=== PATIENT | female | born 1945 | race Caucasian/White ===

== ENCOUNTER → 2016-07-08 | Outpatient (CLI) | payer BC, OTHER ==
[~2016-07-08] MED LIST: AMX250 PO; BUPR-79 PO; DILT240C74 PO; GLIM4TAB2 PO; LEVO75TA5 PO; SEVE800T7 PO; SIMV20TA5 PO; VTMD PO
[2016-07-08 13:41] LABS: THYROID STIMULATING HORMONE 4.94 uIu/ml (0.300-4.500)
== END | disposition home or self-care (01) ==
LOC: C.LABMFLN 07:56
PROVIDERS: ATTEND Internal Medicine Pulmonary Disease
DX: E03.9 Hypothyroidism, unspecified (principal)

== ENCOUNTER → 2016-08-07 | Outpatient (CLI) | payer OTHER, BC | END | disposition home or self-care (01) | LOC: C.LABMFLN 13:21 | PROVIDERS: ATTEND Internal Medicine | DX: E03.9 Hypothyroidism, unspecified (principal) ==

== ENCOUNTER → 2016-11-13 | Outpatient (CLI) | payer OTHER, BC ==
--- NOTE | 2016-11-13 11:14 | DIAGNOSTIC IMAGING REPORT ---
LEFT THIGH ULTRASONOGRAPHY CLINICAL HISTORY: [id number] Blunt trauma of left thigh left thigh pain COMPARISON STUDY: No previous studies for comparison. FINDINGS: There is increase echogenicity within the subcutaneous fat of the left lateral thigh the level of bruising. This is likely posttraumatic. No well-defined hematoma is visualized. IMPRESSION: 1. No evidence of a well-defined hematoma 2. Increased echogenicity within the subcutaneous fat of the left lateral thigh, likely secondary to "bruising". Electronically signed by: Deshaun Singh M.D. 11/13/2016 11:13 AM Dictated Date/Time: 11/13/2016 11:12 AM
[2016-11-13 12:17] LABS: HEMATOCRIT 32.2 % (37-47); MEAN CELL VOLUME 94.7 fL (80-100); MEAN CORPUSCULAR HEMOGLOBIN 31.5 pg (25-34); MEAN CORPUSCULAR HGB CONC 33.2 g/dl (32-36); MEAN PLATELET VOLUME 9.5 fL (7.4-10.4); PLATELET COUNT 256 K/uL (130-400); WHITE BLOOD COUNT 8.74 K/uL (4.8-10.8)
[2016-11-13 12:42] LABS: ESTIMATED AVERAGE GLUCOSE 140 mg/dl; HA1C FLAG Normal (Normal)
[2016-11-13 12:59] LABS: ALB/GLOB RATIO 0.9 (0.9-2); ALKALINE PHOSPHATASE 66 U/L (45-117); ALT/SGPT 22 U/L (12-78); AST/SGOT 13 U/L (15-37); BLOOD UREA NITROGEN 59 mg/dl (7-18); BUN/CREATININE RATIO 6.6 (10-20); CALCIUM 8.8 mg/dl (8.5-10.1); CARBON DIOXIDE 23 mmol/L (21-32); CHLORIDE 102 mmol/L (98-107); CHOLESTEROL 175 mg/dl (0-200); CHOLESTEROL/HDL RATIO 5.3; GLUCOSE 119 mg/dl (70-99); HDL CHOLESTEROL 33 mg/dl; LDL CHOLESTEROL CALCULATED 96 mg/dl; POTASSIUM 3.6 mmol/L (3.5-5.1); SODIUM 140 mmol/L (136-145); TRIGLYCERIDES 230 mg/dl (0-150); VERY LOW DENSITY LIPOPROT CALC 46 mg/dl
== END | disposition home or self-care (01) ==
LOC: C.ULTR 09:37
PROVIDERS: ATTEND Internal Medicine
DX: S79.822A Other specified injuries of left thigh, initial encounter (principal); X58.XXXA Exposure to other specified factors, initial encounter; E78.5 Hyperlipidemia, unspecified; E03.9 Hypothyroidism, unspecified; N18.4 Chronic kidney disease, stage 4 (severe); E11.22 Type 2 diabetes mellitus with diabetic chronic kidney disease

== ENCOUNTER → 2017-02-03 | Outpatient (CLI) | payer OTHER, BC ==
--- NOTE | 2017-02-03 18:31 | DIAGNOSTIC IMAGING REPORT ---
CHEST 2 VIEWS ROUTINE CLINICAL HISTORY: ABNORMAL MAMMOGRAPHY, ACUTE CYSTITIS, ACUTE RENAL FAILURE cough. Dyspnea. COMPARISON STUDY: 10/13/2015 FINDINGS: The bones soft tissues and hemidiaphragms are normal. The cardiomediastinal silhouette is normal. The lungs are clear. The pulmonary vasculature is normal. IMPRESSION: Negative chest. The above report was generated using voice recognition software. It may contain grammatical, syntax or spelling errors. Electronically signed by: River Mcpherson M.D. 02/03/2017 6:30 PM Dictated Date/Time: 02/03/2017 6:29 PM
== END | disposition home or self-care (01) ==
LOC: C.RAD 17:38
PROVIDERS: ATTEND Physician Assistant
DX: N17.9 Acute kidney failure, unspecified (principal); N30.00 Acute cystitis without hematuria; R05 Cough; R92.8 Other abnormal and inconclusive findings on diagnostic imaging of breast

== ENCOUNTER → 2017-07-13 | Outpatient (CLI) | payer OTHER, BC ==
--- NOTE | 2017-07-13 16:01 | DIAGNOSTIC IMAGING REPORT ---
SINUSES MIN 3 VIEWS ROUTINE CLINICAL HISTORY: COUGH dyspnea COMPARISON STUDY: None FINDINGS: Normal evaluation of the sinuses. No significant mucosal thickening. No air-fluid levels. No bony destructive process. IMPRESSION: Normal study The above report was generated using voice recognition software. It may contain grammatical, syntax or spelling errors. Electronically signed by: River Mcpherson M.D. 07/13/2017 4:00 PM Dictated Date/Time: 07/13/2017 3:59 PM
--- NOTE | 2017-07-13 16:01 | DIAGNOSTIC IMAGING REPORT ---
CHEST 2 VIEWS ROUTINE CLINICAL HISTORY: COUGH dyspnea COMPARISON STUDY: 02/03/2017 FINDINGS: The bones soft tissues and hemidiaphragms are normal. The cardiomediastinal silhouette is normal. The lungs are clear. The pulmonary vasculature is normal. IMPRESSION: Negative chest. The above report was generated using voice recognition software. It may contain grammatical, syntax or spelling errors. Electronically signed by: River Mcpherson M.D. 07/13/2017 3:59 PM Dictated Date/Time: 07/13/2017 3:59 PM
== END | disposition home or self-care (01) ==
LOC: C.RAD1850 15:41
PROVIDERS: ATTEND Physician Assistant
DX: R05 Cough (principal)

== ENCOUNTER → 2017-07-21 | Outpatient (CLI) | payer BC, OTHER ==
--- NOTE | 2017-07-21 09:23 | DIAGNOSTIC IMAGING REPORT ---
GI SERIES W/AIR ROUTINE CLINICAL HISTORY: 72 years-old Female with R05 [id number]. Chronic cough with vomiting TECHNIQUE: A standard air contrast upper GI series was performed following administration of barium and effervescent crystals. Multiple spot fluoroscopic images were obtained and provided for review. COMPARISON STUDY: CT abdomen and pelvis 03/12/2014 FLUOROSCOPY TIME: 2.7 minutes. FINDINGS: The patient swallowed barium without difficulty. No aspiration was definitively visualized. The esophagus distended normally with barium and effervescent crystals. No strictures, mucosal ulcerations, or intraluminal mass lesions were identified involving the esophagus. There was no significant gastroesophageal reflux. Barium was seen to flow freely through the gastroesophageal junction. No active reflux was demonstrated with Valsalva maneuver. Evaluation of the stomach demonstrates no gastric mucosal irregularity or filling defect. The duodenal bulb and sweep appear unremarkable. IMPRESSION: Unremarkable upper GI series without significant gastroesophageal reflux identified. The above report was generated using voice recognition software. It may contain grammatical, syntax or spelling errors. Electronically signed by: Lanre Rice M.D. 07/21/2017 9:21 AM Dictated Date/Time: 07/21/2017 9:19 AM
== END | disposition home or self-care (01) ==
LOC: C.RAD 08:20
PROVIDERS: ATTEND Physician Assistant
DX: R05 Cough (principal)

== ENCOUNTER → 2017-07-27 | Outpatient (CLI) | payer OTHER ==
--- NOTE | 2017-07-27 15:53 | DIAGNOSTIC IMAGING REPORT ---
NUCLEAR PULMONARY VENTILATION/PERFUSION SCAN CLINICAL HISTORY: Atypical chest pain. Cough. COMPARISON STUDY: Chest x-ray dated 07/13/2017. TECHNIQUE: Initially, ventilation images of both lungs are obtained following the inhalation of 33 mCi of aerosolized technetium 99m DTPA. Subsequently, perfusion images of both lungs were obtained following the IV administration of 5.44 mCi of technetium 99m MAA. Ventilation and perfusion images were acquired in the anterior, posterior, and oblique projections. FINDINGS: A chest x-ray performed 07/13/2017 shows cardiomegaly. The lungs are clear. The ventilation of both lungs is heterogeneous with clumping of tracer within the central airways. This suggests obstructive physiology. Inhaled tracer is seen in the stomach. No perfusion defects are identified on the perfusion imaging. IMPRESSION: Findings are considered low probability for pulmonary embolus. Electronically signed by: Romel Regan M.D. 07/27/2017 3:52 PM Dictated Date/Time: 07/27/2017 3:50 PM
--- NOTE | 2017-07-27 16:04 | DIAGNOSTIC IMAGING REPORT ---
CHEST 2 VIEWS ROUTINE CLINICAL HISTORY: R41.89 Cognitive impairment, NUCL MED FIRST COMPARISON STUDY: 07/13/2017 FINDINGS: The bones soft tissues and hemidiaphragms are normal. The cardiomediastinal silhouette is normal. The lungs are clear. The pulmonary vasculature is normal. IMPRESSION: Negative chest. The above report was generated using voice recognition software. It may contain grammatical, syntax or spelling errors. Electronically signed by: River Mcpherson M.D. 07/27/2017 4:03 PM Dictated Date/Time: 07/27/2017 4:02 PM
== END | disposition home or self-care (01) ==
LOC: C.NUCL 14:40
PROVIDERS: ATTEND Physician Assistant
DX: R05 Cough (principal); R07.9 Chest pain, unspecified; R41.89 Other symptoms and signs involving cognitive functions and awareness

== ENCOUNTER → 2017-07-28 | Outpatient (CLI) | payer OTHER ==
[2017-07-28 16:46] LABS: BASO % 0.6 %; BASO ABS # 0.04 K/uL (0-0.2); EOS ABS # 0.22 K/uL (0-0.5); HEMATOCRIT 33.2 % (37-47); IG# 0.02 K/uL (0.00-0.02); LYMPH % 25.8 %; LYMPH ABS # 1.87 K/uL (1.2-3.4); MEAN CELL VOLUME 97.1 fL (80-100); MEAN CORPUSCULAR HEMOGLOBIN 32.2 pg (25-34); MEAN CORPUSCULAR HGB CONC 33.1 g/dl (32-36); MEAN PLATELET VOLUME 9.3 fL (7.4-10.4); MONO % 5.1 %; MONO ABS # 0.37 K/uL (0.11-0.59); NEUT % 65.2 %; NEUT ABS # 4.72 K/uL (1.4-6.5); PLATELET COUNT 245 K/uL (130-400); RED CELL DISTRIBUTION WIDTH CV 15.7 % (11.5-14.5); RED CELL DISTRIBUTION WIDTH SD 55.4 fL (36.4-46.3); WHITE BLOOD COUNT 7.24 K/uL (4.8-10.8)
[2017-07-28 16:56] LABS: INR 0.9 (0.9-1.1); PTT PATIENT 24.3 SECONDS (21.0-31.0)
[2017-07-28 17:49] LABS: ALBUMIN 3.4 gm/dl (3.4-5.0); ALKALINE PHOSPHATASE 77 U/L (45-117); ALT/SGPT 24 U/L (12-78); AST/SGOT 16 U/L (15-37); BLOOD UREA NITROGEN 62 mg/dl (7-18); CALCIUM 9.5 mg/dl (8.5-10.1); CARBON DIOXIDE 25 mmol/L (21-32); GLUCOSE 85 mg/dl (70-99); POTASSIUM 3.7 mmol/L (3.5-5.1); SODIUM 138 mmol/L (136-145); TOTAL PROTEIN 7.5 gm/dl (6.4-8.2)
== END | disposition home or self-care (01) ==
LOC: C.LAB1850 15:29
PROVIDERS: ATTEND Physician Assistant
DX: R06.2 Wheezing (principal)

== ENCOUNTER → 2017-09-21 | Outpatient (CLI) | payer OTHER, BC ==
--- NOTE | 2017-09-21 14:38 | DIAGNOSTIC IMAGING REPORT ---
VIDEO SWALLOW STUDY CLINICAL HISTORY: Dysphagia. COMPARISON STUDY: No priors. Fluoroscopy time: 2.4 minutes. FINDINGS: Fluoroscopic guidance was provided to the Department of speech pathology in performing a video swallow study. The patient consumed barium-impregnated cracker with paste, pudding, nectar thick liquid, and thin barium while the swallowing mechanism was observed in real-time. No penetration or aspiration was seen with any of the sampled textures. Esophageal dysmotility was noted and reflux was observed. IMPRESSION: 1. No penetration or aspiration was seen with any of the sampled textures. 2. Esophageal dysmotility and gastroesophageal reflux. 3. See dedicated speech pathology report for detailed findings and recommendations. Dictated: 09/21/2017 1:11 PM Transcribed: 09/21/2017 2:37 PM [facility] Electronically signed by: Romel Regan M.D. 09/21/2017 2:45 PM Dictated Date/Time: 09/21/2017 1:11 PM
--- NOTE | 2017-09-21 15:13 | SWALLOWING EVALUATION ---
HISTORY: This 72 year old woman was referred for a video swallow study at [facility] in order to rule out aspiration and identify the safest consistencies for optimal oral intake. Patient is c/o a persistent ongoing cough and throat clear that occurs both during the day, but can worsen at night. She feels as though at time she will cough on her own saliva. She has participated in many CXR's, most recent being on 07/27/17, which was clear. The patient also participated in an upper GI on 07/21/17 that was unremarkable. PMH is significant for hyperkalemia, ESRD, and diabetes. Current diet is regular. PROCEDURE: The patient was seen in the Radiology Department of [facility] for the VFSS. Cursory examination of the oral cavity revealed the patient to have natural upper and lower dentition in fair condition with scattered missing. Movement of the articulators was wnl. The patient was seated upright on a stool and was viewed in both the Anterior-Posterior (A-P) and Lateral planes. Volitional phonation exercises completed in the A-P plane revealed bilateral vocal fold movement. Vocal intensity was wnl. The patient was noted to have ongoing dry cough and throat clearing prior to and throughout the assessment. Vocal quality was normal. In the lateral plane, the patient was given the following boluses: 1 tsp. thin liquid barium x 2, single swallow thin liquid barium self-presented from a cup, sequential swallows of thin liquid barium self-presented from a cup and straw, 1 tsp. nectar-thick liquid barium, single swallow nectar-thick liquid barium self-presented from a cup, 1 tsp. barium pudding, and 1 club cracker coated in barium pudding. The patient was then repositioned into the A-P plane and given the following boluses: 1 tsp. nectar thick barium and 1 tsp. barium pudding. RESULTS: Oral Stage: Lip closure was adequate. The patient was able to maintain a cohesive liquid bolus in the oral cavity during the liquid bolus hold task. Mastication was mildly slow. Lingual motion for bolus transport was also noted to be mildly slow. There was retention lining the tongue and palate after the initial swallow. The initiation of the pharyngeal swallow was delayed occurred when the bolus head reached the valleculae. Pharyngeal Stage: Soft palate elevation was complete. Laryngeal elevation revealed partial superior movement of the thyroid cartilage and partial approximation of the arytenoids to the epiglottic base. Anterior hyoid excursion was complete. Epiglottic deflection was complete. Laryngeal vestibular closure was complete. The pharyngeal stripping wave was present and complete. Pharyngeal contraction was complete. There was complete distention and duration of the opening to the pharyngoesophageal segment (PES). Tongue base retraction was partially reduced with a narrow column of contrast located between the tongue base and pharyngeal wall during the swallow. There was retention located in the valleculae after the swallow. There was no evidence of aspiration for this study. Mild vallecular retention cleared with a second swallow. Coughing and throat clearing noted during the study was not related to aspiration. Esophageal stage: There was evidence of mid to distal esophageal retention with retrograde flow below the PES. A liquid wash assisted to clear some of the retention but not fully. This is suggestive of esophageal dysmotility and reflux. SUMMARY/RECOMMENDATIONS: This patient presents with mild wai-pharyngeal dysphagia. She also has evidence of esophageal dysfunction. The following is recommended: 1. Regular diet, thin liquids. 2. Aspiration and GERD precautions. Straws OK. Fully upright for meals and for 30 minutes after meals. Do not lay flat, elevate head of the bed to at least 30 degrees at all time, to include while sleeping. 3. Safe swallow strategies: Alternate solids and liquids. 4. Consider follow up with an ENT due to persistent cough and throat clearing. A summary of the results and recommendations was discussed with the patient with verbal understanding. Thank you for referral of this patient. Please contact me at if any additional information is needed.
== END | disposition home or self-care (01) ==
LOC: C.RAD 11:03
PROVIDERS: ATTEND Physician Assistant
DX: R13.10 Dysphagia, unspecified (principal); K21.9 Gastro-esophageal reflux disease without esophagitis; K22.4 Dyskinesia of esophagus

== ENCOUNTER → 2017-10-08 | Outpatient (CLI) | payer OTHER, BC | END | disposition home or self-care (01) | LOC: C.LABSPEC 09:22 | PROVIDERS: ATTEND Physician Assistant | DX: R05 Cough (principal) ==

== ENCOUNTER 2018-01-02 09:56 | Emergency (ER) | payer OTHER, BC ==
[~2018-01-02] VITALS: Ht 157.5 cm; Wt 87.0 kg
[~2018-01-02 09:56] MED LIST changes: +ISR/30 PO; +MULT-650 PO; -VTMD PO; +lasix PO
[2018-01-02 10:01] VITALS: TEMP 36.6; Ht 157.5 cm; Wt 87.0 kg
[2018-01-02] MEDS ORDERED: IBUPROFEN 600 MG TAB PO STA (10:17)
[2018-01-02] MEDS ORDERED: HYDROCODONE/ACETAMIN 5/325MG TAB PO STA (10:17)
--- NOTE | 2018-01-02 10:21 | EMERGENCY ROOM VISIT NOTE ---
History Report prepared by Prieto: Eliane Thornton Under the Supervision of: Dr. Galina Batres M.D. First contact with patient: 10:08 Chief Complaint: KNEEPAIN Stated Complaint: PAIN IN RT KNEE History of Present Illness The patient is a 72 year old female who presents to the Emergency Room with complaints of right knee pain beginning 2 nights ago. She states that the pain is behind her right knee and that it woke her up from sleep 2 nights ago. The patient states that her pain does not radiate down her leg. She reports that her knee basically hurts all the time but states that walking exacerbates her pain. She states that last night she was able to sleep as she placed ice packs on her knee but states that it is still painful. The patient states that her family wanted to take her to the hospital yesterday but that she did not want to go as she thought that it would go away. She denies any injury to the area and states that she was not doing anything unusual the day before her pain started. She states that she has had back surgery before but reports that she has not seen an orthopedic doctor recently. She does report having lower back pain with movement. She denies having trouble with her bowels or bladder. The patient also reports a history of gout, kidney failure, and asthma. She states that she has peritoneal dialysis and states that she makes some urine. Source of History: patient Onset: 2 nights ago Position: knee (left) Quality: other (pain) Timing: constant Modifying Factors (Worsening): movement (walking) Modifying Factors (Relieving): ice Associated Symptoms: + back pain, No urinary symptoms Review of Systems See HPI for pertinent positives & negatives. A total of 10 systems reviewed and were otherwise negative. Past Medical & Surgical Medical Problems: (1) Asthma (2) Diabetes (3) Dialysis patient (4) ESRD on peritoneal dialysis (5) Gout (6) Kidney failure Family History Cancer Diabetes mellitus Heart disease Hypertension Social History Smoking Status: Never Smoker Marital Status: Occupation Status: employed Current/Historical Medications Scheduled Budesonide/Formoterol Fumarate (Symbicort 160/4.5 Inhaler ), 2 PUFFS INH BID Bupropion (Wellbutrin Sr), 150 MG PO QAM Diltiazem Hcl Extended Release (Diltiazem Hcl Er), 240 MG PO QAM Furosemide (Lasix), 40 MG PO DAILY Glimepiride (Glimepiride), 4 MG PO QAM Isosorbide Dinitrate (Isordil), 30 MG PO DAILY Isosorbide Mononitrate Ext Rel (Imdur Ext Rel), 60 MG PO QAM Levothyroxine Sodium (Levothyroxine Sodium), 150 MCG PO QAM Lorazepam (Ativan), 0.5 MG PO QID Montelukast Sodium (Singulair), 10 MG PO DAILY Multiple Vitamins W/ Minerals (Prorenal Qd), 1 CAP PO DAILY Ropinirole (Requip), 0.25 MG PO HS Sevelamer Carbonate (Renvela), 1,600 MG PO TIDM Sevelamer Carbonate (Renvela), 800 MG PO WITH SNACKS Simvastatin (Zocor), 20 MG PO QPM Scheduled PRN Hydrocodone/Acetaminophen 5MG/325MG ([place] 5MG/325MG), 1 TABLET PO Q6 PRN for Pain Allergies Coded Allergies: Nickel (Verified Allergy, Unknown, RASH, 12/06/17) Nitrofurantoin (Verified Allergy, Unknown, REDNESS AND BURNING OF HANDS, ) Physical Exam Vital Signs Date Time Temp Pulse Resp B/P (MAP) Pulse Ox O2 Delivery O2 Flow Rate FiO2 01/02/18 11:59 58 155/63 97 01/02/18 11:46 58 155/63 97 Room Air 01/02/18 10:01 36.6 78 20 /183 99 Room Air Physical Exam Vital signs reviewed. General: Well-appearing female, in no significant distress. HEENT: No scleral icterus, PERRLA, neck supple. Atraumatic. Cardiovascular: Regular rate and rhythm, no extra sounds. Pulmonary: Clear to auscultation bilaterally, normal work of breathing. Abdomen: Soft, nontender, nondistended, positive bowel sounds. Musculoskeletal: Atraumatic. Tenderness to the medial joint line to the right knee. No appreciable joint effusion. Minimal peripheral edema to the right leg. Pain with valgus stress. Neurologic: Patient awake alert and oriented x 3 Skin: Warm, dry, no rash Medical Decision & Procedures ER Provider Diagnostic Interpretation: Radiology results as stated below per my review and radiologist interpretation: R KNEE 1 OR 2 VIEWS ROUTINE CLINICAL HISTORY: Medial right knee pain. No injury. COMPARISON: None FINDINGS: Alignment of the right knee is anatomic. There is no fracture. Equivocal joint effusion is noted. This may be artifactual. Joint spaces are preserved. There is minimal osteophytosis within the medial and patellofemoral compartments. Extensive vascular calcification is noted. IMPRESSION: 1. No acute fracture. 2. Minimal osteoarthritis of the right knee. 3. Possible right knee joint effusion, likely artifactual. Electronically signed by: Kevin Thompson M.D. 01/02/2018 10:38 AM Dictated Date/Time: 01/02/2018 10:36 AM Medications Administered Medications (Trade) Dose Ordered Sig/Stuart Route Start Time Stop Time Status Last Admin Dose Admin Acetaminophen/ Hydrocodone Bitart ([place] 5/325 Tab) 1 tab NOW STAT PO 01/02/18 10:17 01/02/18 10:20 DC 01/02/18 10:28 1 TAB ED Course 1013: Past medical records reviewed. The patient was evaluated in room B4B. A complete history and physical examination was performed. 1120: I reevaluated the patient. 1146: I discussed findings with her. She verbalized agreement of the treatment plan. She was discharged home. Medical Decision Differential diagnosis: Etiologies such as fracture, dislocation, neurovascular compromise, compartment syndrome, soft tissue injury, as well as others were entertained. This patient was evaluated and appeared to be in no significant distress. Physical examination is consistent with a right medial knee pain. X-rays were repeated and revealed no significant acute abnormality. Patient was placed in a knee immobilizer and given a walker to reduce the weightbearing activity. Patient was given a [place] tablet in the emergency department. She was given a prescription for several pills. Patient will follow-up with orthopedic surgery. She has been referred to [place] [facility] for her back but " just did not make the appointment." She was encouraged to call our office this week to establish care. She may require further imaging. She was discharged to the care of her son and will return to the ED for worsening of symptoms or any medical concerns. Medication Reconcilliation Current Medication List: was personally reviewed by me Blood Pressure Screening Patient's blood pressure: Normal blood pressure Impression Primary Impression: Right medial knee pain Scribe Attestation The scribe's documentation has been prepared under my direction and personally reviewed by me in its entirety. I confirm that the note above accurately reflects all work, treatment, procedures, and medical decision making performed by me. Departure Information Dispostion Home / Self-Care Prescriptions Hydrocodone/Acetaminophen 5MG/325MG ([place] 5MG/325MG) Tab 1 TABLET PO Q6 Y for Pain, #14 TAB PRN PAIN Prov: Galina Batres M.D. 01/02/18 Referrals Carolina Vega M.D. (PCP) Spencer Funez M.D. Forms HOME CARE DOCUMENTATION FORM, IMPORTANT VISIT INFORMATION Patient Instructions My [facility] Additional Instructions Diagnosis: Right medial knee pain Please avoid ibuprofen due to your kidney disease. [place] 1 tablet every 6 hours as needed for severe pain. This does contain 325 mg of acetaminophen, please use caution when taking additional Tylenol. No more than 3000 mg in 1 day. Ice and elevate the knee. Wear the knee immobilizer when on your feet. Use the walker for assistance with ambulation. Follow-up with [facility] this week for reevaluation. Return to the ED for worsening of symptoms or any medical concerns.
--- NOTE | 2018-01-02 10:39 | DIAGNOSTIC IMAGING REPORT ---
R KNEE 1 OR 2 VIEWS ROUTINE CLINICAL HISTORY: Medial right knee pain. No injury. COMPARISON: None FINDINGS: Alignment of the right knee is anatomic. There is no fracture. Equivocal joint effusion is noted. This may be artifactual. Joint spaces are preserved. There is minimal osteophytosis within the medial and patellofemoral compartments. Extensive vascular calcification is noted. IMPRESSION: 1. No acute fracture. 2. Minimal osteoarthritis of the right knee. 3. Possible right knee joint effusion, likely artifactual. Electronically signed by: Kevin Thompson M.D. 01/02/2018 10:38 AM Dictated Date/Time: 01/02/2018 10:36 AM
[2018-01-02] MEDS ORDERED: ISOS60TA25 PO (11:08)
[2018-01-02] MEDS ORDERED: FRS/40 PO (11:08)
[2018-01-02] MEDS ORDERED: ROPI0.25 PO (11:08)
[2018-01-02] MEDS ORDERED: LORA-741 PO (11:08)
[2018-01-02] MEDS ORDERED: SYMIN160 INH (11:08)
[2018-01-02] MEDS ORDERED: MONT1TAB3 PO (11:08)
[2018-01-02] MEDS ORDERED: HYDR-5688 PO (11:47)
[2018-01-02 11:59] VITALS: BP 155/63; PULSE 58; O2SAT 97
== END 2018-01-02 12:01 | disposition home or self-care (01) ==
LOC: C.EDB 09:57
DX: M25.561 Pain in right knee (principal); J45.909 Unspecified asthma, uncomplicated; E11.9 Type 2 diabetes mellitus without complications; N18.6 End stage renal disease; Z99.2 Dependence on renal dialysis; N17.9 Acute kidney failure, unspecified; Z88.8 Allergy status to other drugs, medicaments and biological substances

== ENCOUNTER 2018-06-22 09:31 | Inpatient (IN) ==
[2018-06-22] MEDS ORDERED: ONDANSETRON INJ 2 MG/ML 2 ML VIAL IV STA ×2 (09:46→09:58)
[2018-06-22] MEDS ORDERED: SODIUM CHLORIDE 0.9% 1000ML 1,000 ML IV SCH (10:00)
[2018-06-22 10:38] LABS: Basophils # (auto) 0.01 K/uL (0-0.2); Basophils % (auto) 0.3 %; Hematocrit (blood only) 29.5 % (37-47); Hemoglobin 9.5 g/dL (12.0-16.0); Immature Granulocytes # (auto) 0.01 K/uL (0.00-0.02); Immature Granulocytes % (auto) 0.3 %; Lymphocytes # (auto) 0.66 K/uL (1.2-3.4); Lymphocytes % (auto) 17.8 %; Mean Corpuscular Hgb Conc 32.2 g/dL (32-36); Mean Corpuscular Volume 98.3 fL (80-100); Mean Platelet Volume 9.7 fL (7.4-10.4); Monocytes # (auto) 0.63 K/uL (0.11-0.59); Neutrophils # (auto) 2.39 K/uL (1.4-6.5); Neutrophils % (auto) 64.6 %; Platelet Count 207 K/uL (130-400); RDW Coefficient of Variation 15.7 % (11.5-14.5); RDW Standard Deviation 56.2 fL (36.4-46.3)
[2018-06-22 10:42] LABS: iSTAT Hemoglobin 9.2 g/dl (12.0-16.0); iSTAT Ionized Calcium 1.1 mmol/l (1.12-1.32)
[2018-06-22 11:05] LABS: Albumin Globulin Ratio 0.9 (0.9-2); Albumin Level 3.3 gm/dl (3.4-5.0); BUN Creatinine Ratio 5.6 (10-20); Bilirubin,Total 0.5 mg/dl (0.2-1); Calcium 8.9 mg/dl (8.5-10.1); Creatinine Clr Calc Pharmacy 5.4 ml/min; Est GFR (African American) 4.4; Est GFR (Non-African American) 3.8; Globulin 3.8 gm/dl (2.5-4.0); Potassium 4.3 mmol/L (3.5-5.1); Total Protein 7.1 gm/dl (6.4-8.2)
[2018-06-22] MEDS ORDERED: IOVERSOL 100ml IV PRN (11:09)
--- NOTE | 2018-06-22 11:40 | CT Scan Report ---
CT abd pelvis IV con only CLINICAL HISTORY: 73 years-old Female presenting with abd pain w/ vomiting and ams . TECHNIQUE: Multidetector CT of the abdomen and pelvis was performed after the administration of intra venous contrast. IV contrast: 94 mL of Optiray 320. One or more dose lowering techniques were used co nsistent with the principles of ALARA (as low as reasonably achievable), including automatic exposure control, mA or kV adjustment to individual patient size, and/or use of iterative reconstruction. COMPARISON: 01/25/2018. CT DOSE (mGy.cm): The estimated cumulative dose is 897.87 mGycm. FINDINGS: Project Associate topogram: Partially visualized dialysis catheter terminating in the superior cavoatrial junctio n. Lung bases: Minimal dependent changes likely atelectasis. Mild mosaic attenuation. Smooth interlobula r septal thickening most pronounced at the right lung base. Pulmonary arteries are mildly enlarged re lative to adjacent bronchi. Multichamber enlargement of the heart. Coronary artery and mitral annular calcification. Small right pleural effusion. No pericardial effusion. Liver: Normal morphology. No liver lesion. Patent hepatic vasculature. Periportal edema suggested. Biliary: No intrahepatic or extrahepatic biliary ductal dilatation. Normal gallbladder. Pancreas: Mild parenchymal atrophy. Spleen: Normal. Adrenal glands: Bilateral thickening of the adrenal glands, nonspecific and unchanged from prior. Kidneys and ureters: Numerous cysts noted throughout both kidneys. Interval development of mild bilat eral perinephric fat stranding, which is new from prior. There is also trace fluid at the inferior po le of the right kidney allowing for motion artifact. No hyperdense lesion is evident. Some of the cys ts demonstrate thin mural calcification in the left kidney (Bosniak 2). No convincing evidence of a s olid renal lesion. No nephrolithiasis or hydronephrosis. Ureters nondistended. Bladder: The configuration of the bladder suggests pelvic ligamentous laxity. Bladder otherwise ayleen l. Pelvic organs: Uterus surgically absent. Bowel: Pancolonic diverticulosis. Mild to moderate colonic wall thickening extending from the rectum proximally involving the sigmoid, transverse, and ascending colon. The descending colon is relatively spared. There is mild pericolonic infiltration along the proximal transverse colon. No bowel obstruc tion. The appendix is normal. Trace hiatal hernia. Peritoneal cavity: Small volume free fluid in the pelvis, which is simple appearing. No free intraper itoneal gas. The peritoneal dialysis catheter has been removed. Lymph nodes: Prominent lymph node in the portacaval region is nonspecific. No pathologically enlarged lymph nodes by CT size criteria. Vasculature: Atherosclerosis of the normal caliber abdominal aorta. IVC patent. Abdominal wall: Fat and fluid containing hernia in the ventral abdomen associated with a surgical inc ision site area and the peritoneal dialysis catheter is no longer in place. Musculoskeletal: Degenerative changes of the spine. IMPRESSION: 1. Interval development of perinephric fluid and inflammatory change. This may suggest superimposed pyelonephritis or be due to a manifestation of volume overload. Correlate with urinalysis. 2. Significant colonic wall thickening involving the rectum though largely sparing the cecum and asc ending colon. This is most consistent with an infectious proctocolitis. 3. Pancolonic diverticulosis. Focal pericolonic inflammatory change in the proximal transverse colon . It is difficult to exclude an acute uncomplicated diverticulitis in the region. 4. Interval removal of the peritoneal dialysis catheter. 5. Small volume free fluid in the pelvis nonspecific and may relate to volume overload. 6. Small right pleural effusion and evidence of volume overload/congestive change at the lung bases. No charleen pulmonary edema. 7. Polycystic kidneys. No solid renal mass. Electronically signed by: Armando Lorenzo M.D. 06/22/2018 11:39 AM
[2018-06-22] MEDS ORDERED: metroNIDAZOLE 500 MG/100 ML BAG IV STA (11:42)
[2018-06-22] MEDS ORDERED: PIPERACILL/TAZOBAC CONSULT ACTIVE PRN (11:42)
[2018-06-22] MEDS ORDERED: PIPERACILLIN/TAZOBACTAM 4.5 GM/120 ML BAG IV ONE (11:42)
[2018-06-22] MEDS ORDERED: LORazepam 1 MG/2 ML VIAL IV STA (12:10)
--- NOTE | 2018-06-22 12:27 | Emergency Department Note ---
Entered by Will Frost acting as a scribe for History of Present Illness General Chief complaint: Diarrhea Time Seen by Provider: 06/22/18 09:37 Source: patient Limitations: altered mental status History of Present Illness Provider complaint: Vomiting/Diarrhea Onset (ago): month(s) 1 Location: abdomen Pain Consistency: + other (persistent) Quality: + other (Vomiting, diarrhea ) Treatments prior to arrival: other (Antibiotics for C. Diff) This history is limited secondary to confusion in the patient. The patient is a 73 year old female who presents to the Emergency Room with complaints of persistent vomiting and diarrhea. It is difficult to obtain a sufficient timeline from the patient. Her son arrived at bedside who states that the patient's vomiting and diarrhea both began around [place] time, 1 month ago. He notes that the nausea and vomiting went on for about 9 days before she first came to the emergency department at the beginning of this month. She was treated with a bag of fluids and discharged home. The vomiting and diarrhea persisted and she checked back into the department a few days later. On this visit the patient was diagnosed with C. diff and started on Antibiotics. The son estimates that she finished the antibiotics about 1 week ago, and the symptoms returned shortly thereafter. He also adds that upon EMS arrival the patient's blood sugar was 27. The patient is a dialysis patient on the Wednesday, Wednesday, Wednesday schedule. She last received treatment yesterday. The patient does still produce her own urine, and denies any burning/other urinary symptoms. She has developed a new cough over the past couple of days. Home Medications Home Medications Medication Instructions Recorded Confirmed Type glimepiride 4 mg PO QAM #0 12/09/12 06/22/18 History simvastatin 20 mg PO HS #0 tab 10/13/15 06/22/18 History diltiazem HCl 240 mg PO QAM 04/26/18 06/22/18 History ferric citrate [Auryxia] 210 mg PO TID 04/26/18 06/22/18 History furosemide 80 mg PO BID 04/26/18 06/22/18 History isosorbide mononitrate 120 mg PO QAM 04/26/18 06/22/18 History lorazepam 0.25 - 0.5 mg PO BID PRN 04/26/18 06/22/18 History meloxicam 15 mg PO QAM 04/26/18 06/22/18 History montelukast 10 mg PO QAM 04/26/18 06/22/18 History mv,Pv-GO-[id number]-mlh-epa-fish 1 cap PO QAM 04/26/18 06/22/18 History [ProRenal QD] tiotropium bromide [Spiriva 2 puff INHALATION QAM 04/26/18 06/22/18 History Respimat] ondansetron HCl [Zofran] 4 mg PO DAILY #6 tab 05/31/18 06/22/18 Rx bupropion HCl 150 mg PO QAM 06/03/18 06/22/18 History levothyroxine [Synthroid] 175 mcg PO QAM #30 tab 06/03/18 06/22/18 Rx vancomycin 125 mg PO Q6H #40 cap 06/03/18 06/22/18 Rx Allergies Allergy/AdvReac Type Severity Reaction Status Date / Time nickel Allergy Unknown RASH Verified 06/22/18 11:23 nitrofurantoin Allergy Unknown REDNESS Verified 06/22/18 11:23 AND BURNING OF HANDS Past Med/Surg History Medical History Diabetes NIDDM Dialysis patient (Chronic) Kidney failure (Chronic) Gout Asthma AV fistula LUE; "MALFUNCTIONING"= REASON FOR PROCEDURE Anemia CHRONIC; BASELINE HGB 9'S PER CHART REVIEW Anxiety Degenerative disc disease ESRD on hemodialysis MWF Hearing deficit Hyperkalemia Hyperlipidemia Hypertension Hypothyroidism Kidney stones Obesity Osteoarthritis Polycystic kidney disease Restless leg syndrome Surgical History History of arteriovenous graft LUE AVF History of bronchoscopy History of colonoscopy History of hammer toe correction History of hysterectomy History of lumbar surgery History of surgery PERITONEAL DIALYSIS CATHETER PLACEMENT PERITONEAL DIALYSIS CATHETER REMOVAL/PERMACATH INSERTION= 01/27/18= MAC SEDATION AT [facility] History of total abdominal hysterectomy and bilateral salpingo-oophorectomy Family History Other No significant family history Social History Current Living Situation: Family Current Living Situation Comment: lives with sister Other Information That Helps Us Care for You: No Feels Safe at Home: Yes Safety Concerns: Feels Safe At This Time Smoking Status: Never smoker Second Hand Exposure: No Hx Alcohol Use: No Hx Substance Use: No Beliefs That Will Affect Care: None Preferred Language: Nepali Communication Ability: Effective Review of Systems See HPI for pertinent positives & negatives. and A total of 10 systems reviewed and were otherwise negative Physical Exam Vital Signs Vital Signs - 24 hr 06/22/18 09:36 06/22/18 09:41 06/22/18 09:46 Temperature 37.3 C Temperature Source Oral Sepsis Recent Fever Within 48 Hours No Sepsis Action Taken by Nursing No Action Required Pulse Rate 82 81 85 Pulse Rhythm [Right Finger] Regular Pulse Strength [Right Finger] Normal Respiratory Rate 24 17 22 Respiratory Effort / Characteristics Non-Labored Respiratory Depth Normal Respiratory Pattern Regular Blood Pressure 189/92 H 189/92 H Blood Pressure Mean 124 124 Blood Pressure Position Lying Blood Pressure Position [Right Arm] Sitting Pulse Oximetry 97 97 96 Oxygen Delivery Method Room Air 06/22/18 09:47 06/22/18 09:50 06/22/18 10:00 Temperature Temperature Source Sepsis Recent Fever Within 48 Hours Sepsis Action Taken by Nursing Pulse Rate 82 92 H Pulse Rhythm [Right Finger] Pulse Strength [Right Finger] Respiratory Rate 19 22 Respiratory Effort / Characteristics Respiratory Depth Respiratory Pattern Blood Pressure Blood Pressure Mean Blood Pressure Position Blood Pressure Position [Right Arm] Pulse Oximetry 97 98 96 Oxygen Delivery Method Room Air 06/22/18 10:10 06/22/18 10:20 06/22/18 10:30 Temperature Temperature Source Sepsis Recent Fever Within 48 Hours Sepsis Action Taken by Nursing Pulse Rate 84 78 80 Pulse Rhythm [Right Finger] Pulse Strength [Right Finger] Respiratory Rate 23 24 16 Respiratory Effort / Characteristics Respiratory Depth Respiratory Pattern Blood Pressure Blood Pressure Mean Blood Pressure Position Blood Pressure Position [Right Arm] Pulse Oximetry Oxygen Delivery Method 06/22/18 10:40 06/22/18 10:50 06/22/18 11:00 Temperature Temperature Source Sepsis Recent Fever Within 48 Hours Sepsis Action Taken by Nursing Pulse Rate 79 81 80 Pulse Rhythm [Right Finger] Pulse Strength [Right Finger] Respiratory Rate 22 19 18 Respiratory Effort / Characteristics Respiratory Depth Respiratory Pattern Blood Pressure Blood Pressure Mean Blood Pressure Position Blood Pressure Position [Right Arm] Pulse Oximetry Oxygen Delivery Method 06/22/18 11:39 06/22/18 11:40 06/22/18 11:48 Temperature Temperature Source Sepsis Recent Fever Within 48 Hours Sepsis Action Taken by Nursing Pulse Rate 88 86 Pulse Rhythm [Right Finger] Pulse Strength [Right Finger] Respiratory Rate 21 23 Respiratory Effort / Characteristics Respiratory Depth Respiratory Pattern Blood Pressure 194/83 H Blood Pressure Mean 120 Blood Pressure Position Blood Pressure Position [Right Arm] Pulse Oximetry 94 Oxygen Delivery Method Room Air 06/22/18 11:50 06/22/18 12:00 06/22/18 12:01 Temperature Temperature Source Sepsis Recent Fever Within 48 Hours Sepsis Action Taken by Nursing Pulse Rate 87 92 H 91 H Pulse Rhythm [Right Finger] Pulse Strength [Right Finger] Respiratory Rate 19 16 12 Respiratory Effort / Characteristics Respiratory Depth Respiratory Pattern Blood Pressure 192/89 H Blood Pressure Mean 123 Blood Pressure Position Blood Pressure Position [Right Arm] Pulse Oximetry Oxygen Delivery Method 06/22/18 12:10 06/22/18 12:20 06/22/18 12:30 Temperature Temperature Source Sepsis Recent Fever Within 48 Hours Sepsis Action Taken by Nursing Pulse Rate 90 83 81 Pulse Rhythm [Right Finger] Pulse Strength [Right Finger] Respiratory Rate 13 29 H 25 H Respiratory Effort / Characteristics Respiratory Depth Respiratory Pattern Blood Pressure Blood Pressure Mean Blood Pressure Position Blood Pressure Position [Right Arm] Pulse Oximetry Oxygen Delivery Method 06/22/18 12:31 06/22/18 12:40 06/22/18 12:50 Temperature Temperature Source Sepsis Recent Fever Within 48 Hours Sepsis Action Taken by Nursing Pulse Rate 82 80 80 Pulse Rhythm [Right Finger] Pulse Strength [Right Finger] Respiratory Rate 30 H 33 H 26 H Respiratory Effort / Characteristics Respiratory Depth Respiratory Pattern Blood Pressure 179/87 H Blood Pressure Mean 117 Blood Pressure Position Blood Pressure Position [Right Arm] Pulse Oximetry Oxygen Delivery Method 06/22/18 13:00 06/22/18 13:01 06/22/18 13:10 Temperature Temperature Source Sepsis Recent Fever Within 48 Hours Sepsis Action Taken by Nursing Pulse Rate 78 78 82 Pulse Rhythm [Right Finger] Pulse Strength [Right Finger] Respiratory Rate 25 H 28 H 23 Respiratory Effort / Characteristics Respiratory Depth Respiratory Pattern Blood Pressure 172/82 H Blood Pressure Mean 112 Blood Pressure Position Blood Pressure Position [Right Arm] Pulse Oximetry Oxygen Delivery Method 06/22/18 13:20 06/22/18 13:30 06/22/18 13:31 Temperature Temperature Source Sepsis Recent Fever Within 48 Hours Sepsis Action Taken by Nursing Pulse Rate 77 81 80 Pulse Rhythm [Right Finger] Pulse Strength [Right Finger] Respiratory Rate 30 H 20 25 H Respiratory Effort / Characteristics Respiratory Depth Respiratory Pattern Blood Pressure 175/69 H Blood Pressure Mean 104 Blood Pressure Position Blood Pressure Position [Right Arm] Pulse Oximetry Oxygen Delivery Method 06/22/18 13:40 06/22/18 13:50 06/22/18 14:00 Temperature Temperature Source Sepsis Recent Fever Within 48 Hours Sepsis Action Taken by Nursing Pulse Rate 81 86 82 Pulse Rhythm [Right Finger] Pulse Strength [Right Finger] Respiratory Rate 22 17 30 H Respiratory Effort / Characteristics Respiratory Depth Respiratory Pattern Blood Pressure Blood Pressure Mean Blood Pressure Position Blood Pressure Position [Right Arm] Pulse Oximetry Oxygen Delivery Method 06/22/18 14:01 06/22/18 14:10 06/22/18 14:20 Temperature Temperature Source Sepsis Recent Fever Within 48 Hours Sepsis Action Taken by Nursing Pulse Rate 82 82 87 Pulse Rhythm [Right Finger] Pulse Strength [Right Finger] Respiratory Rate 22 30 H 24 Respiratory Effort / Characteristics Respiratory Depth Respiratory Pattern Blood Pressure 191/84 H Blood Pressure Mean 119 Blood Pressure Position Blood Pressure Position [Right Arm] Pulse Oximetry Oxygen Delivery Method 06/22/18 14:32 Temperature Temperature Source Sepsis Recent Fever Within 48 Hours Sepsis Action Taken by Nursing Pulse Rate Pulse Rhythm [Right Finger] Pulse Strength [Right Finger] Respiratory Rate Respiratory Effort / Characteristics Respiratory Depth Respiratory Pattern Blood Pressure Blood Pressure Mean Blood Pressure Position Blood Pressure Position [Right Arm] Pulse Oximetry Oxygen Delivery Method Room Air GENERAL: Sitting up in bed, alert, Chronically ill appearing, disheveled, non- toxic EYE EXAM: normal conjunctiva. PERRL and EOM's intact. OROPHARYNX: no exudate, no erythema, lips, buccal mucosa, and tongue normal and mucous membranes are moist NECK: supple, no nuchal rigidity, no adenopathy, non-tender LUNGS: Diminished at bilateral bases. Normal chest wall mechanics HEART: no murmurs, S1 normal and S2 normal ABDOMEN: abdomen soft, diffusely tender, normo-active bowel, sounds, no masses, no rebound or guarding. BACK: Back is symmetrical on inspection and there is no deformity, no midline tenderness, no CVA tenderness. SKIN: no rashes and no bruising UPPER EXTREMITIES: upper extremities are grossly normal. There is a fistula in place in the left upper extremity, positive thrill. LOWER EXTREMITIES: No pitting edema. NEURO EXAM: Awake, alert, confused to events in history. Cranial nerves II-XII intact. No weakness of upper or lower extremities. No drift. Course ED COURSE: Vital signs were reviewed and showed hypertension The patients medical record was reviewed The above diagnostic studies were performed and reviewed. ED treatments and interventions as stated above. 0939: The patient was evaluated in room B8. A complete history and physical examination was performed. 1144: Upon reevaluation, the patient is resting in bed. I discussed my findings with the patient and she understands and agrees with the treatment plan. Based on the patients age, coexisting illnesses, exam and lab findings the decision to treat as an inpatient was made. The patient remained stable while under my care. The patient will be evaluated for further management. 1151: I reviewed the patient's case with Dr. Thad HERNANDEZ Hospitalist. He will evaluate the patient for further management. Consultations Consultation #1: 1151: I reviewed the patient's case with Dr. Thad HERNANDEZ Hospitalist. He will evaluate the patient for further management. Administered Medications Discontinued Medications Dextrose (Dextrose 50%) Confirm Administered Dose 50 ml IV .STK-MED ONE Stop: 06/22/18 15:07 Last Admin: 06/22/18 15:15 Dose: 50 ml Sodium Chloride (Nss 1000ml) 1,000 mls @ 999 mls/hr IV .Q1H1M VESTA Stop: 06/22/18 11:00 Last Infusion: 06/22/18 12:44 Dose: 0 mls/hr Admin: 06/22/18 10:04 Dose: 999 mls/hr Piperacillin Sod/Tazobactam Sod (Zosyn) 4.5 gm in 120 mls @ 240 mls/hr IV NOW ONE Stop: 06/22/18 12:11 Last Infusion: 06/22/18 12:44 Dose: 0 mls/hr Admin: 06/22/18 12:00 Dose: 240 mls/hr Metronidazole (Flagyl) 500 mg in 100 mls @ 100 mls/hr IV NOW STA Stop: 06/22/18 12:41 Last Infusion: 06/22/18 13:48 Dose: Admin: 06/22/18 13:25 Dose: 100 mls/hr Lorazepam (Ativan) 1 mg in 2 mls @ 2 mls/min IV NOW STA Stop: 06/22/18 12:11 Last Admin: 06/22/18 12:15 Dose: 2 mls/min Ioversol (Optiray 320 100ml) 94 ml IV ONCE PRN PRN Reason: Interaction Checking Stop: 06/26/18 11:08 Last Admin: 06/22/18 11:10 Dose: 94 ml Ondansetron HCl (Zofran) 4 mg IV NOW STA Stop: 06/22/18 09:47 Last Admin: 06/22/18 10:04 Dose: 4 mg Ondansetron HCl (Zofran) 4 mg IV NOW STA Stop: 06/22/18 09:59 Last Admin: 06/22/18 10:27 Dose: 4 mg Medical Decision Making Differential Diagnosis Differential diagnosis: Etiologies such as gastroenteritis, food borne illness, infections, appendicitis , diverticulitis, inflammatory bowel disease, obstruction, GI bleed, biliary pathology, cardiac process, intracranial process, as well as others were entertained. Medical Records Attestation: I reviewed the patient's medical records. Home Medications Current Medication List: was personally reviewed by me Laboratory Data Attestation: I reviewed the patient's lab results. Result diagrams: 06/22/18 10:17 06/22/18 10:17 Lab Results 06/22/18 06/22/18 06/22/18 Range/Units 09:41 10:17 10:17 WBC 3.70 L (4.8-10.8) K/uL RBC 3.00 L (4.2-5.4) M/uL Hgb 9.5 L (12.0-16.0) g/dL POC Hgb (12.0-16.0) g/dl Hct 29.5 L (37-47) % POC Hct (37-47) % MCV 98.3 (80-100) fL MCH 31.7 (25-34) pg MCHC 32.2 (32-36) g/dL RDW Std Deviation 56.2 H (36.4-46.3) fL RDW Coeff of Martin 15.7 H (11.5-14.5) % Plt Count 207 (130-400) K/uL MPV 9.7 (7.4-10.4) fL Immature Gran % (Auto) 0.3 % Neut % (Auto) 64.6 % Lymph % (Auto) 17.8 % [place] % (Auto) 17.0 % Eos % (Auto) 0.0 % Baso % (Auto) 0.3 % Immature Gran # (Auto) 0.01 (0.00-0.02) K/uL Neut # (Auto) 2.39 (1.4-6.5) K/uL Lymph # (Auto) 0.66 L (1.2-3.4) K/uL [place] # (Auto) 0.63 H (0.11-0.59) K/uL Eos # (Auto) 0.00 (0-0.5) K/uL Baso # (Auto) 0.01 (0-0.2) K/uL POC Sodium (135-144) mEq/L Sodium 137 (136-145) mmol/L POC Potassium (3.3-5.0) mEq/L Potassium 4.3 (3.5-5.1) mmol/L POC Chloride (101-112) mEq/L Chloride 103 (98-107) mmol/L Carbon Dioxide 25 (21-32) mmol/L POC Total CO2 (24-31) mEq/l Anion Gap 9.0 (3-11) POC Anion Gap (16-25) mmol/L POC BUN (7-18) mg/dl BUN 53 H (7-18) mg/dl Creatinine 9.32 H* (0.6-1.2) mg/dl POC Creatinine (0.6-1.3) mg/dl Est Cr Clr Drug Dosing 5.4 ml/min Est GFR ( Amer) 4.4 Est GFR (Non-Af Amer) 3.8 BUN/Creatinine Ratio 5.6 L (10-20) Glucose 78 (70-99) mg/dl POC Glucose 112 H (70-99) POC Glucose (other) (70-99) mg/dl Calcium 8.9 (8.5-10.1) mg/dl POC Ioniz Calcium Rasheed (1.12-1.32) mmol/l Total Bilirubin 0.5 (0.2-1) mg/dl AST 18 (15-37) U/L ALT 25 (12-78) U/L Alkaline Phosphatase 65 (45-117) U/L Troponin I (0-0.045) ng/ml Total Protein 7.1 (6.4-8.2) gm/dl Albumin 3.3 L (3.4-5.0) gm/dl Globulin 3.8 (2.5-4.0) gm/dl Albumin/Globulin Ratio 0.9 (0.9-2) Lipase 47 L (73-393) U/L 06/22/18 06/22/18 Range/Units 10:17 10:26 WBC (4.8-10.8) K/uL RBC (4.2-5.4) M/uL Hgb (12.0-16.0) g/dL POC Hgb 9.2 L (12.0-16.0) g/dl Hct (37-47) % POC Hct 27 L (37-47) % MCV (80-100) fL MCH (25-34) pg MCHC (32-36) g/dL RDW Std Deviation (36.4-46.3) fL RDW Coeff of Martin (11.5-14.5) % Plt Count (130-400) K/uL MPV (7.4-10.4) fL Immature Gran % (Auto) % Neut % (Auto) % Lymph % (Auto) % [place] % (Auto) % Eos % (Auto) % Baso % (Auto) % Immature Gran # (Auto) (0.00-0.02) K/uL Neut # (Auto) (1.4-6.5) K/uL Lymph # (Auto) (1.2-3.4) K/uL [place] # (Auto) (0.11-0.59) K/uL Eos # (Auto) (0-0.5) K/uL Baso # (Auto) (0-0.2) K/uL POC Sodium 139 (135-144) mEq/L Sodium (136-145) mmol/L POC Potassium 4.3 (3.3-5.0) mEq/L Potassium (3.5-5.1) mmol/L POC Chloride 101 (101-112) mEq/L Chloride (98-107) mmol/L Carbon Dioxide (21-32) mmol/L POC Total CO2 24 (24-31) mEq/l Anion Gap (3-11) POC Anion Gap 19.0 (16-25) mmol/L POC BUN 45 H (7-18) mg/dl BUN (7-18) mg/dl Creatinine (0.6-1.2) mg/dl POC Creatinine 9.7 H* (0.6-1.3) mg/dl Est Cr Clr Drug Dosing ml/min Est GFR ( Amer) Est GFR (Non-Af Amer) BUN/Creatinine Ratio (10-20) Glucose (70-99) mg/dl POC Glucose (70-99) POC Glucose (other) 77 (70-99) mg/dl Calcium (8.5-10.1) mg/dl POC Ioniz Calcium Rasheed 1.10 L (1.12-1.32) mmol/l Total Bilirubin (0.2-1) mg/dl AST (15-37) U/L ALT (12-78) U/L Alkaline Phosphatase (45-117) U/L Troponin I 0.212 H* (0-0.045) ng/ml Total Protein (6.4-8.2) gm/dl Albumin (3.4-5.0) gm/dl Globulin (2.5-4.0) gm/dl Albumin/Globulin Ratio (0.9-2) Lipase (73-393) U/L Imaging Data Attestation: I personally reviewed and interpreted this imaging study as follows : Radiologist's Impression: CT abd pelvis IV con only CLINICAL HISTORY: 73 years-old Female presenting with abd pain w/ vomiting and ams . TECHNIQUE: Multidetector CT of the abdomen and pelvis was performed after the administration of intravenous contrast. IV contrast: 94 mL of Optiray 320. One or more dose lowering techniques were used consistent with the principles of ALARA (as low as reasonably achievable), including automatic exposure control, mA or kV adjustment to individual patient size, and/or use of iterative reconstruction. COMPARISON: 01/25/2018. CT DOSE (mGy.cm): The estimated cumulative dose is 897.87 mGycm. FINDINGS: Structural Rigger topogram: Partially visualized dialysis catheter terminating in the superior cavoatrial junction. Lung bases: Minimal dependent changes likely atelectasis. Mild mosaic attenuation. Smooth interlobular septal thickening most pronounced at the right lung base. Pulmonary arteries are mildly enlarged relative to adjacent bronchi. Multichamber enlargement of the heart. Coronary artery and mitral annular calcification. Small right pleural effusion. No pericardial effusion. Liver: Normal morphology. No liver lesion. Patent hepatic vasculature. Periportal edema suggested. Biliary: No intrahepatic or extrahepatic biliary ductal dilatation. Normal gallbladder. Pancreas: Mild parenchymal atrophy. Spleen: Normal. Adrenal glands: Bilateral thickening of the adrenal glands, nonspecific and unchanged from prior. Kidneys and ureters: Numerous cysts noted throughout both kidneys. Interval development of mild bilateral perinephric fat stranding, which is new from prior. There is also trace fluid at the inferior pole of the right kidney allowing for motion artifact. No hyperdense lesion is evident. Some of the cysts demonstrate thin mural calcification in the left kidney (Bosniak 2). No convincing evidence of a solid renal lesion. No nephrolithiasis or hydronephrosis. Ureters nondistended. Bladder: The configuration of the bladder suggests pelvic ligamentous laxity. Bladder otherwise normal. Pelvic organs: Uterus surgically absent. Bowel: Pancolonic diverticulosis. Mild to moderate colonic wall thickening extending from the rectum proximally involving the sigmoid, transverse, and ascending colon. The descending colon is relatively spared. There is mild pericolonic infiltration along the proximal transverse colon. No bowel obstruction. The appendix is normal. Trace hiatal hernia. Peritoneal cavity: Small volume free fluid in the pelvis, which is simple appearing. No free intraperitoneal gas. The peritoneal dialysis catheter has been removed. Lymph nodes: Prominent lymph node in the portacaval region is nonspecific. No pathologically enlarged lymph nodes by CT size criteria. Vasculature: Atherosclerosis of the normal caliber abdominal aorta. IVC patent. Abdominal wall: Fat and fluid containing hernia in the ventral abdomen associated with a surgical incision site area and the peritoneal dialysis catheter is no longer in place. Musculoskeletal: Degenerative changes of the spine. IMPRESSION: 1. Interval development of perinephric fluid and inflammatory change. This may suggest superimposed pyelonephritis or be due to a manifestation of volume overload. Correlate with urinalysis. 2. Significant colonic wall thickening involving the rectum though largely sparing the cecum and ascending colon. This is most consistent with an infectious proctocolitis. 3. Pancolonic diverticulosis. Focal pericolonic inflammatory change in the proximal transverse colon. It is difficult to exclude an acute uncomplicated diverticulitis in the region. 4. Interval removal of the peritoneal dialysis catheter. 5. Small volume free fluid in the pelvis nonspecific and may relate to volume overload. 6. Small right pleural effusion and evidence of volume overload/congestive change at the lung bases. No charleen pulmonary edema. 7. Polycystic kidneys. No solid renal mass. Electronically signed by: Armando Lorenzo M.D. 06/22/2018 11:39 AM ECG Data Attestation: I personally reviewed and interpreted this ECG as follows: Indication: vomiting Rate (beats per minute): 80 Rhythm: sinus rhythm Findings: + other (normal axis, poor baseline in the anterior) and + prolonged QT Blood Pressure Blood Pressure Findings: Elevated blood pressure Blood Pressure Disposition: Referred to patients primary care provider JOVANY Rocha Patient is a 73-year-old female who presents the ER for confusion associated with hypoglycemia abdominal pain and recent C. difficile. She has been having vomiting and diarrhea for the past 3-4 days. She recently stopped her oral vancomycin. On exam she is extremely confused and unable to give a course of events. Labs were obtained and showed a mild leukopenia at 3.7. Hemoglobin was at 9.5. BMP shows a creatinine of 9.3. LFTs are unremarkable. Troponin was detectable at 0.2. She denies any chest pain. Creatinine was 9 I do favor that is the cause. Lipase was unremarkable. CT abdomen pelvis shows possible diverticulitis and questionable perinephric stranding with fluid for possible infection. Awaiting UA. Patient was covered with IV Zosyn, Flagyl and oral vancomycin. Patient and son were updated at bedside. Patient was discussed with the hospitalist will be admitted for further workup. EKG was unremarkable as well. Impression & Plan Altered mental status, Diverticulitis, C. difficile colitis Discharge Plan Visit Data Chief Complaint: Diarrhea ED Provider: Aman Vergara Discharge Problem: Altered mental status, Diverticulitis, C. difficile colitis Patient Disposition: Being Evaluated by Hospitalist Discharge Instructions Interventions: ED Discharge Assessment Last Done: 06/22/18 14:32 The scribe's documentation has been prepared under my direction and personally reviewed by me in its entirety. I confirm that the note above accurately reflects all work, treatment, procedures, and medical decision making performed by me.
--- NOTE | 2018-06-22 12:54 | History & Physical Report ---
Date of Service June 22, 2018 Assessment & Plan (1) Altered mental status: metabolic encephalopathy due to ESRD, dehydration, low glucose and ongoing C diff colitis continue to treat multiple underlying issues (2) C. difficile colitis: recurrent, never really recovered from the first bout per son, took 10 days of Vancomycin (prescribed on 06/04) finished Vancomycin about a week ago, felt better for a few days but now diarrhea back will treat with Dificid since this is recurrence however, will check stool for C diff toxin consult gastroenterology, Dr. Kennedy check CBC and BMP in the AM (3) Diverticulitis: possible mild, uncomplicated acute diverticulitis in transverse colon cover with Cipro and Flagyl for time being will ask opinion from Gastroenterology (4) Dehydration: patient has had diarrhea and vomiting clinically dry still makes some urine but recently less will give D5W 1/2nss at 80cc/hr for one bag nephrology consulted today is HD day but doubt she would need volume taken off based on exam (5) HTN (hypertension), benign: did not take medications this AM will order Diltiazem to be given now hold Imdur for now, don't want to push pressure too low if HD is planned and she is dry (6) Anemia in CKD (chronic kidney disease): Hb stable at 9.5 (7) ESRD on hemodialysis: consult [facility] nephrology will call them and discuss since today is a typical day for HD for her electrolytes stable, appears dry on exam has tunneled right HD catheter, skin appears normal left AV fistula, malfunctioning for some time (8) Elevated troponin: no chest pain, no significant changes on EKG likely elevated due to HTN and Cr of 9.3 (9) Hypoglycemia: not eating well for two days, vomited this morning hypoglycemic protocol in place D5W running over night required two 1/2 amps as well as some orange juice will give an additional 1/2 amp of D50 History of Present Illness Chief Complaint: I feel terrible Primary Care Provider: Cruz Ramos MD 73 yo female with history of polycystic kidney disease leading to ESRD, previously on peritoneal dialysis then transitioned to hemodialysis, presents to the ED today due to feeling ill with abdominal pain, diarrhea, vomiting. Recently the patient was diagnosed with C diff colitis, visit to the ED on . She was discharged on Vancomycin QID x 10 days, instructed to follow up with PCP. She initially responded well and felt better for a few days. However , over the past several days she has been having more diarrhea. She does not really complain of abdominal pain, certainly nothing severe. She says she will have some cramping pain when moving her bowels. She did not eat yesterday and then today when she tried to eat some breakfast she vomited, vomited her medications as well. No fever or chills. She has malaise and fatigue. She was acting really agitated and confused on initial presentation, trying to climb out of her bed, got Ativan IV and calmed down but she was confused. She also had a reported glucose in the 20's and required dextrose. Her sons are at the bedside and they help a lot with the history. The patient denies shirley chest pain or pressure, no dyspnea. She reports that today is a normal HD day for her but she was too ill to go to HD. She follows with Dr. Clemons. Labs showed a normal WBC, Hb stable at 9.5. Cr markedly elevated at 9.3 but electrolytes stable. Reviewed CT abdomen/pelvis which showed a colitis consistent with C diff infection. Also showed diverticular disease with possible acute diverticulitis in transverse colon. There was also some fluid and perinephric stranding around kidney but UA did not show signs of infection. Allergies Allergy/AdvReac Type Severity Reaction Status Date / Time nickel Allergy Unknown RASH Verified 06/22/18 11:23 nitrofurantoin Allergy Unknown REDNESS Verified 06/22/18 11:23 AND BURNING OF HANDS Home Medications Home Medications Medication Instructions Recorded Confirmed Type glimepiride 4 mg PO QAM #0 12/09/12 06/22/18 History simvastatin 20 mg PO HS #0 tab 10/13/15 06/22/18 History diltiazem HCl 240 mg PO QAM 04/26/18 06/22/18 History ferric citrate [Auryxia] 210 mg PO TID 04/26/18 06/22/18 History furosemide 80 mg PO BID 04/26/18 06/22/18 History isosorbide mononitrate 120 mg PO QAM 04/26/18 06/22/18 History lorazepam 0.25 - 0.5 mg PO BID PRN 04/26/18 06/22/18 History meloxicam 15 mg PO QAM 04/26/18 06/22/18 History montelukast 10 mg PO QAM 04/26/18 06/22/18 History mv,[id number]-epa-fish 1 cap PO QAM 04/26/18 06/22/18 History [ProRenal QD] tiotropium bromide [Spiriva 2 puff INHALATION QAM 04/26/18 06/22/18 History Respimat] ondansetron HCl [Zofran] 4 mg PO DAILY #6 tab 05/31/18 06/22/18 Rx bupropion HCl 150 mg PO QAM 06/03/18 06/22/18 History levothyroxine [Synthroid] 175 mcg PO QAM #30 tab 06/03/18 06/22/18 Rx vancomycin 125 mg PO Q6H #40 cap 06/03/18 06/22/18 Rx Past Med/Surg History Medical History Diabetes NIDDM Dialysis patient (Chronic) Kidney failure (Chronic) Gout Asthma AV fistula LUE; "MALFUNCTIONING"= REASON FOR PROCEDURE Anemia CHRONIC; BASELINE HGB 9'S PER CHART REVIEW Anxiety Degenerative disc disease ESRD on hemodialysis MWF Hearing deficit Hyperkalemia Hyperlipidemia Hypertension Hypothyroidism Kidney stones Obesity Osteoarthritis Polycystic kidney disease Restless leg syndrome Surgical History History of arteriovenous graft LUE AVF History of bronchoscopy History of colonoscopy History of hammer toe correction History of hysterectomy History of lumbar surgery History of surgery PERITONEAL DIALYSIS CATHETER PLACEMENT PERITONEAL DIALYSIS CATHETER REMOVAL/PERMACATH INSERTION= 01/27/18= MAC SEDATION AT [facility] History of total abdominal hysterectomy and bilateral salpingo-oophorectomy Family History Other DM (diabetes mellitus) No significant family history Social History Current Living Situation: Family Current Living Situation Comment: lives with sister Other Information That Helps Us Care for You: No Feels Safe at Home: Yes Safety Concerns: Feels Safe At This Time Smoking Status: Never smoker Second Hand Exposure: No Hx Alcohol Use: No Hx Substance Use: No Beliefs That Will Affect Care: None Preferred Language: Occitan Communication Ability: Effective Review of Systems All systems reviewed & are unremarkable except as noted in HPI & below Constitutional: + fatigue, + malaise and + weakness; no fever, no chills, no sweats and no body aches Gastrointestinal: + abdominal pain, + nausea, + vomiting and + diarrhea/loose stools; no blood in stools and no melena Physical Exam 2 Vital Signs (Past 24 Hours): Last Vital Signs Temp 37.3 C 06/22/18 09:46 Pulse 91 H 06/22/18 12:01 Resp 12 06/22/18 12:01 BP 192/89 H 06/22/18 12:01 Pulse Ox 94 06/22/18 11:40 Constitutional: WD/WN, vitals as above + ill appearing; no acute distress Eyes: PERRL, conjunctivae normal, anicteric sclerae ENMT: external ear and nose normal, oropharynx normal Neck: trachea midline, no thyromegaly Respiratory: normal respiratory effort, lungs clear to auscultation Cardiovascular: RRR, no murmur, no edema left UE fistula with thrill and bruit Gastrointestinal (Abdomen): Inspection/Auscultation: + abdomen distended and normal bowel sounds Percussion/Palpation: + abdomen tender (mild, diffuse) and abdomen soft; no guarding, abdomen not rigid and no hernia Musculoskeletal: no cyanosis or clubbing, extremities motor strength 5/5 Skin: no rashes, warm and dry Neurologic: patellar DTR's 2+ bilat, sensation intact and PERRL, EOMI, accommodation nl, no face palsy, no dysarthria Psychiatric: Orientation: oriented x 3; + not alert (sedated after Ativan) Lymphatic: no cervical or axillary lymphadenopathy Results & Data Laboratory Results Laboratory Results - last 24 hr 06/22/18 06/22/18 06/22/18 09:41 10:17 10:17 WBC 3.70 L RBC 3.00 L Hgb 9.5 L POC Hgb Hct 29.5 L POC Hct MCV 98.3 MCH 31.7 MCHC 32.2 RDW Std Deviation 56.2 H RDW Coeff of Martin 15.7 H Plt Count 207 MPV 9.7 Immature Gran % (Auto) 0.3 Neut % (Auto) 64.6 Lymph % (Auto) 17.8 [place] % (Auto) 17.0 Eos % (Auto) 0.0 Baso % (Auto) 0.3 Immature Gran # (Auto) 0.01 Neut # (Auto) 2.39 Lymph # (Auto) 0.66 L [place] # (Auto) 0.63 H Eos # (Auto) 0.00 Baso # (Auto) 0.01 POC Sodium Sodium 137 POC Potassium Potassium 4.3 POC Chloride Chloride 103 Carbon Dioxide 25 POC Total CO2 Anion Gap 9.0 POC Anion Gap POC BUN BUN 53 H Creatinine 9.32 H* POC Creatinine Est Cr Clr Drug Dosing 5.4 Est GFR ( Amer) 4.4 Est GFR (Non-Af Amer) 3.8 BUN/Creatinine Ratio 5.6 L Glucose 78 POC Glucose 112 H POC Glucose (other) Calcium 8.9 POC Ioniz Calcium Rasheed Total Bilirubin 0.5 AST 18 ALT 25 Alkaline Phosphatase 65 Troponin I Total Protein 7.1 Albumin 3.3 L Globulin 3.8 Albumin/Globulin Ratio 0.9 Lipase 47 L 06/22/18 06/22/18 06/22/18 10:17 10:26 15:05 WBC RBC Hgb POC Hgb 9.2 L Hct POC Hct 27 L MCV MCH MCHC RDW Std Deviation RDW Coeff of Martin Plt Count MPV Immature Gran % (Auto) Neut % (Auto) Lymph % (Auto) [place] % (Auto) Eos % (Auto) Baso % (Auto) Immature Gran # (Auto) Neut # (Auto) Lymph # (Auto) [place] # (Auto) Eos # (Auto) Baso # (Auto) POC Sodium 139 Sodium POC Potassium 4.3 Potassium POC Chloride 101 Chloride Carbon Dioxide POC Total CO2 24 Anion Gap POC Anion Gap 19.0 POC BUN 45 H BUN Creatinine POC Creatinine 9.7 H* Est Cr Clr Drug Dosing Est GFR ( Amer) Est GFR (Non-Af Amer) BUN/Creatinine Ratio Glucose POC Glucose 27 L* POC Glucose (other) 77 Calcium POC Ioniz Calcium Rasheed 1.10 L Total Bilirubin AST ALT Alkaline Phosphatase Troponin I 0.212 H* Total Protein Albumin Globulin Albumin/Globulin Ratio Lipase 06/22/18 06/22/18 06/22/18 15:08 15:28 16:35 WBC RBC Hgb POC Hgb Hct POC Hct MCV MCH MCHC RDW Std Deviation RDW Coeff of Martin Plt Count MPV Immature Gran % (Auto) Neut % (Auto) Lymph % (Auto) [place] % (Auto) Eos % (Auto) Baso % (Auto) Immature Gran # (Auto) Neut # (Auto) Lymph # (Auto) [place] # (Auto) Eos # (Auto) Baso # (Auto) POC Sodium Sodium POC Potassium Potassium POC Chloride Chloride Carbon Dioxide POC Total CO2 Anion Gap POC Anion Gap POC BUN BUN Creatinine POC Creatinine Est Cr Clr Drug Dosing Est GFR ( Amer) Est GFR (Non-Af Amer) BUN/Creatinine Ratio Glucose POC Glucose 27 L* 96 83 POC Glucose (other) Calcium POC Ioniz Calcium Rasheed Total Bilirubin AST ALT Alkaline Phosphatase Troponin I Total Protein Albumin Globulin Albumin/Globulin Ratio Lipase 06/22/18 06/22/18 06/22/18 17:31 17:32 17:50 WBC RBC Hgb POC Hgb Hct POC Hct MCV MCH MCHC RDW Std Deviation RDW Coeff of Martin Plt Count MPV Immature Gran % (Auto) Neut % (Auto) Lymph % (Auto) [place] % (Auto) Eos % (Auto) Baso % (Auto) Immature Gran # (Auto) Neut # (Auto) Lymph # (Auto) [place] # (Auto) Eos # (Auto) Baso # (Auto) POC Sodium Sodium POC Potassium Potassium POC Chloride Chloride Carbon Dioxide POC Total CO2 Anion Gap POC Anion Gap POC BUN BUN Creatinine POC Creatinine Est Cr Clr Drug Dosing Est GFR ( Amer) Est GFR (Non-Af Amer) BUN/Creatinine Ratio Glucose POC Glucose 68 L* 69 L* 58 L* POC Glucose (other) Calcium POC Ioniz Calcium Rasheed Total Bilirubin AST ALT Alkaline Phosphatase Troponin I Total Protein Albumin Globulin Albumin/Globulin Ratio Lipase 06/22/18 06/22/18 06/22/18 17:51 18:09 18:34 WBC RBC Hgb POC Hgb Hct POC Hct MCV MCH MCHC RDW Std Deviation RDW Coeff of Martin Plt Count MPV Immature Gran % (Auto) Neut % (Auto) Lymph % (Auto) [place] % (Auto) Eos % (Auto) Baso % (Auto) Immature Gran # (Auto) Neut # (Auto) Lymph # (Auto) [place] # (Auto) Eos # (Auto) Baso # (Auto) POC Sodium Sodium POC Potassium Potassium POC Chloride Chloride Carbon Dioxide POC Total CO2 Anion Gap POC Anion Gap POC BUN BUN Creatinine POC Creatinine Est Cr Clr Drug Dosing Est GFR ( Amer) Est GFR (Non-Af Amer) BUN/Creatinine Ratio Glucose POC Glucose 62 L* 103 H 126 H POC Glucose (other) Calcium POC Ioniz Calcium Rasheed Total Bilirubin AST ALT Alkaline Phosphatase Troponin I Total Protein Albumin Globulin Albumin/Globulin Ratio Lipase 06/22/18 06/22/18 06/22/18 20:59 21:03 21:26 WBC RBC Hgb POC Hgb Hct POC Hct MCV MCH MCHC RDW Std Deviation RDW Coeff of Martin Plt Count MPV Immature Gran % (Auto) Neut % (Auto) Lymph % (Auto) [place] % (Auto) Eos % (Auto) Baso % (Auto) Immature Gran # (Auto) Neut # (Auto) Lymph # (Auto) [place] # (Auto) Eos # (Auto) Baso # (Auto) POC Sodium Sodium POC Potassium Potassium POC Chloride Chloride Carbon Dioxide POC Total CO2 Anion Gap POC Anion Gap POC BUN BUN Creatinine POC Creatinine Est Cr Clr Drug Dosing Est GFR ( Amer) Est GFR (Non-Af Amer) BUN/Creatinine Ratio Glucose POC Glucose 69 L* 67 L* 115 H POC Glucose (other) Calcium POC Ioniz Calcium Rasheed Total Bilirubin AST ALT Alkaline Phosphatase Troponin I Total Protein Albumin Globulin Albumin/Globulin Ratio Lipase Diagnostic Findings CT abdomen/pelvis IMPRESSION: 1. Interval development of perinephric fluid and inflammatory change. This may suggest superimposed pyelonephritis or be due to a manifestation of volume overload. Correlate with urinalysis. 2. Significant colonic wall thickening involving the rectum though largely sparing the cecum and ascending colon. This is most consistent with an infectious proctocolitis. 3. Pancolonic diverticulosis. Focal pericolonic inflammatory change in the proximal transverse colon. It is difficult to exclude an acute uncomplicated diverticulitis in the region. 4. Interval removal of the peritoneal dialysis catheter. 5. Small volume free fluid in the pelvis nonspecific and may relate to volume overload. 6. Small right pleural effusion and evidence of volume overload/congestive change at the lung bases. No charleen pulmonary edema. 7. Polycystic kidneys. No solid renal mass. Medications Administered Current Inpatient Medications Acetaminophen (Tylenol) 650 mg PO Q4H PRN PRN Reason: pain/fever Stop: 07/22/18 15:15 Last Admin: 06/22/18 19:43 Dose: 650 mg Bupropion HCl (Wellbutrin-Sr) 150 mg PO QAM VESTA Stop: 07/23/18 08:59 Dextrose (Dextrose 50%) 25 - 50 ml IV UD PRN; Protocol PRN Reason: Hypoglycemia Protocol Stop: 07/22/18 17:36 Last Admin: 06/22/18 21:09 Dose: 25 ml Diltiazem HCl (Tiazac) 240 mg PO DAILY VESTA Stop: 07/23/18 08:59 Last Admin: 06/22/18 16:38 Dose: 240 mg Fidaxomicin (Dificid) 200 mg PO BID VESTA Stop: 07/02/18 15:59 Last Admin: 06/22/18 20:45 Dose: 200 mg Glucagon (Glucagen) 1 mg IM UD PRN; Protocol PRN Reason: Hypoglycemia Protocol Stop: 07/22/18 17:36 Glucose (Glucose 40%) 15 - 30 gm PO UD PRN; Protocol PRN Reason: Hypoglycemia Protocol Stop: 07/22/18 17:36 Glucose (Dex4 Glucose) 4 - 8 tabs PO UD PRN; Protocol PRN Reason: Hypoglycemia Protocol Stop: 07/22/18 17:36 Heparin Sodium (Porcine) (Heparin Sodium (Porcine)) 5,000 units SQ Q12 VESTA Stop: 07/22/18 20:59 Last Admin: 06/22/18 20:46 Dose: 5,000 units Dextrose/Sodium Chloride (D5w And 1/2nss) 1,000 mls @ 80 mls/hr IV .[id number] [facility] Stop: 06/23/18 03:45 Last Admin: 06/22/18 15:55 Dose: 80 mls/hr Ciprofloxacin Lactate (Cipro / D5w) 200 mg in 100 mls @ 100 mls/hr IV Q12 VESTA Stop: 07/03/18 08:59 Metronidazole (Flagyl) 500 mg in 100 mls @ 100 mls/hr IV Q8H [facility] Stop: 07/02/18 22:59 Lorazepam (Ativan) 0.25 mg PO BID PRN PRN Reason: Anxiety Stop: 07/22/18 15:15 Miscellaneous (Carbohydrates For Hypoglycemia) 15 - 30 gm PO UD PRN PRN Reason: Hypoglycemia Treatment Stop: 07/22/18 17:36 Last Admin: 06/22/18 17:35 Dose: 15 gm Ondansetron HCl (Zofran) 4 mg IV Q6H PRN PRN Reason: Nausea Stop: 07/22/18 15:15 Tiotropium [place] (Spiriva) 1 puffs INH DAILY VESTA Stop: 07/23/18 08:59 Code Status & VTE Plan Code Status full code VTE Prophylaxis Plan VTE Prophylaxis will be ordered: Yes _ (1) Altered mental status Altered mental status type: unspecified Coma depth: Coma timing: Qualified Code(s): R41.82 - Altered mental status, unspecified
[2018-06-22] MEDS ORDERED: DEXTROSE 50% 50 ML SYRINGE IV ONE ×2 (15:06→19:04)
[2018-06-22] MEDS ORDERED: D5W AND 1/2NSS 1,000 ML IV SCH (15:16)
--- NOTE | 2018-06-22 15:41 | Nephrology Consultation ---
Date of Consultation June 22, 2018 Assessment & Plan (1) ESRD on hemodialysis: -- Patient currently appears to be volume contracted. Electrolyte balance is acceptable. No acute indication for HD today. Will reassess in am. (2) C. difficile colitis: -- Agree w/ starting Dificid therapy. No dose adjustment needed in the setting of ESRD (3) Dehydration: -- Patient is clinically volume contrated. Agree w/ gentle hydration using dextrose solution (4) Diabetes: -- MS changes due to hypoglycemia -- Recommend stopping Glypizide and managing DM w/ insulin History of Present Illness Reason for Consultation: ESRD on HD Attending Physician: Cesar Oneil, DO History of Present Illness Mrs. Caicedo is a 73 year old white female who is seen at the request of Dr. Oneil to provide dialysis throughout hospitalization and assist w/ medical management. Medical records in the hospital EMR were reviewed and are summarized as follows: Mrs. Caicedo has ESRD due to diabetic nephropathy and microvascular disease. She had been on NCCPD therapy since 2013. Her course on dialysis has been complex. Her first dialysis catheter was inadvertantly cut while sewing. Her second catheter functioned poorly. CT peritoneogram revealed a subcutaneous leak from her catheter that tracked from the tunnel along her right flank. She had a new catheter inserted but has had difficulty with recurrent hyperkalemia. In 02/08 Mrs. Caicedo developed progressive azotemia and recurrent nausea & emesis requiring transition to IHD. Patient has been dialyzing via a R IJ HD catheter. She receives dialysis qMWF at [facility]. Mrs. Caicedo reports that she developed Clostridium Difficile colitis earlier this month. She completed a 10 day course of oral Vancomycin but has again developed recurrent diarrhea. She was brought to the ED this morning w/ hypoglycemia, dehydration and mental status changes. PMH: ESRD, AODM, HTN, Obesity, Hypercholesterolemia, Anemia, Hypothyroidism, Recurrent E. Coli UTI, H/o struvite kidney stones Allergies Allergy/AdvReac Type Severity Reaction Status Date / Time nickel Allergy Unknown RASH Verified 06/22/18 11:23 nitrofurantoin Allergy Unknown REDNESS Verified 06/22/18 11:23 AND BURNING OF HANDS Home Medications Home Medications Medication Instructions Recorded Confirmed Type glimepiride 4 mg PO QAM #0 12/09/12 06/22/18 History simvastatin 20 mg PO HS #0 tab 10/13/15 06/22/18 History diltiazem HCl 240 mg PO QAM 04/26/18 06/22/18 History ferric citrate [Auryxia] 210 mg PO TID 04/26/18 06/22/18 History furosemide 80 mg PO BID 04/26/18 06/22/18 History isosorbide mononitrate 120 mg PO QAM 04/26/18 06/22/18 History lorazepam 0.25 - 0.5 mg PO BID PRN 04/26/18 06/22/18 History meloxicam 15 mg PO QAM 04/26/18 06/22/18 History montelukast 10 mg PO QAM 04/26/18 06/22/18 History mv,[id number]-epa-fish 1 cap PO QAM 04/26/18 06/22/18 History [ProRenal QD] tiotropium bromide [Spiriva 2 puff INHALATION QAM 04/26/18 06/22/18 History Respimat] ondansetron HCl [Zofran] 4 mg PO DAILY #6 tab 05/31/18 06/22/18 Rx bupropion HCl 150 mg PO QAM 06/03/18 06/22/18 History levothyroxine [Synthroid] 175 mcg PO QAM #30 tab 06/03/18 06/22/18 Rx vancomycin 125 mg PO Q6H #40 cap 06/03/18 06/22/18 Rx Patient History Medical History Diabetes NIDDM Dialysis patient (Chronic) Kidney failure (Chronic) Gout Asthma AV fistula LUE; "MALFUNCTIONING"= REASON FOR PROCEDURE Anemia CHRONIC; BASELINE HGB 9'S PER CHART REVIEW Anxiety Degenerative disc disease ESRD on hemodialysis MWF Hearing deficit Hyperkalemia Hyperlipidemia Hypertension Hypothyroidism Kidney stones Obesity Osteoarthritis Polycystic kidney disease Restless leg syndrome Surgical History History of arteriovenous graft LUE AVF History of bronchoscopy History of colonoscopy History of hammer toe correction History of hysterectomy History of lumbar surgery History of surgery PERITONEAL DIALYSIS CATHETER PLACEMENT PERITONEAL DIALYSIS CATHETER REMOVAL/PERMACATH INSERTION= 01/27/18= MAC SEDATION AT [facility] History of total abdominal hysterectomy and bilateral salpingo-oophorectomy Family History Other No significant family history Social History Current Living Situation: Family Current Living Situation Comment: lives with sister Other Information That Helps Us Care for You: No Feels Safe at Home: Yes Safety Concerns: Feels Safe At This Time Smoking Status: Never smoker Second Hand Exposure: No Hx Alcohol Use: No Hx Substance Use: No Beliefs That Will Affect Care: None Preferred Language: Polish Communication Ability: Effective Review of Systems Constitutional: no fever Respiratory: no dyspnea Cardiovascular: no chest pain Gastrointestinal: + diarrhea/loose stools; no abdominal pain Physical Exam 2 Vital Signs (Past 24 Hours): Last Vital Signs Temp 37.3 C 06/22/18 09:46 Pulse 87 06/22/18 14:20 Resp 24 06/22/18 14:20 BP 191/84 H 06/22/18 14:01 Pulse Ox 94 06/22/18 11:40 Eyes: PERRL, conjunctivae normal, anicteric sclerae Neck: trachea midline, no thyromegaly R IJ THC w/ clean, dry dressing in place Respiratory: normal respiratory effort, lungs clear to auscultation Cardiovascular: RRR, no murmur, no edema Gastrointestinal (Abdomen): Inspection/Auscultation: + hyperactive bowel sounds Percussion/Palpation: abdomen soft; abdomen nontender Skin: + turgor decreased Results & Data Laboratory Results Laboratory Tests 06/03/18 06/22/18 06/22/18 11:15 10:17 10:26 WBC 3.70 L Hgb 9.5 L Plt Count 207 POC Sodium 139 POC Potassium 4.3 POC Chloride 101 POC Total CO2 24 POC BUN 45 H POC Creatinine 9.7 H* Stl C. diff Tox B Gene Pos C.diff Toxin B A* _ (1) Diabetes Diabetes mellitus type: type 2 Diabetes mellitus penitentiary insulin use: without dedicated intermodal truck driver use Diabetes mellitus complication status: with hypoglycemia Diabetes mellitus complication detail: without coma Diabetic retinopathy severity: Proliferative retinopathy type: Diabetes mellitus macular edema: Laterality: Chronic kidney disease stage: Qualified Code(s): E11.649 - Type 2 diabetes mellitus with hypoglycemia without coma
[2018-06-22] MEDS: FIDAXOMICIN 200 MG TAB PO SCH ×2 (16:37→20:45)
[2018-06-22] MEDS: dilTIAZem ER 120 MG CAPCR PO SCH (16:38)
[2018-06-22] MEDS ORDERED: CARBOHYDRATES FOR HYPOGLYCEMIA PO PRN (17:37)
[2018-06-22] MEDS ORDERED: GLUCOSE 40% GEL 15 GM TUBE PO PRN (17:37)
[2018-06-22] MEDS ORDERED: GLUCOSE 10 TABS/TUBE PO PRN (17:37)
[2018-06-22] MEDS ORDERED: GLUCAGON FOR INJ 1 MG VIAL IM PRN (17:37)
[2018-06-22] MEDS: DEXTROSE 50% 50 ML SYRINGE IV PRN ×3 (17:55→21:09)
[2018-06-22] MEDS ORDERED: Nursing to Pharmacy Communication ONE (18:36)
[2018-06-22] MEDS: ACETAMINOPHEN 325 MG TAB PO PRN (19:43)
[2018-06-22] MEDS: HEPARIN SOD 5,000 UNIT/0.5 ML VIAL SQ SCH (20:46)
[2018-06-22] MEDS: metroNIDAZOLE 500 MG/100 ML BAG IV SCH (23:31)
[2018-06-22] MEDS: CIPROFLOXACIN / D5W 200 MG/100 ML BAG IV SCH (23:34)
[2018-06-22] MEDS: ONDANSETRON INJ 2 MG/ML 2 ML VIAL IV PRN (23:47)
[2018-06-23] MEDS ORDERED: COUGH DROP (SUGAR FREE) LOZ 24 LOZ/1 BOX BUCCAL PRN (01:17)
[2018-06-23] MEDS ORDERED: COUGH DROP (SUGAR FREE) LOZ 24 LOZ/1 BOX BUCCAL ONE (01:21)
[2018-06-23 04:12] LABS: Cdiff Antigen Positive
[2018-06-23 04:13] LABS: Cdiff Toxin A+B Positive (Negative)
[2018-06-23] MEDS: metroNIDAZOLE 500 MG/100 ML BAG IV SCH ×2 (06:35→14:16)
[2018-06-23 07:59] LABS: Hemoglobin 8.4 g/dL (12.0-16.0); Mean Corpuscular Hgb Conc 32.3 g/dL (32-36); Mean Corpuscular Volume 98.5 fL (80-100); Mean Platelet Volume 9.9 fL (7.4-10.4); Platelet Count 195 K/uL (130-400); RDW Coefficient of Variation 15.9 % (11.5-14.5); RDW Standard Deviation 56.8 fL (36.4-46.3); Red Blood Count 2.64 M/uL (4.2-5.4); White Blood Count 4.16 K/uL (4.8-10.8)
[2018-06-23 08:28] LABS: Basophils # (auto) 0.01 K/uL (0-0.2); Basophils % (auto) 0.2 %; Eosinophils # (auto) 0.02 K/uL (0-0.5); Eosinophils % (auto) 0.5 %; Immature Granulocytes # (auto) 0.02 K/uL (0.00-0.02); Immature Granulocytes % (auto) 0.5 %; Lymphocytes # (auto) 0.87 K/uL (1.2-3.4); Lymphocytes % (auto) 20.9 %; Monocytes # (auto) 0.59 K/uL (0.11-0.59); Monocytes % (auto) 14.2 %; Neutrophils # (auto) 2.65 K/uL (1.4-6.5); Neutrophils % (auto) 63.7 %; Toxic Vacuolation 1+
[2018-06-23] MEDS: ONDANSETRON INJ 2 MG/ML 2 ML VIAL IV PRN (08:31)
[2018-06-23] MEDS: BuPROPion SR 150 MG TABCR PO SCH (08:33)
[2018-06-23] MEDS: HEPARIN SOD 5,000 UNIT/0.5 ML VIAL SQ SCH ×3 (08:33→20:25)
[2018-06-23] MEDS: ACETAMINOPHEN 325 MG TAB PO PRN (08:33)
[2018-06-23] MEDS: FIDAXOMICIN 200 MG TAB PO SCH ×2 (08:34→20:25)
[2018-06-23] MEDS: TIOTROPIUM BROMIDE 5 PUFF/90 MCG INH INH SCH (08:34)
[2018-06-23 08:43] LABS: BUN Creatinine Ratio 5.8 (10-20); Bilirubin Direct 0.1 mg/dl (0-0.2); Bilirubin,Total 0.4 mg/dl (0.2-1); Calcium 8.6 mg/dl (8.5-10.1); Creatinine Clr Calc Pharmacy 4.8 ml/min; Est GFR (African American) 3.8; Est GFR (Non-African American) 3.3; Magnesium 2.7 mg/dl (1.8-2.4); Potassium 4.3 mmol/L (3.5-5.1); Total Protein 6.5 gm/dl (6.4-8.2)
--- NOTE | 2018-06-23 09:42 | Nephrology Progress Note ---
Date of Service June 23, 2018 Assessment & Plan (1) ESRD on hemodialysis: -- Patient remains clinically volume contracted. Electrolyte balance is acceptable. No acute indication for HD today. Will reassess in am. (2) C. difficile colitis: -- Continue Dificid therapy. No dose adjustment needed in the setting of ESRD (3) Dehydration: -- Patient is clinically volume contrated. Agree w/ genle hydration IV (4) Diabetes: -- MS changes due to hypoglycemia have resolved -- Recommend stopping Glipizide and managing DM w/ insulin Subjective Mrs. Caicedo was seen & examined in her hospital room this morning. She c/o severe watery diarrhea and abdominal discomfort. She denies fever or dyspnea. Constitutional: no fever Respiratory: no dyspnea Cardiovascular: no chest pain Gastrointestinal: + abdominal pain and + diarrhea/loose stools Physical Exam 2 Vital Signs (Past 24 Hours): Last Vital Signs Temp 36.9 C 06/23/18 09:30 Pulse 75 06/23/18 07:00 Resp 20 06/23/18 07:00 BP 150/72 H 06/23/18 07:00 Pulse Ox 95 06/23/18 07:00 Eyes: PERRL, conjunctivae normal, anicteric sclerae Neck: trachea midline, no thyromegaly Respiratory: normal respiratory effort, lungs clear to auscultation Cardiovascular: RRR, no murmur, no edema Gastrointestinal (Abdomen): Inspection/Auscultation: + hyperactive bowel sounds Percussion/Palpation: abdomen nontender, no guarding and abdomen not rigid Skin: + turgor decreased Results & Data Laboratory Results Laboratory Tests 06/23/18 06/23/18 07:38 07:38 WBC 4.16 L Hgb 8.4 L Hct 26.0 L Plt Count 195 Sodium 134 L Potassium 4.3 Chloride 100 Carbon Dioxide 20 L BUN 60 H Creatinine 10.40 H* D Glucose 75 _ (1) Diabetes Diabetes mellitus type: type 2 Diabetes mellitus [facility] insulin use: without perfumer use Diabetes mellitus complication status: with hypoglycemia Diabetes mellitus complication detail: without coma Diabetic retinopathy severity: Proliferative retinopathy type: Diabetes mellitus macular edema: Laterality: Chronic kidney disease stage: Qualified Code(s): E11.649 - Type 2 diabetes mellitus with hypoglycemia without coma
[2018-06-23 09:52] LABS: Hepatitis B Surface Antibody Immune
[2018-06-23] MEDS: METOPROLOL TARTRATE 25 MG TAB PO SCH ×2 (09:53→20:25)
[2018-06-23] MEDS: dilTIAZem ER 120 MG CAPCR PO SCH (09:53)
[2018-06-23 10:03] LABS: Hepatitis B Surface Antigen Neg (Neg)
[2018-06-23] MEDS: SODIUM CHLORIDE 0.9% 1000ML 1,000 ML IV SCH ×2 (10:49→23:18)
[2018-06-23] MEDS ORDERED: Nursing to Pharmacy Communication ONE (10:56)
[2018-06-23] MEDS ORDERED: MoRPHine SULFATE 4 MG/ML 1 ML CARP\\VIAL IV PRN (10:57)
[2018-06-23] MEDS: CIPROFLOXACIN / D5W 200 MG/100 ML BAG IV SCH (12:45)
[2018-06-23] MEDS: LORazepam 0.5 MG TAB PO PRN (14:23)
--- NOTE | 2018-06-23 16:14 | Consultation Report ---
DATE OF CONSULTATION: 06/23/2018 GI CONSULT NOTE REASON FOR EVALUATION: Recurrent C. diff colitis. HISTORY OF PRESENT ILLNESS: The patient is a 73-year-old with end-stage renal disease on hemodialysis who was scheduled for evaluation for renal transplant at [facility] in 2 weeks. She was discovered to have a C. diff colitis on June 04 and received a 10-day course of vancomycin 4 times a day. During that time, her symptoms improved, but shortly after stopping the medication, she had recurrent diarrhea, abdominal pain, and altered mental status, requiring hospitalization. She is currently on IV fluid replacement. CT scan was performed which showed thickening of the colon and diverticulosis. She was started on IV Cipro and Flagyl for possible diverticulitis and started on p.o. Dificid 200 mg twice a day for 10 days. PAST MEDICAL HISTORY: Remarkable for end-stage renal disease, diabetes. She has an AV fistula for hemodialysis. She has hypothyroidism. She has had kidney stones. She has polycystic kidney disease, restless leg syndrome. She has had a hysterectomy, lumbar surgery. She had peritoneal dialysis catheters placed and then subsequently removed. MEDICATIONS: Per list. ALLERGIES: NICKEL AND NITROFURANTOIN. FAMILY HISTORY: Positive for diabetes. SOCIAL HISTORY: The patient lives with her sister. She does not use alcohol and does not smoke cigarettes. REVIEW OF SYSTEMS: Positive for fatigue, abdominal pain, diarrhea, nausea, weakness. Remainder is negative. PHYSICAL EXAMINATION: GENERAL: The patient is overweight, in no acute distress. VITAL SIGNS: Blood pressure is 192/89, pulse 91, temperature is 37.3, respirations 12. ABDOMEN: Shows a midline scar, right-sided abdominal scars from peritoneal dialysis catheters. There is generalized tenderness to light palpation throughout the abdomen. Bowel sounds are hypoactive at this time. IMPRESSION AND PLAN: The patient has recurrent C. diff colitis. She relapsed after a single course of vancomycin. I do not believe that she has acute diverticulitis and I think we can stop her Cipro and Flagyl, which I have done. I think this may actually prolong her course. I think Dificid is a good choice at this point, I would continue for 10-day course. If she does not improve or relapses again, then she will need to have a fecal transplant. Sites to do this in the region are [facility] and [facility] in [place]. We will follow the patient during her stay.
--- NOTE | 2018-06-23 17:26 | Hospitalist Progress Note ---
Date of Service June 23, 2018 Assessment & Plan (1) Altered mental status: (2) C. difficile colitis: (3) Diverticulitis: (4) Dehydration: (5) HTN (hypertension), benign: (6) Anemia in CKD (chronic kidney disease): (7) ESRD on hemodialysis: (8) Elevated troponin: (9) Hypoglycemia: 73 yo female with history of polycystic kidney disease leading to ESRD, previously on peritoneal dialysis then transitioned to hemodialysis, beaded on June 22, 2018 with C. difficile diarrhea, associated with feeling ill with abdominal pain, diarrhea, vomiting. Altered mental status upon admission, likely metabolic encephalopathy ,secondary to multiple factors such as: ESRD, dehydration, hypoglycemia and ongoing C diff colitis, resolved, C. difficile colitis: GI input appreciated, recurrent after 10 days of Vancomycin (prescribed on 06/04) treatment as outpatient finished Vancomycin about a week ago, felt better for a few days but now diarrhea back Continue Dificid since this is recurrence, GI input appreciated, fecal transplantation if needed Diverticulitis: Possible no diverticulitis per GI, has discontinued Cipro and Flagyl Hypoglycemic episodes and dehydration: Continue gentle IV fluid,, half NS as if needed End-stage renal disease on dialysis, nephrology input appreciated HTN, Anemia in CKD, continue current care Minimal elevated troponin which likely from troponin leakage, patient has no chest pain GI DVT prophylaxis is covered, Subjective Mild fever, still having diffuse diarrhea, patient is generalized weak, uncomfortable, mild abdominal pain, has several nauseated and vomiting, required Zofran Review of Systems Constitutional: Positive weakness, or fatigue Respiratory: Occasional cough, no sputum, wheezing, or dyspnea on exertion Cardiac: No chest pain, No orthopnea, No PND, No claudication, No palpitations , Abdomen: See HPI, also report dark black stool however stool Hemoccult negative Musculoskeletal: No joint pain, No muscle pain, No swelling, No calf pain, No problem reported : No dysuria, No urinary frequency, No incontinence, No hematuria Neurologic: No paralysis, No weakness, No numbness/tingling, No vertigo, No balance problems Psychiatric: No depression symptoms, No anhedonism, No anxiety, No insomnia, No substance abuse Heme: No abnormal bleeding/bruising, No clotting problems, No swollen lymph nodes, No night sweats Skin: No rash, No itch, No new/changing skin lesions, No color change, No bleeding Physical Exam 2 Vital Signs (Past 24 Hours): Last Vital Signs Temp 36.7 C 06/23/18 14:55 Pulse 57 L 06/23/18 14:55 Resp 20 06/23/18 14:55 BP 149/67 H 06/23/18 14:55 Pulse Ox 96 06/23/18 14:55 Physical Exam: General Appearance: Looks tired, fatigued, WD/WN, no apparent distress, Eyes: normal inspection, PERRL, EOMI, sclerae normal ENT: normal ENT inspection, hearing grossly normal, pharynx normal Neck: supple, no adenopathy, thyroid normal, no JVD, no carotid bruits, trachea midline Respiratory/Chest: chest non-tender, normal breath sounds, no respiratory distress, no accessory muscle use, breath sounds, rales, wheezing Cardiovascular: regular rate, rhythm, no JVD, no murmur Abdomen: Mild diffuse abdominal pain, active bowel sounds, , soft, no organomegaly, Extremities: normal range of motion, non-tender, normal inspection, no pedal edema, no calf tenderness, normal capillary refill , pelvis stable, joint has no limited range of motion, capillary refill is normal, no cyanosis clubbing Neurologic/Psychiatric: manager gyn II-XII nml as tested, no motor/sensory deficits, alert, normal mood/affect, oriented x 3 Skin: normal color, warm/dry, no rash Lymphatic: no adenopathy Results & Data Laboratory Results Laboratory Results - last 24 hr 06/22/18 06/22/18 06/22/18 17:31 17:32 17:50 WBC RBC Hgb Hct MCV MCH MCHC RDW Std Deviation RDW Coeff of Martin Plt Count MPV Immature Gran % (Auto) Neut % (Auto) Lymph % (Auto) Pine % (Auto) Eos % (Auto) Baso % (Auto) Immature Gran # (Auto) Neut # (Auto) Lymph # (Auto) Pine # (Auto) Eos # (Auto) Baso # (Auto) Toxic Vacuolation Sodium Potassium Chloride Carbon Dioxide Anion Gap BUN Creatinine Est Cr Clr Drug Dosing Est GFR ( Amer) Est GFR (Non-Af Amer) BUN/Creatinine Ratio Glucose POC Glucose 68 L* 69 L* 58 L* Calcium Magnesium Total Bilirubin Direct Bilirubin AST ALT Alkaline Phosphatase Total Protein Albumin Stool Occult Bld Scrn Stl C. diff Tox B Gene Stl C.difficile Tox A&B Hep Bs Antigen Hep Bs Antibody Hep Bs Antibody, Quant 06/22/18 06/22/18 06/22/18 17:51 18:09 18:34 WBC RBC Hgb Hct MCV MCH MCHC RDW Std Deviation RDW Coeff of Martin Plt Count MPV Immature Gran % (Auto) Neut % (Auto) Lymph % (Auto) Pine % (Auto) Eos % (Auto) Baso % (Auto) Immature Gran # (Auto) Neut # (Auto) Lymph # (Auto) Pine # (Auto) Eos # (Auto) Baso # (Auto) Toxic Vacuolation Sodium Potassium Chloride Carbon Dioxide Anion Gap BUN Creatinine Est Cr Clr Drug Dosing Est GFR ( Amer) Est GFR (Non-Af Amer) BUN/Creatinine Ratio Glucose POC Glucose 62 L* 103 H 126 H Calcium Magnesium Total Bilirubin Direct Bilirubin AST ALT Alkaline Phosphatase Total Protein Albumin Stool Occult Bld Scrn Stl C. diff Tox B Gene Stl C.difficile Tox A&B Hep Bs Antigen Hep Bs Antibody Hep Bs Antibody, Quant 06/22/18 06/22/18 06/22/18 20:59 21:03 21:26 WBC RBC Hgb Hct MCV MCH MCHC RDW Std Deviation RDW Coeff of Martin Plt Count MPV Immature Gran % (Auto) Neut % (Auto) Lymph % (Auto) Pine % (Auto) Eos % (Auto) Baso % (Auto) Immature Gran # (Auto) Neut # (Auto) Lymph # (Auto) Pine # (Auto) Eos # (Auto) Baso # (Auto) Toxic Vacuolation Sodium Potassium Chloride Carbon Dioxide Anion Gap BUN Creatinine Est Cr Clr Drug Dosing Est GFR ( Amer) Est GFR (Non-Af Amer) BUN/Creatinine Ratio Glucose POC Glucose 69 L* 67 L* 115 H Calcium Magnesium Total Bilirubin Direct Bilirubin AST ALT Alkaline Phosphatase Total Protein Albumin Stool Occult Bld Scrn Stl C. diff Tox B Gene Stl C.difficile Tox A&B Hep Bs Antigen Hep Bs Antibody Hep Bs Antibody, Quant 06/23/18 06/23/18 06/23/18 01:06 01:35 04:52 WBC RBC Hgb Hct MCV MCH MCHC RDW Std Deviation RDW Coeff of Martin Plt Count MPV Immature Gran % (Auto) Neut % (Auto) Lymph % (Auto) Pine % (Auto) Eos % (Auto) Baso % (Auto) Immature Gran # (Auto) Neut # (Auto) Lymph # (Auto) Pine # (Auto) Eos # (Auto) Baso # (Auto) Toxic Vacuolation Sodium Potassium Chloride Carbon Dioxide Anion Gap BUN Creatinine Est Cr Clr Drug Dosing Est GFR ( Amer) Est GFR (Non-Af Amer) BUN/Creatinine Ratio Glucose POC Glucose 87 78 Calcium Magnesium Total Bilirubin Direct Bilirubin AST ALT Alkaline Phosphatase Total Protein Albumin Stool Occult Bld Scrn Stl C. diff Tox B Gene Pos C.diff Toxin B A* Stl C.difficile Tox A&B Positive A* Hep Bs Antigen Hep Bs Antibody Hep Bs Antibody, Quant 06/23/18 06/23/18 06/23/18 06:37 07:38 07:38 WBC 4.16 L RBC 2.64 L Hgb 8.4 L Hct 26.0 L MCV 98.5 MCH 31.8 MCHC 32.3 RDW Std Deviation 56.8 H RDW Coeff of Martin 15.9 H Plt Count 195 MPV 9.9 Immature Gran % (Auto) 0.5 Neut % (Auto) 63.7 Lymph % (Auto) 20.9 Pine % (Auto) 14.2 Eos % (Auto) 0.5 Baso % (Auto) 0.2 Immature Gran # (Auto) 0.02 Neut # (Auto) 2.65 Lymph # (Auto) 0.87 L Pine # (Auto) 0.59 Eos # (Auto) 0.02 Baso # (Auto) 0.01 Toxic Vacuolation 1+ Sodium 134 L Potassium 4.3 Chloride 100 Carbon Dioxide 20 L Anion Gap 13.0 H BUN 60 H Creatinine 10.40 H* D Est Cr Clr Drug Dosing 4.8 Est GFR ( Amer) 3.8 Est GFR (Non-Af Amer) 3.3 BUN/Creatinine Ratio 5.8 L Glucose 75 POC Glucose 87 Calcium 8.6 Magnesium 2.7 H Total Bilirubin 0.4 Direct Bilirubin 0.1 AST 14 L ALT 21 Alkaline Phosphatase 54 Total Protein 6.5 Albumin 3.0 L Stool Occult Bld Scrn Stl C. diff Tox B Gene Stl C.difficile Tox A&B Hep Bs Antigen Hep Bs Antibody Hep Bs Antibody, Quant 06/23/18 06/23/18 06/23/18 07:46 07:55 10:25 WBC RBC Hgb Hct MCV MCH MCHC RDW Std Deviation RDW Coeff of Martin Plt Count MPV Immature Gran % (Auto) Neut % (Auto) Lymph % (Auto) Pine % (Auto) Eos % (Auto) Baso % (Auto) Immature Gran # (Auto) Neut # (Auto) Lymph # (Auto) Pine # (Auto) Eos # (Auto) Baso # (Auto) Toxic Vacuolation Sodium Potassium Chloride Carbon Dioxide Anion Gap BUN Creatinine Est Cr Clr Drug Dosing Est GFR ( Amer) Est GFR (Non-Af Amer) BUN/Creatinine Ratio Glucose POC Glucose 88 Calcium Magnesium Total Bilirubin Direct Bilirubin AST ALT Alkaline Phosphatase Total Protein Albumin Stool Occult Bld Scrn Negative Stl C. diff Tox B Gene Stl C.difficile Tox A&B Hep Bs Antigen Neg Hep Bs Antibody Immune Hep Bs Antibody, Quant 47.16 06/23/18 06/23/18 06/23/18 10:46 11:43 16:42 WBC RBC Hgb Hct MCV MCH MCHC RDW Std Deviation RDW Coeff of Martin Plt Count MPV Immature Gran % (Auto) Neut % (Auto) Lymph % (Auto) Pine % (Auto) Eos % (Auto) Baso % (Auto) Immature Gran # (Auto) Neut # (Auto) Lymph # (Auto) Pine # (Auto) Eos # (Auto) Baso # (Auto) Toxic Vacuolation Sodium Potassium Chloride Carbon Dioxide Anion Gap BUN Creatinine Est Cr Clr Drug Dosing Est GFR ( Amer) Est GFR (Non-Af Amer) BUN/Creatinine Ratio Glucose POC Glucose 118 H 117 H 141 H Calcium Magnesium Total Bilirubin Direct Bilirubin AST ALT Alkaline Phosphatase Total Protein Albumin Stool Occult Bld Scrn Stl C. diff Tox B Gene Stl C.difficile Tox A&B Hep Bs Antigen Hep Bs Antibody Hep Bs Antibody, Quant _ (1) Altered mental status Altered mental status type: unspecified Coma depth: Coma timing: Qualified Code(s): R41.82 - Altered mental status, unspecified
[2018-06-24] MEDS: LORazepam 0.5 MG TAB PO PRN (01:19)
[2018-06-24 07:06] LABS: Hematocrit (blood only) 25.1 % (37-47); Hemoglobin 8.3 g/dL (12.0-16.0); Mean Corpuscular Hgb Conc 33.1 g/dL (32-36); Mean Corpuscular Volume 97.7 fL (80-100); Mean Platelet Volume 10.3 fL (7.4-10.4); Platelet Count 207 K/uL (130-400); RDW Standard Deviation 57.1 fL (36.4-46.3); Red Blood Count 2.57 M/uL (4.2-5.4); White Blood Count 4.97 K/uL (4.8-10.8)
[2018-06-24 07:47] LABS: BUN Creatinine Ratio 5.7 (10-20); Calcium 8.5 mg/dl (8.5-10.1); Creatinine Clr Calc Pharmacy 4.5 ml/min; Est GFR (African American) 3.6; Est GFR (Non-African American) 3.1; Potassium 4.3 mmol/L (3.5-5.1)
[2018-06-24] MEDS: METOPROLOL TARTRATE 25 MG TAB PO SCH ×2 (09:29→21:33)
[2018-06-24] MEDS: BuPROPion SR 150 MG TABCR PO SCH (09:29)
[2018-06-24] MEDS: HEPARIN SOD 5,000 UNIT/0.5 ML VIAL SQ SCH ×2 (09:29→21:33)
[2018-06-24] MEDS: TIOTROPIUM BROMIDE 5 PUFF/90 MCG INH INH SCH (09:30)
[2018-06-24] MEDS: dilTIAZem ER 120 MG CAPCR PO SCH (09:30)
[2018-06-24] MEDS: FIDAXOMICIN 200 MG TAB PO SCH ×2 (09:35→21:33)
--- NOTE | 2018-06-24 09:54 | Nephrology Progress Note ---
Date of Service June 24, 2018 Assessment & Plan (1) ESRD on hemodialysis: -- Patient remains clinically volume contracted. Electrolyte balance is acceptable. Patient continues to have severe diarrhea. Will hold HD today. Will schedule HD for 06/25/18 am. (2) C. difficile colitis: -- Continue Dificid therapy. No dose adjustment needed in the setting of ESRD (3) Dehydration: -- Recommend stop IVF and encourage oral hydration (4) Diabetes: -- MS changes due to hypoglycemia have resolved -- Recommend stopping Glipizide and managing DM w/ insulin Subjective Mrs. Caicedo was seen & examined in her hospital room this morning. Abdominal pain is improved but she continues to experience severe diarrhea. Mrs. Caicedo denies fever or dyspnea. Gastrointestinal: + abdominal pain and + diarrhea/loose stools Physical Exam 2 Vital Signs (Past 24 Hours): Last Vital Signs Temp 36.8 C 06/24/18 07:58 Pulse 59 L 06/24/18 07:58 Resp 18 06/24/18 07:58 BP 155/74 H 06/24/18 07:58 Pulse Ox 97 06/24/18 07:58 Eyes: PERRL, conjunctivae normal, anicteric sclerae Neck: trachea midline, no thyromegaly Respiratory: normal respiratory effort, lungs clear to auscultation Cardiovascular: RRR, no murmur, no edema Gastrointestinal (Abdomen): Inspection/Auscultation: + hyperactive bowel sounds Percussion/Palpation: abdomen nontender, no guarding and abdomen not rigid Skin: + turgor decreased Results & Data Laboratory Results Laboratory Tests 06/24/18 06/24/18 06:35 06:41 WBC 4.97 Hgb 8.3 L Hct 25.1 L Plt Count 207 Sodium 133 L Potassium 4.3 Chloride 103 Carbon Dioxide 19 L BUN 63 H Creatinine 11.00 H* D _ (1) Diabetes Diabetes mellitus type: type 2 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
--- NOTE | 2018-06-24 12:42 | Progress Note ---
DATE: 06/24/2018 SUBJECTIVE: The patient continues to have loose stools today, but her abdominal pain is less. The patient has been off Cipro and Flagyl since yesterday and she remains afebrile. Her white count remains normal at 4.97, hemoglobin 8.3 which is stable. Her abdominal pain is decreased and she is tolerating full liquids, but continues to cough and after she coughs, she has to go to the bathroom right away or else is a little bit incontinent. PHYSICAL EXAMINATION: ABDOMEN: Her abdomen is less tender than yesterday. There is a scar in the midline and on the right side of the abdomen. No organomegaly is palpable. IMPRESSION: The patient has Clostridium difficile colitis, is on Dificid. This is a 2 day of a 10-day course. I plan on adding Imodium 2 mg every 6 hours as needed to help slow down her diarrhea, but not stop it. Hopefully, this will give her a little relief, but not predispose her to toxic megacolon. Dr. Chucho Etienne will be covering over the weekend.
[2018-06-24] MEDS: LOPERAMIDE HCL 2 MG CAP PO PRN ×3 (14:03→23:24)
--- NOTE | 2018-06-24 18:06 | Hospitalist Progress Note ---
Date of Service June 24, 2018 Assessment & Plan (1) Altered mental status: (2) C. difficile colitis: (3) Diverticulitis: (4) Dehydration: (5) HTN (hypertension), benign: (6) Anemia in CKD (chronic kidney disease): (7) ESRD on hemodialysis: (8) Elevated troponin: (9) Hypoglycemia: 73 yo female with history of polycystic kidney disease leading to ESRD, previously on peritoneal dialysis then transitioned to hemodialysis, beaded on June 22, 2018 with C. difficile diarrhea, associated with feeling ill with abdominal pain, diarrhea, vomiting. Altered mental status upon admission, likely metabolic encephalopathy ,secondary to multiple factors such as: ESRD, dehydration, hypoglycemia and ongoing C diff colitis, resolved, C. difficile colitis: GI input appreciated, recurrent after 10 days of Vancomycin (prescribed on 06/04) treatment as outpatient finished Vancomycin about a week ago, felt better for a few days but now diarrhea back Has started on Dificid from June 23, 2018 improving critical care unit manager has contacted [facility] and they were going to give free sample, we will arriving patient's home on Wednesday Diverticulitis: Possible no diverticulitis per GI, has discontinued Cipro and Flagyl Hypoglycemic episodes and dehydration: Continue gentle IV fluid,, half NS as if needed End-stage renal disease on dialysis, nephrology input appreciated HTN, mild accelerated hypertension we will watch Mild bradycardia will watch Anemia in CKD, continue current care Minimal elevated troponin which likely from troponin leakage, patient has no chest pain GI DVT prophylaxis is covered, Increase activity PT OT, Subjective Diarrhea significant better, only 2 times in the morning Generally feeling better mild abdominal pain, has several nauseated and vomiting, required Zofran Review of Systems Constitutional: Positive weakness, or fatigue Respiratory: Occasional cough, no sputum, wheezing, or dyspnea on exertion Cardiac: No chest pain, No orthopnea, No PND, No claudication, No palpitations , Abdomen: See HPI, Musculoskeletal: No joint pain, No muscle pain, No swelling, No calf pain, No problem reported : No dysuria, No urinary frequency, No incontinence, No hematuria Neurologic: No paralysis, No weakness, No numbness/tingling, No vertigo, No balance problems Psychiatric: No depression symptoms, No anhedonism, No anxiety, No insomnia, No substance abuse Heme: No abnormal bleeding/bruising, No clotting problems, No swollen lymph nodes, No night sweats Skin: No rash, No itch, No new/changing skin lesions, No color change, No bleeding Constitutional: + fatigue, + malaise and + weakness; no fever, no chills, no sweats and no body aches Gastrointestinal: + abdominal pain, + nausea, + vomiting and + diarrhea/loose stools; no blood in stools and no melena Physical Exam 2 Vital Signs (Past 24 Hours): Last Vital Signs Temp 36.7 C 06/24/18 15:26 Pulse 49 L 06/24/18 15:26 Resp 20 06/24/18 15:26 BP 145/77 H 06/24/18 15: Pulse Ox 95 06/24/18 15:26 Physical Exam: General Appearance: Looks much better, WD/WN, no apparent distress, Eyes: normal inspection, PERRL, EOMI, sclerae normal ENT: normal ENT inspection, hearing grossly normal, pharynx normal Neck: supple, no adenopathy, thyroid normal, no JVD, no carotid bruits, trachea midline Respiratory/Chest: chest non-tender, normal breath sounds, no respiratory distress, no accessory muscle use, breath sounds, rales, wheezing Cardiovascular: regular rate, rhythm, no JVD, no murmur Abdomen: Mild diffuse abdominal pain, active bowel sounds, , soft, no organomegaly, Extremities: normal range of motion, non-tender, normal inspection, no pedal edema, no calf tenderness, normal capillary refill , pelvis stable, joint has no limited range of motion, capillary refill is normal, no cyanosis clubbing Neurologic/Psychiatric: supervisor delivery department II-XII nml as tested, no motor/sensory deficits, alert, normal mood/affect, oriented x 3 Skin: normal color, warm/dry, no rash Lymphatic: no adenopathy Results & Data Laboratory Results Laboratory Results - last 24 hr 06/23/18 06/24/18 06/24/18 20:09 06:35 06:41 WBC 4.97 RBC 2.57 L Hgb 8.3 L Hct 25.1 L MCV 97.7 MCH 32.3 MCHC 33.1 RDW Std Deviation 57.1 H RDW Coeff of Martin 16.0 H Plt Count 207 MPV 10.3 Sodium 133 L Potassium 4.3 Chloride 103 Carbon Dioxide 19 L Anion Gap 11.0 BUN 63 H Creatinine 11.00 H* D Est Cr Clr Drug Dosing 4.5 Est GFR ( Amer) 3.6 Est GFR (Non-Af Amer) 3.1 BUN/Creatinine Ratio 5.7 L Glucose 117 H POC Glucose 159 H Calcium 8.5 06/24/18 06/24/18 06/24/18 07:47 11:01 16:18 WBC RBC Hgb Hct MCV MCH MCHC RDW Std Deviation RDW Coeff of Martin Plt Count MPV Sodium Potassium Chloride Carbon Dioxide Anion Gap BUN Creatinine Est Cr Clr Drug Dosing Est GFR ( Amer) Est GFR (Non-Af Amer) BUN/Creatinine Ratio Glucose POC Glucose 124 H 215 H 254 H Calcium _ (1) Altered mental status Altered mental status type: unspecified Coma depth: Coma timing: Qualified Code(s): R41.82 - Altered mental status, unspecified
[2018-06-25] MEDS: LORazepam 0.5 MG TAB PO PRN ×2 (01:43→08:49)
[2018-06-25] MEDS: LOPERAMIDE HCL 2 MG CAP PO PRN ×4 (01:44→14:07)
[2018-06-25] MEDS ORDERED: SODIUM CHLORIDE 0.9% 1000ML 1,000 ML IV PRN (06:00)
[2018-06-25] MEDS ORDERED: EPOETIN ALFA 10,000 UNITS/ML VIAL IV SCH (06:00)
[2018-06-25 07:00] LABS: Basophils # (auto) 0.04 K/uL (0-0.2); Basophils % (auto) 0.6 %; Eosinophils # (auto) 0.46 K/uL (0-0.5); Eosinophils % (auto) 6.5 %; Hematocrit (blood only) 25.6 % (37-47); Hemoglobin 8.4 g/dL (12.0-16.0); Immature Granulocytes # (auto) 0.09 K/uL (0.00-0.02); Immature Granulocytes % (auto) 1.3 %; Lymphocytes % (auto) 19.8 %; Mean Corpuscular Hgb Conc 32.8 g/dL (32-36); Mean Corpuscular Volume 96.2 fL (80-100); Mean Platelet Volume 10.1 fL (7.4-10.4); Monocytes # (auto) 0.78 K/uL (0.11-0.59); Neutrophils # (auto) 4.31 K/uL (1.4-6.5); Neutrophils % (auto) 60.8 %; Platelet Count 231 K/uL (130-400); RDW Coefficient of Variation 15.8 % (11.5-14.5); RDW Standard Deviation 55.6 fL (36.4-46.3); Red Blood Count 2.66 M/uL (4.2-5.4); White Blood Count 7.08 K/uL (4.8-10.8)
[2018-06-25 07:33] LABS: Echinocytes 1+
[2018-06-25 07:38] LABS: BUN Creatinine Ratio 5.5 (10-20); Calcium 7.7 mg/dl (8.5-10.1); Creatinine Clr Calc Pharmacy 4.1 ml/min; Est GFR (African American) 3.3; Est GFR (Non-African American) 2.8; Magnesium 2.8 mg/dl (1.8-2.4); Phosphorus 6.8 mg/dl (2.5-4.9); Potassium 3.8 mmol/L (3.5-5.1)
[2018-06-25] MEDS: FIDAXOMICIN 200 MG TAB PO SCH ×2 (08:33→20:58)
--- NOTE | 2018-06-25 10:21 | Nephrology Progress Note ---
Date of Service June 25, 2018 Assessment & Plan (1) ESRD on hemodialysis: -- HD today for correction of azotemia. No UF as patient remains volume contracted and continues to suffer from diarrhea. Orders placed in EMR today and HD RN notified (2) C. difficile colitis: -- Continue Dificid therapy. No dose adjustment needed in the setting of ESRD (3) Dehydration: -- Recommend stop IVF and encourage oral hydration -- GI note reviewed: Patient may require fecal transplant if she does not respond to dificid therapy (4) Diabetes: -- MS changes due to hypoglycemia have resolved -- Recommend stopping Glipizide and managing DM w/ insulin Subjective Mrs. Caicedo was seen & examined in her hospital room this morning. She continues to suffer from diarrhea. RN notes recorded 9 BM yesterday. Patient reports liquid bowel movements every 2 hours. Gastrointestinal: + abdominal pain and + diarrhea/loose stools Physical Exam 2 Vital Signs (Past 24 Hours): Last Vital Signs Temp 36.9 C 06/25/18 09:29 Pulse 65 06/25/18 09:45 Resp 20 06/25/18 07:52 BP 155/68 H 06/25/18 09:45 Pulse Ox 99 06/25/18 07:52 Eyes: PERRL, conjunctivae normal, anicteric sclerae Neck: trachea midline, no thyromegaly Respiratory: normal respiratory effort, lungs clear to auscultation Cardiovascular: RRR, no murmur, no edema Gastrointestinal (Abdomen): Inspection/Auscultation: + hyperactive bowel sounds Percussion/Palpation: abdomen nontender, no guarding and abdomen not rigid Skin: + turgor decreased Results & Data Laboratory Results Laboratory Tests 06/25/18 06/25/18 06:37 06:37 WBC 7.08 Hgb 8.4 L Hct 25.6 L Plt Count 231 Sodium 134 L Potassium 3.8 Chloride 102 Carbon Dioxide 18 L BUN 66 H Creatinine 11.90 H* D Calcium 7.7 L Phosphorus 6.8 H Magnesium 2.8 H _ (1) Diabetes Diabetes mellitus type: type 2 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
[2018-06-25] MEDS: HEPARIN SOD (PORCINE) 1000 UNIT/ML 10 ML VIAL IV SCH (12:17)
--- NOTE | 2018-06-25 13:54 | Hospitalist Progress Note ---
Date of Service June 25, 2018 Assessment & Plan (1) Altered mental status: (2) C. difficile colitis: (3) Diverticulitis: (4) Dehydration: (5) HTN (hypertension), benign: (6) Anemia in CKD (chronic kidney disease): (7) ESRD on hemodialysis: (8) Elevated troponin: (9) Hypoglycemia: 73 yo female with history of polycystic kidney disease leading to ESRD, previously on peritoneal dialysis then transitioned to hemodialysis, admitted on June 22, 2018 with C. difficile diarrhea, associated with feeling ill with abdominal pain, diarrhea, vomiting. Altered mental status upon admission, likely metabolic encephalopathy ,secondary to multiple factors such as: ESRD, dehydration, hypoglycemia and ongoing C diff colitis, resolved, C. difficile colitis: GI input appreciated, recurrent after 10 days of Vancomycin (prescribed on 06/04 ) treatment as outpatient finished Vancomycin about a week ago, felt better for a few days but now diarrhea back Has started on Dificid from June 23, 2018 , was transiently improved however still has significant diarrhea, Continue current care, start cholestyramine 2 g p.o. 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 twice daily, blood pressure still high today we will increase to 25 mg p.o. twice daily, with parameters to hold Anemia in CKD, continue current care Minimal elevated troponin which likely from troponin leakage, patient has no chest pain GI DVT prophylaxis is covered, Increase activity PT OT, Hopefully cholestyramine will help for diarrhea, Subjective Still has significant diarrhea every 2-hour, however patient generally feeling okay, denies fever and chill, pleasant conversational, Generally feeling better , no fever chill, no abdominal pain , no nausea vomiting, Review of Systems Constitutional: Positive weakness, or fatigue Respiratory: Occasional cough, no sputum, wheezing, or dyspnea on exertion Cardiac: No chest pain, No orthopnea, No PND, No claudication, No palpitations , Abdomen: See HPI, Musculoskeletal: No joint pain, No muscle pain, No swelling, No calf pain, No problem reported : No dysuria, No urinary frequency, No incontinence, No hematuria Neurologic: No paralysis, No weakness, No numbness/tingling, No vertigo, No balance problems Psychiatric: No depression symptoms, No anhedonism, No anxiety, No insomnia, No substance abuse Heme: No abnormal bleeding/bruising, No clotting problems, No swollen lymph nodes, No night sweats Skin: No rash, No itch, No new/changing skin lesions, No color change, No bleeding Constitutional: + fatigue, + malaise and + weakness; no fever, no chills, no sweats and no body aches Gastrointestinal: + abdominal pain, + nausea, + vomiting and + diarrhea/loose stools; no blood in stools and no melena Physical Exam 2 Vital Signs (Past 24 Hours): Last Vital Signs Temp 36.9 C 06/25/18 09:29 Pulse 69 06/25/18 13:30 Resp 20 06/25/18 07:52 BP 159/69 H 06/25/18 13:30 Pulse Ox 99 06/25/18 07:52 Physical Exam: General Appearance: Looks tired however looks better, WD/WN, no apparent distress, Eyes: normal inspection, PERRL, EOMI, sclerae normal ENT: normal ENT inspection, hearing grossly normal, pharynx normal Neck: supple, no adenopathy, thyroid normal, no JVD, no carotid bruits, trachea midline Respiratory/Chest: chest non-tender, normal breath sounds, no respiratory distress, no accessory muscle use, breath sounds, rales, wheezing Cardiovascular: regular rate, rhythm, no JVD, no murmur Abdomen: active bowel sounds, , soft, no organomegaly, Extremities: normal range of motion, non-tender, normal inspection, no pedal edema, no calf tenderness, normal capillary refill , pelvis stable, joint has no limited range of motion, capillary refill is normal, no cyanosis clubbing Neurologic/Psychiatric: pie dough roller II-XII nml as tested, no motor/sensory deficits, alert, normal mood/affect, oriented x 3 Skin: normal color, warm/dry, no rash Lymphatic: no adenopathy Results & Data Laboratory Results Laboratory Results - last 24 hr 06/24/18 06/24/18 06/24/18 16:18 18:12 20:35 WBC RBC Hgb Hct MCV MCH MCHC RDW Std Deviation RDW Coeff of Martin Plt Count MPV Immature Gran % (Auto) Neut % (Auto) Lymph % (Auto) Harris % (Auto) Eos % (Auto) Baso % (Auto) Immature Gran # (Auto) Neut # (Auto) Lymph # (Auto) Harris # (Auto) Eos # (Auto) Baso # (Auto) Echinocytes Sodium Potassium Chloride Carbon Dioxide Anion Gap BUN Creatinine Est Cr Clr Drug Dosing Est GFR ( Amer) Est GFR (Non-Af Amer) BUN/Creatinine Ratio Glucose POC Glucose 254 H 221 H 210 H Calcium Phosphorus Magnesium 06/25/18 06/25/18 06/25/18 06:37 06:37 07:38 WBC 7.08 RBC 2.66 L Hgb 8.4 L Hct 25.6 L MCV 96.2 MCH 31.6 MCHC 32.8 RDW Std Deviation 55.6 H RDW Coeff of Martin 15.8 H Plt Count 231 MPV 10.1 Immature Gran % (Auto) 1.3 Neut % (Auto) 60.8 Lymph % (Auto) 19.8 Harris % (Auto) 11.0 Eos % (Auto) 6.5 Baso % (Auto) 0.6 Immature Gran # (Auto) 0.09 H Neut # (Auto) 4.31 Lymph # (Auto) 1.40 Harris # (Auto) 0.78 H Eos # (Auto) 0.46 Baso # (Auto) 0.04 Echinocytes 1+ Sodium 134 L Potassium 3.8 Chloride 102 Carbon Dioxide 18 L Anion Gap 14.0 H BUN 66 H Creatinine 11.90 H* D Est Cr Clr Drug Dosing 4.1 Est GFR ( Amer) 3.3 Est GFR (Non-Af Amer) 2.8 BUN/Creatinine Ratio 5.5 L Glucose 134 H POC Glucose 153 H Calcium 7.7 L Phosphorus 6.8 H Magnesium 2.8 H 06/25/18 11:24 WBC RBC Hgb Hct MCV MCH MCHC RDW Std Deviation RDW Coeff of Martin Plt Count MPV Immature Gran % (Auto) Neut % (Auto) Lymph % (Auto) Harris % (Auto) Eos % (Auto) Baso % (Auto) Immature Gran # (Auto) Neut # (Auto) Lymph # (Auto) Harris # (Auto) Eos # (Auto) Baso # (Auto) Echinocytes Sodium Potassium Chloride Carbon Dioxide Anion Gap BUN Creatinine Est Cr Clr Drug Dosing Est GFR ( Amer) Est GFR (Non-Af Amer) BUN/Creatinine Ratio Glucose POC Glucose 150 H Calcium Phosphorus Magnesium _ (1) Altered mental status Altered mental status type: unspecified Coma depth: Coma timing: Qualified Code(s): R41.82 - Altered mental status, unspecified
[2018-06-25] MEDS: HEPARIN SOD 5,000 UNIT/0.5 ML VIAL SQ SCH ×2 (14:05→20:59)
[2018-06-25] MEDS: TIOTROPIUM BROMIDE 5 PUFF/90 MCG INH INH SCH (14:05)
[2018-06-25] MEDS: dilTIAZem ER 120 MG CAPCR PO SCH (14:08)
[2018-06-25] MEDS: METOPROLOL TARTRATE 25 MG TAB PO SCH ×2 (14:09→20:59)
[2018-06-25] MEDS: BuPROPion SR 150 MG TABCR PO SCH (14:09)
[2018-06-25] MEDS: CHOLESTYRAMINE LIGHT 4 GM PKT PO SCH ×2 (14:13→21:23)
[2018-06-26 06:21] LABS: Hematocrit (blood only) 23.6 % (37-47); Hemoglobin 7.7 g/dL (12.0-16.0); Mean Corpuscular Hgb Conc 32.6 g/dL (32-36); Mean Corpuscular Volume 96.3 fL (80-100); Platelet Count 243 K/uL (130-400); RDW Coefficient of Variation 15.8 % (11.5-14.5); Red Blood Count 2.45 M/uL (4.2-5.4); White Blood Count 6.67 K/uL (4.8-10.8)
[2018-06-26 06:33] LABS: Partial Thromboplastin Ratio 1.1; Partial Thromboplastin Time 27.7 Seconds (21.0-31.0)
[2018-06-26 06:48] LABS: Basophils # (auto) 0.05 K/uL (0-0.2); Basophils % (auto) 0.7 %; Eosinophils # (auto) 0.29 K/uL (0-0.5); Eosinophils % (auto) 4.3 %; Lymphocytes # (auto) 1.71 K/uL (1.2-3.4); Lymphocytes % (auto) 25.6 %; Monocytes # (auto) 0.64 K/uL (0.11-0.59); Monocytes % (auto) 9.6 %; Neutrophils # (auto) 3.38 K/uL (1.4-6.5); Neutrophils % (auto) 50.8 %; RBC Morphology Unremarkable
[2018-06-26 07:00] LABS: BUN Creatinine Ratio 4.2 (10-20); Calcium 7.7 mg/dl (8.5-10.1); Creatinine Clr Calc Pharmacy 7.1 ml/min; Est GFR (African American) 6.3; Est GFR (Non-African American) 5.4; Magnesium 2.4 mg/dl (1.8-2.4); Phosphorus 4.6 mg/dl (2.5-4.9); Potassium 3.5 mmol/L (3.5-5.1)
[2018-06-26] MEDS: dilTIAZem ER 120 MG CAPCR PO SCH (08:34)
[2018-06-26] MEDS: METOPROLOL TARTRATE 25 MG TAB PO SCH ×2 (08:34→20:37)
[2018-06-26] MEDS: BuPROPion SR 150 MG TABCR PO SCH (08:34)
[2018-06-26] MEDS: HEPARIN SOD 5,000 UNIT/0.5 ML VIAL SQ SCH ×2 (08:35→20:35)
[2018-06-26] MEDS: TIOTROPIUM BROMIDE 5 PUFF/90 MCG INH INH SCH (08:35)
[2018-06-26] MEDS: FIDAXOMICIN 200 MG TAB PO SCH ×2 (08:42→20:37)
[2018-06-26] MEDS ORDERED: HydrALAZINE HCL 20 MG/ML VIAL IV PRN (09:12)
--- NOTE | 2018-06-26 10:22 | Hospitalist Progress Note ---
Date of Service June 26, 2018 Assessment & Plan (1) Altered mental status: (2) C. difficile colitis: (3) Diverticulitis: (4) Dehydration: (5) HTN (hypertension), benign: (6) Anemia in CKD (chronic kidney disease): (7) ESRD on hemodialysis: (8) Elevated troponin: (9) Hypoglycemia: 73 yo female with history of polycystic kidney disease leading to ESRD, previously on peritoneal dialysis then transitioned to hemodialysis, admitted on June 22, 2018 with C. difficile diarrhea, associated with feeling ill with abdominal pain, diarrhea, vomiting. Altered mental status upon admission, likely metabolic encephalopathy ,secondary to multiple factors such as: ESRD, dehydration, hypoglycemia and ongoing C diff colitis, resolved, C. difficile colitis: GI input appreciated, recurrent after 10 days of Vancomycin (prescribed on 06/04 ) treatment as outpatient finished Vancomycin about a week ago, felt better for a few days but now diarrhea back Has started on Dificid from June 23, 2018 , was transiently improved however still has significant diarrhea, Continue current care, start cholestyramine 2 g p.o. twice daily, for diarrhea cholestyramine small dose Started yesterday which was June 25, Diarrhea has a little improving tool and die manager has contacted [facility] and they are going to give free sample, will arriving patient's home on Wednesday Diverticulitis?: Possible no diverticulitis per GI, has discontinued Cipro and Flagyl Hypoglycemic episodes and dehydration: will Dc IVF End-stage renal disease on dialysis, nephrology input appreciated HTN, mild accelerated hypertension, was started Lopressor 12.5 mg p.o. twice daily, blood pressure still high yesterday . increased to 25 mg p.o. twice daily , with parameters to hold, Started low-dose hydralazine scheduled 10 mg 3 times daily and hydralazine as needed Anemia in CKD, continue current care Minimal elevated troponin which likely from troponin leakage, patient has no chest pain GI DVT prophylaxis is covered, Increase activity PT OT, Hopefully cholestyramine will help for diarrhea, Subjective Out of bed to the chair, however reported significant tired and feeling exhausted, Diarrhea amount and frequency is getting better, however still liquid Review of Systems Constitutional: Positiveweakness, or fatigue Respiratory: no cough, sputum, wheezing, or dyspnea on exertion Cardiac: No chest pain, No orthopnea, No PND, No claudication, No palpitations , Abdomen: No pain, No nausea, No vomiting No constipation, No GI bleeding Musculoskeletal: No joint pain, No muscle pain, No swelling, No calf pain, No problem reported : No dysuria, No urinary frequency, No incontinence, No hematuria Neurologic: No paralysis, No weakness, No numbness/tingling, No vertigo, No balance problems Psychiatric: No depression symptoms, No anhedonism, No anxiety, No insomnia, No substance abuse Heme: No abnormal bleeding/bruising, No clotting problems, No swollen lymph nodes, No night sweats Skin: No rash, No itch, No new/changing skin lesions, No color change, No bleeding Physical Exam 2 Vital Signs (Past 24 Hours): Last Vital Signs Temp 36.6 C 06/26/18 08:15 Pulse 61 06/26/18 08:33 Resp 20 06/26/18 08:15 BP 173/90 H 06/26/18 08:33 Pulse Ox 94 06/26/18 08:15 Physical Exam: General Appearance: Looks tired, WD/WN, no apparent distress, Eyes: normal inspection, PERRL, EOMI, sclerae normal ENT: normal ENT inspection, hearing grossly normal, pharynx normal Neck: supple, no adenopathy, thyroid normal, no JVD, no carotid bruits, trachea midline Respiratory/Chest: chest non-tender, normal breath sounds, no respiratory distress, no accessory muscle use, breath sounds, rales, wheezing Cardiovascular: regular rate, rhythm, no JVD, no murmur Abdomen: Mild diffuse abdominal pain, active bowel sounds, , soft, no organomegaly, Extremities: normal range of motion, non-tender, normal inspection, no pedal edema, no calf tenderness, normal capillary refill , pelvis stable, no cyanosis clubbing Neurologic/Psychiatric: hot saw helper II-XII nml as tested, no motor/sensory deficits, alert, normal mood/affect, oriented x 3 Skin: normal color, warm/dry, no rash Lymphatic: no adenopathy Results & Data Laboratory Results Laboratory Results - last 24 hr 06/25/18 06/25/18 06/25/18 11:24 16:13 20:00 WBC RBC Hgb Hct MCV MCH MCHC RDW Std Deviation RDW Coeff of Martin Plt Count MPV Immature Gran % (Auto) Neut % (Auto) Lymph % (Auto) Churchill % (Auto) Eos % (Auto) Baso % (Auto) Immature Gran # (Auto) Neut # (Auto) Lymph # (Auto) Churchill # (Auto) Eos # (Auto) Baso # (Auto) RBC Morphology APTT PTT Ratio Sodium Potassium Chloride Carbon Dioxide Anion Gap BUN Creatinine Est Cr Clr Drug Dosing Est GFR ( Amer) Est GFR (Non-Af Amer) BUN/Creatinine Ratio Glucose POC Glucose 150 H 160 H 230 H Calcium Phosphorus Magnesium 06/26/18 06/26/18 06/26/18 05:39 05:39 05:39 WBC 6.67 RBC 2.45 L Hgb 7.7 L Hct 23.6 L MCV 96.3 MCH 31.4 MCHC 32.6 RDW Std Deviation 55.0 H RDW Coeff of Martin 15.8 H Plt Count 243 MPV 10.0 Immature Gran % (Auto) 9.0 Neut % (Auto) 50.8 Lymph % (Auto) 25.6 Churchill % (Auto) 9.6 Eos % (Auto) 4.3 Baso % (Auto) 0.7 Immature Gran # (Auto) 0.60 H Neut # (Auto) 3.38 Lymph # (Auto) 1.71 Churchill # (Auto) 0.64 H Eos # (Auto) 0.29 Baso # (Auto) 0.05 RBC Morphology Unremarkable APTT 27.7 PTT Ratio 1.1 Sodium 136 Potassium 3.5 Chloride 102 Carbon Dioxide 23 Anion Gap 11.0 BUN 29 H D Creatinine 6.90 H* D Est Cr Clr Drug Dosing 7.1 Est GFR ( Amer) 6.3 Est GFR (Non-Af Amer) 5.4 BUN/Creatinine Ratio 4.2 L Glucose 97 POC Glucose Calcium 7.7 L Phosphorus 4.6 D Magnesium 2.4 06/26/18 07:45 WBC RBC Hgb Hct MCV MCH MCHC RDW Std Deviation RDW Coeff of Martin Plt Count MPV Immature Gran % (Auto) Neut % (Auto) Lymph % (Auto) Churchill % (Auto) Eos % (Auto) Baso % (Auto) Immature Gran # (Auto) Neut # (Auto) Lymph # (Auto) Churchill # (Auto) Eos # (Auto) Baso # (Auto) RBC Morphology APTT PTT Ratio Sodium Potassium Chloride Carbon Dioxide Anion Gap BUN Creatinine Est Cr Clr Drug Dosing Est GFR ( Amer) Est GFR (Non-Af Amer) BUN/Creatinine Ratio Glucose POC Glucose 112 H Calcium Phosphorus Magnesium _ (1) Altered mental status Altered mental status type: unspecified Coma depth: Coma timing: Qualified Code(s): R41.82 - Altered mental status, unspecified
[2018-06-26] MEDS: ISOSORBIDE MONO EXTENDED REL 60 MG TABCR PO SCH (10:24)
[2018-06-26] MEDS: CHOLESTYRAMINE LIGHT 4 GM PKT PO SCH ×2 (10:24→22:13)
[2018-06-26] MEDS: MONTELUKAST SODIUM 10 MG TABLET PO SCH (10:24)
--- NOTE | 2018-06-26 10:42 | Nephrology Progress Note ---
Date of Service June 26, 2018 Assessment & Plan (1) ESRD on hemodialysis: -- Volume status and electrolyte balance remain acceptable. No acute indication for HD today -- Continue to assess need for dialysis on a daily basis due to ongoing diarrhea and volume losses (2) C. difficile colitis: -- Continue Dificid and Questran therapy. No dose adjustment needed in the setting of ESRD (3) Dehydration: -- IVF stopped. Oral hydration encouraged -- GI note reviewed: Patient may require fecal transplant if she does not respond to dificid therapy (4) Diabetes: -- MS changes due to hypoglycemia have resolved -- Recommend stopping Glipizide and managing DM w/ insulin Subjective Mrs. Caicedo was seen & examined in her hospital room this morning. She continues to suffer from diarrhea. Mrs. Caicedo indicates that the frequency of BM's is less. Her abdominal discomfort is mildly improved. She currently denies fever, dyspnea or uremic symptoms. Gastrointestinal: + abdominal pain and + diarrhea/loose stools Physical Exam 2 Vital Signs (Past 24 Hours): Last Vital Signs Temp 36.6 C 06/26/18 08:15 Pulse 61 06/26/18 08:33 Resp 20 06/26/18 08:15 BP 173/90 H 06/26/18 08:33 Pulse Ox 94 06/26/18 08:15 Eyes: PERRL, conjunctivae normal, anicteric sclerae Neck: trachea midline, no thyromegaly Respiratory: normal respiratory effort, lungs clear to auscultation Cardiovascular: RRR, no murmur, no edema Gastrointestinal (Abdomen): Inspection/Auscultation: + hyperactive bowel sounds Percussion/Palpation: abdomen nontender, no guarding and abdomen not rigid Skin: + turgor decreased Results & Data Laboratory Results Laboratory Tests 06/26/18 06/26/18 05:39 05:39 WBC 6.67 Hgb 7.7 L Hct 23.6 L Plt Count 243 Sodium 136 Potassium 3.5 Chloride 102 Carbon Dioxide 23 BUN 29 H D Creatinine 6.90 H* D Glucose 97 _ (1) Diabetes Diabetes mellitus type: type 2 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
--- NOTE | 2018-06-26 11:15 | Gastroenterology Progress Note ---
Date of Service June 26, 2018 Assessment & Plan (1) C. difficile colitis: -- Continue Dificid and Questran therapy. Plan at least 10 days of therapy. She was back from discharge after 6 days . This does not meet typical criteria for recurrnce which is usually after 6 -8 weeks after treatment. If not better, may consider pulsed vancomycin/rifampin course before stool transplant is entertained though is an option Subjective Mrs. Caicedo was seen. Overall better but with some diarrhea. Her abdominal discomfort is mildly improved. Physical Exam 2 Vital Signs (Past 24 Hours): Last Vital Signs Temp 36.6 C 06/26/18 08:15 Pulse 61 06/26/18 08:33 Resp 20 06/26/18 08:15 BP 173/90 H 06/26/18 08:33 Pulse Ox 94 06/26/18 08:15 Gastrointestinal (Abdomen): Inspection/Auscultation: abdomen normal to inspection and + abdomen distended Percussion/Palpation: abdomen soft
[2018-06-26] MEDS: HydrALAZINE 10 MG TAB PO SCH ×2 (14:02→21:19)
[2018-06-26 16:43] LABS: Hematocrit (blood only) 25.1 % (37-47); Hemoglobin 8.4 g/dL (12.0-16.0)
[2018-06-27] MEDS: LORazepam 0.5 MG TAB PO PRN (03:27)
[2018-06-27 06:43] LABS: Partial Thromboplastin Time 26.8 Seconds (21.0-31.0)
[2018-06-27 07:12] LABS: BUN Creatinine Ratio 4.1 (10-20); Calcium 8.1 mg/dl (8.5-10.1); Creatinine Clr Calc Pharmacy 6.5 ml/min; Est GFR (African American) 5.6; Est GFR (Non-African American) 4.8; Potassium 3.4 mmol/L (3.5-5.1)
[2018-06-27] MEDS: FIDAXOMICIN 200 MG TAB PO SCH ×2 (08:44→23:35)
[2018-06-27] MEDS: MONTELUKAST SODIUM 10 MG TABLET PO SCH (08:50)
[2018-06-27] MEDS: BuPROPion SR 150 MG TABCR PO SCH (08:51)
[2018-06-27] MEDS: HEPARIN SOD 5,000 UNIT/0.5 ML VIAL SQ SCH ×2 (08:53→23:35)
[2018-06-27] MEDS ORDERED: SODIUM CHLORIDE 0.9% 1000ML 1,000 ML IV PRN (09:51)
[2018-06-27] MEDS: CHOLESTYRAMINE LIGHT 4 GM PKT PO SCH (10:00)
[2018-06-27] MEDS: dilTIAZem ER 120 MG CAPCR PO SCH (10:08)
[2018-06-27] MEDS: METOPROLOL TARTRATE 25 MG TAB PO SCH ×2 (10:08→23:29)
[2018-06-27] MEDS: HydrALAZINE 10 MG TAB PO SCH ×3 (10:09→23:30)
[2018-06-27] MEDS: TIOTROPIUM BROMIDE 5 PUFF/90 MCG INH INH SCH (10:09)
[2018-06-27] MEDS: ISOSORBIDE MONO EXTENDED REL 60 MG TABCR PO SCH (10:09)
--- NOTE | 2018-06-27 10:32 | Nephrology Progress Note ---
Date of Service June 27, 2018 Assessment & Plan (1) ESRD on hemodialysis: -- will schedule for dialysis this afternoon as her regular schedule, although she has been having them diarrhea, her blood pressure running high, has some lower extremity edema, aim for 2 liters UF, she is currently 3 kg above her dry weight -- avoid further IV fluid --dose medications for GFR less than 10 --Continue Dificid and Questran therapy. No dose adjustment needed in the setting of ESRD (2) C. difficile colitis: (3) Dehydration: -- IVF stopped. Oral hydration encouraged -- GI note reviewed: Patient may require fecal transplant if she does not respond to dificid therapy (4) Diabetes: Blas Beltran was seen & examined in her hospital room this morning. She continues to suffer from diarrhea but frequency of BM's is less. Her abdominal discomfort improved. She currently denies fever, dyspnea or uremic symptoms. BP running high, has LE edema Physical Exam 2 Vital Signs (Past 24 Hours): Last Vital Signs Temp 36.8 C 06/27/18 07:20 Pulse 60 06/27/18 07:20 Resp 18 06/27/18 07:20 BP 202/68 H 06/27/18 07:20 Pulse Ox 98 06/27/18 07:20 Constitutional: WD/WN, vitals as above Respiratory: normal respiratory effort, lungs clear to auscultation Cardiovascular: RRR, no murmur, no edema Extremities: + edema Gastrointestinal (Abdomen): normal bowel sounds, soft, nontender, no hepatosplenomegaly Neurologic: moves all extremities and awake Psychiatric: A+Ox3, euthymic affect _ (1) Diabetes Diabetes mellitus type: type 2 Diabetes mellitus exterminator insulin use: without exterminator use Diabetes mellitus complication status: with hypoglycemia Diabetes mellitus complication detail: without coma Diabetic retinopathy severity: Proliferative retinopathy type: Diabetes mellitus macular edema: Laterality: Chronic kidney disease stage: Qualified Code(s): E11.649 - Type 2 diabetes mellitus with hypoglycemia without coma
--- NOTE | 2018-06-27 10:35 | Hospitalist Progress Note ---
Date of Service June 27, 2018 Assessment & Plan (1) Altered mental status: metabolic encephalopathy due to ESRD, dehydration, low glucose and ongoing C diff colitis resolved with treating C diff, correcting glucose and hydration patient is completely oriented today, alert, acting normal (2) C. difficile colitis: recurrent, never really recovered from the first bout per son, took 10 days of Vancomycin (prescribed on 06/04) finished Vancomycin about a week prior to admission, felt better for a few days but then diarrhea returned continue Dificid for 10 day course as well as Questran less frequent diarrhea will advance to low fiber diet today gastroenterology following (3) Diverticulitis: possible mild, uncomplicated acute diverticulitis in transverse colon this was ruled out, just treat the C diff (4) Dehydration: patient has had diarrhea and vomiting dry at the time of admission resolved with IV fluids examines euvolemic today (5) HTN (hypertension), benign: continue Diltiazem, Imur and Hydralazine TID (6) Anemia in CKD (chronic kidney disease): Hb stable at 9, continue to follow, no signs of bleeding (7) ESRD on hemodialysis: consult [facility] nephrology plan for HD today K a little low at 3.4 and some edema on exam (8) Hypoglycemia: resolved with increased oral intake holding oral agents Subjective patient sitting up in chair, much more alert and oriented compared to admission denies any abdominal pain or vomiting still with diarrhea but less frequent, discussed trying more to eat than liquids , she liked that idea some swelling in ankles today but today is HD day reviewed labs, all stable appreciate recommendations from gastroenterology and nephrology reviewed chart since time of admission Review of Systems All systems reviewed & are unremarkable except as noted in HPI & below Respiratory: no dyspnea Cardiovascular: + edema Gastrointestinal: + diarrhea/loose stools; no abdominal pain, no nausea, no vomiting, no blood in stools and no melena Physical Exam 2 Vital Signs (Past 24 Hours): Last Vital Signs Temp 36.8 C 06/27/18 07:20 Pulse 60 06/27/18 07:20 Resp 18 06/27/18 07:20 BP 202/68 H 06/27/18 07:20 Pulse Ox 98 06/27/18 07:20 Constitutional: WD/WN, vitals as above no acute distress Eyes: PERRL, conjunctivae normal, anicteric sclerae ENMT: external ear and nose normal, oropharynx normal Neck: trachea midline, no thyromegaly Respiratory: normal respiratory effort, lungs clear to auscultation Cardiovascular: RRR, no murmur, no edema Gastrointestinal (Abdomen): normal bowel sounds, soft, nontender, no hepatosplenomegaly Musculoskeletal: no cyanosis or clubbing, extremities motor strength 5/5 Skin: no rashes, warm and dry Neurologic: patellar DTR's 2+ bilat, sensation intact and PERRL, EOMI, accommodation nl, no face palsy, no dysarthria Psychiatric: A+Ox3, euthymic affect Lymphatic: no cervical or axillary lymphadenopathy Results & Data Laboratory Results Laboratory Results - last 24 hr 06/26/18 06/26/18 06/26/18 11:41 16:08 16:21 Hgb 8.4 L Hct 25.1 L APTT PTT Ratio Sodium Potassium Chloride Carbon Dioxide Anion Gap BUN Creatinine Est Cr Clr Drug Dosing Est GFR ( Amer) Est GFR (Non-Af Amer) BUN/Creatinine Ratio Glucose POC Glucose 171 H 142 H Calcium 06/26/18 06/27/18 06/27/18 20:48 05:57 05:57 Hgb Hct APTT 26.8 PTT Ratio 1.0 Sodium 132 L Potassium 3.4 L Chloride 100 Carbon Dioxide 21 Anion Gap 11.0 BUN 31 H Creatinine 7.66 H* D Est Cr Clr Drug Dosing 6.5 Est GFR ( Amer) 5.6 Est GFR (Non-Af Amer) 4.8 BUN/Creatinine Ratio 4.1 L Glucose 92 POC Glucose 170 H Calcium 8.1 L 06/27/18 08:08 Hgb Hct APTT PTT Ratio Sodium Potassium Chloride Carbon Dioxide Anion Gap BUN Creatinine Est Cr Clr Drug Dosing Est GFR ( Amer) Est GFR (Non-Af Amer) BUN/Creatinine Ratio Glucose POC Glucose 111 H Calcium Medications Administered Current Inpatient Medications Acetaminophen (Tylenol) 650 mg PO Q4H PRN PRN Reason: pain/fever Stop: 07/22/18 15:15 Last Admin: 06/23/18 08:33 Dose: 650 mg Bupropion HCl (Wellbutrin-Sr) 150 mg PO QAM [facility] Stop: 07/23/18 08:59 Last Admin: 06/27/18 08:51 Dose: 150 mg Cholestyramine Resin (Questran) 2 gm PO BID@1000,2200 [facility] Stop: 07/25/18 09:59 Last Admin: 06/26/18 22:13 Dose: 2 gm Dextrose (Dextrose 50%) 25 - 50 ml IV UD PRN; Protocol PRN Reason: Hypoglycemia Protocol Stop: 07/22/18 17:36 Last Admin: 06/22/18 21:09 Dose: 25 ml Diltiazem HCl (Tiazac) 240 mg PO DAILY [facility] Stop: 07/23/18 08:59 Last Admin: 06/27/18 10:08 Dose: 240 mg Fidaxomicin (Dificid) 200 mg PO BID [facility] Stop: 07/02/18 15:59 Last Admin: 06/27/18 08:44 Dose: 200 mg Glucagon (Glucagen) 1 mg IM UD PRN; Protocol PRN Reason: Hypoglycemia Protocol Stop: 07/22/18 17:36 Glucose (Glucose 40%) 15 - 30 gm PO UD PRN; Protocol PRN Reason: Hypoglycemia Protocol Stop: 07/22/18 17:36 Glucose (Dex4 Glucose) 4 - 8 tabs PO UD PRN; Protocol PRN Reason: Hypoglycemia Protocol Stop: 07/22/18 17:36 Heparin Sodium (Porcine) (Heparin Sodium (Porcine)) 5,000 units SQ Q12 [facility] Stop: 07/22/18 20:59 Last Admin: 06/27/18 08:53 Dose: 5,000 units Hydralazine HCl (Apresoline) 10 mg PO TID [facility] Stop: 07/26/18 13:59 Last Admin: 06/27/18 10:09 Dose: 10 mg Hydralazine HCl (Hydralazine Hcl) 10 mg IV Q6 PRN PRN Reason: Hypertension Stop: 07/26/18 09:11 Sodium Chloride (Nss 1000ml) 1,000 mls @ 0 mls/hr IV .Q0M PRN PRN Reason: For Hemodialysis Use ONLY Stop: 06/27/18 15:50 Isosorbide Mononitrate (Imdur Extended Rel) 120 mg PO DAILY [facility] Stop: 07/26/18 09:59 Last Admin: 06/27/18 10:09 Dose: 120 mg Loperamide HCl (Imodium) 2 mg PO Q6 PRN PRN Reason: Diarrhea Stop: 07/24/18 12:18 Last Admin: 06/25/18 14:07 Dose: 2 mg Lorazepam (Ativan) 0.25 mg PO BID PRN PRN Reason: Anxiety Stop: 07/22/18 15:15 Last Admin: 06/27/18 03:27 Dose: 0.25 mg Menthol (Nice) 1 jason BUCCAL PRN PRN PRN Reason: Cough Stop: 07/23/18 01:16 Metoprolol Tartrate (Lopressor) 25 mg PO BID [facility] Stop: 07/25/18 20:59 Last Admin: 06/27/18 10:08 Dose: 25 mg Miscellaneous (Carbohydrates For Hypoglycemia) 15 - 30 gm PO UD PRN PRN Reason: Hypoglycemia Treatment Stop: 07/22/18 17:36 Last Admin: 06/22/18 17:35 Dose: 15 gm Montelukast Sodium (Singulair) 10 mg PO QAM [facility] Stop: 07/26/18 09:59 Last Admin: 06/27/18 08:50 Dose: 10 mg Morphine Sulfate (Morphine Sulfate) 2 mg IV Q4 PRN PRN Reason: Pain Stop: 07/07/18 10:56 Ondansetron HCl (Zofran) 4 mg IV Q6H PRN PRN Reason: Nausea Stop: 07/22/18 15:15 Last Admin: 06/23/18 08:31 Dose: 4 mg Tiotropium [place] (Spiriva) 1 puffs INH DAILY [facility] Stop: 07/23/18 08:59 Last Admin: 06/27/18 10:09 Dose: 1 puffs _ (1) Altered mental status Altered mental status type: unspecified Coma depth: Coma timing: Qualified Code(s): R41.82 - Altered mental status, unspecified
[2018-06-28] MEDS: CHOLESTYRAMINE LIGHT 4 GM PKT PO SCH ×3 (00:38→22:32)
[2018-06-28 07:10] LABS: Hemoglobin 8.4 g/dL (12.0-16.0); Mean Corpuscular Volume 94.1 fL (80-100); Mean Platelet Volume 9.3 fL (7.4-10.4); Platelet Count 232 K/uL (130-400); RDW Coefficient of Variation 15.6 % (11.5-14.5); RDW Standard Deviation 52.8 fL (36.4-46.3); Red Blood Count 2.55 M/uL (4.2-5.4); White Blood Count 7.75 K/uL (4.8-10.8)
[2018-06-28] MEDS: FIDAXOMICIN 200 MG TAB PO SCH ×2 (08:26→21:30)
[2018-06-28] MEDS: BuPROPion SR 150 MG TABCR PO SCH (08:26)
[2018-06-28] MEDS: METOPROLOL TARTRATE 25 MG TAB PO SCH ×2 (08:26→21:31)
[2018-06-28] MEDS: HydrALAZINE 10 MG TAB PO SCH (08:26)
[2018-06-28] MEDS: HEPARIN SOD 5,000 UNIT/0.5 ML VIAL SQ SCH ×2 (08:27→21:32)
[2018-06-28] MEDS: TIOTROPIUM BROMIDE 5 PUFF/90 MCG INH INH SCH (08:29)
[2018-06-28] MEDS ORDERED: HydrALAZINE 10 MG TAB PO SCH (09:00)
[2018-06-28] MEDS: ISOSORBIDE MONO EXTENDED REL 60 MG TABCR PO SCH (09:47)
[2018-06-28] MEDS: dilTIAZem ER 120 MG CAPCR PO SCH (09:47)
[2018-06-28] MEDS: MONTELUKAST SODIUM 10 MG TABLET PO SCH (09:47)
[2018-06-28] MEDS ORDERED: SODIUM CHLORIDE 0.9% 1000ML 1,000 ML IV PRN (10:48)
--- NOTE | 2018-06-28 10:48 | Nephrology Progress Note ---
Date of Service June 28, 2018 Assessment & Plan (1) ESRD on hemodialysis: -- increase hydralazine to 50 mg t.i.d., continue on diltiazem, Imdur. -- avoid further IV fluid --dose medications for GFR less than 10 --Continue Dificid and Questran therapy. No dose adjustment needed in the setting of ESRD (2) C. difficile colitis: (3) Dehydration: -- IVF stopped. Oral hydration encouraged -- GI note reviewed: Patient may require fecal transplant if she does not respond to dificid therapy (4) Diabetes: -- MS changes due to hypoglycemia have resolved -- Recommend stopping Glipizide and managing DM w/ insulin Subjective Ruby was seen & examined in her hospital room this morning. Diarrhea seems to be improving. She has been having persistent cough since last night. Has history of chronic cough for last more than 2 years, had extensive workup without any diagnosis and she was scheduled to see pulmonology as an outpatient. She currently denies fever, dyspnea or uremic symptoms. BP running high, has LE edema. Gastrointestinal: + abdominal pain and + diarrhea/loose stools Physical Exam 2 Vital Signs (Past 24 Hours): Last Vital Signs Temp 36.9 C 06/28/18 07:50 Pulse 65 06/28/18 07:50 Resp 18 06/28/18 07:50 BP 192/71 H 06/28/18 07:50 Pulse Ox 96 06/28/18 07:50 Constitutional: WD/WN, vitals as above Respiratory: normal respiratory effort, lungs clear to auscultation Cardiovascular: RRR, no murmur, no edema Extremities: + edema Gastrointestinal (Abdomen): normal bowel sounds, soft, nontender, no hepatosplenomegaly Neurologic: moves all extremities and awake Psychiatric: A+Ox3, euthymic affect _ (1) Diabetes Diabetes mellitus type: type 2 Diabetes mellitus half-way insulin use: without half-way use Diabetes mellitus complication status: with hypoglycemia Diabetes mellitus complication detail: without coma Diabetic retinopathy severity: Proliferative retinopathy type: Diabetes mellitus macular edema: Laterality: Chronic kidney disease stage: Qualified Code(s): E11.649 - Type 2 diabetes mellitus with hypoglycemia without coma
[2018-06-28] MEDS ORDERED: LORazepam 0.5 MG TAB PO PRN (11:21)
--- NOTE | 2018-06-28 13:31 | Hospitalist Progress Note ---
Date of Service June 28, 2018 Assessment & Plan (1) Altered mental status: metabolic encephalopathy due to ESRD, dehydration, low glucose and ongoing C diff colitis resolved with treating C diff, correcting glucose and hydration patient is completely oriented and alert for a few days (2) C. difficile colitis: recurrent, never really recovered from the first bout per son, took 10 days of Vancomycin (prescribed on 06/04) finished Vancomycin about a week prior to admission, felt better for a few days but then diarrhea returned continue Dificid for 10 day course as well as Questran tolerating low fiber diet stools more formed today Dificid started evening of 06/22, finish on 07/02/18 likely discharge tomorrow after HD if it can be done in the morning (3) Diverticulitis: possible mild, uncomplicated acute diverticulitis in transverse colon this was ruled out, just treat the C diff (4) Dehydration: patient has had diarrhea and vomiting dry at the time of admission resolved with IV fluids examines euvolemic today (5) HTN (hypertension), benign: continue Diltiazem, Imur and Hydralazine TID titrate up on Hydralazine to 25mg TID (6) Anemia in CKD (chronic kidney disease): Hb stable at 8.4, continue to follow, no signs of bleeding (7) ESRD on hemodialysis: plan for HD tomorrow, hopeful can get it done in the morning (8) Hypoglycemia: resolved with increased oral intake holding oral agents likely for discharge tomorrow if HD can be done in the morning or early afternoon Subjective patient frustrated about last night, had 4 hours of HD instead of her normal 3 hours she did not get to sleep until after midnight she did not sleep well the night before due to Ativan dose being too low in good news, her diarrhea is resolving, stools are soft now, not liquid eating better says she feels weak, wants to walk in the halls reviewed labs, Hb stable BP still high, will titrate up on Hydralazine Review of Systems All systems reviewed & are unremarkable except as noted in HPI & below Constitutional: + weakness Gastrointestinal: no abdominal pain, no nausea, no vomiting and no diarrhea/ loose stools (stools more formed) Physical Exam 2 Vital Signs (Past 24 Hours): Last Vital Signs Temp 36.9 C 06/28/18 07:50 Pulse 65 06/28/18 07:50 Resp 18 06/28/18 07:50 BP 192/71 H 06/28/18 07:50 Pulse Ox 96 06/28/18 07:50 Constitutional: WD/WN, vitals as above no acute distress Eyes: PERRL, conjunctivae normal, anicteric sclerae ENMT: external ear and nose normal, oropharynx normal Neck: trachea midline, no thyromegaly Respiratory: normal respiratory effort, lungs clear to auscultation Cardiovascular: RRR, no murmur, no edema Gastrointestinal (Abdomen): normal bowel sounds, soft, nontender, no hepatosplenomegaly Musculoskeletal: no cyanosis or clubbing, extremities motor strength 5/5 Skin: no rashes, warm and dry Neurologic: patellar DTR's 2+ bilat, sensation intact and PERRL, EOMI, accommodation nl, no face palsy, no dysarthria Psychiatric: A+Ox3, euthymic affect Lymphatic: no cervical or axillary lymphadenopathy Results & Data Laboratory Results Laboratory Results - last 24 hr 06/27/18 06/27/18 06/28/18 16:51 20:40 06:47 WBC RBC Hgb Hct MCV MCH MCHC RDW Std Deviation RDW Coeff of Martin Plt Count MPV APTT 27.0 PTT Ratio 1.0 POC Glucose 189 H 121 H 06/28/18 06/28/18 06/28/18 06:47 07:48 12:02 WBC 7.75 RBC 2.55 L Hgb 8.4 L Hct 24.0 L MCV 94.1 MCH 32.9 MCHC 35.0 RDW Std Deviation 52.8 H RDW Coeff of Martin 15.6 H Plt Count 232 MPV 9.3 APTT PTT Ratio POC Glucose 120 H 133 H Medications Administered Current Inpatient Medications Acetaminophen (Tylenol) 650 mg PO Q4H PRN PRN Reason: pain/fever Stop: 07/22/18 15:15 Last Admin: 06/23/18 08:33 Dose: 650 mg Bupropion HCl (Wellbutrin-Sr) 150 mg PO QAM [facility] Stop: 07/23/18 08:59 Last Admin: 06/28/18 08:26 Dose: 150 mg Cholestyramine Resin (Questran) 2 gm PO BID@1000,2200 [facility] Stop: 07/25/18 09:59 Last Admin: 06/28/18 09:47 Dose: 2 gm Dextrose (Dextrose 50%) 25 - 50 ml IV UD PRN; Protocol PRN Reason: Hypoglycemia Protocol Stop: 07/22/18 17:36 Last Admin: 06/22/18 21:09 Dose: 25 ml Diltiazem HCl (Tiazac) 240 mg PO DAILY [facility] Stop: 07/23/18 08:59 Last Admin: 06/28/18 09:47 Dose: 240 mg Fidaxomicin (Dificid) 200 mg PO BID [facility] Stop: 07/02/18 15:59 Last Admin: 06/28/18 08:26 Dose: 200 mg Glucagon (Glucagen) 1 mg IM UD PRN; Protocol PRN Reason: Hypoglycemia Protocol Stop: 07/22/18 17:36 Glucose (Glucose 40%) 15 - 30 gm PO UD PRN; Protocol PRN Reason: Hypoglycemia Protocol Stop: 07/22/18 17:36 Glucose (Dex4 Glucose) 4 - 8 tabs PO UD PRN; Protocol PRN Reason: Hypoglycemia Protocol Stop: 07/22/18 17:36 Heparin Sodium (Porcine) (Heparin Sodium (Porcine)) 5,000 units SQ Q12 [facility] Stop: 07/22/18 20:59 Last Admin: 06/28/18 08:27 Dose: 5,000 units Hydralazine HCl (Hydralazine Hcl) 10 mg IV Q6 PRN PRN Reason: Hypertension Stop: 07/26/18 09:11 Last Admin: 06/28/18 04:19 Dose: 10 mg Hydralazine HCl (Apresoline) 50 mg PO TID [facility] Stop: 07/28/18 13:59 Sodium Chloride (Nss 1000ml) 1,000 mls @ 0 mls/hr IV .Q0M PRN PRN Reason: For Hemodialysis Use ONLY Stop: 06/28/18 16:47 Isosorbide Mononitrate (Imdur Extended Rel) 120 mg PO DAILY [facility] Stop: 07/26/18 09:59 Last Admin: 06/28/18 09:47 Dose: 120 mg Loperamide HCl (Imodium) 2 mg PO Q6 PRN PRN Reason: Diarrhea Stop: 07/24/18 12:18 Last Admin: 06/25/18 14:07 Dose: 2 mg Lorazepam (Ativan) 0.5 mg PO BID PRN PRN Reason: Anxiety Stop: 07/22/18 15:15 Menthol (Nice) 1 jason BUCCAL PRN PRN PRN Reason: Cough Stop: 07/23/18 01:16 Metoprolol Tartrate (Lopressor) 25 mg PO BID [facility] Stop: 07/25/18 20:59 Last Admin: 06/28/18 08:26 Dose: 25 mg Miscellaneous (Carbohydrates For Hypoglycemia) 15 - 30 gm PO UD PRN PRN Reason: Hypoglycemia Treatment Stop: 07/22/18 17:36 Last Admin: 06/22/18 17:35 Dose: 15 gm Montelukast Sodium (Singulair) 10 mg PO QAM [facility] Stop: 07/26/18 09:59 Last Admin: 06/28/18 09:47 Dose: 10 mg Morphine Sulfate (Morphine Sulfate) 2 mg IV Q4 PRN PRN Reason: Pain Stop: 07/07/18 10:56 Ondansetron HCl (Zofran) 4 mg IV Q6H PRN PRN Reason: Nausea Stop: 07/22/18 15:15 Last Admin: 06/23/18 08:31 Dose: 4 mg Tiotropium [place] (Spiriva) 1 puffs INH DAILY [facility] Stop: 07/23/18 08:59 Last Admin: 06/28/18 08:29 Dose: 1 puffs _ (1) Altered mental status Altered mental status type: unspecified Coma depth: Coma timing: Qualified Code(s): R41.82 - Altered mental status, unspecified
[2018-06-28] MEDS: HydrALAZINE TAB 50 MG TAB PO SCH ×2 (14:19→21:30)
[2018-06-28] MEDS: FUROSEMIDE 80 MG TAB PO SCH (19:33)
[2018-06-29 07:25] LABS: Partial Thromboplastin Time 25.2 Seconds (21.0-31.0)
[2018-06-29] MEDS: BuPROPion SR 150 MG TABCR PO SCH (07:44)
[2018-06-29] MEDS: METOPROLOL TARTRATE 25 MG TAB PO SCH (07:45)
[2018-06-29] MEDS: ISOSORBIDE MONO EXTENDED REL 60 MG TABCR PO SCH (07:45)
[2018-06-29] MEDS: dilTIAZem ER 120 MG CAPCR PO SCH (07:46)
[2018-06-29] MEDS: TIOTROPIUM BROMIDE 5 PUFF/90 MCG INH INH SCH (07:46)
[2018-06-29] MEDS: MONTELUKAST SODIUM 10 MG TABLET PO SCH (07:46)
[2018-06-29] MEDS: HEPARIN SOD 5,000 UNIT/0.5 ML VIAL SQ SCH (07:47)
[2018-06-29] MEDS: FUROSEMIDE 80 MG TAB PO SCH (07:47)
[2018-06-29] MEDS: HydrALAZINE TAB 50 MG TAB PO SCH ×2 (07:48→13:26)
[2018-06-29] MEDS: FIDAXOMICIN 200 MG TAB PO SCH (07:54)
[2018-06-29 07:56] LABS: BUN Creatinine Ratio 4.3 (10-20); Est GFR (African American) 6.1; Est GFR (Non-African American) 5.3; Potassium 3.7 mmol/L (3.5-5.1)
[2018-06-29] MEDS: CHOLESTYRAMINE LIGHT 4 GM PKT PO SCH (10:17)
--- NOTE | 2018-06-29 10:37 | Nephrology Progress Note ---
Date of Service June 29, 2018 Assessment & Plan (1) ESRD on hemodialysis: -- plan for dialysis today as her regular schedule -- continue hydralazine to 50 mg t.i.d., continue on diltiazem, Imdur. -- avoid further IV fluid --dose medications for GFR less than 10 --Continue Dificid and Questran therapy. --okay to be discharged after dialysis today, next dialysis on Wednesday at outpatient dialysis unit (2) C. difficile colitis: (3) Dehydration: -- IVF stopped. Oral hydration encouraged -- GI note reviewed: Patient may require fecal transplant if she does not respond to dificid therapy (4) Diabetes: -- MS changes due to hypoglycemia have resolved -- Recommend stopping Glipizide and managing DM w/ insulin Subjective Ruby was seen & examined in her hospital room this morning. Diarrhea resolved. Cough improved and overall she is feeling better except feels tired. She currently denies fever, dyspnea or uremic symptoms. BP running high, has LE edema. 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
--- NOTE | 2018-06-29 14:15 | Discharge Summary ---
Date of Service June 29, 2018 Admission HPI Per Admitting Provider 73 yo female with history of polycystic kidney disease leading to ESRD, previously on peritoneal dialysis then transitioned to hemodialysis, presents to the ED today due to feeling ill with abdominal pain, diarrhea, vomiting. Recently the patient was diagnosed with C diff colitis, visit to the ED on . She was discharged on Vancomycin QID x 10 days, instructed to follow up with PCP. She initially responded well and felt better for a few days. However , over the past several days she has been having more diarrhea. She does not really complain of abdominal pain, certainly nothing severe. She says she will have some cramping pain when moving her bowels. She did not eat yesterday and then today when she tried to eat some breakfast she vomited, vomited her medications as well. No fever or chills. She has malaise and fatigue. She was acting really agitated and confused on initial presentation, trying to climb out of her bed, got Ativan IV and calmed down but she was confused. She also had a reported glucose in the 20's and required dextrose. Her sons are at the bedside and they help a lot with the history. The patient denies shirley chest pain or pressure, no dyspnea. She reports that today is a normal HD day for her but she was too ill to go to HD. She follows with Dr. Clemons. Labs showed a normal WBC, Hb stable at 9.5. Cr markedly elevated at 9.3 but electrolytes stable. Reviewed CT abdomen/pelvis which showed a colitis consistent with C diff infection. Also showed diverticular disease with possible acute diverticulitis in transverse colon. There was also some fluid and perinephric stranding around kidney but UA did not show signs of infection. Admission Exam Per Admitting Provider Constitutional: WD/WN, vitals as above + ill appearing; no acute distress Eyes: PERRL, conjunctivae normal, anicteric sclerae ENMT: external ear and nose normal, oropharynx normal Neck: trachea midline, no thyromegaly Respiratory: normal respiratory effort, lungs clear to auscultation Cardiovascular: RRR, no murmur, no edema left UE fistula with thrill and bruit Gastrointestinal (Abdomen): Inspection/Auscultation: + abdomen distended and normal bowel sounds Percussion/Palpation: + abdomen tender (mild, diffuse) and abdomen soft; no guarding, abdomen not rigid and no hernia Musculoskeletal: no cyanosis or clubbing, extremities motor strength 5/5 Skin: no rashes, warm and dry Neurologic: patellar DTR's 2+ bilat, sensation intact and PERRL, EOMI, accommodation nl, no face palsy, no dysarthria Psychiatric: Orientation: oriented x 3; + not alert (sedated after Ativan) Lymphatic: no cervical or axillary lymphadenopathy Principal Diagnosis C difficile colitis Discharge Exam Constitutional WD/WN, vitals as above no acute distress Eyes PERRL, conjunctivae normal, anicteric sclerae ENMT external ear and nose normal, oropharynx normal Neck trachea midline, no thyromegaly Respiratory normal respiratory effort, lungs clear to auscultation Cardiovascular RRR, no murmur, no edema Gastrointestinal (Abdomen) normal bowel sounds, soft, nontender, no hepatosplenomegaly Musculoskeletal no cyanosis or clubbing, extremities motor strength 5/5 Skin no rashes, warm and dry Neurologic patellar DTR's 2+ bilat, sensation intact and PERRL, EOMI, accommodation nl, no face palsy, no dysarthria Psychiatric A+Ox3, euthymic affect Lymphatic no cervical or axillary lymphadenopathy Discharge Data Allergies Allergy/AdvReac Type Severity Reaction Status Date / Time nickel Allergy Unknown RASH Verified 06/22/18 11:23 nitrofurantoin Allergy Unknown REDNESS Verified 06/22/18 11:23 AND BURNING OF HANDS Consultations 06/22/18 11:52 ED Decision to Admit Stat 06/22/18 15:16 Consult Case Management - Discharge Planning Routine Consult Nephrology Routine 06/22/18 17:08 Consult Gastroenterology Routine Ordered Studies 06/22/18 09:46 CT abd pelvis IV con only Stat Hospital Course (1) Altered mental status: metabolic encephalopathy due to ESRD, dehydration, low glucose and ongoing C diff colitis resolved with treating C diff, correcting glucose and hydration patient is completely oriented and alert for several days, safe to discharge to home today (2) C. difficile colitis: recurrent, never really recovered from the first bout per son, took 10 days of Vancomycin (prescribed on 06/04) finished Vancomycin about a week prior to admission, felt better for a few days but then diarrhea returned continue Dificid for 10 more days after discharge, has medication at home already tolerating regular diet stools are solid today d/c to home, follow up with [facility] in one month (3) Dehydration: patient has had diarrhea and vomiting dry at the time of admission resolved with IV fluids (4) HTN (hypertension), benign: continue Diltiazem, Imur and Hydralazine TID titrate up on Hydralazine to 50mg TID will continue this on discharge (5) Anemia in CKD (chronic kidney disease): Hb stable no signs of bleeding (6) ESRD on hemodialysis: tolerated HD well on 06/29 plan to resume outpatient schedule on 07/01 follow up with nephrology as scheduled (7) Hypoglycemia: resolved with increased oral intake holding oral agents over the past week sugars have been stable without any need for Novolog ranging from 100-140 discussed with patient and her son who helps with medications will discontinue Glimepiride at this time will follow low carb diet, check sugars twice a day for next week and follow up with PCP if sugars are elevated at home the next logical option would be once a day Lantus Total Time Total Time Spent Total Time Spent (In Minutes): 40 minutes Total Time Includes: Examination of the Patient, Discharge Planning, Medication Reconciliation, Communication With Other Providers and Other (communication with patient's son) Discharge Plan Discharge Items Patient Disposition: Home - Self-Care Reason For Visit: C DIFF COLITIS, DEHYDRATION Discharge Diagnosis: C difficile colitis, dehydration, hypoglycemia, altered mental status Condition: Good Discharge Goals: Improve disease control, Improve function and Increase independence Activity: Resume your previous activity Non-emergency contact: Primary Care Provider, Corrections Identification Technician and Insert Cutter Call non-emergency contact if: you have any medication questions, your symptoms worsen and you have a fever Follow-up/Referrals: Cruz Ramos MD [Primary Care Provider] - 07/05/18 9:30 am (The appointment you had with Dr. Ramos on Jun 30 was rescheduled for WednesdayJuly 05 at 9:30 am. *If you need to change this appointment, call the office at [phone].) Diet: Carb Consistent or DM2 and Dialysis Renal Addtl Provider Instructions: Medications: - DIFICID: continue to take for 20 more doses, already have at home - HYDRALAZINE: blood pressure medications added by nephrology, due to blood pressure being persistently elevated - GLIMEPIRIDE: stopped due to low glucose levels, see below C difficile colitis: recurrent episode that did not resolve with Vancomcyin now well controlled on Dificid, complete 20 more doses at home eat yogurt every day to supply healthy bacteria to your gut stools are now formed, tolerating diet and no pain recommend that you call [facility] for follow up in one month's time their phone number is ESRD on Hemodialysis: report for dialysis on Wednesday as normally scheduled Hypertension: Hydralazine added to Diltiazem and Imdur, follow up with Dr. Ramos for blood pressure check Diabetes: profound hypoglycemia at time of admission, required several treatments with Dextrose over the past week, your sugars have never been elevated, no insulin required recommend that you continue to hold Glimepiride as this can lead to low sugars, especially with renal failure alternative treatment would be insulin however, you have not required any insulin while here check sugars twice a day for the next week and take results with you to Dr. Ramos would check the sugar in morning when you wake up prior to eating and then in afternoon recommend that you follow a low carbohydrate diet and follow up with Dr. Ramos FOLLOW UP - Dr. Ramos on 07/05 - hemodialysis on Saturday 07/01 - [facility] in one month, call for appt Prescriptions: New hydralazine 50 mg Tablet 50 mg PO TID 30 Days Qty: 90 RF: 1 fidaxomicin [Dificid] 200 mg Tablet 200 mg PO BID 10 Days Qty: 20 RF: 0 Continue simvastatin 20 mg Tablet 20 mg PO HS Qty: 0 RF: 0 furosemide 40 mg Tablet 80 mg PO BID RF: 0 meloxicam 15 mg Tablet 15 mg PO QAM RF: 0 diltiazem HCl 240 mg Capsule,Extended Release 24 Hr 240 mg PO QAM RF: 0 isosorbide mononitrate 120 mg Tablet Extended Release 24 Hr 120 mg PO QAM RF: 0 lorazepam 0.5 mg Tablet 0.25 - 0.5 mg PO BID PRN (Reason: Anxiety) RF: 0 montelukast 10 mg Tablet 10 mg PO QAM RF: 0 mv,[id number]-epa-fish [ProRenal QD] 400-500 mcg-unit Capsule 1 cap PO QAM RF: 0 ferric citrate [Auryxia] 210 mg iron Tablet 210 mg PO TID RF: 0 tiotropium bromide [Spiriva Respimat] 1.25 mcg/actuation Mist 2 puff INHALATION QAM RF: 0 bupropion HCl 150 mg tablet sustained-release 12 hr 150 mg PO QAM RF: 0 ondansetron HCl [Zofran] 4 mg tablet 4 mg PO DAILY Qty: 6 RF: 0 Discontinued glimepiride 4 mg Tablet 4 mg PO QAM Qty: 0 RF: 0 vancomycin 125 mg capsule 125 mg PO Q6H Qty: 40 RF: 0 Stand-Alone Forms: Discharge [facility], [facility] Discharge Orders: Discharge Order (Routine); Ordered 06/29/18 Ordered By: Cesar Oneil Admission Data Admit Date/Time: 06/22/18 12:52 Attending Provider: Cesar Oneil Admit Provider: Cesar Oneil Primary Care Provider: Cruz Ramos Other Providers: Cesar Oneil ; Robert Clemons ; Chepe Kennedy Service: Medical Other Interventions: Discharge Summary Assessment (RN) Last Done: 06/29/18 12:14 DC Date/Time DO NOT enter until pt leaves facility: 06/29/18 14:18
== END 2018-06-29 14:18 | disposition home or self-care (01) | DRG 371 ==
LOC: ED 09:31 → 4W 12:52 → SUATTDRO 12:52 → 4W 14:32

== ENCOUNTER 2018-07-15 03:16 | Inpatient (IN) ==
[2018-07-15 04:22] LABS: Basophils # (auto) 0.03 K/uL (0-0.2); Basophils % (auto) 0.8 %; Eosinophils # (auto) 0.15 K/uL (0-0.5); Eosinophils % (auto) 3.8 %; Hematocrit (blood only) 29.8 % (37-47); Hemoglobin 9.5 g/dL (12.0-16.0); Lymphocytes # (auto) 1.15 K/uL (1.2-3.4); Lymphocytes % (auto) 29.3 %; Mean Corpuscular Hgb Conc 31.9 g/dL (32-36); Mean Corpuscular Volume 100.7 fL (80-100); Mean Platelet Volume 9.5 fL (7.4-10.4); Monocytes # (auto) 0.31 K/uL (0.11-0.59); Monocytes % (auto) 7.9 %; Neutrophils # (auto) 2.28 K/uL (1.4-6.5); Neutrophils % (auto) 58.2 %; Platelet Count 193 K/uL (130-400); RDW Coefficient of Variation 15.9 % (11.5-14.5); RDW Standard Deviation 58.3 fL (36.4-46.3); Red Blood Count 2.96 M/uL (4.2-5.4); White Blood Count 3.92 K/uL (4.8-10.8)
[2018-07-15 04:34] LABS: Appearance Urine Clear (Clear); Bacteria Urine Automated Negative (Negative); Bilirubin Urine Negative (Negative); Color Urine Yellow; Epithelial Cell Urine Auto >30 /lpf (0-5); Glucose Urine UA Trace (Negative); Ketones Urine Negative (Negative); Leukocyte Esterase Urine Trace (Negative); Nitrite Urine Negative (Negative); Urobilinogen Urine Negative (Negative); pH Urine 8.5 (4.5-7.5)
[2018-07-15 04:38] LABS: Partial Thromboplastin Ratio 0.8; Partial Thromboplastin Time 22.2 Seconds (21.0-31.0); Prothrombin Time 10.2 Seconds (9.0-12.0)
[2018-07-15 04:40] LABS: Protein Urine 2+ (Negative)
[2018-07-15 04:48] LABS: Albumin Globulin Ratio 1.1 (0.9-2); Albumin Level 3.7 gm/dl (3.4-5.0); BUN Creatinine Ratio 7.1 (10-20); Bilirubin,Total 0.4 mg/dl (0.2-1); Calcium 8.6 mg/dl (8.5-10.1); Creatinine Clr Calc Pharmacy 5.6 ml/min; Est GFR (African American) 4.6; Globulin 3.4 gm/dl (2.5-4.0); Potassium 5.7 mmol/L (3.5-5.1); Total Protein 7.1 gm/dl (6.4-8.2)
--- NOTE | 2018-07-15 06:30 | History & Physical Report ---
Date of Service July 15, 2018 Assessment & Plan (1) ESRD on hemodialysis: Generalized body edema upper and lower extremities/shortness of breath/ ESRD on HD/missed dialysis 2 days ago-- Admit to monitored bed Consult her bioinformatics specialist Dr. Mclain. Present on Admission?: Yes (2) Shortness of breath: As above. Present on Admission?: Yes (3) Edema: As above. Present on Admission?: Yes (4) CAD (coronary artery disease): CAD/hypertension-- Continue diltiazem,, furosemide, hydralazine, isosorbide mononitrate and telmisartan with hold parameters. Present on Admission?: Yes (5) HTN (hypertension), benign: As above. Present on Admission?: Yes (6) Hypothyroidism (acquired): Continue levothyroxine. Present on Admission?: Yes (7) Hyperlipidemia: Continue simvastatin. Present on Admission?: Yes (8) Anxiety and depression: Continue bupropion and lorazepam. Restless leg syndrome-- Continue ropinirole. Present on Admission?: Yes History of Present Illness Chief Complaint: The patient presents to the emergency department with complaint of being short of breath, which she attributes to missing dialysis 2 days ago due to bad weather. Primary Care Provider: Cruz Ramos MD The patient is a 73-year-old female who reports worsening shortness of breath, significant fluid retention due to missing her dialysis appointment 2 days ago due to inclement weather. Her most recent hospitalization was from 06/22-06/29/18 due to dehydration associated with C. difficile colitis, which has not been a recent issue. She does continue to have a chronic cough over the past year or more, which is unchanged. Allergies Allergy/AdvReac Type Severity Reaction Status Date / Time nickel Allergy Unknown RASH Verified 07/15/18 04:29 nitrofurantoin Allergy Unknown REDNESS Verified 07/15/18 04:29 AND BURNING OF HANDS Home Medications Home Medications Medication Instructions Recorded Confirmed Type simvastatin 20 mg PO HS #0 tab 10/13/15 07/15/18 History diltiazem HCl 240 mg PO QAM 04/26/18 07/15/18 History ferric citrate [Auryxia] 210 mg PO TIDM 04/26/18 07/15/18 History furosemide 80 mg PO BID 04/26/18 07/15/18 History isosorbide mononitrate 120 mg PO QAM 04/26/18 07/15/18 History lorazepam 0.25 - 0.5 mg PO BID PRN 04/26/18 07/15/18 History meloxicam 15 mg PO QAM 04/26/18 07/15/18 History montelukast 10 mg PO QAM 04/26/18 07/15/18 History mv,[id number]-opw-epa-fish 1 cap PO QAM 04/26/18 07/15/18 History [ProRenal QD] tiotropium bromide [Spiriva 2 puff INHALATION QAM 04/26/18 07/15/18 History Respimat] ondansetron HCl [Zofran] 4 mg PO DAILY #6 tab 05/31/18 07/15/18 Rx bupropion HCl 150 mg PO QAM 06/03/18 07/15/18 History levothyroxine [Synthroid] 175 mcg PO QAM #30 tab 06/03/18 07/15/18 Rx hydralazine 100 mg PO TID 07/15/18 07/15/18 History olmesartan 5 mg PO HS 07/15/18 07/15/18 History ropinirole 0.25 mg PO HS 07/15/18 07/15/18 History Past Med/Surg History Medical History Diabetes NIDDM Dialysis patient (Chronic) Kidney failure (Chronic) Gout Asthma AV fistula LUE; "MALFUNCTIONING"= REASON FOR PROCEDURE Anemia CHRONIC; BASELINE HGB 9'S PER CHART REVIEW Anxiety Degenerative disc disease ESRD on hemodialysis MWF Hearing deficit Hyperkalemia Hyperlipidemia Hypertension Hypothyroidism Kidney stones Obesity Osteoarthritis Polycystic kidney disease Restless leg syndrome Surgical History History of arteriovenous graft LUE AVF History of bronchoscopy History of colonoscopy History of hammer toe correction History of hysterectomy History of lumbar surgery History of surgery PERITONEAL DIALYSIS CATHETER PLACEMENT PERITONEAL DIALYSIS CATHETER REMOVAL/PERMACATH INSERTION= 01/27/18= MAC SEDATION AT [facility] History of total abdominal hysterectomy and bilateral salpingo-oophorectomy Family History Other DM (diabetes mellitus) No significant family history Social History Current Living Situation: Family Current Living Situation Comment: lives with sister Feels Safe at Home: Yes Smoking Status: Never smoker Second Hand Exposure: No Hx Alcohol Use: No Hx Substance Use: No Beliefs That Will Affect Care: None Preferred Language: Swedish Review of Systems The patient denies chest pain, palpitations, sore throat, fevers, chills, sweats , nausea, vomiting, diarrhea , constipation, abdominal pain, pelvic pain, blood in urine or stool, dysuria, urinary frequency or urgency, lightheadedness, dizziness, headache, memory loss, loss of consciousness, rash, abnormal bruising or bleeding, imbalance, focal or generalized weakness, numbness or tingling in arms or legs, generalized arthralgias or myalgias, back or neck pain , or night sweats. The review of systems is otherwise negative other than for that already noted above, and at least 10 systems have been reviewed. Physical Exam 2 Vital Signs (Past 24 Hours): Last Vital Signs Temp 36.6 C 07/15/18 03:25 Pulse 76 07/15/18 05:57 Resp 22 07/15/18 05:57 BP 202/92 H 07/15/18 05:57 Pulse Ox 99 07/15/18 05:57 Physical Exam: The patient is awake, alert and oriented 3, normocephalic and atraumatic, lying in bed and in no acute distress. HEENT--PERRL, EOMI, mucous membranes and oropharynx normal. Neck--supple. No JVD. No bruits. Thyroid normal, trachea midline, no adenopathy. Heart--normal S1 and S2. No murmurs, rubs or gallops. Lungs--decreased breath sounds throughout. Abdomen--normal bowel sounds and soft. Nontender. Nondistended. Extremities--no cyanosis or clubbing. 2+-3+ pitting edema upper and lower extremities. There are good distal pulses b/l. Dermatologic--normal skin turgor, normal color, no abnormal lymph nodes, no rash. Neurologic--cranial nerves II through XII grossly intact. Rheumatologic--diminished range of motion due to edema Psychiatric--normal affect. Results & Data Laboratory Results Laboratory Results WBC 3.92 K/uL (4.8-10.8) L 07/15/18 03:30 RBC 2.96 M/uL (4.2-5.4) L 07/15/18 03:30 Hgb 9.5 g/dL (12.0-16.0) L 07/15/18 03:30 Hct 29.8 % (37-47) L 07/15/18 03:30 MCV 100.7 fL (80-100) H 07/15/18 03:30 MCH 32.1 pg (25-34) 07/15/18 03:30 MCHC 31.9 g/dL (32-36) L 07/15/18 03:30 RDW Std Deviation 58.3 fL (36.4-46.3) H 07/15/18 03:30 RDW Coeff of Martin 15.9 % (11.5-14.5) H 07/15/18 03:30 Plt Count 193 K/uL (130-400) 07/15/18 03:30 MPV 9.5 fL (7.4-10.4) 07/15/18 03:30 Immature Gran % (Auto) 0.0 % 07/15/18 03:30 Neut % (Auto) 58.2 % 07/15/18 03:30 Lymph % (Auto) 29.3 % 07/15/18 03:30 [place] % (Auto) 7.9 % 07/15/18 03:30 Eos % (Auto) 3.8 % 07/15/18 03:30 Baso % (Auto) 0.8 % 07/15/18 03:30 Immature Gran # (Auto) 0.00 K/uL (0.00-0.02) 07/15/18 03:30 Neut # (Auto) 2.28 K/uL (1.4-6.5) 07/15/18 03:30 Lymph # (Auto) 1.15 K/uL (1.2-3.4) L 07/15/18 03:30 [place] # (Auto) 0.31 K/uL (0.11-0.59) 07/15/18 03:30 Eos # (Auto) 0.15 K/uL (0-0.5) 07/15/18 03:30 Baso # (Auto) 0.03 K/uL (0-0.2) 07/15/18 03:30 PT 10.2 Seconds (9.0-12.0) 07/15/18 03:30 INR 1.0 (0.9-1.1) 07/15/18 03:30 APTT 22.2 Seconds (21.0-31.0) 07/15/18 03:30 PTT Ratio 0.8 07/15/18 03:30 Sodium 137 mmol/L (136-145) 07/15/18 03:30 Potassium 5.7 mmol/L (3.5-5.1) H 07/15/18 03:30 Chloride 105 mmol/L (98-107) 07/15/18 03:30 Carbon Dioxide 23 mmol/L (21-32) 07/15/18 03:30 Anion Gap 9.0 (3-11) 07/15/18 03:30 BUN 64 mg/dl (7-18) H 07/15/18 03:30 Creatinine 8.95 mg/dl (0.6-1.2) H* 07/15/18 03:30 Est Cr Clr Drug Dosing 5.6 ml/min 07/15/18 03:30 Est GFR ( Amer) 4.6 07/15/18 03:30 Est GFR (Non-Af Amer) 4.0 07/15/18 03:30 BUN/Creatinine Ratio 7.1 (10-20) L 07/15/18 03:30 Glucose 125 mg/dl (70-99) H 07/15/18 03:30 Calcium 8.6 mg/dl (8.5-10.1) 07/15/18 03:30 Total Bilirubin 0.4 mg/dl (0.2-1) 07/15/18 03:30 AST 20 U/L (15-37) 07/15/18 03:30 ALT 22 U/L (12-78) 07/15/18 03:30 Alkaline Phosphatase 70 U/L (45-117) 07/15/18 03:30 Total Protein 7.1 gm/dl (6.4-8.2) 07/15/18 03:30 Albumin 3.7 gm/dl (3.4-5.0) 07/15/18 03:30 Globulin 3.4 gm/dl (2.5-4.0) 07/15/18 03:30 Albumin/Globulin Ratio 1.1 (0.9-2) 07/15/18 03:30 Urine Color Yellow 07/15/18 04:19 Urine Appearance Clear (Clear) 07/15/18 04:19 Urine pH 8.5 (4.5-7.5) H 07/15/18 04:19 Ur Specific [place] 1.010 (1.000-1.030) 07/15/18 04:19 Urine Protein 2+ (Negative) H 07/15/18 04:19 Urine Glucose (UA) Trace (Negative) H 07/15/18 04:19 Urine Ketones Negative (Negative) 07/15/18 04:19 Urine Blood Trace (Negative) H 07/15/18 04:19 Urine Nitrite Negative (Negative) 07/15/18 04:19 Urine Bilirubin Negative (Negative) 07/15/18 04:19 Urine Urobilinogen Negative (Negative) 07/15/18 04:19 Ur Leukocyte Esterase Trace (Negative) H 07/15/18 04:19 Urine WBC (Auto) 5-10 /hpf (0-5) H 07/15/18 04:19 Urine RBC (Auto) 5-10 /hpf (0-4) H 07/15/18 04:19 U Hyaline Cast (Auto) 1-5 /lpf (0-5) 07/15/18 04:19 U Epithel Cells (Auto) >30 /lpf (0-5) H 07/15/18 04:19 Urine Bacteria (Auto) Negative (Negative) 07/15/18 04:19 Medications Administered Home Medications Medication Instructions Recorded Confirmed simvastatin 20 mg PO HS #0 tab 10/13/15 07/15/18 diltiazem HCl 240 mg PO QAM 04/26/18 07/15/18 ferric citrate [Auryxia] 210 mg PO TIDM 04/26/18 07/15/18 furosemide 80 mg PO BID 04/26/18 07/15/18 isosorbide mononitrate 120 mg PO QAM 04/26/18 07/15/18 lorazepam 0.25 - 0.5 mg PO BID PRN 04/26/18 07/15/18 meloxicam 15 mg PO QAM 04/26/18 07/15/18 montelukast 10 mg PO QAM 04/26/18 07/15/18 mv,[id number]-epa-fish 1 cap PO QAM 04/26/18 07/15/18 [ProRenal QD] tiotropium bromide [Spiriva 2 puff INHALATION QAM 04/26/18 07/15/18 Respimat] bupropion HCl 150 mg PO QAM 06/03/18 07/15/18 hydralazine 100 mg PO TID 07/15/18 07/15/18 olmesartan 5 mg PO HS 07/15/18 07/15/18 ropinirole 0.25 mg PO HS 07/15/18 07/15/18 Previous Rx's Medication Instructions Recorded ondansetron HCl [Zofran] 4 mg PO DAILY #6 tab 05/31/18 levothyroxine [Synthroid] 175 mcg PO QAM #30 tab 06/03/18 Code Status & VTE Plan Code Status Full code VTE Prophylaxis Plan VTE Prophylaxis will be ordered: Yes
--- NOTE | 2018-07-15 07:17 | Emergency Department Note ---
Entered by Eldon Hill acting as a scribe for History of Present Illness General Chief complaint: Shortness of Breath/Dyspnea Time Seen by Provider: 07/15/18 03:38 Source: patient History of Present Illness Provider complaint: Shortness of breath Onset (ago): day(s) (Couple of days) Location: chest Radiation: non-radiation Pain Consistency: + constant Relieved By: + none Exacerbated By: + none Associated symptoms: + other (Leg swelling) The patient is a 73 year old female who presents to the Emergency Room with complaints of constant shortness of breath that started a couple days ago, ever since she was taken off of her Lasix. She also has increased swelling in both of her legs. She was originally taken off of Lasix because she was recently hospitalized for C.Diff and she was dehydrated. She was put back on the Lasix, but she states it has not been working like it used it. Her son also mentioned that she missed dialysis yesterday. She goes 3x per week and he also noted that they have been taking an extra 2L off of her. She is not on any oxygen at baseline and she states she feels slightly better on the oxygen. Home Medications Home Medications Medication Instructions Recorded Confirmed Type simvastatin 20 mg PO HS #0 tab 10/13/15 07/15/18 History diltiazem HCl 240 mg PO QAM 04/26/18 07/15/18 History ferric citrate [Auryxia] 210 mg PO TIDM 04/26/18 07/15/18 History furosemide 80 mg PO BID 04/26/18 07/15/18 History isosorbide mononitrate 120 mg PO QAM 04/26/18 07/15/18 History lorazepam 0.25 - 0.5 mg PO BID PRN 04/26/18 07/15/18 History meloxicam 15 mg PO QAM 04/26/18 07/15/18 History montelukast 10 mg PO QAM 04/26/18 07/15/18 History mv,[id number]-[id number]-epa-fish 1 cap PO QAM 04/26/18 07/15/18 History [ProRenal QD] tiotropium bromide [Spiriva 2 puff INHALATION QAM 04/26/18 07/15/18 History Respimat] ondansetron HCl [Zofran] 4 mg PO DAILY #6 tab 05/31/18 07/15/18 Rx bupropion HCl 150 mg PO QAM 06/03/18 07/15/18 History levothyroxine [Synthroid] 175 mcg PO QAM #30 tab 06/03/18 07/15/18 Rx hydralazine 100 mg PO TID 07/15/18 07/15/18 History olmesartan 5 mg PO HS 07/15/18 07/15/18 History ropinirole 0.25 mg PO HS 07/15/18 07/15/18 History Allergies Allergy/AdvReac Type Severity Reaction Status Date / Time nickel Allergy Unknown RASH Verified 07/15/18 04:29 nitrofurantoin Allergy Unknown REDNESS Verified 07/15/18 04:29 AND BURNING OF HANDS Past Med/Surg History Medical History Diabetes NIDDM Dialysis patient (Chronic) Kidney failure (Chronic) Gout Asthma AV fistula LUE; "MALFUNCTIONING"= REASON FOR PROCEDURE Anemia CHRONIC; BASELINE HGB 9'S PER CHART REVIEW Anxiety Degenerative disc disease ESRD on hemodialysis MWF Hearing deficit Hyperkalemia Hyperlipidemia Hypertension Hypothyroidism Kidney stones Obesity Osteoarthritis Polycystic kidney disease Restless leg syndrome Surgical History History of arteriovenous graft LUE AVF History of bronchoscopy History of colonoscopy History of hammer toe correction History of hysterectomy History of lumbar surgery History of surgery PERITONEAL DIALYSIS CATHETER PLACEMENT PERITONEAL DIALYSIS CATHETER REMOVAL/PERMACATH INSERTION= 01/27/18= MAC SEDATION AT [facility] History of total abdominal hysterectomy and bilateral salpingo-oophorectomy Family History Other DM (diabetes mellitus) No significant family history Social History Current Living Situation: Family Current Living Situation Comment: Sister Other Information That Helps Us Care for You: No Feels Safe at Home: No Is there a partner from a previous relationship who is making you feel unsafe now?: No Any Concerns about Your Family Situation: No Would You Like to Speak to Someone About Your Situation: No Safety Concerns: Feels Safe At This Time Smoking Status: Never smoker Do You Dip or Chew Tobacco: No Second Hand Exposure: No Tobacco Cessation Education Requested by Patient: No Hx Alcohol Use: No Hx Substance Use: No Beliefs That Will Affect Care: None Communication Ability: Effective Review of Systems See HPI for pertinent positives & negatives. and A total of 10 systems reviewed and were otherwise negative Physical Exam Vital Signs Vital Signs - 24 hr 07/15/18 03:24 07/15/18 03:25 07/15/18 03:38 Temperature 36.6 C Temperature Source Oral Sepsis Recent Fever Within 48 Hours No Sepsis New/Unexplained Change in Mental Status No Sepsis Action Taken by Nursing No Action Required Pulse Rate 72 78 Pulse Rate [Apical] Pulse Rate [Right Finger] Pulse Rate from SpO2 Sensor 72 Pulse Rhythm Regular Pulse Strength Normal Respiratory Rate 26 H 18 Respiratory Effort / Characteristics Spontaneous SOB on Exertion Respiratory Depth Normal Respiratory Pattern Regular Blood Pressure 205/95 H 205/95 H Blood Pressure [Right Arm] Blood Pressure Mean 131 131 Blood Pressure Mean [Right Arm] Blood Pressure Position [Right Arm] Pulse Oximetry 99 97 Oxygen Delivery Method Room Air Room Air Oxygen Flow Rate 07/15/18 04:01 07/15/18 04:06 07/15/18 04:31 Temperature Temperature Source Sepsis Recent Fever Within 48 Hours Sepsis New/Unexplained Change in Mental Status Sepsis Action Taken by Nursing Pulse Rate 70 69 Pulse Rate [Apical] Pulse Rate [Right Finger] Pulse Rate from SpO2 Sensor 70 68 Pulse Rhythm Pulse Strength Respiratory Rate 21 13 Respiratory Effort / Characteristics Respiratory Depth Respiratory Pattern Blood Pressure 210/80 H 201/80 H Blood Pressure [Right Arm] Blood Pressure Mean 123 120 Blood Pressure Mean [Right Arm] Blood Pressure Position [Right Arm] Pulse Oximetry 100 100 98 Oxygen Delivery Method Room Air Oxygen Flow Rate 07/15/18 05:00 07/15/18 05:31 07/15/18 05:57 Temperature Temperature Source Sepsis Recent Fever Within 48 Hours Sepsis New/Unexplained Change in Mental Status Sepsis Action Taken by Nursing Pulse Rate 72 74 Pulse Rate [Apical] Pulse Rate [Right Finger] 76 Pulse Rate from SpO2 Sensor Pulse Rhythm Pulse Strength Respiratory Rate 12 20 22 Respiratory Effort / Characteristics Non-Labored Spontaneous Respiratory Depth Normal Respiratory Pattern Regular Blood Pressure 203/96 H 199/94 H Blood Pressure [Right Arm] 202/92 H Blood Pressure Mean 131 129 Blood Pressure Mean [Right Arm] 128 Blood Pressure Position [Right Arm] Sitting Pulse Oximetry 99 Oxygen Delivery Method Nasal Cannula Oxygen Flow Rate 1 07/15/18 06:33 07/15/18 06:45 07/15/18 08:00 Temperature 36.4 C L Temperature Source Oral Sepsis Recent Fever Within 48 Hours Sepsis New/Unexplained Change in Mental Status Sepsis Action Taken by Nursing Pulse Rate 76 Pulse Rate [Apical] 76 Pulse Rate [Right Finger] Pulse Rate from SpO2 Sensor Pulse Rhythm Pulse Strength Respiratory Rate 20 22 Respiratory Effort / Characteristics Non-Labored Spontaneous Respiratory Depth Normal Respiratory Pattern Regular Blood Pressure 184/99 H Blood Pressure [Right Arm] 200/93 H Blood Pressure Mean Blood Pressure Mean [Right Arm] 128 Blood Pressure Position [Right Arm] Pulse Oximetry 97 100 Oxygen Delivery Method Nasal Cannula Nasal Cannula Nasal Cannula Oxygen Flow Rate 1 4 2 07/15/18 08:21 07/15/18 17:08 07/15/18 19:34 Temperature 37.3 C 36.7 C 36.8 C Temperature Source Oral Oral Axillary Sepsis Recent Fever Within 48 Hours Sepsis New/Unexplained Change in Mental Status Sepsis Action Taken by Nursing Pulse Rate Pulse Rate [Apical] 75 Pulse Rate [Right Finger] 71 70 Pulse Rate from SpO2 Sensor Pulse Rhythm Pulse Strength Respiratory Rate 18 17 19 Respiratory Effort / Characteristics Respiratory Depth Respiratory Pattern Blood Pressure Blood Pressure [Right Arm] 191/75 H 165/67 H 154/65 H Blood Pressure Mean Blood Pressure Mean [Right Arm] 113 99 94 Blood Pressure Position [Right Arm] Lying Lying Lying Pulse Oximetry 97 100 99 Oxygen Delivery Method Nasal Cannula Nasal Cannula Nasal Cannula Oxygen Flow Rate 2 2.0 2.0 HEENT: Head - normocephalic and atraumatic Pupils are equal, round, and reactive to light. Extraocular eye muscles are intact, and sclera are anicteric. Nose - moist nasal mucosa without discharge. Mouth - moist buccal mucosa. Oropharynx is nonerythematous and there is no tonsillar exudate or edema noted. Neck: Supple; no JVD, nuchal rigidity, cervical lymphadenopathy, or auscultated bruits. Heart: Regular rate and rhythm. There is a normal S1 and S2 with no murmurs, clicks, or gallops appreciated. Heart sounds distant. Lungs: Diminished breath sounds bilaterally, especially in the bases. No wheezes or rales noted Abdomen: Soft, completely nontender, nondistended, with good bowel sounds. There are no palpable pulsatile masses or hepatosplenomegaly. There is no guarding, rigidity, or rebound noted. Extremities: No evidence of cyanosis or clubbing. There are easily palpable peripheral pulses. 1+ edema in the lower extremities bilaterally. Skin: warm and dry with good turgor and no rashes. Course 0358: Past medical records reviewed. The patient was evaluated in room B04B, and a complete history and physical examination were performed. Laboratory studies were drawn as above. A chest x-ray was performed. A twelve-lead EKG was obtained. 0505: I reevaluated the patient and she is resting comfortably. I reviewed the results of the laboratory studies and chest x-ray. I went over the plan with her and her family they are in agreement. 0510: Dr. Leary - [facility] Hospitalist was notified about the patient. 0625: Dr. Leayr accepted the patient for further evaluation. Consultations Consultation #1: Dr. Leary accepted the patient for further evaluation. Time: 06:25 Administered Medications Bupropion HCl (Wellbutrin-Sr) 150 mg PO QAM [facility] Stop: 08/14/18 08:59 Last Admin: 07/15/18 10:23 Dose: 150 mg Diltiazem HCl (Dilacor Xr) 240 mg PO QAM [facility] Stop: 08/14/18 08:59 Last Admin: 07/15/18 10:24 Dose: 240 mg Fish Oil ([place]-3 (Purified Fish Oil)) 1 gm PO QAM [facility] Stop: 08/14/18 08:59 Last Admin: 07/15/18 10:24 Dose: 1 gm Furosemide (Lasix) 80 mg PO BID17 [facility] Stop: 08/14/18 08:59 Last Admin: 07/15/18 17:38 Dose: 80 mg Admin: 07/15/18 10:24 Dose: 80 mg Hydralazine HCl (Apresoline) 100 mg PO TID [facility] Stop: 08/14/18 08:59 Last Admin: 07/15/18 20:42 Dose: 100 mg Admin: 07/15/18 17:38 Dose: Not Given Admin: 07/15/18 10:23 Dose: 100 mg Isosorbide Mononitrate (Imdur Extended Rel) 120 mg PO QAM [facility] Stop: 08/14/18 08:59 Last Admin: 07/15/18 10:24 Dose: 120 mg Lorazepam (Ativan) 0.5 mg PO BID PRN PRN Reason: Anxiety Stop: 08/14/18 07:21 Last Admin: 07/15/18 16:05 Dose: 0.5 mg Meloxicam (Mobic) 15 mg PO QAM [facility] Stop: 08/14/18 08:59 Last Admin: 07/15/18 10:25 Dose: 15 mg Miscellaneous (Order Awaiting Action) 1 ea N/A QS [facility] Stop: 08/14/18 07:59 Last Admin: 07/15/18 20:43 Dose: Not Given Admin: 07/15/18 17:23 Dose: Not Given Admin: 07/15/18 10:23 Dose: Not Given Montelukast Sodium (Singulair) 10 mg PO PM [facility] Stop: 08/14/18 20:59 Last Admin: 07/15/18 20:42 Dose: 10 mg Multivitamins/Minerals (Multivitamin W/ Minerals Tab) 1 tab PO QAM [facility] Stop: 08/14/18 08:59 Last Admin: 07/15/18 10:24 Dose: 1 tab Olmesartan (Benicar) 5 mg PO HS [facility] Stop: 08/14/18 20:59 Last Admin: 07/15/18 20:42 Dose: 5 mg Ondansetron HCl (Zofran) 4 mg PO DAILY [facility] Stop: 08/14/18 08:59 Last Admin: 07/15/18 10:25 Dose: Not Given Ropinirole HCl (Requip) 0.25 mg PO HS [facility] Stop: 08/14/18 20:59 Last Admin: 07/15/18 20:42 Dose: 0.25 mg Simvastatin (Zocor) 20 mg PO HS [facility] Stop: 08/14/18 20:59 Last Admin: 07/15/18 20:42 Dose: 20 mg Tiotropium [place] (Spiriva) 1 puffs INH DAILY [facility] Stop: 08/14/18 08:59 Last Admin: 07/15/18 10:26 Dose: 1 puffs Discontinued Medications Epoetin Yandel (Procrit) 10,000 units IV ONE ONE Stop: 07/15/18 10:38 Last Admin: 07/15/18 17:22 Dose: Not Given Heparin Sodium (Porcine) (Heparin Iv Bolus) 500 units IV Q1H [facility] Stop: 07/15/18 11:46 Last Admin: 07/15/18 17:23 Dose: Not Given Admin: 07/15/18 17:22 Dose: Not Given Heparin Sodium (Porcine) (Heparin Iv Bolus) 2,000 units IV ONE ONE Stop: 07/15/18 10:35 Last Admin: 07/15/18 17:22 Dose: Not Given Menthol (Nice) 1 jason BUCCAL NOW STA Stop: 07/15/18 09:50 Last Admin: 07/15/18 10:26 Dose: 1 jason Medical Decision Making Differential Diagnosis The patient is a 73 year old female who presents to the ED with constant shortness of breath over the past couple of days since being taken off of Lasix. Differential diagnosis includes CHF, fluid overload, and pneumonia, amongst others. Medical Records Attestation: I reviewed the patient's medical records. Home Medications Current Medication List: was personally reviewed by me Laboratory Data Attestation: I reviewed the patient's lab results. Result diagrams: 07/15/18 03:30 07/15/18 03:30 Lab Results 07/15/18 07/15/18 07/15/18 Range/Units 03:30 03:30 03:30 WBC 3.92 L (4.8-10.8) K/uL RBC 2.96 L (4.2-5.4) M/uL Hgb 9.5 L (12.0-16.0) g/dL Hct 29.8 L (37-47) % MCV 100.7 H (80-100) fL MCH 32.1 (25-34) pg MCHC 31.9 L (32-36) g/dL RDW Std Deviation 58.3 H (36.4-46.3) fL RDW Coeff of Martin 15.9 H (11.5-14.5) % Plt Count 193 (130-400) K/uL MPV 9.5 (7.4-10.4) fL Immature Gran % (Auto) 0.0 % Neut % (Auto) 58.2 % Lymph % (Auto) 29.3 % [place] % (Auto) 7.9 % Eos % (Auto) 3.8 % Baso % (Auto) 0.8 % Immature Gran # (Auto) 0.00 (0.00-0.02) K/uL Neut # (Auto) 2.28 (1.4-6.5) K/uL Lymph # (Auto) 1.15 L (1.2-3.4) K/uL [place] # (Auto) 0.31 (0.11-0.59) K/uL Eos # (Auto) 0.15 (0-0.5) K/uL Baso # (Auto) 0.03 (0-0.2) K/uL PT 10.2 (9.0-12.0) Seconds INR 1.0 (0.9-1.1) APTT 22.2 (21.0-31.0) Seconds PTT Ratio 0.8 Sodium 137 (136-145) mmol/L Potassium 5.7 H (3.5-5.1) mmol/L Chloride 105 (98-107) mmol/L Carbon Dioxide 23 (21-32) mmol/L Anion Gap 9.0 (3-11) BUN 64 H (7-18) mg/dl Creatinine 8.95 H* (0.6-1.2) mg/dl Est Cr Clr Drug Dosing 5.6 ml/min Est GFR ( Amer) 4.6 Est GFR (Non-Af Amer) 4.0 BUN/Creatinine Ratio 7.1 L (10-20) Glucose 125 H (70-99) mg/dl POC Glucose (70-99) Calcium 8.6 (8.5-10.1) mg/dl Total Bilirubin 0.4 (0.2-1) mg/dl AST 20 (15-37) U/L ALT 22 (12-78) U/L Alkaline Phosphatase 70 (45-117) U/L Total Protein 7.1 (6.4-8.2) gm/dl Albumin 3.7 (3.4-5.0) gm/dl Globulin 3.4 (2.5-4.0) gm/dl Albumin/Globulin Ratio 1.1 (0.9-2) Urine Color Urine Appearance (Clear) Urine pH (4.5-7.5) Ur Specific [place] (1.000-1.030) Urine Protein (Negative) Urine Glucose (UA) (Negative) Urine Ketones (Negative) Urine Blood (Negative) Urine Nitrite (Negative) Urine Bilirubin (Negative) Urine Urobilinogen (Negative) Ur Leukocyte Esterase (Negative) Urine WBC (Auto) (0-5) /hpf Urine RBC (Auto) (0-4) /hpf U Hyaline Cast (Auto) (0-5) /lpf U Epithel Cells (Auto) (0-5) /lpf Urine Bacteria (Auto) (Negative) Nasal Screen MRSA (PCR) (Negative) 07/15/18 07/15/18 07/15/18 Range/Units 04:19 07:25 11:19 WBC (4.8-10.8) K/uL RBC (4.2-5.4) M/uL Hgb (12.0-16.0) g/dL Hct (37-47) % MCV (80-100) fL MCH (25-34) pg MCHC (32-36) g/dL RDW Std Deviation (36.4-46.3) fL RDW Coeff of Martin (11.5-14.5) % Plt Count (130-400) K/uL MPV (7.4-10.4) fL Immature Gran % (Auto) % Neut % (Auto) % Lymph % (Auto) % [place] % (Auto) % Eos % (Auto) % Baso % (Auto) % Immature Gran # (Auto) (0.00-0.02) K/uL Neut # (Auto) (1.4-6.5) K/uL Lymph # (Auto) (1.2-3.4) K/uL [place] # (Auto) (0.11-0.59) K/uL Eos # (Auto) (0-0.5) K/uL Baso # (Auto) (0-0.2) K/uL PT (9.0-12.0) Seconds INR (0.9-1.1) APTT (21.0-31.0) Seconds PTT Ratio Sodium (136-145) mmol/L Potassium (3.5-5.1) mmol/L Chloride (98-107) mmol/L Carbon Dioxide (21-32) mmol/L Anion Gap (3-11) BUN (7-18) mg/dl Creatinine (0.6-1.2) mg/dl Est Cr Clr Drug Dosing ml/min Est GFR ( Amer) Est GFR (Non-Af Amer) BUN/Creatinine Ratio (10-20) Glucose (70-99) mg/dl POC Glucose 116 H 117 H (70-99) Calcium (8.5-10.1) mg/dl Total Bilirubin (0.2-1) mg/dl AST (15-37) U/L ALT (12-78) U/L Alkaline Phosphatase (45-117) U/L Total Protein (6.4-8.2) gm/dl Albumin (3.4-5.0) gm/dl Globulin (2.5-4.0) gm/dl Albumin/Globulin Ratio (0.9-2) Urine Color Yellow Urine Appearance Clear (Clear) Urine pH 8.5 H (4.5-7.5) Ur Specific [place] 1.010 (1.000-1.030) Urine Protein 2+ H (Negative) Urine Glucose (UA) Trace H (Negative) Urine Ketones Negative (Negative) Urine Blood Trace H (Negative) Urine Nitrite Negative (Negative) Urine Bilirubin Negative (Negative) Urine Urobilinogen Negative (Negative) Ur Leukocyte Esterase Trace H (Negative) Urine WBC (Auto) 5-10 H (0-5) /hpf Urine RBC (Auto) 5-10 H (0-4) /hpf U Hyaline Cast (Auto) 1-5 (0-5) /lpf U Epithel Cells (Auto) >30 H (0-5) /lpf Urine Bacteria (Auto) Negative (Negative) Nasal Screen MRSA (PCR) (Negative) 07/15/18 07/15/18 Range/Units 11:35 17:18 WBC (4.8-10.8) K/uL RBC (4.2-5.4) M/uL Hgb (12.0-16.0) g/dL Hct (37-47) % MCV (80-100) fL MCH (25-34) pg MCHC (32-36) g/dL RDW Std Deviation (36.4-46.3) fL RDW Coeff of [place] (11.5-14.5) % Plt Count (130-400) K/uL MPV (7.4-10.4) fL Immature Gran % (Auto) % Neut % (Auto) % Lymph % (Auto) % [place] % (Auto) % Eos % (Auto) % Baso % (Auto) % Immature Gran # (Auto) (0.00-0.02) K/uL Neut # (Auto) (1.4-6.5) K/uL Lymph # (Auto) (1.2-3.4) K/uL [place] # (Auto) (0.11-0.59) K/uL Eos # (Auto) (0-0.5) K/uL Baso # (Auto) (0-0.2) K/uL PT (9.0-12.0) Seconds INR (0.9-1.1) APTT (21.0-31.0) Seconds PTT Ratio Sodium (136-145) mmol/L Potassium (3.5-5.1) mmol/L Chloride (98-107) mmol/L Carbon Dioxide (21-32) mmol/L Anion Gap (3-11) BUN (7-18) mg/dl Creatinine (0.6-1.2) mg/dl Est Cr Clr Drug Dosing ml/min Est GFR ( Amer) Est GFR (Non-Af Amer) BUN/Creatinine Ratio (10-20) Glucose (70-99) mg/dl POC Glucose 99 (70-99) Calcium (8.5-10.1) mg/dl Total Bilirubin (0.2-1) mg/dl AST (15-37) U/L ALT (12-78) U/L Alkaline Phosphatase (45-117) U/L Total Protein (6.4-8.2) gm/dl Albumin (3.4-5.0) gm/dl Globulin (2.5-4.0) gm/dl Albumin/Globulin Ratio (0.9-2) Urine Color Urine Appearance (Clear) Urine pH (4.5-7.5) Ur Specific [place] (1.000-1.030) Urine Protein (Negative) Urine Glucose (UA) (Negative) Urine Ketones (Negative) Urine Blood (Negative) Urine Nitrite (Negative) Urine Bilirubin (Negative) Urine Urobilinogen (Negative) Ur Leukocyte Esterase (Negative) Urine WBC (Auto) (0-5) /hpf Urine RBC (Auto) (0-4) /hpf U Hyaline Cast (Auto) (0-5) /lpf U Epithel Cells (Auto) (0-5) /lpf Urine Bacteria (Auto) (Negative) Nasal Screen MRSA (PCR) Negative (Negative) Imaging Data Attestation: I personally reviewed and interpreted this imaging study as follows : My Impression: CXR 1V Cardiomegaly, mild pulmonary vascular congestion, permacath in place. ECG Data Attestation: I personally reviewed and interpreted this ECG as follows: Indication: SOB/dyspnea Rate (beats per minute): 72 Rhythm: normal sinus Findings: no PAC, no PVC and no acute ischemic change Blood Pressure Blood Pressure Findings: Elevated blood pressure Blood Pressure Disposition: further management by hospitalist MDM Narrative The patient is a 73 year old female who presents to the ED with constant shortness of breath over the past couple of days since being taken off of Lasix. The patient had been taking Lasix regularly prior to her most recent admission to the hospital. It had been discontinued because of dehydration secondary to diarrhea/C. difficile. Lasix was recently restarted but the patient denies any significant diuresis from this. The patient also missed her dialysis yesterday. I believe a combination of these have led to her significant fluid overload and hyperkalemia. The patient will require dialysis for both of these issues. She is hemodynamically stable at this time. There are no EKG changes noted secondary to the potassium level. I discussed the case with the [facility] Hospitalist group and they will evaluate for further management. Impression & Plan Pulmonary edema, Acute hyperkalemia Discharge Plan Visit Data *Final* Discharge Date/Time: 07/15/18 06:33 Chief Complaint: Shortness of Breath/Dyspnea ED Provider: Linda Baumann Discharge Problem: Pulmonary edema, Acute hyperkalemia Patient Disposition: Admitted As Inpatient Discharge Instructions Interventions: ED Discharge Assessment Last Done: 07/15/18 06:33 The scribe's documentation has been prepared under my direction and personally reviewed by me in its entirety. I confirm that the note above accurately reflects all work, treatment, procedures, and medical decision making performed by me.
[2018-07-15] MEDS ORDERED: ACETAMINOPHEN 325 MG TAB PO PRN (07:22)
[2018-07-15] MEDS ORDERED: POLYETHYLENE (MIRALAX) 17 GM PACK PO PRN (07:22)
[2018-07-15] MEDS ORDERED: ACETAMINOPHEN 1000 MG/100 ML IV IV PRN (07:22)
[2018-07-15] MEDS ORDERED: LORazepam 0.5 MG TAB PO PRN (07:22)
[2018-07-15] MEDS ORDERED: ONDANSETRON INJ 2 MG/ML 2 ML VIAL IV PRN (07:22)
[2018-07-15] MEDS ORDERED: ALBUT/IPRATROP 3MG/0.5MG NEB 3 ML VIAL NEB PRN (07:22)
--- NOTE | 2018-07-15 07:30 | XRay Report ---
XR chest 1V portable HISTORY: Dyspnea COMPARISON: Chest 05/31/2018. FINDINGS: No pneumothorax. The heart is mildly enlarged. Right jugular catheter terminates at the SVC . Interstitial and vascular thickening thickening which has developed in the interval. May be trace b ilateral pleural effusions. No focal lung consolidations to suggest pneumonia. IMPRESSION: Above findings consistent with cardiomegaly, mild pulmonary edema, and trace bilateral pleural effusi ons. Electronically signed by: Gianni Rios M.D. 07/15/2018 7:29 AM
[2018-07-15] MEDS ORDERED: [UNRECOGNIZED DRUG - OTHER] PO SCH (09:00)
[2018-07-15] MEDS ORDERED: COUGH DROP (SUGAR FREE) LOZ 24 LOZ/1 BOX BUCCAL STA (09:49)
[2018-07-15] MEDS: BuPROPion SR 150 MG TABCR PO SCH (10:23)
[2018-07-15] MEDS: HydrALAZINE TAB 50 MG TAB PO SCH ×3 (10:23→20:42)
[2018-07-15] MEDS: FUROSEMIDE 40 MG TAB PO SCH ×2 (10:24→17:38)
[2018-07-15] MEDS: CEROVITE ADV FORMULA TAB PO SCH (10:24)
[2018-07-15] MEDS: OMEGA-3 (PURIFIED FISH OIL) 1 GM CAP PO SCH (10:24)
[2018-07-15] MEDS: ISOSORBIDE MONO EXTENDED REL 60 MG TABCR PO SCH (10:24)
[2018-07-15] MEDS: ONDANSETRON 4 MG TAB PO SCH (10:25)
[2018-07-15] MEDS: MELOXICAM 7.5 MG TAB PO SCH (10:25)
[2018-07-15] MEDS: TIOTROPIUM BROMIDE 5 PUFF/90 MCG INH INH SCH (10:26)
[2018-07-15] MEDS ORDERED: HEPARIN SOD (PORCINE) 1000 UNIT/ML 10 ML VIAL IV ONE (10:34)
[2018-07-15] MEDS ORDERED: SODIUM CHLORIDE 0.9% 1000ML 1,000 ML IV PRN (10:34)
[2018-07-15] MEDS ORDERED: EPOETIN ALFA 10,000 UNITS/ML VIAL IV ONE (10:37)
[2018-07-15] MEDS ORDERED: EPOETIN ALFA 10,000 UNITS/ML VIAL IV SCH (10:37)
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
[2018-07-15] MEDS: HEPARIN SOD (PORCINE) 1000 UNIT/ML 10 ML VIAL IV SCH ×2 (17:22→17:23)
--- NOTE | 2018-07-15 18:18 | Family Medicine Progress Note ---
Date of Service July 15, 2018 Assessment & Plan (1) ESRD (end stage renal disease) on dialysis: 73 y/o F with PMH ESRD (2/2 diabetic nephropathy) on dialysis, CAD, HTN, hypothyroidism, HLD, and Anxiety presents with worsening SOB, increased UE/LE swelling due to missed dialysis session. 1) ESRD on hemodialysis: - Generalized body edema UE/LE and shortness of breath likely due to missed dialysis 2 days ago -HD today for UF and correction of hyperkalemia -expect SOB, edema, hyperkalemia (5.7), anemia (9.5), HTN will improve following HD and UF, cont trend -re-eval for additional HD tomorrow 2) CAD/HTN -cont diltiazem, furosemide, hydralazine, isosorbide mononitrate and telmisartan 3) Hypothyroidism -cont levothyroxine 4) HLD -cont simvastatin 5) Anxiety/Depression -cont bupropion and lorazepam 6) Restless leg syndrome -cont ropinirole FULL DVT Prophylaxis: stockings, restart Hep? Dispo: Re-eval for additional dialysis Supervising Physician Co-Signing Physician Notes I personally examined the patient and verified all gabriel points of history and exam, discussed case, and agree with decision making with Dr Love. Feeling swollen, breathing is reasonable but she overall feels swollen and not well. She is just getting started on dialysis when I see her. Vitals noted, in general she is fatigued but no distress. HEENT normocephalic atraumatic mucous members are moist. She has gross edema throughout. No respiratory distress, no accessory muscle use Volume overloadcontinue dialysis and Lasix. Otherwise as above. Subjective 73 y/o F found in bed this AM in NAD. Reports on concerns of swelling in hands and feet. Tolerating PO intake. No issues voiding or ambulating. Pt has no other acute concerns or complaints at present. Awaiting dialysis. Review of Systems All systems reviewed & are unremarkable except as noted in HPI & below Physical Exam 2 Vital Signs (Past 24 Hours): Last Vital Signs Temp 36.7 C 07/15/18 17:08 Pulse 71 07/15/18 17:08 Resp 17 07/15/18 17:08 BP 165/67 H 07/15/18 17:08 Pulse Ox 100 07/15/18 17:08 Constitutional: WD/WN, vitals as above Eyes: PERRL, conjunctivae normal, anicteric sclerae ENMT: external ear and nose normal, oropharynx normal Respiratory: decreased breath sounds Cardiovascular: RRR, no murmur, no edema Gastrointestinal (Abdomen): normal bowel sounds, soft, nontender, no hepatosplenomegaly Skin: no rashes, warm and dry Psychiatric: A+Ox3, euthymic affect Lymphatic: UE/LE edema b/l Results & Data Laboratory Results Laboratory Results - last 24 hr 07/15/18 07/15/18 07/15/18 03:30 03:30 03:30 WBC 3.92 L RBC 2.96 L Hgb 9.5 L Hct 29.8 L MCV 100.7 H MCH 32.1 MCHC 31.9 L RDW Std Deviation 58.3 H RDW Coeff of Martin 15.9 H Plt Count 193 MPV 9.5 Immature Gran % (Auto) 0.0 Neut % (Auto) 58.2 Lymph % (Auto) 29.3 Andrew % (Auto) 7.9 Eos % (Auto) 3.8 Baso % (Auto) 0.8 Immature Gran # (Auto) 0.00 Neut # (Auto) 2.28 Lymph # (Auto) 1.15 L Andrew # (Auto) 0.31 Eos # (Auto) 0.15 Baso # (Auto) 0.03 PT 10.2 INR 1.0 APTT 22.2 PTT Ratio 0.8 Sodium 137 Potassium 5.7 H Chloride 105 Carbon Dioxide 23 Anion Gap 9.0 BUN 64 H Creatinine 8.95 H* Est Cr Clr Drug Dosing 5.6 Est GFR ( Amer) 4.6 Est GFR (Non-Af Amer) 4.0 BUN/Creatinine Ratio 7.1 L Glucose 125 H POC Glucose Calcium 8.6 Total Bilirubin 0.4 AST 20 ALT 22 Alkaline Phosphatase 70 Total Protein 7.1 Albumin 3.7 Globulin 3.4 Albumin/Globulin Ratio 1.1 Urine Color Urine Appearance Urine pH Ur Specific [place] Urine Protein Urine Glucose (UA) Urine Ketones Urine Blood Urine Nitrite Urine Bilirubin Urine Urobilinogen Ur Leukocyte Esterase Urine WBC (Auto) Urine RBC (Auto) U Hyaline Cast (Auto) U Epithel Cells (Auto) Urine Bacteria (Auto) Nasal Screen MRSA (PCR) 0207/15/18 07/15/18 04:19 07:25 11:19 WBC RBC Hgb Hct MCV MCH MCHC RDW Std Deviation RDW Coeff of Martin Plt Count MPV Immature Gran % (Auto) Neut % (Auto) Lymph % (Auto) Andrew % (Auto) Eos % (Auto) Baso % (Auto) Immature Gran # (Auto) Neut # (Auto) Lymph # (Auto) Andrew # (Auto) Eos # (Auto) Baso # (Auto) PT INR APTT PTT Ratio Sodium Potassium Chloride Carbon Dioxide Anion Gap BUN Creatinine Est Cr Clr Drug Dosing Est GFR ( Amer) Est GFR (Non-Af Amer) BUN/Creatinine Ratio Glucose POC Glucose 116 H 117 H Calcium Total Bilirubin AST ALT Alkaline Phosphatase Total Protein Albumin Globulin Albumin/Globulin Ratio Urine Color Yellow Urine Appearance Clear Urine pH 8.5 H Ur Specific [place] 1.010 Urine Protein 2+ H Urine Glucose (UA) Trace H Urine Ketones Negative Urine Blood Trace H Urine Nitrite Negative Urine Bilirubin Negative Urine Urobilinogen Negative Ur Leukocyte Esterase Trace H Urine WBC (Auto) 5-10 H Urine RBC (Auto) 5-10 H U Hyaline Cast (Auto) 1-5 U Epithel Cells (Auto) >30 H Urine Bacteria (Auto) Negative Nasal Screen MRSA (PCR) 07/15/18 07/15/18 11:35 17:18 WBC RBC Hgb Hct MCV MCH MCHC RDW Std Deviation RDW Coeff of Martin Plt Count MPV Immature Gran % (Auto) Neut % (Auto) Lymph % (Auto) Andrew % (Auto) Eos % (Auto) Baso % (Auto) Immature Gran # (Auto) Neut # (Auto) Lymph # (Auto) Andrew # (Auto) Eos # (Auto) Baso # (Auto) PT INR APTT PTT Ratio Sodium Potassium Chloride Carbon Dioxide Anion Gap BUN Creatinine Est Cr Clr Drug Dosing Est GFR ( Amer) Est GFR (Non-Af Amer) BUN/Creatinine Ratio Glucose POC Glucose 99 Calcium Total Bilirubin AST ALT Alkaline Phosphatase Total Protein Albumin Globulin Albumin/Globulin Ratio Urine Color Urine Appearance Urine pH Ur Specific [place] Urine Protein Urine Glucose (UA) Urine Ketones Urine Blood Urine Nitrite Urine Bilirubin Urine Urobilinogen Ur Leukocyte Esterase Urine WBC (Auto) Urine RBC (Auto) U Hyaline Cast (Auto) U Epithel Cells (Auto) Urine Bacteria (Auto) Nasal Screen MRSA (PCR) Negative Medications Administered Current Inpatient Medications Acetaminophen (Ofirmev) 1,000 mg IV Q8H PRN PRN Reason: Pain or Fever Stop: 08/14/18 07:21 Acetaminophen (Tylenol) 650 mg PO Q4H PRN PRN Reason: Pain or Fever Stop: 08/14/18 07:21 Albuterol (Duoneb) 3 ml NEB Q2H PRN PRN Reason: dyspnea Stop: 08/14/18 07:21 Bupropion HCl (Wellbutrin-Sr) 150 mg PO QAM [facility] Stop: 08/14/18 08:59 Last Admin: 07/15/18 10:23 Dose: 150 mg Diltiazem HCl (Dilacor Xr) 240 mg PO QAM [facility] Stop: 08/14/18 08:59 Last Admin: 07/15/18 10:24 Dose: 240 mg Fish Oil (Bluebell-3 (Purified Fish Oil)) 1 gm PO QAM [facility] Stop: 08/14/18 08:59 Last Admin: 07/15/18 10:24 Dose: 1 gm Furosemide (Lasix) 80 mg PO BID17 [facility] Stop: 08/14/18 08:59 Last Admin: 07/15/18 17:38 Dose: 80 mg Hydralazine HCl (Apresoline) 100 mg PO TID [facility] Stop: 08/14/18 08:59 Last Admin: 07/15/18 17:38 Dose: Not Given Isosorbide Mononitrate (Imdur Extended Rel) 120 mg PO QAM [facility] Stop: 08/14/18 08:59 Last Admin: 07/15/18 10:24 Dose: 120 mg Lorazepam (Ativan) 0.5 mg PO BID PRN PRN Reason: Anxiety Stop: 08/14/18 07:21 Last Admin: 07/15/18 16:05 Dose: 0.5 mg Meloxicam (Mobic) 15 mg PO QAM [facility] Stop: 08/14/18 08:59 Last Admin: 07/15/18 10:25 Dose: 15 mg Miscellaneous (Order Awaiting Action) 1 ea N/A QS [facility] Stop: 08/14/18 07:59 Last Admin: 07/15/18 17:23 Dose: Not Given Montelukast Sodium (Singulair) 10 mg PO PM [facility] Stop: 08/14/18 20:59 Multivitamins/Minerals (Multivitamin W/ Minerals Tab) 1 tab PO QAM [facility] Stop: 08/14/18 08:59 Last Admin: 07/15/18 10:24 Dose: 1 tab Olmesartan (Benicar) 5 mg PO HS [facility] Stop: 08/14/18 20:59 Ondansetron HCl (Zofran) 4 mg PO DAILY [facility] Stop: 08/14/18 08:59 Last Admin: 07/15/18 10:25 Dose: Not Given Ondansetron HCl (Zofran) 4 mg IV Q6H PRN PRN Reason: NAUSEA/VOMITING Stop: 08/14/18 07:21 Polyethylene Glycol (Miralax Powder Packet) 17 gm PO DAILY PRN PRN Reason: Constipation Stop: 08/14/18 07:21 Ropinirole HCl (Requip) 0.25 mg PO HS [facility] Stop: 08/14/18 20:59 Simvastatin (Zocor) 20 mg PO HS [facility] Stop: 08/14/18 20:59 Tiotropium Hugo (Spiriva) 1 puffs INH DAILY [facility] Stop: 08/14/18 08:59 Last Admin: 07/15/18 10:26 Dose: 1 puffs Resident Activity Tracking Resident Involvement: Resident Care Provided Care Provided: Adult Hospital Medicine
[2018-07-15] MEDS ORDERED: SIMVASTATIN 20 MG TAB PO SCH (21:00)
[2018-07-15] MEDS ORDERED: MONTELUKAST SODIUM 10 MG TABLET PO SCH (21:00)
[2018-07-15] MEDS ORDERED: ROPINIROLE HCL 0.25 MG TABLET PO SCH (21:00)
[2018-07-15] MEDS ORDERED: OLMESARTAN MEDOXOMIL 5 MG TAB PO SCH (21:00)
[2018-07-16 07:06] LABS: Basophils # (auto) 0.04 K/uL (0-0.2); Basophils % (auto) 1.2 %; Eosinophils % (auto) 5.9 %; Hematocrit (blood only) 29.2 % (37-47); Hemoglobin 9.2 g/dL (12.0-16.0); Lymphocytes # (auto) 1.37 K/uL (1.2-3.4); Lymphocytes % (auto) 40.7 %; Mean Corpuscular Hgb Conc 31.5 g/dL (32-36); Mean Platelet Volume 9.1 fL (7.4-10.4); Monocytes # (auto) 0.34 K/uL (0.11-0.59); Monocytes % (auto) 10.1 %; Neutrophils # (auto) 1.42 K/uL (1.4-6.5); Neutrophils % (auto) 42.1 %; Platelet Count 192 K/uL (130-400); RDW Coefficient of Variation 15.1 % (11.5-14.5); RDW Standard Deviation 55.8 fL (36.4-46.3); Red Blood Count 2.89 M/uL (4.2-5.4); White Blood Count 3.37 K/uL (4.8-10.8)
[2018-07-16 07:24] LABS: Partial Thromboplastin Ratio 0.9; Prothrombin Time 10.2 Seconds (9.0-12.0)
[2018-07-16 08:10] LABS: Albumin Level 3.5 gm/dl (3.4-5.0); BUN Creatinine Ratio 5.2 (10-20); Bilirubin,Total 0.5 mg/dl (0.2-1); Calcium 8.4 mg/dl (8.5-10.1); Creatinine Clr Calc Pharmacy 9.7 ml/min; Est GFR (African American) 9.2; Est GFR (Non-African American) 7.9; Globulin 3.4 gm/dl (2.5-4.0); Potassium 4.6 mmol/L (3.5-5.1); Total Protein 6.9 gm/dl (6.4-8.2)
[2018-07-16] MEDS: MELOXICAM 7.5 MG TAB PO SCH (08:32)
[2018-07-16] MEDS: BuPROPion SR 150 MG TABCR PO SCH (08:33)
[2018-07-16] MEDS: OMEGA-3 (PURIFIED FISH OIL) 1 GM CAP PO SCH (08:33)
[2018-07-16] MEDS: ONDANSETRON 4 MG TAB PO SCH (08:34)
[2018-07-16] MEDS: CEROVITE ADV FORMULA TAB PO SCH (08:34)
[2018-07-16] MEDS: FUROSEMIDE 40 MG TAB PO SCH (08:34)
[2018-07-16] MEDS: ISOSORBIDE MONO EXTENDED REL 60 MG TABCR PO SCH (08:34)
[2018-07-16] MEDS: HydrALAZINE TAB 50 MG TAB PO SCH (08:35)
[2018-07-16] MEDS: TIOTROPIUM BROMIDE 5 PUFF/90 MCG INH INH SCH (08:37)
--- NOTE | 2018-07-16 09:40 | Family Medicine Progress Note ---
Date of Service July 16, 2018 Physical Exam 2 Vital Signs (Past 24 Hours): Last Vital Signs Temp 36.5 C 07/16/18 08:29 Pulse 67 07/16/18 08:29 Resp 16 07/16/18 08:47 BP 185/84 H 07/16/18 08:29 Pulse Ox 98 07/16/18 08:47
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
--- NOTE | 2018-07-16 09:55 | Nephrology Progress Note ---
Date of Service July 16, 2018 Assessment & Plan (1) ESRD on hemodialysis: -- Volume status and electrolyte balance are acceptable. No acute indication for HD. -- OK to discharge to home from Nephrology perspective. Discussed importance of keeping scheduled dialysis appointments w/ the patient today. She verbalized that she will resume her regular MWF schedule at [facility] (2) Anemia in CKD (chronic kidney disease): -- BARBIE was given w/ HD yesterday (3) HTN (hypertension), benign: -- Blood pressure has been 160 - 180 systolic. Continue current medical regimen. Expect SBP will improve w/ outpatient dialysis and UF Subjective Mrs. Caicedo was seen & examined in her hospital room this morning. She was dialyzed yesterday for 2 L UF. She reports that her breathing is markedly improved. Unfortunately AVF could not be used. HD RN ran patient using IJ THC. Mrs. Caicedo is currently breathing comfortably on RA. She hopes to return home today. Constitutional: no fever Respiratory: no cough and no dyspnea Cardiovascular: no chest pain Gastrointestinal: no abdominal pain Physical Exam 2 Vital Signs (Past 24 Hours): Last Vital Signs Temp 36.5 C 07/16/18 08:29 Pulse 67 07/16/18 08:29 Resp 16 07/16/18 08:47 BP 185/84 H 07/16/18 08:29 Pulse Ox 98 07/16/18 08:47 Constitutional: + obese Eyes: PERRL, conjunctivae normal, anicteric sclerae Neck: trachea midline, no thyromegaly Respiratory: normal respiratory effort, lungs clear to auscultation Cardiovascular: Rate/Rhythm: regular rate and regular rhythm Gastrointestinal (Abdomen): normal bowel sounds, soft, nontender, no hepatosplenomegaly Results & Data Laboratory Results Laboratory Tests 07/16/18 07/16/18 06:35 06:35 WBC 3.37 L Hgb 9.2 L Hct 29.2 L Plt Count 192 Sodium 137 Potassium 4.6 D Chloride 103 Carbon Dioxide 26 BUN 26 H D Creatinine 5.05 H* D Glucose 113 H
== END 2018-07-16 13:20 | disposition home or self-care (01) | DRG 640 ==
LOC: ED 03:16 → 2S 06:16 → SUATTDRO 06:16 → 2S 06:33

== ENCOUNTER 2018-12-15 19:52 | Inpatient (IN) ==
[2018-12-15] MEDS ORDERED: SODIUM CHLORIDE 0.9% 500 ML IV SCH (20:15)
--- NOTE | 2018-12-15 20:40 | Emergency Department Note ---
Entered by Carine Mallory acting as a scribe for History of Present Illness General Chief complaint: Abdominal Pain Stated complaint: DIARRHEA, TENDER ABDOMINAL PAIN Time Seen by Provider: 12/15/18 19:53 Source: patient History of Present Illness Onset (ago): day(s) (4) Location: abdomen Pain Consistency: + other (multiple episodes) Maximum Pain Intensity: 7 Quality: + other (diarrhea) Associated symptoms: + cough (due to silent reflux) and + other (+loss of control of bowels; tiredness; abdominal distention ) The patient is a 73 year old female who presents to the Emergency Room with complaints of multiple episodes of diarrhea that began 4 days ago. That patient reports that she did not feel well 5 days ago and that the symptoms of diarrhea began the following day. Since then, the patient notes that she has lost control of her bowels and is feeling consistently tired. The patient states that her sister believed that the patient's stomach was distended. The patient also reports being diagnosed with silent reflux in the past which she states leads to constant coughing with phlegm. Due to the constant coughing and fears of aspiration, the patient reports that she was sedated during a colonoscopy procedure that occurred 3 days ago. The patient reports the colonoscopy was completed for preparation of a kidney transplant. The patient notes that she is on chemo dialysis 3 days a week, beginning from last January. The patient also notes she was on peritoneal dialysis for 4 years. The patient states that a blood count performed yesterday showed a blood count of 8. The patient states she went to [facility] yesterday for diarrhea, but she states that they referred her to the ED. The patient denies taking Imodium. Home Medications Home Medications Medication Instructions Recorded Confirmed Type ProRenal QD 1 cap PO QAM 04/26/18 12/13/18 History furosemide 80 mg PO BID 04/26/18 12/13/18 History isosorbide mononitrate 120 mg PO QAM 04/26/18 12/13/18 History meloxicam 15 mg PO QAM 04/26/18 12/13/18 History montelukast 10 mg PO QAM 04/26/18 12/13/18 History bupropion HCl 150 mg PO QAM 06/03/18 12/13/18 History levothyroxine [Synthroid] 175 mcg PO QAM #30 tab 06/03/18 12/13/18 Rx hydralazine 150 mg PO TID 07/15/18 12/13/18 History vancomycin 125 mg PO QAM 09/07/18 12/13/18 History Mircera 100 mcg SUBCUT MONTHLY 10/27/18 12/13/18 History atorvastatin 40 mg PO HS 10/27/18 12/13/18 History calcium acetate 1,334 mg PO TID 10/27/18 12/13/18 History sevelamer carbonate [Renvela] 2,400 mg PO TIDM 10/27/18 12/13/18 History valsartan 40 mg PO QAM 10/27/18 12/13/18 History diltiazem ER 240 mg capsule,24 240 mg PO QAM #30 cap 12/07/18 12/13/18 Rx hr,extended release lorazepam 0.5 mg tablet 0.25 - 0.5 mg PO BID PRN #60 tab 12/07/18 12/13/18 Rx ropinirole 0.25 mg tablet 0.25 mg PO .COMPLEX #30 tab 12/07/18 12/13/18 Rx Allergies Allergy/AdvReac Type Severity Reaction Status Date / Time nickel Allergy Intermediate RASH Verified 12/13/18 11:13 nitrofurantoin Allergy Mild REDNESS Verified 12/13/18 11:13 AND BURNING OF HANDS Past Med/Surg History Medical History Diabetes NIDDM Dialysis patient (Chronic) Kidney failure (Chronic) Gout Asthma AV fistula LUE Anemia CHRONIC; BASELINE HGB 9'S PER CHART REVIEW Anxiety Brain aneurysm coiled 11/05/18. Degenerative disc disease ESRD on hemodialysis MWF Hearing deficit Hyperkalemia Hyperlipidemia Hypertension Hypothyroidism Kidney stones Obesity Osteoarthritis Polycystic kidney disease Restless leg syndrome Surgical History History of arteriovenous graft LUE AVF History of bronchoscopy History of colonoscopy 09/20/2018. poor prep so procedure aborted. patient with emesis when awake, no issues and discharged home. History of hammer toe correction History of lumbar surgery History of surgery PERITONEAL DIALYSIS CATHETER PLACEMENT PERITONEAL DIALYSIS CATHETER REMOVAL/PERMACATH INSERTION= 01/27/18= MAC SEDATION AT [facility] History of surgery perm cath removed 08/16/[address] Barrera History of total abdominal hysterectomy and bilateral salpingo-oophorectomy Family History Mother Family history of reaction to anesthesia confused for a day or so after sx in the 1950s Family history of diabetes mellitus Sister Family history of diabetes mellitus Father Family history of diabetes mellitus Other No significant family history Social History Preferred Language: British Communication Ability: Effective Visual Impairment: No Limitations Beliefs That Will Affect Care: None Current Living Situation: Alone Current Living Situation Comment: Sister Feels Safe at Home: Yes Smoking Status: Never smoker Second Hand Exposure: Yes ( smoked) Hx Alcohol Use: No Hx Substance Use: No Review of Systems See HPI for pertinent positives & negatives. and A total of 10 systems reviewed and were otherwise negative Physical Exam Vital Signs Vital Signs - 24 hr 12/15/18 19:53 Temperature 36.5 C Temperature Source Oral Sepsis Recent Fever Within 48 Hours No Sepsis Action Taken by Nursing No Action Required Pulse Rate 73 Pulse Rhythm Regular Pulse Strength Normal Respiratory Rate 20 Respiratory Effort / Characteristics Non-Labored Spontaneous Respiratory Depth Normal Blood Pressure 161/66 H Blood Pressure Mean 97 Blood Pressure Position Sitting Pulse Oximetry 92 Oxygen Delivery Method Room Air CONSTITUTIONAL/VITAL SIGNS: Reviewed / noted above. GENERAL: Slight pale in color. INTEGUMENTARY: Warm, dry, and [place]. HEAD: Normocephalic. EYES: without scleral icterus or trauma. ENT/OROPHARYNX: clear and moist. LYMPHADENOPATHY/NECK: Is supple without lymphadenopathy or meningismus. RESPIRATORY: Lungs clear and equal. CARDIOVASCULAR: Regular rate and rhythm. GI/ABDOMEN: Soft and mild diffused abdominal tenderness. No organomegaly or pulsatile mass. No rebound or guarding. Normal bowel sounds. EXTREMITIES: Warm and well perfused. BACK: No CVA tenderness. NEUROLOGICAL: Intact without focal deficits. PSYCHIATRIC: normal affect. MUSCULOSKELETAL: Normally developed with good muscle tone. Course 1999: Past medical records reviewed. The patient was evaluated in room A4B. A complete history and physical exam was performed. 2128: I discussed the patient's case with Dr. Leary-[facility] Hospitalist. Dr. Leary will further evaluate the patient. Consultations Consultation #1: I discussed the patient's case with Dr. Leary-[facility] Hospitalist. Dr. Leary will further evaluate the patient. Time: 21:29 Administered Medications Discontinued Medications Sodium Chloride (Nss) 500 mls @ 999 mls/hr IV .Q31M VESTA Stop: 12/15/18 20:45 Last Admin: 12/15/18 20:29 Dose: 999 mls/hr Documented by: [id number] Potassium Chloride (Klor-Con M10) 40 meq PO NOW STA Stop: 12/15/18 21:33 Last Admin: 12/15/18 21:50 Dose: 40 meq Documented by: [id number] Medical Decision Making Differential Diagnosis Differential diagnosis: Etiologies such as appendicitis, diverticulitis, PUD, biliary pathology, UTI, pancreatitis, obstruction, mesenteric ischemia, aortic pathology, infections, inflammatory bowel disease, renal colic, as well as others were entertained. Etiologies such as metabolic, infection, hypo/hyperglycemia, electrolyte abnormalities, cardiac sources, intracerebral event, toxicologic, neurologic, as well as others were entertained. Medical Records Attestation: I reviewed the patient's medical records. Home Medications Current Medication List: was personally reviewed by me Laboratory Data Attestation: I reviewed the patient's lab results. Result diagrams: 12/15/18 20:27 12/15/18 20:27 Lab Results 12/15/18 12/15/18 12/15/18 Range/Units 20:27 20:27 20:27 WBC 6.77 (4.8-10.8) K/uL RBC 2.27 L (4.2-5.4) M/uL Hgb 7.1 L (12.0-16.0) g/dL Hct 20.7 L* (37-47) % MCV 91.2 (80-100) fL MCH 31.3 (25-34) pg MCHC 34.3 (32-36) g/dL RDW Std Deviation 46.7 H (36.4-46.3) fL RDW Coeff of Martin 14.1 (11.5-14.5) % Plt Count 217 (130-400) K/uL MPV 9.4 (7.4-10.4) fL Immature Gran % (Auto) 0.1 % Neut % (Auto) 80.2 % Lymph % (Auto) 11.2 % Brantley % (Auto) 6.5 % Eos % (Auto) 1.9 % Baso % (Auto) 0.1 % Immature Gran # (Auto) 0.01 (0.00-0.02) K/uL Neut # (Auto) 5.42 (1.4-6.5) K/uL Lymph # (Auto) 0.76 L (1.2-3.4) K/uL Brantley # (Auto) 0.44 (0.11-0.59) K/uL Eos # (Auto) 0.13 (0-0.5) K/uL Baso # (Auto) 0.01 (0-0.2) K/uL Dohle Bodies 1+ Sodium 138 (136-145) mmol/L Potassium 2.7 L (3.5-5.1) mmol/L Chloride 96 L (98-107) mmol/L Carbon Dioxide 33 H (21-32) mmol/L Anion Gap 9.0 (3-11) BUN 32 H (7-18) mg/dl Creatinine 6.18 H* (0.6-1.2) mg/dl Est Cr Clr Drug Dosing 8.3 ml/min Est GFR ( Amer) 7.2 Est GFR (Non-Af Amer) 6.2 BUN/Creatinine Ratio 5.1 L (10-20) Glucose 123 H (70-99) mg/dl Calcium 8.5 (8.5-10.1) mg/dl Total Bilirubin 0.4 (0.2-1) mg/dl AST 24 (15-37) U/L ALT 25 (12-78) U/L Alkaline Phosphatase 83 (45-117) U/L Total Protein 6.6 (6.4-8.2) gm/dl Albumin 3.2 L (3.4-5.0) gm/dl Globulin 3.4 (2.5-4.0) gm/dl Albumin/Globulin Ratio 0.9 (0.9-2) Lipase 94 (73-393) U/L Blood Type O Positive Antibody Screen NEGATIVE Imaging Data Radiologist's Impression: Radiology results as stated below per my review and the radiologist's interpretation: CT SCAN OF THE ABDOMEN AND PELVIS WITHOUT IV CONTRAST CLINICAL HISTORY: Generalized abdominal pain. Diarrhea. COMPARISON STUDY: Abdominal CT dated 09/20/2018. TECHNIQUE: CT scan of the abdomen and pelvis is performed from the lung bases to the proximal femora. Images are reviewed in the axial, sagittal, and coronal planes. IV contrast was not administered for this examination as per the referring clinician. Note that the examination was performed in suboptimal fashion without oral and IV contrast. A dose lowering technique was utilized adhering to the principles of ALARA. CT DOSE: 695.05 mGy.cm FINDINGS: Lung bases: The heart is enlarged and without pericardial effusion. The coronary arteries are densely calcified. There is diminished attenuation of the cardiac blood pool as compared to the myocardium suggesting anemia. A small hiatal hernia is noted. A 3 mm right lower lobe pulmonary nodule is seen on image #1. This is unchanged from previous. No airspace consolidation or pleural effusion is identified. Scarring/atelectasis is seen at the lung bases. Liver: The unenhanced liver is enlarged, measuring 22 cm in length. The liver is heterogeneous in attenuation. Nodularity of the hepatic surface contour suggests early change of cirrhosis. There is no intrahepatic biliary ductal dilatation. Gallbladder: Gallbladder wall thickening is nonspecific and likely related to cirrhosis and ascites. Spleen: Normal in size and attenuation. Pancreas: The unenhanced pancreas is moderately atrophic and grossly unremarkable. Adrenal glands: Unremarkable. Kidneys: The unenhanced kidneys demonstrate cortical atrophy and are without hydronephrosis. There are no renal calculi identified. The kidneys are atrophic with numerous simple and complex/hyperdense cysts. The largest cyst measures up to 4.3 cm. Numerous cortical calcifications are identified. Abdominal vasculature: The abdominal aorta is normal in course and caliber noting moderate atherosclerotic calcification. Bowel: There is moderate colonic diverticulosis without CT evidence of acute diverticulitis. There is diffuse wall thickening and edema seen throughout the colon with associated pericolonic infiltration and fluid. The appearance is consistent with a pancolitis. No bowel obstruction is seen. The appendix is normal as imaged. Peritoneum: There is a small volume of abdominopelvic ascites. No intraperitoneal free air is seen. A periumbilical hernia contains ascitic fluid. A surgical scar is noted in the ventral pelvis. Lymphadenopathy: None. Pelvic viscera: The bladder is decompressed and grossly unremarkable. The uterus is surgically absent. No adnexal lesion is seen. Skeletal structures: The skeletal structures are osteopenic. There is mild to moderate lumbosacral spondylosis. Degenerative changes noted in the sacral iliac joints and pubic symphysis. A left hemitransitional lumbosacral segment is incidentally noted. No lytic or blastic lesions are seen. IMPRESSION: 1. Suboptimal examination without oral and IV contrast. 2. Findings are consistent with a nonspecific pancolitis, likely on an infectiou s or inflammatory basis. Clinical correlation will be required. 3. Moderate colonic diverticulosis without CT evidence of acute diverticulitis. 4. There is a small volume of abdominopelvic ascites. No intraperitoneal free air is seen. 5. The kidneys are infiltrated by numerous simple and complex cysts. This is similar in appearance to previous. 6. Cardiomegaly with evidence of anemia. 7. The liver is enlarged, heterogeneous, and demonstrates early changes of cirrhosis. 8. Additional findings as above. Electronically signed by: Romel Regan M.D. 12/15/2018 8:55 PM SINGLE VIEW CHEST CLINICAL HISTORY: Generalized abdominal pain. FINDINGS: An AP, portable, upright chest radiograph is compared to study dated 07/15/2018. The examination is degraded by portable technique and patient rotation. The heart is enlarged and there is atherosclerotic calcification of the thoracic aorta. The pulmonary vasculature is noncongested. There is bibasil ar atelectasis. No airspace consolidation or large pleural effusion is identified. No pneumothorax is seen. The skeletal structures are osteopenic. The bony thorax is grossly intact. IMPRESSION: Cardiomegaly with no active disease in the chest. Electronically signed by: Romel Regan M.D. 12/15/2018 9:05 PM Blood Pressure Blood Pressure Findings: Elevated blood pressure Blood Pressure Disposition: further management by hospitalist [facility] Aj This is a 73-year-old female who presents to the ED with a chief complaint of diffuse mild abdominal pain, diarrhea and weakness. The patient states that she started having some diarrhea on one day. She does report a history of C. difficile. On Wednesday she started her bowel prep for colonoscopy. The patient states that her colonoscopy went well and she had a" fair prep", according to Dr. Diane. The patient states that she has been having some small amounts of liquid stools since then. She states that it seems to occur when she coughs. She reports a chronic cough for the past 2 years. The patient also states that her last dialysis, she was anemic with a hemoglobin around 8. She is complaining of some weakness. Her physical exam reveals that she is slightly pale in color. She has some mild diffuse abdominal tenderness on my exam. No focal tenderness. Bowel sounds were normal. The patient's hemoglobin today 7.1. She states that Dr. Herrera told her it was 8.0 last Wednesday. Her potassium levels 2.7. A CT scan of the abdomen pelvis reveals findings concerning for pancolitis of inflammatory possibly infectious etiology. The patient is a dialysis patient and her kidney function tests are evident with this. The patient was given oral potassium. I spoke with the hospitalist, Dr. Cuello, who will order blood transfusion for the patient. The patient will be seen by the hospitalist for further inpatient evaluation and care. Impression & Plan Hypokalemia, Anemia, Weakness, Pancolitis Discharge Plan Visit Data Chief Complaint: Abdominal Pain Stated Complaint: DIARRHEA, TENDER ABDOMINAL PAIN ED Provider: Héctor Galvez Discharge Problem: Hypokalemia, Anemia, Weakness, Pancolitis Patient Disposition: Being Evaluated by Hospitalist Forms Stand Alone Forms: Call Back Authorization, [facility] Prescriptions Prescriptions: No Action diltiazem HCl 240 mg capsule,extended release 24 hr 240 mg PO QAM Qty: 30 RF: 0 ropinirole 0.25 mg tablet 0.25 mg PO .COMPLEX Qty: 30 RF: 0 lorazepam 0.5 mg tablet 0.25 - 0.5 mg PO BID PRN (Reason: Anxiety) Qty: 60 RF: 0 furosemide 40 mg Tablet 80 mg PO BID RF: 0 meloxicam 15 mg Tablet 15 mg PO QAM RF: 0 isosorbide mononitrate 120 mg Tablet Extended Release 24 Hr 120 mg PO QAM RF: 0 montelukast 10 mg Tablet 10 mg PO QAM RF: 0 ProRenal QD 400-500 mcg-unit Capsule 1 cap PO QAM RF: 0 bupropion HCl 150 mg tablet sustained-release 12 hr 150 mg PO QAM RF: 0 hydralazine 100 mg tablet 150 mg PO TID RF: 0 vancomycin 125 mg Capsule 125 mg PO QAM RF: 0 atorvastatin 40 mg Tablet 40 mg PO HS RF: 0 valsartan 40 mg Tablet 40 mg PO QAM RF: 0 calcium acetate 667 mg Capsule 1,334 mg PO TID RF: 0 sevelamer carbonate [Renvela] 800 mg Tablet 2,400 mg PO TIDM RF: 0 Mircera 100 mcg/0.3 mL Syringe 100 mcg subcut MONTHLY RF: 0 levothyroxine [Synthroid] 175 mcg Tablet 175 mcg PO QAM Qty: 30 RF: 0 Referrals Referrals: Cruz Ramos MD [Primary Care Provider] - Discharge Problem: Anemia Qualifiers: Anemia type: due to chronic kidney disease Chronic kidney disease stage: on chronic dialysis Qualified Code(s): N18.6 - End stage renal disease The scribe's documentation has been prepared under my direction and personally reviewed by me in its entirety. I confirm that the note above accurately reflects all work, treatment, procedures, and medical decision making performed by me.
[2018-12-15 20:51] LABS: Hematocrit (blood only) 20.7 % (37-47); Hemoglobin 7.1 g/dL (12.0-16.0); Mean Corpuscular Hgb Conc 34.3 g/dL (32-36); Mean Corpuscular Volume 91.2 fL (80-100); Mean Platelet Volume 9.4 fL (7.4-10.4); Platelet Count 217 K/uL (130-400); RDW Coefficient of Variation 14.1 % (11.5-14.5); RDW Standard Deviation 46.7 fL (36.4-46.3); Red Blood Count 2.27 M/uL (4.2-5.4); White Blood Count 6.77 K/uL (4.8-10.8)
--- NOTE | 2018-12-15 20:56 | CT Scan Report ---
CT SCAN OF THE ABDOMEN AND PELVIS WITHOUT IV CONTRAST CLINICAL HISTORY: Generalized abdominal pain. Diarrhea. COMPARISON STUDY: Abdominal CT dated 09/20/2018. TECHNIQUE: CT scan of the abdomen and pelvis is performed from the lung bases to the proximal femora. Images are reviewed in the axial, sagittal, and coronal planes. IV contrast was not administered for this examination as per the referring clinician. Note that the examination was performed in suboptim al fashion without oral and IV contrast. A dose lowering technique was utilized adhering to the princ i[place] of [employer]. CT DOSE: 695.05 mGy.cm FINDINGS: Lung bases: The heart is enlarged and without pericardial effusion. The coronary arteries are densely calcified. There is diminished attenuation of the cardiac blood pool as compared to the myocardium s uggesting anemia. A small hiatal hernia is noted. A 3 mm right lower lobe pulmonary nodule is seen on image #1. This is unchanged from previous. No airspace consolidation or pleural effusion is identifi ed. Scarring/atelectasis is seen at the lung bases. Liver: The unenhanced liver is enlarged, measuring 22 cm in length. The liver is heterogeneous in att enuation. Nodularity of the hepatic surface contour suggests early change of cirrhosis. There is no i ntrahepatic biliary ductal dilatation. Gallbladder: Gallbladder wall thickening is nonspecific and likely related to cirrhosis and ascites. Spleen: Normal in size and attenuation. Pancreas: The unenhanced pancreas is moderately atrophic and grossly unremarkable. Adrenal glands: Unremarkable. Kidneys: The unenhanced kidneys demonstrate cortical atrophy and are without hydronephrosis. There ar e no renal calculi identified. The kidneys are atrophic with numerous simple and complex/hyperdense c ysts. The largest cyst measures up to 4.3 cm. Numerous cortical calcifications are identified. Abdominal vasculature: The abdominal aorta is normal in course and caliber noting moderate atheroscle rotic calcification. Bowel: There is moderate colonic diverticulosis without CT evidence of acute diverticulitis. There is diffuse wall thickening and edema seen throughout the colon with associated pericolonic infiltration and fluid. The appearance is consistent with a pancolitis. No bowel obstruction is seen. The appendi x is normal as imaged. Peritoneum: There is a small volume of abdominopelvic ascites. No intraperitoneal free air is seen. A periumbilical hernia contains ascitic fluid. A surgical scar is noted in the ventral pelvis. Lymphadenopathy: None. Pelvic viscera: The bladder is decompressed and grossly unremarkable. The uterus is surgically absent . No adnexal lesion is seen. Skeletal structures: The skeletal structures are osteopenic. There is mild to moderate lumbosacral sp ondylosis. Degenerative changes noted in the sacral iliac joints and pubic symphysis. A left hemitran sitional lumbosacral segment is incidentally noted. No lytic or blastic lesions are seen. IMPRESSION: 1. Suboptimal examination without oral and IV contrast. 2. Findings are consistent with a nonspecific pancolitis, likely on an infectious or inflammatory bas is. Clinical correlation will be required. 3. Moderate colonic diverticulosis without CT evidence of acute diverticulitis. 4. There is a small volume of abdominopelvic ascites. No intraperitoneal free air is seen. 5. The kidneys are infiltrated by numerous simple and complex cysts. This is similar in appearance to previous. 6. Cardiomegaly with evidence of anemia. 7. The liver is enlarged, heterogeneous, and demonstrates early changes of cirrhosis. 8. Additional findings as above. Electronically signed by: Romel Regan M.D. 12/15/2018 8:55 PM
[2018-12-15 20:58] LABS: Basophils # (auto) 0.01 K/uL (0-0.2); Basophils % (auto) 0.1 %; Dohle Bodies 1+; Eosinophils # (auto) 0.13 K/uL (0-0.5); Eosinophils % (auto) 1.9 %; Immature Granulocytes # (auto) 0.01 K/uL (0.00-0.02); Immature Granulocytes % (auto) 0.1 %; Lymphocytes # (auto) 0.76 K/uL (1.2-3.4); Lymphocytes % (auto) 11.2 %; Monocytes # (auto) 0.44 K/uL (0.11-0.59); Monocytes % (auto) 6.5 %; Neutrophils # (auto) 5.42 K/uL (1.4-6.5); Neutrophils % (auto) 80.2 %
--- NOTE | 2018-12-15 21:06 | XRay Report ---
SINGLE VIEW CHEST CLINICAL HISTORY: Generalized abdominal pain. FINDINGS: An AP, portable, upright chest radiograph is compared to study dated 07/15/2018. The examina tion is degraded by portable technique and patient rotation. The heart is enlarged and there is ath erosclerotic calcification of the thoracic aorta. The pulmonary vasculature is noncongested. There is bibasilar atelectasis. No airspace consolidation or large pleural effusion is identified. No pneumot horax is seen. The skeletal structures are osteopenic. The bony thorax is grossly intact. IMPRESSION: Cardiomegaly with no active disease in the chest. Electronically signed by: Romel Regan M.D. 12/15/2018 9:05 PM
[2018-12-15 21:14] LABS: Albumin Globulin Ratio 0.9 (0.9-2); Albumin Level 3.2 gm/dl (3.4-5.0); BUN Creatinine Ratio 5.1 (10-20); Bilirubin,Total 0.4 mg/dl (0.2-1); Calcium 8.5 mg/dl (8.5-10.1); Creatinine Clr Calc Pharmacy 8.3 ml/min; Est GFR (African American) 7.2; Est GFR (Non-African American) 6.2; Globulin 3.4 gm/dl (2.5-4.0); Potassium 2.7 mmol/L (3.5-5.1); Total Protein 6.6 gm/dl (6.4-8.2)
[2018-12-15] MEDS ORDERED: POTASSIUM CHLORIDE 10 MEQ TABCR PO STA (21:32)
--- NOTE | 2018-12-15 22:38 | History & Physical Report ---
Date of Service December 15, 2018 Assessment & Plan (1) Pancolitis: Ms. 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 She states that she was in her usual state of health over the last week but over the weekend began to develop loose stools on Wednesday. Then in preparation for a colonoscopy on Wednesday, she began to take bowel prep. She had a colonoscopy which was 4 routine cancer screening on , her prep was adequate, and a 6 mm polyp was excised. She was sent home. She went to dialysis on schedule yesterday but says that afterwards she laid down and felt very tired for the rest of the day, which is not usual for her postdialysis. Then earlier today she asked her son to take her to urgent care, and they sent her here. Recent medical history also includes anemia, hemoglobin said to be as low as 8 as of last week, which was noted by her top precipitator operator and there were upcoming plans for transfusion in the near future. While her stools have been loose, frequent and dark she denies charleen bright red blood. ED course: Labs: Remarkable for H&H 7.1/20.7. No thrombocytopenia. Normocytic. Chemistry shows potassium 2.7, BUN over creatinine 32/6.18. Imaging: CT abdomen pelvis without contrast shows diverticulosis, nonspecific vargas colitis. Otherwise unchanged. Early changes of cirrhosis. Treatment: Half liter of normal saline bolus, potassium chloride. #Pancolitis, associated with abdominal pain, distention, loose stools -h/o 3 episodes of c. diff and currently on prophylaxis vancomycin as home med. -recent colonscopy on 12/13 with evidence of 6 mm polyp in the ascending colon, diverticula in the sigmoid, nonbleeding internal hemorrhoids that were small. Plan: -Bowel rest -HEMOCULT was faintly positive on my read, will send for confirm -stool studies pending -consult GI (Case). -empiric tx with vanc QID -if this recurrent, then recommend: consult ID (she sees in outpt for c diff) and therapy options include: Vancomycin pulsed-tapered regimen, OR Fidaxomicin 200 mg orally twice daily for 10 days, OR Vancomycin followed by rifaximin: Vancomycin 125 mg orally four times per day for 10 days, then Rifaximin 400 mg three times daily for 20 days, OR Fecal microbiota transplantation. #Anemia in setting of ESRD/PKD -2/2 GIB vs azotemia? -hemocult as above - add famotidine x 1, with day team to reassess for ongoing therapy -consult nephro --will be due for dialysis tomorrow - await dialysis for transfusion as pt is stable now and not actively bleeding -continue renal caps and Renvela. FEN/GI: NPO with sips, continue PO Protonix BID, add IV famotidine x 1 DVT ppx: contraindicated given possible bleed CODE STATUS: FULL as d/w patient DISPO: Tele Other ongoing medical problems: -Hyperlipidemia: Hold statin until GI assessment complete -CAD/hypertension: Recent heart cath in October of this year was negative for active disease. Continue home diltiazem, hydralazine. Hold home aspirin. Hold home valsartan until hemodynamics assessment complete. -Angina: Continue isosorbide mononitrate -Hypothyroidism continue Synthroid -Anxiety: Continue lorazepam as needed, bupropion. -GERD: Continue omeprazole twice daily. Hold meloxicam-do not recommend continuing this on discharge. -Restless leg: Continue ropinirole (2) Weakness: (3) HTN (hypertension), benign: (4) Anemia in CKD (chronic kidney disease): (5) Pancolitis: History of Present Illness Chief Complaint: Feeling unwell, abdominal pain, abdominal bloating, loose stools, anemia Primary Care Provider: Cruz Ramos MD Ms. 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 She states that she was in her usual state of health over the last week but over the weekend began to develop loose stools on Wednesday. Then in preparation for a colonoscopy on Wednesday, she began to take bowel prep. She had a colonoscopy which was 4 routine cancer screening on Wednesday, her prep was adequate, and a 6 mm polyp was excised. She was sent home. She went to dialysis on schedule yesterday but says that afterwards she laid down and felt very tired for the rest of the day, which is not usual for her postdialysis. Then earlier today she asked her son to take her to urgent care, and they sent her here. Recent medical history also includes anemia, hemoglobin said to be as low as 8 as of last week, which was noted by her top precipitator operator and there were upcoming plans for transfusion in the near future. While her stools have been loose, frequent and dark she denies charleen bright red blood. ED course: Labs: Remarkable for H&H 7.1/20.7. No thrombocytopenia. Normocytic. Chemistry shows potassium 2.7, BUN over creatinine 32/6.18. Imaging: CT abdomen pelvis without contrast shows diverticulosis, nonspecific vargas colitis. Otherwise unchanged. Early changes of cirrhosis. Treatment: Half liter of normal saline bolus, potassium chloride. Allergies Allergy/AdvReac Type Severity Reaction Status Date / Time nickel Allergy Intermediate RASH Verified 12/15/18 22:25 nitrofurantoin Allergy Mild REDNESS Verified 12/15/18 22:25 AND BURNING OF HANDS Home Medications Home Medications Medication Instructions Recorded Confirmed Type ProRenal QD 1 cap PO QAM 04/26/18 12/15/18 History isosorbide mononitrate 120 mg PO QAM 04/26/18 12/15/18 History meloxicam 15 mg PO QAM 04/26/18 12/15/18 History bupropion HCl 150 mg PO QAM 06/03/18 12/15/18 History levothyroxine [Synthroid] 175 mcg PO QAM #30 tab 06/03/18 12/15/18 Rx hydralazine 150 mg PO TID 07/15/18 12/15/18 History Mircera 100 mcg SUBCUT MONTHLY 10/27/18 12/15/18 History atorvastatin 40 mg PO HS 10/27/18 12/15/18 History diltiazem ER 240 mg capsule,24 240 mg PO QAM #30 cap 12/07/18 12/15/18 Rx hr,extended release lorazepam 0.5 mg tablet 0.25 - 0.5 mg PO BID PRN #60 tab 12/07/18 12/15/18 Rx ropinirole 0.25 mg tablet 0.25 mg PO .COMPLEX #30 tab 12/07/18 12/15/18 Rx aspirin [Aspir-81] 81 mg PO DAILY 12/15/18 12/15/18 History omeprazole 20 mg PO BIDM 12/15/18 12/15/18 History sevelamer carbonate [Renvela] 2,400 mg PO TIDM 12/15/18 12/15/18 History valsartan 80 mg PO DAILY 12/15/18 12/15/18 History vit B,C-iron qug-LO-O2-zinc ox 1 tab PO DAILY 12/15/18 12/15/18 History [ProRenal] Past Med/Surg History Medical History Diabetes NIDDM Dialysis patient (Chronic) Kidney failure (Chronic) Gout Asthma AV fistula LUE Anemia CHRONIC; BASELINE HGB 9'S PER CHART REVIEW Anxiety Brain aneurysm coiled 11/05/18. Degenerative disc disease ESRD on hemodialysis MWF Hearing deficit Hyperkalemia Hyperlipidemia Hypertension Hypothyroidism Kidney stones Obesity Osteoarthritis Polycystic kidney disease Restless leg syndrome Surgical History History of arteriovenous graft LUE AVF History of bronchoscopy History of colonoscopy 09/20/2018. poor prep so procedure aborted. patient with emesis when awake, no issues and discharged home. History of hammer toe correction History of lumbar surgery History of surgery PERITONEAL DIALYSIS CATHETER PLACEMENT PERITONEAL DIALYSIS CATHETER REMOVAL/PERMACATH INSERTION= 01/27/18= MAC SEDATION AT [facility] History of surgery perm cath removed 08/16/[address] Barrera History of total abdominal hysterectomy and bilateral salpingo-oophorectomy Family History Mother Family history of reaction to anesthesia confused for a day or so after sx in the 1950s Family history of diabetes mellitus Sister Family history of diabetes mellitus Father Family history of diabetes mellitus Other No significant family history Social History Preferred Language: Mongolian Communication Ability: Effective Visual Impairment: No Limitations Rad Tech Required: No Beliefs That Will Affect Care: None Current Living Situation: Alone Current Living Situation Comment: Sister Other Information That Helps Us Care for You: No Feels Safe at Home: Yes Safety Concerns: Feels Safe At This Time Smoking Status: Unknown if ever smoked Hx Alcohol Use: No Hx Substance Use: No Review of Systems Review of Systems: All systems reviewed & are unremarkable except as noted in HPI & below Physical Exam Physical Exam: Vitals noted and within normal limits with the exception of hypertension GENERAL: Awake, alert to person, place, and time, nontoxic-appearing, in no distress. HENT: Normocephalic, atraumatic. Mucus membranes appear dry. EYES: Normal conjunctiva. Sclera non-icteric. EOMI. NECK: Supple. Full range of motion. No JVD. RESPIRATORY: Clear to auscultation. Normal work of breathing. CARDIAC: Regular rate, normal rhythm with PVCs. Extremities warm and well perfused, 2+ radial pulses bilaterally; 2+ posterior tibialis pulses bilaterally. ABDOMEN: Soft, mildly distended. Diffuse tenderness to palpation in all four quadrants. No rebound or guarding. No masses. Bowel sounds are normal. LOWER EXTREMITIES: Inspection of calves reveal equal size bilaterally. They are non-tender. No edema. No discoloration. NEURO: No gross focal motor deficits noted. Sensation in tact. CN II-XII grossly in tact. . SKIN: Rash not present. No jaundice noted. Significant lesions not present. PSYCH: Appropriate mood and affect. Cooperative. Exam as done by Carol Duarte MD, Reinforcing Steel Worker. Results & Data Vital Signs (Past 12 Hours) Vital Signs Temp Pulse Resp BP Pulse Ox 12/15/18 21:51 94 12/15/18 21:45 65 27 H 12/15/18 21:30 66 26 H 12/15/18 21:15 64 30 H 12/15/18 21:01 65 27 H 12/15/18 21:00 66 27 H 162/60 H 12/15/18 20:59 65 29 H 12/15/18 20:45 65 30 H 155/62 H 12/15/18 19:53 36.5 C 73 20 161/66 H 92 Laboratory Results 12/16/18 12/15/18 12/15/18 Range/Units 00:50 20:27 20:27 WBC (4.8-10.8) K/uL RBC (4.2-5.4) M/uL Hgb (12.0-16.0) g/dL Hct (37-47) % MCV (80-100) fL MCH (25-34) pg MCHC (32-36) g/dL RDW Std Deviation (36.4-46.3) fL RDW Coeff of Martin (11.5-14.5) % Plt Count (130-400) K/uL MPV (7.4-10.4) fL Immature Gran % (Auto) % Neut % (Auto) % Lymph % (Auto) % [place] % (Auto) % Eos % (Auto) % Baso % (Auto) % Immature Gran # (Auto) (0.00-0.02) K/uL Neut # (Auto) (1.4-6.5) K/uL Lymph # (Auto) (1.2-3.4) K/uL [place] # (Auto) (0.11-0.59) K/uL Eos # (Auto) (0-0.5) K/uL Baso # (Auto) (0-0.2) K/uL Dohle Bodies Sodium 138 (136-145) mmol/L Potassium 2.7 L (3.5-5.1) mmol/L Chloride 96 L (98-107) mmol/L Carbon Dioxide 33 H (21-32) mmol/L Anion Gap 9.0 (3-11) BUN 32 H (7-18) mg/dl Creatinine 6.18 H* (0.6-1.2) mg/dl Est Cr Clr Drug Dosing 8.3 ml/min Est GFR ( Amer) 7.2 Est GFR (Non-Af Amer) 6.2 BUN/Creatinine Ratio 5.1 L (10-20) Glucose 123 H (70-99) mg/dl Calcium 8.5 (8.5-10.1) mg/dl Total Bilirubin 0.4 (0.2-1) mg/dl AST 24 (15-37) U/L ALT 25 (12-78) U/L Alkaline Phosphatase 83 (45-117) U/L Total Protein 6.6 (6.4-8.2) gm/dl Albumin 3.2 L (3.4-5.0) gm/dl Globulin 3.4 (2.5-4.0) gm/dl Albumin/Globulin Ratio 0.9 (0.9-2) Lipase 94 (73-393) U/L Nasal Screen MRSA (PCR) Pending Blood Type O Positive Antibody Screen NEGATIVE Crossmatch See Detail 12/15/18 Range/Units 20:27 WBC 6.77 (4.8-10.8) K/uL RBC 2.27 L (4.2-5.4) M/uL Hgb 7.1 L (12.0-16.0) g/dL Hct 20.7 L* (37-47) % MCV 91.2 (80-100) fL MCH 31.3 (25-34) pg MCHC 34.3 (32-36) g/dL RDW Std Deviation 46.7 H (36.4-46.3) fL RDW Coeff of Martin 14.1 (11.5-14.5) % Plt Count 217 (130-400) K/uL MPV 9.4 (7.4-10.4) fL Immature Gran % (Auto) 0.1 % Neut % (Auto) 80.2 % Lymph % (Auto) 11.2 % [place] % (Auto) 6.5 % Eos % (Auto) 1.9 % Baso % (Auto) 0.1 % Immature Gran # (Auto) 0.01 (0.00-0.02) K/uL Neut # (Auto) 5.42 (1.4-6.5) K/uL Lymph # (Auto) 0.76 L (1.2-3.4) K/uL [place] # (Auto) 0.44 (0.11-0.59) K/uL Eos # (Auto) 0.13 (0-0.5) K/uL Baso # (Auto) 0.01 (0-0.2) K/uL Dohle Bodies 1+ Sodium (136-145) mmol/L Potassium (3.5-5.1) mmol/L Chloride (98-107) mmol/L Carbon Dioxide (21-32) mmol/L Anion Gap (3-11) BUN (7-18) mg/dl Creatinine (0.6-1.2) mg/dl Est Cr Clr Drug Dosing ml/min Est GFR ( Amer) Est GFR (Non-Af Amer) BUN/Creatinine Ratio (10-20) Glucose (70-99) mg/dl Calcium (8.5-10.1) mg/dl Total Bilirubin (0.2-1) mg/dl AST (15-37) U/L ALT (12-78) U/L Alkaline Phosphatase (45-117) U/L Total Protein (6.4-8.2) gm/dl Albumin (3.4-5.0) gm/dl Globulin (2.5-4.0) gm/dl Albumin/Globulin Ratio (0.9-2) Lipase (73-393) U/L Nasal Screen MRSA (PCR) Blood Type Antibody Screen Crossmatch Supervising Physician Co-Signing Physician Notes Attending addendum: I have physically seen this patient, have supervised the medical residents activities, and agree with the H&P unless as otherwise noted. Assessment and Plan: Pancolitis/history of C. difficile on daily p.o. Vanco prophylaxis/status post recent colonoscopy on 12/13- N.p.o. Except medications Increase Vanco to 4 times p.o. daily. Follow stool culture and C. difficile testing results. Consult gastroenterology. Symptomatic anemia- Hemoglobin 7.1. Famotidine 20 mg IV every 12 hours. Vital signs stable, so option is to wait until dialysis for patient to be transfused. Remainder of orders and notations as noted. PG Care Time/CCT Total # of Minutes Spent Total Time Spent with Patient: Total time spent is greater than 50% in coordination of care (as documented) at patient's floor/unit and/or counseling patient: Resident Activity Tracking Resident Involvement: Resident Care Provided Care Provided: Adult Hospital Medicine
[2018-12-16] MEDS ORDERED: SODIUM CHLORIDE 0.9% 250 ML IV PRN (00:07)
[2018-12-16] MEDS ORDERED: LORazepam 0.5 MG TAB PO PRN (00:07)
[2018-12-16] MEDS ORDERED: COUGH DROP (SUGAR FREE) LOZ 24 LOZ/1 BOX BUCCAL PRN (03:16)
[2018-12-16] MEDS ORDERED: COUGH DROP (SUGAR FREE) LOZ 24 LOZ/1 BOX BUCCAL ONE (03:54)
[2018-12-16] MEDS ORDERED: HydrALAZINE HCL 20 MG/ML VIAL IV ONE (04:18)
[2018-12-16] MEDS: VANCOMYCIN HCL 125 MG/2.5ML SOLN PO SCH ×3 (05:04→20:29)
[2018-12-16] MEDS: RASPBERRY SYRUP 5 ML UDP PO SCH ×3 (05:05→20:35)
[2018-12-16] MEDS: LEVOTHYROXINE SODIUM 175 MCG TABLET PO SCH (05:05)
[2018-12-16 07:14] LABS: Basophils # (auto) 0.02 K/uL (0-0.2); Basophils % (auto) 0.3 %; Eosinophils # (auto) 0.21 K/uL (0-0.5); Eosinophils % (auto) 2.7 %; Hematocrit (blood only) 24.6 % (37-47); Hemoglobin 8.4 g/dL (12.0-16.0); Immature Granulocytes # (auto) 0.04 K/uL (0.00-0.02); Immature Granulocytes % (auto) 0.5 %; Lymphocytes # (auto) 0.83 K/uL (1.2-3.4); Lymphocytes % (auto) 10.6 %; Mean Corpuscular Hgb Conc 34.1 g/dL (32-36); Mean Corpuscular Volume 91.8 fL (80-100); Mean Platelet Volume 9.6 fL (7.4-10.4); Monocytes # (auto) 0.49 K/uL (0.11-0.59); Monocytes % (auto) 6.3 %; Neutrophils # (auto) 6.22 K/uL (1.4-6.5); Neutrophils % (auto) 79.6 %; Platelet Count 210 K/uL (130-400); RDW Coefficient of Variation 14.5 % (11.5-14.5); RDW Standard Deviation 48.3 fL (36.4-46.3); Red Blood Count 2.68 M/uL (4.2-5.4); White Blood Count 7.81 K/uL (4.8-10.8)
[2018-12-16 07:55] LABS: BUN Creatinine Ratio 4.9 (10-20); Calcium 8.5 mg/dl (8.5-10.1); Creatinine Clr Calc Pharmacy 7.6 ml/min; Est GFR (African American) 6.4; Est GFR (Non-African American) 5.6
[2018-12-16] MEDS ORDERED: SODIUM CHLORIDE 0.9% 1000ML 1,000 ML IV PRN (08:32)
[2018-12-16] MEDS: SEVELAMER HCL 800 MG TABLET PO SCH ×3 (08:39→20:34)
[2018-12-16] MEDS: dilTIAZem HCL 240 MG CAPCR PO SCH (08:40)
[2018-12-16] MEDS: PANTOprazole 40 MG TAB PO SCH ×2 (08:40→20:34)
[2018-12-16] MEDS: HydrALAZINE TAB 50 MG TAB PO SCH ×3 (08:40→20:34)
[2018-12-16] MEDS: BuPROPion SR 150 MG TABCR PO SCH (08:41)
[2018-12-16] MEDS: ISOSORBIDE MONO EXTENDED REL 60 MG TABCR PO SCH (08:41)
[2018-12-16] MEDS: OMEGA-3 (PURIFIED FISH OIL) 1 GM CAP PO SCH (08:41)
--- NOTE | 2018-12-16 10:03 | Gastrointestinal Consultation ---
Date of Consultation December 16, 2018 Assessment & Plan (1) Pancolitis: CT indicated pancolitis, though was not enhanced with po contrast. Patient has a history of recurrent C diff. Unfortunately, stool samples have not been adequate to test for the C diff toxin as patient has not been able to make it to the bathroom. 1) Attempt to obtain a sufficient C diff sample 2) Await results of stool culture 3) Light diet as tolerated. Patient reports she has not eaten for much of the week and is incredibly hungry. 4) IV fluids, electrolyte replacement, & supportive care per primary team. Present on Admission?: Yes (2) Anemia: H/H 8.4/24.6 at present. No evidence of gross GI bleeding. Hemoccult is negative. 1) Continue Protonix 40 mg BID 2) Monitor H/H & monitor for signs of gross GI bleeding Present on Admission?: Yes Supervising Physician Co-Signing Physician Notes Agree with ARTHUR Horton as above Abd: Soft, tender throughout, ND, +BS C-diff testing was incomplete. She was found to have C-diff gene, but the Toxin testing was not performed, and the lab is requesting a new stool specimen. C-diff gene + does not equate to active C-diff, and should not be treated as such Continue supportive care and current therapy at this time I will follow her clinical course and make further recommendations as needed. History of Present Illness Reason for Consultation: Anemia, pancolitis Attending Physician: Aman Shaw DO History of Present Illness Patient is a 73 yo female with a PMH of anemia, ESRD on HD, HTN, anxiety, recurrent C diff, HLD, RLS, hypothyroidism, DM2, CAD, & osteoarthritis who presented to [facility] with several days of loose stools & fatigue. She reports that she began noticing some loose stool on Wednesday. On Wednesday she began prepping for a colonoscopy which was performed on 12/13/2018. This did not indicate any inflammation in the colon, but diverticulosis, internal hemorrhoids & a tubular adenoma were noted. She reports that since the colonoscopy she has become progressively sicker and has been unable to control her stools. She went to urgent care and they referred her to the ER. She reports 10-12 loose stools daily with generalized abdominal cramping. She had a CT scan that was unfortunately not enhanced with oral contrast. This questioned a pancolitis likely of infectious etiology. C diff studies have been attempted, however it has been difficult to get a sufficient sample as patient has not been making it to the bathroom and samples have been taken from her Depends. She has tested gene positive this admission, but specimens have not been acceptable for toxin testing. She was noted to be anemic with a hemoglobin of 7.1 on admission. This is 2 grams lower than her baseline. The patient denies dark stools or bright red rectal bleeding. A hemoccult was read as possibly positive by the hospitalist physician, however a sample sent to the lab was heme negative. The patient is currently undergoing a work-up in preparation for possible kidney transplantation. Allergies Allergy/AdvReac Type Severity Reaction Status Date / Time nickel Allergy Intermediate RASH Verified 12/15/18 22:25 nitrofurantoin Allergy Mild REDNESS Verified 12/15/18 22:25 AND BURNING OF HANDS Home Medications Home Medications Medication Instructions Recorded Confirmed Type ProRenal QD 1 cap PO QAM 04/26/18 12/15/18 History isosorbide mononitrate 120 mg PO QAM 04/26/18 12/15/18 History meloxicam 15 mg PO QAM 04/26/18 12/15/18 History bupropion HCl 150 mg PO QAM 06/03/18 12/15/18 History levothyroxine [Synthroid] 175 mcg PO QAM #30 tab 06/03/18 12/15/18 Rx hydralazine 150 mg PO TID 07/15/18 12/15/18 History Mircera 100 mcg SUBCUT MONTHLY 10/27/18 12/15/18 History atorvastatin 40 mg PO HS 10/27/18 12/15/18 History diltiazem ER 240 mg capsule,24 240 mg PO QAM #30 cap 12/07/18 12/15/18 Rx hr,extended release lorazepam 0.5 mg tablet 0.25 - 0.5 mg PO BID PRN #60 tab 12/07/18 12/15/18 Rx ropinirole 0.25 mg tablet 0.25 mg PO .COMPLEX #30 tab 12/07/18 12/15/18 Rx aspirin [Aspir-81] 81 mg PO DAILY 12/15/18 12/15/18 History omeprazole 20 mg PO BIDM 12/15/18 12/15/18 History sevelamer carbonate [Renvela] 2,400 mg PO TIDM 12/15/18 12/15/18 History valsartan 80 mg PO DAILY 12/15/18 12/15/18 History vit B,C-iron ogn-PH-D1-zinc ox 1 tab PO DAILY 12/15/18 12/15/18 History [ProRenal] Patient History Medical History Diabetes NIDDM Dialysis patient (Chronic) Kidney failure (Chronic) Gout Asthma AV fistula LUE Anemia CHRONIC; BASELINE HGB 9'S PER CHART REVIEW Anxiety Brain aneurysm coiled 11/05/18. Degenerative disc disease ESRD on hemodialysis MWF Hearing deficit Hyperkalemia Hyperlipidemia Hypertension Hypothyroidism Kidney stones Obesity Osteoarthritis Polycystic kidney disease Restless leg syndrome Surgical History History of arteriovenous graft LUE AVF History of bronchoscopy History of colonoscopy 09/20/2018. poor prep so procedure aborted. patient with emesis when awake, no issues and discharged home. History of hammer toe correction History of lumbar surgery History of surgery PERITONEAL DIALYSIS CATHETER PLACEMENT PERITONEAL DIALYSIS CATHETER REMOVAL/PERMACATH INSERTION= 01/27/18= MAC SEDATION AT [facility] History of surgery perm cath removed 08/16/[address] Barrera History of total abdominal hysterectomy and bilateral salpingo-oophorectomy Family History Mother Family history of reaction to anesthesia confused for a day or so after sx in the 1950s Family history of diabetes mellitus Sister Family history of diabetes mellitus Father Family history of diabetes mellitus Other No significant family history Social History Preferred Language: Malian Communication Ability: Effective Visual Impairment: No Limitations Phone Technician Required: No Beliefs That Will Affect Care: None Current Living Situation: Alone Current Living Situation Comment: Sister Other Information That Helps Us Care for You: No Feels Safe at Home: Yes Safety Concerns: Feels Safe At This Time Smoking Status: Unknown if ever smoked Hx Alcohol Use: No Hx Substance Use: No Review of Systems Constitutional: + fatigue; no fever and no chills Eyes: no acute issues Ear, Nose, Mouth, Throat: no acute complaints Respiratory: no cough and no dyspnea Cardiovascular: no chest pain Gastrointestinal: + abdominal pain and + diarrhea/loose stools Musculoskeletal: no back pain Integumentary: no rash Neurologic: no dizziness Psychiatric: no acute concerns Endocrine: + fatigue Hematologic / Lymphatic: no easy bleeding Physical Exam Constitutional: WD/WN, vitals as above Eyes: PERRL, conjunctivae normal, anicteric sclerae ENMT: external ear and nose normal, oropharynx normal Neck: normal visual inspection Respiratory: normal respiratory effort, lungs clear to auscultation Cardiovascular: RRR, no murmur, no edema Gastrointestinal (Abdomen): Percussion/Palpation: + abdomen tender and abdomen soft Musculoskeletal: no cyanosis or clubbing, extremities motor strength 5/5 Skin: no rashes, warm and dry Neurologic: moves all extremities Psychiatric: A+Ox3, euthymic affect Results & Data Vital Signs (Past 12 Hours) Vital Signs Temp Pulse Pulse Resp BP BP BP 12/16/18 06:57 36.8 C 69 18 164/68 H 12/16/18 05:57 37.4 C 66 20 187/67 H 12/16/18 05:40 66 185/71 H 12/16/18 05:07 37.3 C 68 24 182/77 H 12/16/18 04:25 37.3 C 65 185/65 H 12/16/18 04:08 37.4 C 64 180/70 H 12/16/18 03:51 37.6 C H 66 185/66 H 12/16/18 02:57 37.6 C H 70 18 170/62 H 12/16/18 00:27 37.2 C 69 18 184/68 H 12/16/18 00:15 75 12/15/18 23:50 12/15/18 23:48 68 20 149/69 H 12/15/18 22:45 67 24 12/15/18 22:30 66 32 H 12/15/18 22:15 65 28 H 12/15/18 22:01 65 28 H 12/15/18 22:00 64 25 H 165/69 H Pulse Ox 12/16/18 06:57 94 12/16/18 05:57 99 12/16/18 05:40 98 12/16/18 05:07 98 07/26/19 04:25 98 12/16/18 04:08 98 12/16/18 03:51 97 12/16/18 02:57 99 12/16/18 00:27 100 12/16/18 00:15 12/15/18 23:50 88 L 12/15/18 23:48 98 12/15/18 22:45 91 12/15/18 22:30 93 12/15/18 22:15 94 12/15/18 22:01 92 12/15/18 22:00 93 (1) Anemia Anemia type: due to chronic kidney disease Chronic kidney disease stage: on chronic dialysis Qualified Code(s): N18.6 - End stage renal disease; D63.1 - Anemia in chronic kidney disease; Z99.2 - Dependence on renal dialysis
--- NOTE | 2018-12-16 10:16 | Nephrology Consultation ---
Date of Consultation December 16, 2018 Assessment & Plan (1) ESRD on hemodialysis: ESRD on HD MWF, admitted with C diff colitis. CT showing pancolitis. BP running high, has hypokalemia with ongoing diarrhea for a week. Started on oral vanco. -- plan for dialysis today as her regular schedule with high K bath considering hypokalemia -- continue home antihypertensive meds -- avoid further IV fluid --start on renal vitamin and phosphate binder when starts on po --dose medications for GFR less than 10 Will follow Thank you for the consultation (2) Anemia in CKD (chronic kidney disease): (3) HTN (hypertension), benign: (4) Hypokalemia: (5) Pancolitis: History of Present Illness Reason for Consultation: ESRD on HD admitted with colitis Attending Physician: Aman Shaw DO History of Present Illness Ruby Caicedo is a 73 year old F with ESRD on HD MWF at [facility] admitted with Pancolitis. Nephrology consult requested to manage HD while in patient. EMR records were reviewed in detail during visit. Ruby has ESRD due to diabetic nephropathy and microvascular disease. She was on NCCPD therapy since 2013, had many complications with catheter Her first dialysis catheter was inadvertantly cut while sewing, had second catheter which functioned poorly. CT peritoneogram revealed a subcutaneous leak from her catheter that tracked from the tunnel along her right flank. She had a new catheter inserted but has had difficulty with recurrent hyperkalemia. She eventually developed progressive azotemia and recurrent nausea & emesis requiring transition to IHD. She has been dialyzing MWF at [facility] via left BC AVF. last HD was Wednesday. Started having diarrhea a week ago. Had Colonoscopy on 12/13/18. As diarrhea progressed she also started having generalized abdominal pain and po intake has been poor. CT abdomen/pelvis in ED showed pancolitis and C. diff gene was positive. Currently feeling poorly and c/o generalized abdominal pain. Allergies Allergy/AdvReac Type Severity Reaction Status Date / Time nickel Allergy Intermediate RASH Verified 12/15/18 22:25 nitrofurantoin Allergy Mild REDNESS Verified 12/15/18 22:25 AND BURNING OF HANDS Home Medications Home Medications Medication Instructions Recorded Confirmed Type ProRenal QD 1 cap PO QAM 04/26/18 12/15/18 History isosorbide mononitrate 120 mg PO QAM 04/26/18 12/15/18 History meloxicam 15 mg PO QAM 04/26/18 12/15/18 History bupropion HCl 150 mg PO QAM 06/03/18 12/15/18 History levothyroxine [Synthroid] 175 mcg PO QAM #30 tab 06/03/18 12/15/18 Rx hydralazine 150 mg PO TID 07/15/18 12/15/18 History Mircera 100 mcg SUBCUT MONTHLY 10/27/18 12/15/18 History atorvastatin 40 mg PO HS 10/27/18 12/15/18 History diltiazem ER 240 mg capsule,24 240 mg PO QAM #30 cap 12/07/18 12/15/18 Rx hr,extended release lorazepam 0.5 mg tablet 0.25 - 0.5 mg PO BID PRN #60 tab 12/07/18 12/15/18 Rx ropinirole 0.25 mg tablet 0.25 mg PO .COMPLEX #30 tab 12/07/18 12/15/18 Rx aspirin [Aspir-81] 81 mg PO DAILY 12/15/18 12/15/18 History omeprazole 20 mg PO BIDM 12/15/18 12/15/18 History sevelamer carbonate [Renvela] 2,400 mg PO TIDM 12/15/18 12/15/18 History valsartan 80 mg PO DAILY 12/15/18 12/15/18 History vit B,C-iron [id number]-zinc ox 1 tab PO DAILY 12/15/18 12/15/18 History [ProRenal] Patient History Medical History Diabetes NIDDM Dialysis patient (Chronic) Kidney failure (Chronic) Gout Asthma AV fistula LUE Anemia CHRONIC; BASELINE HGB 9'S PER CHART REVIEW Anxiety Brain aneurysm coiled 11/05/18. Degenerative disc disease ESRD on hemodialysis MWF Hearing deficit Hyperkalemia Hyperlipidemia Hypertension Hypothyroidism Kidney stones Obesity Osteoarthritis Polycystic kidney disease Restless leg syndrome Surgical History History of arteriovenous graft LUE AVF History of bronchoscopy History of colonoscopy 09/20/2018. poor prep so procedure aborted. patient with emesis when awake, no issues and discharged home. History of hammer toe correction History of lumbar surgery History of surgery PERITONEAL DIALYSIS CATHETER PLACEMENT PERITONEAL DIALYSIS CATHETER REMOVAL/PERMACATH INSERTION= 01/27/18= MAC SEDATION AT [facility] History of surgery perm cath removed 08/16/[address] Barrera History of total abdominal hysterectomy and bilateral salpingo-oophorectomy Family History Mother Family history of reaction to anesthesia confused for a day or so after sx in the 1950s Family history of diabetes mellitus Sister Family history of diabetes mellitus Father Family history of diabetes mellitus Other No significant family history Social History Preferred Language: Kiswahili Communication Ability: Effective Visual Impairment: No Limitations Translator Deaf Required: No Beliefs That Will Affect Care: None Current Living Situation: Alone Current Living Situation Comment: Sister Other Information That Helps Us Care for You: No Feels Safe at Home: Yes Safety Concerns: Feels Safe At This Time Smoking Status: Unknown if ever smoked Hx Alcohol Use: No Hx Substance Use: No Review of Systems Review of Systems: All systems reviewed & are unremarkable except as noted in HPI & below Physical Exam Constitutional: WD/WN, vitals as above + ill appearing Neck: normal visual inspection and trachea midline Respiratory: normal respiratory effort, lungs clear to auscultation Cardiovascular: RRR, no murmur, no edema Gastrointestinal (Abdomen): Inspection/Auscultation: abdomen normal to inspection and normal bowel sounds Percussion/Palpation: + abdomen tender and abdomen soft Neurologic: moves all extremities and awake Psychiatric: A+Ox3, euthymic affect Orientation: alert and oriented x 3 Results & Data Vital Signs (Past 12 Hours) Vital Signs Temp Pulse Pulse Resp BP BP BP 12/16/18 06:57 36.8 C 69 18 164/68 H 12/16/18 05:57 37.4 C 66 20 187/67 H 12/16/18 05:40 66 185/71 H 12/16/18 05:07 37.3 C 68 24 182/77 H 12/16/18 04:25 37.3 C 65 185/65 H 12/16/18 04:08 37.4 C 64 180/70 H 12/16/18 03:51 37.6 C H 66 185/66 H 12/16/18 02:57 37.6 C H 70 18 170/62 H 12/16/18 00:27 37.2 C 69 18 184/68 H 12/16/18 00:15 75 12/15/18 23:50 12/15/18 23:48 68 20 149/69 H 12/15/18 22:45 67 24 12/15/18 22:30 66 32 H 12/15/18 22:15 65 28 H Pulse Ox 12/16/18 06:57 94 12/16/18 05:57 99 12/16/18 05:40 98 12/16/18 05:07 98 12/16/18 04:25 98 12/16/18 04:08 98 12/16/18 03:51 97 12/16/18 02:57 99 12/16/18 00:27 100 12/16/18 00:15 12/15/18 23:50 88 L 12/15/18 23:48 98 12/15/18 22:45 91 12/15/18 22:30 93 12/15/18 22:15 94
--- NOTE | 2018-12-16 17:37 | Family Medicine Progress Note ---
Date of Service December 16, 2018 Assessment & Plan (1) Pancolitis: 73 year old medically complicated woman with a PMHx of recurrent c.diff infection x 3 and ESRD on dialysis was admitted on 12/15/18 for evaluation of profuse diarrhea. -abdominal CT showed pancolitis -etiology almost certainly from recurrent c.diff infection -c.diff gene +, toxin specimen unable be collected -no WBC count -Vancomycin, 125mg, PO, Q6h -on maintenance IVF for rehydration -discussed option of fecal transplant with patient - she wishes to have done in [facility] by Anayeli RIVERA; will have care management arrange -patient had colonoscopy preformed by Dr. Diane 3 days ago: one 6mm poly was removed, diverticula and non-bleeding internal hemmorrhoids were identified Present on Admission?: Yes (2) Anemia in CKD (chronic kidney disease): -hgb on admission 7.1 -patient received 1 unit of blood (12/15), improved hgb to 8.4 today -although transfusion may not have been indicated numerically, considering recent polypectomy, transfusion was likely done by night team in the event of a polypectomy related bleed (3) Weakness: likely secondary to current c.diff infection (4) CAD (coronary artery disease): -hold home ASA and statin (5) Hypothyroidism (acquired): -continue home dose levothyroxine (6) ESRD (end stage renal disease) on dialysis: -nephrology consulted -patient on MWF hemodialysis -will have in-house dialysis today (7) HTN (hypertension), benign: continue home diltiazem, hydralazine, imdur (8) Restless leg syndrome: continue home ropinrole (9) Mood disorder: continue home dose wellbutrin (10) Chronic cough: -secondary to GERD -continue pantoprazole -ordered guanifesin/DM 5ml PO, prn for nighttime cough suppressant FEN/GI: Heart Healthy diet DVT prophylaxis: Heparin, 5,000 units, SQ, q12 Code: Full Dispo: Med/Surg Supervising Physician Co-Signing Physician Notes I personally examined the patient and verified all gabriel points of history and exam, discussed case, and agree with decision making with Dr Damon. Feeling better than whenever she saw Dr. Damon in the morning. Still with some abdominal pain but it has lessened, still with a significant amount of diarrhea but she is starting to see at least some degree of more thickened consistency out of it. This is approximately her fourth recurrence of C. difficile in short order. Vitals noted, in general she is awake and alert fatigued appearing but otherwise in no distress. HEENT normal cephalic atraumatic mucous membranes moist. Abdomen is soft may be mildly distended mildly tender without any guarding/rebo und/rigidity. Neuro shows no focal deficits. C. difficile colitisrecurrent. Seems to be improving on oral vancomycin, more than likely this will reign in the acute infection, but given her frequent recurrences, it would certainly appear reasonable to consider fecal transplant once it can be arranged, versus alternate antibiotic regimen otherwise. DVT prophylaxisheparin subcu Otherwise as above Subjective resting in bed; says she feels poorly; having diarrhea every time she coughs, was up all night coughing; eating "bites here and there" Review of Systems Constitutional: + malaise Respiratory: + cough Cardiovascular: no chest pain Gastrointestinal: + abdominal pain, + bloating and + diarrhea/loose stools; no nausea, no vomiting, no cramping and no blood in stools Genitourinary: no dysuria Physical Exam Constitutional: + ill appearing and average body habitus Eyes: + anicteric sclerae Respiratory: normal respiratory effort, lungs clear to auscultation Cardiovascular: RRR, no murmur, no edema Heart Sounds: normal S1 and normal S2; no murmur Gastrointestinal (Abdomen): Inspection/Auscultation: + abdomen distended and + hypoactive bowel sounds Percussion/Palpation: + abdomen tender (diffusely) and + abdomen firm Neurologic: awake Psychiatric: Orientation: oriented x 3 Results & Data Vital Signs (Past 12 Hours) Vital Signs Temp Pulse Pulse Pulse Resp BP BP 12/16/18 17:20 65 169/60 H 12/16/18 17:00 66 133/79 12/16/18 16:40 65 168/65 H 12/16/18 16:20 67 171/76 H 12/16/18 16:00 68 163/77 H 12/16/18 15:53 36.7 C 67 67 164/72 H 12/16/18 15:37 37.6 C H 68 18 168/65 H 12/16/18 10:53 37.6 C H 68 22 12/16/18 06:57 36.8 C 69 18 12/16/18 05:57 37.4 C 66 20 187/67 H 12/16/18 05:40 66 185/71 H BP Pulse Ox 12/16/18 17:20 12/16/18 17:00 12/16/18 16:40 12/16/18 16:20 12/16/18 16:00 12/16/18 15:53 12/16/18 15:37 93 12/16/18 10:53 178/68 H 93 12/16/18 06:57 164/68 H 94 12/16/18 05:57 99 12/16/18 05:40 98 Laboratory Results 12/16/18 12/16/18 12/16/18 Range/Units 10:57 07:04 06:58 WBC (4.8-10.8) K/uL RBC (4.2-5.4) M/uL Hgb (12.0-16.0) g/dL Hct (37-47) % MCV (80-100) fL MCH (25-34) pg MCHC (32-36) g/dL RDW Std Deviation (36.4-46.3) fL RDW Coeff of Martin (11.5-14.5) % Plt Count (130-400) K/uL MPV (7.4-10.4) fL Immature Gran % (Auto) % Neut % (Auto) % Lymph % (Auto) % [place] % (Auto) % Eos % (Auto) % Baso % (Auto) % Immature Gran # (Auto) (0.00-0.02) K/uL Neut # (Auto) (1.4-6.5) K/uL Lymph # (Auto) (1.2-3.4) K/uL [place] # (Auto) (0.11-0.59) K/uL Eos # (Auto) (0-0.5) K/uL Baso # (Auto) (0-0.2) K/uL Dohle Bodies Sodium 137 (136-145) mmol/L Potassium 3.0 L (3.5-5.1) mmol/L Chloride 97 L (98-107) mmol/L Carbon Dioxide 30 (21-32) mmol/L Anion Gap 10.0 (3-11) BUN 33 H (7-18) mg/dl Creatinine 6.78 H* D (0.6-1.2) mg/dl Est Cr Clr Drug Dosing 7.6 ml/min Est GFR ( Amer) 6.4 Est GFR (Non-Af Amer) 5.6 BUN/Creatinine Ratio 4.9 L (10-20) Glucose 117 H (70-99) mg/dl POC Glucose 108 H 119 H (70-99) Calcium 8.5 (8.5-10.1) mg/dl Total Bilirubin (0.2-1) mg/dl AST (15-37) U/L ALT (12-78) U/L Alkaline Phosphatase (45-117) U/L Total Protein (6.4-8.2) gm/dl Albumin (3.4-5.0) gm/dl Globulin (2.5-4.0) gm/dl Albumin/Globulin Ratio (0.9-2) Lipase (73-393) U/L Nasal Screen MRSA (PCR) (Negative) Stool Occult Bld Scrn (Negative) Stl C. diff Tox B Gene (Neg) Stl C.difficile Tox A&B Stool H. pylori Ag Blood Type Antibody Screen Crossmatch 12/16/18 12/16/18 12/16/18 Range/Units 06:58 03:20 03:20 WBC 7.81 (4.8-10.8) K/uL RBC 2.68 L (4.2-5.4) M/uL Hgb 8.4 L (12.0-16.0) g/dL Hct 24.6 L (37-47) % MCV 91.8 (80-100) fL MCH 31.3 (25-34) pg MCHC 34.1 (32-36) g/dL RDW Std Deviation 48.3 H (36.4-46.3) fL RDW Coeff of Martin 14.5 (11.5-14.5) % Plt Count 210 (130-400) K/uL MPV 9.6 (7.4-10.4) fL Immature Gran % (Auto) 0.5 % Neut % (Auto) 79.6 % Lymph % (Auto) 10.6 % [place] % (Auto) 6.3 % Eos % (Auto) 2.7 % Baso % (Auto) 0.3 % Immature Gran # (Auto) 0.04 H (0.00-0.02) K/uL Neut # (Auto) 6.22 (1.4-6.5) K/uL Lymph # (Auto) 0.83 L (1.2-3.4) K/uL [place] # (Auto) 0.49 (0.11-0.59) K/uL Eos # (Auto) 0.21 (0-0.5) K/uL Baso # (Auto) 0.02 (0-0.2) K/uL Dohle Bodies Sodium (136-145) mmol/L Potassium (3.5-5.1) mmol/L Chloride (98-107) mmol/L Carbon Dioxide (21-32) mmol/L Anion Gap (3-11) BUN (7-18) mg/dl Creatinine (0.6-1.2) mg/dl Est Cr Clr Drug Dosing ml/min Est GFR ( Amer) Est GFR (Non-Af Amer) BUN/Creatinine Ratio (10-20) Glucose (70-99) mg/dl POC Glucose (70-99) Calcium (8.5-10.1) mg/dl Total Bilirubin (0.2-1) mg/dl AST (15-37) U/L ALT (12-78) U/L Alkaline Phosphatase (45-117) U/L Total Protein (6.4-8.2) gm/dl Albumin (3.4-5.0) gm/dl Globulin (2.5-4.0) gm/dl Albumin/Globulin Ratio (0.9-2) Lipase (73-393) U/L Nasal Screen MRSA (PCR) (Negative) Stool Occult Bld Scrn Negative (Negative) Stl C. diff Tox B Gene (Neg) Stl C.difficile Tox A&B Stool H. pylori Ag Pending Blood Type Antibody Screen Crossmatch 12/16/18 12/16/18 12/15/18 Range/Units 03:20 00:50 20:27 WBC (4.8-10.8) K/uL RBC (4.2-5.4) M/uL Hgb (12.0-16.0) g/dL Hct (37-47) % MCV (80-100) fL MCH (25-34) pg MCHC (32-36) g/dL RDW Std Deviation (36.4-46.3) fL RDW Coeff of Martin (11.5-14.5) % Plt Count (130-400) K/uL MPV (7.4-10.4) fL Immature Gran % (Auto) % Neut % (Auto) % Lymph % (Auto) % [place] % (Auto) % Eos % (Auto) % Baso % (Auto) % Immature Gran # (Auto) (0.00-0.02) K/uL Neut # (Auto) (1.4-6.5) K/uL Lymph # (Auto) (1.2-3.4) K/uL [place] # (Auto) (0.11-0.59) K/uL Eos # (Auto) (0-0.5) K/uL Baso # (Auto) (0-0.2) K/uL Dohle Bodies Sodium (136-145) mmol/L Potassium (3.5-5.1) mmol/L Chloride (98-107) mmol/L Carbon Dioxide (21-32) mmol/L Anion Gap (3-11) BUN (7-18) mg/dl Creatinine (0.6-1.2) mg/dl Est Cr Clr Drug Dosing ml/min Est GFR ( Amer) Est GFR (Non-Af Amer) BUN/Creatinine Ratio (10-20) Glucose (70-99) mg/dl POC Glucose (70-99) Calcium (8.5-10.1) mg/dl Total Bilirubin (0.2-1) mg/dl AST (15-37) U/L ALT (12-78) U/L Alkaline Phosphatase (45-117) U/L Total Protein (6.4-8.2) gm/dl Albumin (3.4-5.0) gm/dl Globulin (2.5-4.0) gm/dl Albumin/Globulin Ratio (0.9-2) Lipase (73-393) U/L Nasal Screen MRSA (PCR) Negative (Negative) Stool Occult Bld Scrn (Negative) Stl C. diff Tox B Gene Positive Cdiff Gene H (Neg) Stl C.difficile Tox A&B TNP Stool H. pylori Ag Blood Type O Positive Antibody Screen NEGATIVE Crossmatch See Detail 12/15/18 12/15/18 Range/Units 20:27 20:27 WBC 6.77 (4.8-10.8) K/uL RBC 2.27 L (4.2-5.4) M/uL Hgb 7.1 L (12.0-16.0) g/dL Hct 20.7 L* (37-47) % MCV 91.2 (80-100) fL MCH 31.3 (25-34) pg MCHC 34.3 (32-36) g/dL RDW Std Deviation 46.7 H (36.4-46.3) fL RDW Coeff of Martin 14.1 (11.5-14.5) % Plt Count 217 (130-400) K/uL MPV 9.4 (7.4-10.4) fL Immature Gran % (Auto) 0.1 % Neut % (Auto) 80.2 % Lymph % (Auto) 11.2 % [place] % (Auto) 6.5 % Eos % (Auto) 1.9 % Baso % (Auto) 0.1 % Immature Gran # (Auto) 0.01 (0.00-0.02) K/uL Neut # (Auto) 5.42 (1.4-6.5) K/uL Lymph # (Auto) 0.76 L (1.2-3.4) K/uL [place] # (Auto) 0.44 (0.11-0.59) K/uL Eos # (Auto) 0.13 (0-0.5) K/uL Baso # (Auto) 0.01 (0-0.2) K/uL Dohle Bodies 1+ Sodium 138 (136-145) mmol/L Potassium 2.7 L (3.5-5.1) mmol/L Chloride 96 L (98-107) mmol/L Carbon Dioxide 33 H (21-32) mmol/L Anion Gap 9.0 (3-11) BUN 32 H (7-18) mg/dl Creatinine 6.18 H* (0.6-1.2) mg/dl Est Cr Clr Drug Dosing 8.3 ml/min Est GFR ( Amer) 7.2 Est GFR (Non-Af Amer) 6.2 BUN/Creatinine Ratio 5.1 L (10-20) Glucose 123 H (70-99) mg/dl POC Glucose (70-99) Calcium 8.5 (8.5-10.1) mg/dl Total Bilirubin 0.4 (0.2-1) mg/dl AST 24 (15-37) U/L ALT 25 (12-78) U/L Alkaline Phosphatase 83 (45-117) U/L Total Protein 6.6 (6.4-8.2) gm/dl Albumin 3.2 L (3.4-5.0) gm/dl Globulin 3.4 (2.5-4.0) gm/dl Albumin/Globulin Ratio 0.9 (0.9-2) Lipase 94 (73-393) U/L Nasal Screen MRSA (PCR) (Negative) Stool Occult Bld Scrn (Negative) Stl C. diff Tox B Gene (Neg) Stl C.difficile Tox A&B Stool H. pylori Ag Blood Type Antibody Screen Crossmatch Medications Administered Current Inpatient Medications Bupropion HCl (Wellbutrin-Sr) 150 mg PO [facility] Stop: 01/15/19 08:59 Last Admin: 12/16/18 08:41 Dose: 150 mg Documented by: Diltiazem HCl (Cardizem Cd) 240 mg PO [place] Stop: 01/15/19 08:59 Last Admin: 12/16/18 08:40 Dose: 240 mg Documented by: Fish Oil ([place]-3 (Purified Fish Oil)) 1 gm PO QAM [facility] Stop: 01/15/19 08:59 Last Admin: 12/16/18 08:41 Dose: 1 gm Documented by: Guaifenesin/Dextromethorphan (Robitussin Cough-Chest Dm) 5 ml PO Q6H PRN PRN Reason: Cough Stop: 01/15/19 17:37 Hydralazine HCl (Apresoline) 150 mg PO TID [facility] Stop: 01/15/19 08:59 Last Admin: 12/16/18 14:52 Dose: Not Given Documented by: Sodium Chloride (Nss) 250 mls @ 15 mls/hr IV .[id number] PRN PRN Reason: For Transfusion Stop: 01/15/19 00:06 Isosorbide Mononitrate (Imdur Extended Rel) 120 mg PO [place] Stop: 01/15/19 08:59 Last Admin: 12/16/18 08:41 Dose: 120 mg Documented by: Levothyroxine Sodium (Synthroid) 175 mcg PO DAILYBB [facility] Stop: 01/15/19 06:29 Last Admin: 12/16/18 05:05 Dose: 175 mcg Documented by: Lorazepam (Ativan) 0.5 mg PO BID PRN PRN Reason: Anxiety Stop: 01/15/19 00:06 Menthol (Nice) 1 jason BUCCAL PRN PRN PRN Reason: Sore Throat Stop: 01/15/19 03:15 Pantoprazole Sodium (Protonix) 40 mg PO BIDM [facility] Stop: 01/15/19 07:59 Last Admin: 12/16/18 08:40 Dose: 40 mg Documented by: Raspberry (Raspberry) 5 ml PO Q6 [facility] Stop: 12/30/18 05:59 Last Admin: 12/16/18 12:29 Dose: 5 ml Documented by: Ropinirole HCl (Requip) 0.25 mg PO DAILY@1900 [facility] Stop: 01/15/19 18:59 Sevelamer HCl (Renagel) 2,400 mg PO TIDM [facility] Stop: 01/15/19 07:59 Last Admin: 12/16/18 12:30 Dose: 2,400 mg Documented by: Vancomycin HCl (Vancomycin Hcl) 125 mg PO Q6 [facility] Stop: 12/26/18 05:59 Last Admin: 12/16/18 12:29 Dose: 125 mg Documented by: PG Care Time/CCT Total # of Minutes Spent Total Time Spent with Patient: Total time spent is greater than 50% in coordination of care (as documented) at patient's floor/unit and/or counseling patient: Resident Activity Tracking Resident Involvement: Resident Care Provided Care Provided: Adult Hospital Medicine
[2018-12-16] MEDS ORDERED: GUAIFENESIN PO PRN (17:38)
[2018-12-16] MEDS ORDERED: DEXTROMETHORPHAN PO PRN (17:38)
[2018-12-16] MEDS: ROPINIROLE HCL 0.25 MG TABLET PO SCH (20:34)
[2018-12-16 21:25] LABS: INR 1.1 (0.9-1.1); Partial Thromboplastin Ratio 0.9; Partial Thromboplastin Time 24.8 Seconds (21.0-31.0); Prothrombin Time 10.9 Seconds (9.0-12.0)
[2018-12-16] MEDS: HEPARIN SOD 5,000 UNIT/0.5 ML VIAL SQ SCH (22:57)
[2018-12-17] MEDS: RASPBERRY SYRUP 5 ML UDP PO SCH ×4 (01:06→17:06)
[2018-12-17] MEDS: VANCOMYCIN HCL 125 MG/2.5ML SOLN PO SCH ×4 (01:06→17:10)
[2018-12-17] MEDS: LEVOTHYROXINE SODIUM 175 MCG TABLET PO SCH (06:42)
[2018-12-17 06:50] LABS: Basophils # (auto) 0.02 K/uL (0-0.2); Basophils % (auto) 0.2 %; Eosinophils # (auto) 0.21 K/uL (0-0.5); Eosinophils % (auto) 2.5 %; Hematocrit (blood only) 26.2 % (37-47); Hemoglobin 8.9 g/dL (12.0-16.0); Immature Granulocytes # (auto) 0.06 K/uL (0.00-0.02); Immature Granulocytes % (auto) 0.7 %; Mean Corpuscular Volume 92.3 fL (80-100); Mean Platelet Volume 9.4 fL (7.4-10.4); Monocytes # (auto) 0.65 K/uL (0.11-0.59); Monocytes % (auto) 7.8 %; Neutrophils # (auto) 6.38 K/uL (1.4-6.5); Neutrophils % (auto) 76.8 %; Platelet Count 218 K/uL (130-400); RDW Coefficient of Variation 14.7 % (11.5-14.5); RDW Standard Deviation 49.8 fL (36.4-46.3); Red Blood Count 2.84 M/uL (4.2-5.4); White Blood Count 8.32 K/uL (4.8-10.8)
--- NOTE | 2018-12-17 07:01 | Family Medicine Progress Note ---
Date of Service December 17, 2018 Assessment & Plan (1) Pancolitis: 73 year old medically complicated woman with a PMHx of recurrent c.diff infection x 3 and ESRD on dialysis was admitted on 12/15/18 for evaluation of profuse diarrhea. -abdominal CT showed pancolitis -etiology almost certainly from recurrent c.diff infection -c.diff gene +, toxin specimen unable be collected (due to profuse quality --> incontinence) -no WBC count -initiated Vancomycin, 125mg, PO, Q6h (day 2) -d/c IVF per nephrology recs -discussed option of fecal transplant with patient - she wishes to [facility]; will have care management arrange -patient had colonoscopy preformed by Dr. Diane 3 days ago: one 6mm poly was removed, diverticula and non-bleeding internal hemmorrhoids were identified Present on Admission?: Yes (2) Anemia in CKD (chronic kidney disease): -hgb on admission 7.1, today at 8.9 -patient received 1 unit of blood (12/15) -although transfusion may not have been indicated numerically, considering recent polypectomy, transfusion was likely done by night team in the event of a polypectomy related bleed -hemoccult stool negative -likely secondary to ESRD rather than a bleed (3) Weakness: likely secondary to current c.diff infection (4) CAD (coronary artery disease): -resume home stain and ASA (as patient does not appear to be actively bleeding) (5) Hypothyroidism (acquired): -continue home dose levothyroxine (6) ESRD (end stage renal disease) on dialysis: -nephrology consulted, appreciate recs -patient on MWF hemodialysis -will have in-house dialysis today (7) HTN (hypertension), benign: continue home diltiazem, hydralazine, imdur (8) Restless leg syndrome: continue home ropinrole (9) Mood disorder: continue home dose wellbutrin (10) Hypokalemia: -3.1 today -ordered 20mEq PO BID -monitor with daily BMPs Present on Admission?: No (11) Chronic cough: -secondary to GERD -continue pantoprazole -ordered guanifesin/DM 5ml PO, prn for nighttime cough suppressant FEN/GI: Heart Healthy, Dialysis diet DVT prophylaxis: Heparin, 5,000 units, SQ, q12 Code: Full Dispo: Med/Surg Present on Admission?: Yes Supervising Physician Co-Signing Physician Notes I personally examined the patient and verified all gabriel points of history and exam, discussed case, and agree with decision making with Dr Damon. Ongoing diarrhea and fecal incontinence. Not necessarily any better than yesterday although not necessarily any worse either no new complaints otherwise. Vitals noted, in general she is awake and alert fatigued appearing but otherwise in no distress. HEENT normal cephalic atraumatic mucous membranes moist. Abdomen is soft may be mildly distended mildly tender without any guarding/rebound/rigidityfairly similar to yesterday.. Neuro shows no focal deficits. Diarrheatreating presumptively as a recurrence of C. difficile colitis. Her toxin has not been able to be run, but this is because she has such profuse and abrupt diarrhea that she has had essentially nonstop fecal incontinence. Knowing her profuse diarrhea, and knowing that she is at least a C. difficile carrier with known prior C. difficile makes this a diagnosis of exclusion, hence the initiation of empiric treatment. Ideally a toxin would be able to confirm or refute this, which then may tailor therapy differently. If she is not improving into tomorrow certainly will need look towards a different treatment plan, but for now continue current care. DVT prophylaxisheparin subcu Otherwise as above Subjective resting in bed; says she feels very weak; stools still loose although some thickening compared to admission. ate some of her eggs, toast and yogurt for breakfast. Review of Systems Constitutional: + malaise Respiratory: + cough Gastrointestinal: + abdominal pain, + bloating and + diarrhea/loose stools; no nausea, no vomiting, no cramping and no blood in stools Physical Exam Constitutional: + ill appearing and average body habitus Eyes: + anicteric sclerae Respiratory: normal respiratory effort, lungs clear to auscultation Cardiovascular: RRR, no murmur, no edema Heart Sounds: normal S1 and normal S2; no murmur Gastrointestinal (Abdomen): Inspection/Auscultation: + abdomen distended and + hypoactive bowel sounds Percussion/Palpation: + abdomen tender (diffusely) and + abdomen firm Neurologic: awake Psychiatric: Orientation: oriented x 3 Results & Data Vital Signs (Past 12 Hours) Vital Signs Temp Pulse Pulse Resp BP BP BP 12/17/18 04:44 36.9 C 60 16 170/69 H 12/16/18 23:07 37.4 C 70 16 171/64 H 12/16/18 19:37 36.9 C 69 166/67 H 12/16/18 19:09 69 166/67 H 12/16/18 19:00 68 157/62 H Pulse Ox 12/17/18 04:44 93 12/16/18 23:07 93 12/16/18 19:37 12/16/18 19:09 12/16/18 19:00 Laboratory Results 12/17/18 12/17/18 12/16/18 Range/Units 06:32 06:32 21:00 WBC 8.32 (4.8-10.8) K/uL RBC 2.84 L (4.2-5.4) M/uL Hgb 8.9 L (12.0-16.0) g/dL Hct 26.2 L (37-47) % MCV 92.3 (80-100) fL MCH 31.3 (25-34) pg MCHC 34.0 (32-36) g/dL RDW Std Deviation 49.8 H (36.4-46.3) fL RDW Coeff of Martin 14.7 H (11.5-14.5) % Plt Count 218 (130-400) K/uL MPV 9.4 (7.4-10.4) fL Immature Gran % (Auto) 0.7 % Neut % (Auto) 76.8 % Lymph % (Auto) 12.0 % Petroleum % (Auto) 7.8 % Eos % (Auto) 2.5 % Baso % (Auto) 0.2 % Immature Gran # (Auto) 0.06 H (0.00-0.02) K/uL Neut # (Auto) 6.38 (1.4-6.5) K/uL Lymph # (Auto) 1.00 L (1.2-3.4) K/uL Petroleum # (Auto) 0.65 H (0.11-0.59) K/uL Eos # (Auto) 0.21 (0-0.5) K/uL Baso # (Auto) 0.02 (0-0.2) K/uL PT 10.9 (9.0-12.0) Seconds INR 1.1 (0.9-1.1) APTT 24.8 (21.0-31.0) Seconds PTT Ratio 0.9 Sodium 138 (136-145) mmol/L Potassium 3.1 L (3.5-5.1) mmol/L Chloride 100 (98-107) mmol/L Carbon Dioxide 29 (21-32) mmol/L Anion Gap 9.0 (3-11) BUN 23 H (7-18) mg/dl Creatinine 4.78 H* D (0.6-1.2) mg/dl Est Cr Clr Drug Dosing 10.7 ml/min Est GFR ( Amer) 9.8 Est GFR (Non-Af Amer) 8.5 BUN/Creatinine Ratio 4.8 L (10-20) Glucose 107 H (70-99) mg/dl POC Glucose (70-99) Calcium 8.4 L (8.5-10.1) mg/dl 12/16/18 Range/Units 10:57 WBC (4.8-10.8) K/uL RBC (4.2-5.4) M/uL Hgb (12.0-16.0) g/dL Hct (37-47) % MCV (80-100) fL MCH (25-34) pg MCHC (32-36) g/dL RDW Std Deviation (36.4-46.3) fL RDW Coeff of Martin (11.5-14.5) % Plt Count (130-400) K/uL MPV (7.4-10.4) fL Immature Gran % (Auto) % Neut % (Auto) % Lymph % (Auto) % Petroleum % (Auto) % Eos % (Auto) % Baso % (Auto) % Immature Gran # (Auto) (0.00-0.02) K/uL Neut # (Auto) (1.4-6.5) K/uL Lymph # (Auto) (1.2-3.4) K/uL Petroleum # (Auto) (0.11-0.59) K/uL Eos # (Auto) (0-0.5) K/uL Baso # (Auto) (0-0.2) K/uL PT (9.0-12.0) Seconds INR (0.9-1.1) APTT (21.0-31.0) Seconds PTT Ratio Sodium (136-145) mmol/L Potassium (3.5-5.1) mmol/L Chloride (98-107) mmol/L Carbon Dioxide (21-32) mmol/L Anion Gap (3-11) BUN (7-18) mg/dl Creatinine (0.6-1.2) mg/dl Est Cr Clr Drug Dosing ml/min Est GFR ( Amer) Est GFR (Non-Af Amer) BUN/Creatinine Ratio (10-20) Glucose (70-99) mg/dl POC Glucose 108 H (70-99) Calcium (8.5-10.1) mg/dl Medications Administered Current Inpatient Medications Bupropion HCl (Wellbutrin-Sr) 150 mg PO QAM [facility] Stop: 01/15/19 08:59 Last Admin: 12/17/18 07:55 Dose: 150 mg Documented by: Diltiazem HCl (Cardizem Cd) 240 mg PO QAM [facility] Stop: 01/15/19 08:59 Last Admin: 12/17/18 07:56 Dose: 240 mg Documented by: Fish Oil ([place]iley-3 (Purified Fish Oil)) 1 gm PO QAM [facility] Stop: 01/15/19 08:59 Last Admin: 12/17/18 07:56 Dose: 1 gm Documented by: Guaifenesin/Dextromethorphan (Robitussin Cough-Chest Dm) 5 ml PO Q6H PRN PRN Reason: Cough Stop: 01/15/19 17:37 Heparin Sodium (Porcine) (Heparin Sodium (Porcine)) 5,000 units SQ Q12 [facility] Stop: 01/15/19 20:59 Last Admin: 12/17/18 07:56 Dose: 5,000 units Documented by: Hydralazine HCl (Apresoline) 150 mg PO TID [facility] Stop: 01/15/19 08:59 Last Admin: 12/17/18 07:56 Dose: 150 mg Documented by: Sodium Chloride (Nss) 250 mls @ 15 mls/hr IV .[id number] PRN PRN Reason: For Transfusion Stop: 01/15/19 00:06 Isosorbide Mononitrate (Imdur Extended Rel) 120 mg PO QAM [facility] Stop: 01/15/19 08:59 Last Admin: 12/17/18 07:55 Dose: 120 mg Documented by: Levothyroxine Sodium (Synthroid) 175 mcg PO DAILYBB [facility] Stop: 01/15/19 06:29 Last Admin: 12/17/18 06:42 Dose: 175 mcg Documented by: Lorazepam (Ativan) 0.5 mg PO BID PRN PRN Reason: Anxiety Stop: 01/15/19 00:06 Menthol (Nice) 1 jason BUCCAL PRN PRN PRN Reason: Sore Throat Stop: 01/15/19 03:15 Pantoprazole Sodium (Protonix) 40 mg PO BIDM [facility] Stop: 01/15/19 07:59 Last Admin: 12/17/18 07:55 Dose: 40 mg Documented by: Potassium Chloride (Klor-Con M20) 20 meq PO BID [facility] Stop: 01/17/19 08:00 Raspberry (Raspberry) 5 ml PO Q6 [facility] Stop: 12/30/18 05:59 Last Admin: 12/17/18 06:42 Dose: 5 ml Documented by: Ropinirole HCl (Requip) 0.25 mg PO DAILY@1900 [facility] Stop: 01/15/19 18:59 Last Admin: 12/16/18 20:34 Dose: 0.25 mg Documented by: Sevelamer HCl (Renagel) 2,400 mg PO TIDM [facility] Stop: 01/15/19 07:59 Last Admin: 12/17/18 07:55 Dose: 2,400 mg Documented by: Vancomycin HCl (Vancomycin Hcl) 125 mg PO Q6 [facility] Stop: 12/26/18 05:59 Last Admin: 12/17/18 06:42 Dose: 125 mg Documented by: PG Care Time/CCT Total # of Minutes Spent Total Time Spent with Patient: Total time spent is greater than 50% in coordin ation of care (as documented) at patient's floor/unit and/or counseling patient: Resident Activity Tracking Resident Involvement: Resident Care Provided Care Provided: Adult Hospital Medicine
[2018-12-17 07:28] LABS: BUN Creatinine Ratio 4.8 (10-20); Calcium 8.4 mg/dl (8.5-10.1); Creatinine Clr Calc Pharmacy 10.7 ml/min; Est GFR (African American) 9.8; Est GFR (Non-African American) 8.5; Potassium 3.1 mmol/L (3.5-5.1)
[2018-12-17] MEDS: SEVELAMER HCL 800 MG TABLET PO SCH ×3 (07:55→17:06)
[2018-12-17] MEDS: BuPROPion SR 150 MG TABCR PO SCH (07:55)
[2018-12-17] MEDS: ISOSORBIDE MONO EXTENDED REL 60 MG TABCR PO SCH (07:55)
[2018-12-17] MEDS: PANTOprazole 40 MG TAB PO SCH ×2 (07:55→17:05)
[2018-12-17] MEDS: HydrALAZINE TAB 50 MG TAB PO SCH ×3 (07:56→20:17)
[2018-12-17] MEDS: OMEGA-3 (PURIFIED FISH OIL) 1 GM CAP PO SCH (07:56)
[2018-12-17] MEDS: HEPARIN SOD 5,000 UNIT/0.5 ML VIAL SQ SCH ×2 (07:56→20:18)
[2018-12-17] MEDS: dilTIAZem HCL 240 MG CAPCR PO SCH (07:56)
--- NOTE | 2018-12-17 10:51 | Nephrology Progress Note ---
Date of Service December 17, 2018 Assessment & Plan (1) ESRD on hemodialysis: ESRD on HD MWF, admitted with diarrhea. CT showing pancolitis. C diff toxin gene was positive with history of recurrent C diff infection. BP running high, hypokalemia improved. Had dialysis yesterday. -- give 40 mEq KCL x1 dose -- resume valsartan 80 milligram p.o. daily -- avoid further IV fluid --will give Epogen with dialysis Wednesday --continue on renal vitamin and phosphate binder with meals --dose medications for GFR less than 10 Will follow Thank you for the consultation (2) Anemia in CKD (chronic kidney disease): (3) HTN (hypertension), benign: (4) Hypokalemia: (5) Pancolitis: Blas Beltran was seen and examined in her room this morning. She still feels very weak and tired although she feels like she is making very slow progress. Continues to have diarrhea. Has been tolerating regular diet. Had dialysis yesterday, uneventful. Blood pressures running relatively high. Review of Systems Review of Systems: All systems reviewed & are unremarkable except as noted in HPI & below Physical Exam Constitutional: WD/WN, vitals as above + ill appearing Respiratory: normal respiratory effort, lungs clear to auscultation Cardiovascular: RRR, no murmur, no edema Neurologic: moves all extremities and awake Psychiatric: A+Ox3, euthymic affect Orientation: alert and oriented x 3 Results & Data Vital Signs (Past 12 Hours) Vital Signs Temp Pulse Resp BP Pulse Ox 12/17/18 07:44 36.7 C 57 L 16 179/70 H 94 12/17/18 04:44 36.9 C 60 16 170/69 H 93 12/16/18 23:07 37.4 C 70 16 171/64 H 93
[2018-12-17] MEDS ORDERED: POTASSIUM CHLORIDE 20 MEQ TABCR PO STA (10:58)
[2018-12-17] MEDS: POTASSIUM CHLORIDE 20 MEQ TABCR PO SCH ×2 (11:02→20:19)
--- NOTE | 2018-12-17 11:03 | Progress Note ---
DATE: 12/17/2018 GASTROENTEROLOGY PROGRESS NOTE RACE: . HISTORY OF PRESENT ILLNESS: I had the pleasure of seeing Ruby Caicedo today at her bedside. She still continues to complain of intermittent loose stools. She did undergo a colonoscopy on 12/13 and was noted to have a small polyp in the ascending colon, diverticulosis and internal hemorrhoids, though no evidence of colitis on colonoscopy. Her C. diff gene has been positive, though the toxin test has not been run, and therefore, she does not have any evidence of C. diff infection at this time. I did speak to the lab yesterday and they stated they would like a repeat sample sent, which has not been done as of this time. Overnight, her H and H is improved from 8.4 and 24.6 to 8.9 and 26.2. She underwent dialysis yesterday. She has tolerated p.o. intake without difficulty. She denies any fevers, chills, nausea, vomiting, hematemesis, melena or hematochezia and has no further complaints. PHYSICAL EXAMINATION: Includes: VITAL SIGNS: Temp 36.7, pulse 57, blood pressure 179/70, respirations 16, pulse ox 94% on room air. GENERAL: Awake, cooperative, chronic ill appearing, in no acute distress. ABDOMEN: Soft, nontender, nondistended. Positive bowel sounds. LABORATORY STUDIES: Reviewed in the HPI. IMPRESSION: A 73-year-old female with intermittent diarrhea with a history of Clostridium difficile colitis, though no Clostridium difficile positivity at present as Clostridium difficile gene positivity does not equate with Clostridium difficile infection, and therefore, toxin studies are needed to verify Clostridium difficile colitis. PLAN: Recommend continuing the patient on her current diet. I would recommend checking a repeat stool for C. diff gene followed by C. diff toxin if positive. If in fact her toxin is positive, I would treat her for this. If it is negative for the toxin, I would not treat her C. diff gene positivity as this is merely a reflection of carrier status. I would recommend continuing supportive care and her current therapy. I will follow her clinical course and make further recommendations as needed. Once again, thanks for allowing me to participate in the care of this patient. If you have any further questions, please do not hesitate in contacting me.
[2018-12-17] MEDS: VALSARTAN 80 MG TAB PO SCH (13:51)
[2018-12-17] MEDS: ATORVASTATIN 40 MG TAB PO SCH (13:51)
[2018-12-17] MEDS: ASPIRIN 81 MG ECTAB PO SCH (13:51)
[2018-12-17] MEDS ORDERED: ACETAMINOPHEN 325 MG TAB PO STA (16:24)
[2018-12-17] MEDS: ROPINIROLE HCL 0.25 MG TABLET PO SCH (19:04)
[2018-12-17] MEDS: MoRPHine SULFATE 2 MG/ML CARP IV PRN (20:24)
--- NOTE | 2018-12-17 20:44 | XRay Report ---
KUB HISTORY: Generalized abdominal pain, distension COMPARISON: Abdomen and pelvis CT 12/15/2018. KUB 03/12/2014. FINDINGS: The bowel gas pattern is unremarkable. There are no dilated loops of small bowel to suggest an obstruction. No renal calculi. No ureteral calculi. No pneumoperitoneum or pneumatosis. Degenera tive changes within the lumbar spine. A few pelvic phleboliths are noted. IMPRESSION: Unremarkable bowel gas pattern. No evidence for bowel obstruction. Electronically signed by: Gianni Rios M.D. 12/17/2018 8:41 PM
[2018-12-18] MEDS: VANCOMYCIN HCL 125 MG/2.5ML SOLN PO SCH ×4 (00:15→20:42)
[2018-12-18] MEDS: RASPBERRY SYRUP 5 ML UDP PO SCH ×4 (00:15→18:51)
[2018-12-18] MEDS: LEVOTHYROXINE SODIUM 175 MCG TABLET PO SCH (06:20)
--- NOTE | 2018-12-18 07:18 | Family Medicine Progress Note ---
Date of Service December 18, 2018 Assessment & Plan (1) Pancolitis: 73 year old medically complicated woman with a PMHx of recurrent c.diff infection x 3 and ESRD on dialysis was admitted on 12/15/18 for evaluation of profuse diarrhea. -abdominal CT showed pancolitis -etiology most likely from recurrent c.diff infection -c.diff gene +, toxin specimen unable be collected (due to profuse quality --> incontinence); requested nursing to obtain today since stools have slowed down a bit (12/18) -no WBC count -continue Vancomycin, 125mg, PO, Q6h (day 3); given moderate improvement in stool formation, we will continue with current therapy; if patient is no better by tomorrow (12/19) we will consider adding metronidazole to regimen -Morphine 2mg ordered for prn abdominal pain; zofran prn for nausea -discussed option of fecal transplant with patient - [facility]; will have care management arrange -patient had colonoscopy preformed by Dr. Diane 3 days ago: one 6mm poly was removed, diverticula and non-bleeding internal hemmorrhoids were identified Present on Admission?: Yes (2) Anemia in CKD (chronic kidney disease): -hgb on admission 7.1, at 8.32 (12/17) -patient received 1 unit of blood (12/15) -although transfusion may not have been indicated numerically, considering recent polypectomy, transfusion was likely done by night team in the event of a polypectomy related bleed -hemoccult stool negative -likely secondary to ESRD rather than a bleed (3) Weakness: likely secondary to current suspected c.diff infection (4) CAD (coronary artery disease): -resume home stain and ASA (as patient does not appear to be actively bleeding) Present on Admission?: Yes (5) Hypothyroidism (acquired): -continue home dose levothyroxine Present on Admission?: Yes (6) ESRD (end stage renal disease) on dialysis: -nephrology consulted, appreciate recs -patient on MWF hemodialysis -will have in-house dialysis tomorrow (Tuesday 12/19) Present on Admission?: Yes (7) HTN (hypertension), benign: continue home diltiazem, hydralazine, imdur Present on Admission?: Yes (8) Restless leg syndrome: continue home ropinrole Present on Admission?: Yes (9) Mood disorder: continue home dose wellbutrin Present on Admission?: Yes (10) Hypokalemia: -as low as 2.7; today resolved at 3.7 -ordered 20mEq PO BID -monitor with daily BMPs Present on Admission?: Yes (11) Chronic cough: -secondary to GERD -continue pantoprazole -ordered guanifesin/DM 5ml PO, prn for nighttime cough suppressant FEN/GI: Heart Healthy, Dialysis diet DVT prophylaxis: Heparin, 5,000 units, SQ, q12 Code: Full Dispo: Med/Surg Present on Admission?: Yes Supervising Physician Co-Signing Physician Notes I personally examined the patient and verified all gabriel points of history and exam, discussed case, and agree with decision making with Dr Damon. Diarrhea seems to be slowing down and spacing out. Less fecal incontinence, slightly thicker consistency to stools. She is having more bloating and abdominal pain and some burping and belching after eating. Vitals noted, in general she is awake and alert fatigued appearing but otherwise in no distress. HEENT normal cephalic atraumatic mucous membranes moist. Abdomen is soft mild distention not really tender, no guarding rebound or rigidity. Neuro shows no focal deficits. Diarrheatreating presumptively as a recurrence of C. difficile colitis. Does finally seem to be improving, presumptively cautiously continue empiric treatment. If the toxin is able to be sent a positive finding would obviously be confirmatory. If she worsens, backslide, or if toxin is negative, would give consideration to empiric Flagyl. Continue supportive care, continue symptomatic care with her bloating. X-ray last night did not show any significant di stention such as to suggest megacolon. Serial exams. DVT prophylaxisheparin subcu Otherwise as above Subjective resting in bed; per night team: nurse phoned because patient's abdomen was distended. KUB was ordered, showed no bowel obstruction. Patient continues to feel weak, but maybe that she is turning the corner. She reports passing stool overnight that was of the consistency of watery applesauce and wet cornmeal. She believes the nurses were able to collect a sample for toxin testing. Per nurse: patient has not had diarrhea episode since 9am this morning (12/18) Review of Systems Constitutional: + malaise Respiratory: + cough Gastrointestinal: + abdominal pain, + bloating and + diarrhea/loose stools; no nausea, no vomiting, no cramping and no blood in stools Physical Exam Constitutional: + ill appearing and average body habitus Eyes: + anicteric sclerae Respiratory: normal respiratory effort, lungs clear to auscultation Cardiovascular: RRR, no murmur, no edema Heart Sounds: normal S1 and normal S2; no murmur Gastrointestinal (Abdomen): Inspection/Auscultation: + abdomen distended and + hypoactive bowel sounds Percussion/Palpation: + abdomen tender (diffusely) and + abdomen firm Neurologic: awake Psychiatric: Orientation: oriented x 3 Results & Data Vital Signs (Past 12 Hours) Vital Signs Temp Pulse Resp BP Pulse Ox 12/17/18 22:56 36.8 C 66 18 133/70 95 12/17/18 20:10 36.7 C 73 18 145/65 H 98 Laboratory Results 12/17/18 12/17/18 Range/Units 19:48 06:32 Sodium 138 (136-145) mmol/L Potassium 3.1 L (3.5-5.1) mmol/L Chloride 100 (98-107) mmol/L Carbon Dioxide 29 (21-32) mmol/L Anion Gap 9.0 (3-11) BUN 23 H (7-18) mg/dl Creatinine 4.78 H* D (0.6-1.2) mg/dl Est Cr Clr Drug Dosing 10.7 ml/min Est GFR ( Amer) 9.8 Est GFR (Non-Af Amer) 8.5 BUN/Creatinine Ratio 4.8 L (10-20) Glucose 107 H (70-99) mg/dl Calcium 8.4 L (8.5-10.1) mg/dl Stool H. pylori Ag Pending Medications Administered Current Inpatient Medications Aspirin (Ecotrin Ectab) 81 mg PO [facility] Stop: 01/16/19 12:29 Last Admin: 12/17/18 13:51 Dose: 81 mg Documented by: Atorvastatin Calcium (Lipitor) 40 mg PO [facility] Stop: 01/16/19 12:29 Last Admin: 12/17/18 13:51 Dose: 40 mg Documented by: Bupropion HCl (Wellbutrin-Sr) 150 mg PO [facility] Stop: 01/15/19 08:59 Last Admin: 12/17/18 07:55 Dose: 150 mg Documented by: Diltiazem HCl (Cardizem Cd) 240 mg PO QAM [facility] Stop: 01/15/19 08:59 Last Admin: 12/17/18 07:56 Dose: 240 mg Documented by: Epoetin Yandel (Procrit) 10,000 units IV ONE ONE Stop: 12/19/18 07:01 Fish Oil ([place]-3 (Purified Fish Oil)) 1 gm PO QAM [facility] Stop: 01/15/19 08:59 Last Admin: 12/17/18 07:56 Dose: 1 gm Documented by: Guaifenesin/Dextromethorphan (Robitussin Cough-Chest Dm) 5 ml PO Q6H PRN PRN Reason: Cough Stop: 01/15/19 17:37 Last Admin: 12/17/18 11:03 Dose: 5 ml Documented by: Heparin Sodium (Porcine) (Heparin Sodium (Porcine)) 5,000 units SQ Q12 [facility] Stop: 01/15/19 20:59 Last Admin: 12/17/18 20:18 Dose: 5,000 units Documented by: Hydralazine HCl (Apresoline) 150 mg PO TID [facility] Stop: 01/15/19 08:59 Last Admin: 12/17/18 20:17 Dose: 150 mg Documented by: Sodium Chloride (Nss) 250 mls @ 15 mls/hr IV .[id number] PRN PRN Reason: For Transfusion Stop: 01/15/19 00:06 Sodium Chloride (Nss 1000ml) 1,000 mls @ 0 mls/hr IV .Q0M PRN PRN Reason: For Hemodialysis Use ONLY Stop: 12/19/18 12:00 Isosorbide Mononitrate (Imdur Extended Rel) 120 mg PO QAM [facility] Stop: 01/15/19 08:59 Last Admin: 12/17/18 07:55 Dose: 120 mg Documented by: Levothyroxine Sodium (Synthroid) 175 mcg PO DAILYBB [facility] Stop: 01/15/19 06:29 Last Admin: 12/18/18 06:20 Dose: 175 mcg Documented by: Lorazepam (Ativan) 0.5 mg PO BID PRN PRN Reason: Anxiety Stop: 01/15/19 00:06 Menthol (Nice) 1 jason BUCCAL PRN PRN PRN Reason: Sore Throat Stop: 01/15/19 03:15 Morphine Sulfate (Morphine Sulfate) 2 mg IV Q4 PRN PRN Reason: Pain Stop: 12/31/18 16:24 Last Admin: 12/17/18 20:24 Dose: 2 mg Documented by: Pantoprazole Sodium (Protonix) 40 mg PO BIDM [facility] Stop: 01/15/19 07:59 Last Admin: 12/17/18 17:05 Dose: 40 mg Documented by: Potassium Chloride (Klor-Con M20) 20 meq PO BID [facility] Stop: 01/17/19 08:00 Last Admin: 12/17/18 20:19 Dose: 20 meq Documented by: Raspberry (Raspberry) 5 ml PO Q6 [facility] Stop: 12/30/18 05:59 Last Admin: 12/18/18 06:20 Dose: 5 ml Documented by: Ropinirole HCl (Requip) 0.25 mg PO DAILY@1900 [facility] Stop: 01/15/19 18:59 Last Admin: 12/17/18 19:04 Dose: 0.25 mg Documented by: Sevelamer HCl (Renagel) 2,400 mg PO TIDM [facility] Stop: 01/15/19 07:59 Last Admin: 12/17/18 17:06 Dose: 2,400 mg Documented by: Valsartan (Diovan) 80 mg PO QAM [facility] Stop: 01/16/19 10:59 Last Admin: 12/17/18 13:51 Dose: 80 mg Documented by: Vancomycin HCl (Vancomycin Hcl) 125 mg PO Q6 [facility] Stop: 12/26/18 05:59 Last Admin: 12/18/18 06:20 Dose: 125 mg Documented by: Vitamin B Complex/Folic Acid (Nephrocaps) 1 cap PO QAM [facility] Stop: 01/17/19 08:59 PG Care Time/CCT Total # of Minutes Spent Total Time Spent with Patient: Total time spent is greater than 50% in coordination of care (as documented) at patient's floor/unit and/or counseling patient: Resident Activity Tracking Resident Involvement: Resident Care Provided Care Provided: Adult Hospital Medicine
[2018-12-18] MEDS: PANTOprazole 40 MG TAB PO SCH ×2 (08:17→17:05)
[2018-12-18] MEDS: SEVELAMER HCL 800 MG TABLET PO SCH ×3 (08:18→17:06)
[2018-12-18] MEDS: HydrALAZINE TAB 50 MG TAB PO SCH ×3 (08:19→21:04)
[2018-12-18] MEDS: dilTIAZem HCL 240 MG CAPCR PO SCH (08:19)
[2018-12-18] MEDS: ASPIRIN 81 MG ECTAB PO SCH (08:21)
[2018-12-18] MEDS: ISOSORBIDE MONO EXTENDED REL 60 MG TABCR PO SCH (08:22)
[2018-12-18] MEDS: POTASSIUM CHLORIDE 20 MEQ TABCR PO SCH ×2 (08:23→21:04)
[2018-12-18] MEDS: ATORVASTATIN 40 MG TAB PO SCH (08:23)
[2018-12-18] MEDS: NEPHROCAPS PO SCH (08:23)
[2018-12-18] MEDS: OMEGA-3 (PURIFIED FISH OIL) 1 GM CAP PO SCH (08:24)
[2018-12-18] MEDS: HEPARIN SOD 5,000 UNIT/0.5 ML VIAL SQ SCH ×2 (08:24→21:07)
[2018-12-18] MEDS: BuPROPion SR 150 MG TABCR PO SCH (08:24)
[2018-12-18] MEDS: MoRPHine SULFATE 2 MG/ML CARP IV PRN (09:22)
[2018-12-18] MEDS: VALSARTAN 80 MG TAB PO SCH (09:26)
[2018-12-18 09:31] LABS: BUN Creatinine Ratio 5.7 (10-20); Calcium 8.7 mg/dl (8.5-10.1); Creatinine Clr Calc Pharmacy 7.9 ml/min; Est GFR (African American) 6.8; Est GFR (Non-African American) 5.9; Potassium 3.7 mmol/L (3.5-5.1)
--- NOTE | 2018-12-18 10:40 | Nephrology Progress Note ---
Date of Service December 18, 2018 Assessment & Plan (1) ESRD on hemodialysis: ESRD on HD MWF, admitted with diarrhea. CT showing pancolitis. C diff toxin gene was positive with history of recurrent C diff infection but toxin assay is pending. BP better, hypokalemia improved. Had dialysis yesterday. -- continue valsartan 80 milligram p.o. daily, DC scheduled KCL -- avoid further IV fluid --will give Epogen with dialysis Wednesday --continue on renal vitamin and phosphate binder with meals --dose medications for GFR less than 10 Will follow Thank you for the consultation (2) Anemia in CKD (chronic kidney disease): (3) HTN (hypertension), benign: (4) Hypokalemia: (5) Pancolitis: Blas Beltran was seen and examined in her room this morning. She still feels very weak and tired and has been having bloating and abdominal fullness with eating. Continues to have diarrhea. Had dialysis Wednesday, uneventful. Blood pressures better. Physical Exam Constitutional: WD/WN, vitals as above + ill appearing Neck: normal visual inspection and trachea midline Respiratory: normal respiratory effort, lungs clear to auscultation Cardiovascular: RRR, no murmur, no edema Gastrointestinal (Abdomen): Inspection/Auscultation: abdomen normal to inspection and normal bowel sounds Percussion/Palpation: + abdomen tender and abdomen soft Neurologic: moves all extremities and awake Psychiatric: A+Ox3, euthymic affect Orientation: alert and oriented x 3 Results & Data Vital Signs (Past 12 Hours) Vital Signs Temp Pulse Resp BP Pulse Ox 12/18/18 07:17 36.9 C 71 16 153/53 H 98 12/17/18 22:56 36.8 C 66 18 133/70 95
[2018-12-18] MEDS ORDERED: ONDANSETRON INJ 2 MG/ML 2 ML VIAL IV PRN (15:16)
[2018-12-18 17:57] LABS: Cdiff Antigen Negative; Cdiff Toxin A+B Negative Cdiff Toxin (Negative)
[2018-12-18] MEDS: ROPINIROLE HCL 0.25 MG TABLET PO SCH (18:51)
[2018-12-18] MEDS: FAMOTIDINE 20 MG TAB PO SCH (21:03)
[2018-12-18] MEDS: metroNIDAZOLE 500 MG TAB PO SCH (21:03)
[2018-12-19] MEDS: LEVOTHYROXINE SODIUM 175 MCG TABLET PO SCH (06:05)
[2018-12-19] MEDS ORDERED: SODIUM CHLORIDE 0.9% 1000ML 1,000 ML IV PRN (07:00)
[2018-12-19] MEDS ORDERED: EPOETIN ALFA 10,000 UNITS/ML VIAL IV ONE (07:00)
[2018-12-19 07:24] LABS: BUN Creatinine Ratio 5.6 (10-20); Calcium 8.5 mg/dl (8.5-10.1); Creatinine Clr Calc Pharmacy 6.1 ml/min; Est GFR (African American) 4.9; Est GFR (Non-African American) 4.2
[2018-12-19] MEDS: FAMOTIDINE 20 MG TAB PO SCH ×2 (08:17→20:45)
[2018-12-19] MEDS: OMEGA-3 (PURIFIED FISH OIL) 1 GM CAP PO SCH (08:17)
[2018-12-19] MEDS: metroNIDAZOLE 500 MG TAB PO SCH ×3 (08:17→20:47)
[2018-12-19] MEDS: HydrALAZINE TAB 50 MG TAB PO SCH ×3 (08:17→20:46)
[2018-12-19] MEDS: ISOSORBIDE MONO EXTENDED REL 60 MG TABCR PO SCH (08:18)
[2018-12-19] MEDS: NEPHROCAPS PO SCH (08:18)
[2018-12-19] MEDS: BuPROPion SR 150 MG TABCR PO SCH (08:18)
[2018-12-19] MEDS: ASPIRIN 81 MG ECTAB PO SCH (08:18)
[2018-12-19] MEDS: ATORVASTATIN 40 MG TAB PO SCH (08:18)
[2018-12-19] MEDS: HEPARIN SOD 5,000 UNIT/0.5 ML VIAL SQ SCH ×2 (08:19→20:45)
[2018-12-19] MEDS: SEVELAMER HCL 800 MG TABLET PO SCH ×3 (08:19→17:03)
[2018-12-19] MEDS: dilTIAZem HCL 240 MG CAPCR PO SCH (08:19)
[2018-12-19] MEDS: POTASSIUM CHLORIDE 20 MEQ TABCR PO SCH ×2 (08:20→20:47)
[2018-12-19] MEDS: PANTOprazole 40 MG TAB PO SCH ×2 (08:20→17:03)
[2018-12-19] MEDS: MoRPHine SULFATE 2 MG/ML CARP IV PRN (08:39)
--- NOTE | 2018-12-19 08:39 | Family Medicine Progress Note ---
Date of Service December 19, 2018 Assessment & Plan (1) Pancolitis: -Repeat Specimen revealed C. Diff Gene +, Toxin - again -Vancomycin 125mg was changed to Flagyl 500mg PO TID, patient tolerating switch well. -Continue Morphine 20mg PRN abdominal pain. -Continue Zofran PRN nausea. -Spoke with Skills Auditor on possible fecal transplant. -Transferred to Med/Surg Unit since telemetry was discontinued. (2) Anemia in CKD (chronic kidney disease): -CBC ordered for the AM -Was recently stable at 8.32 on 12/17/18 -Patient had received 1 unit of blood on 12/15/18 -Anemia likely secondary to ESRD rather than bleed. (3) Weakness: -Slight improvement shown today. -Continue with treatment plan. (4) CAD (coronary artery disease): -resume home stain and ASA (as patient does not appear to be actively bleeding) -Cardiac monitoring revealed Rapid ectopic junctional beats reaching 60-70bpm overnight. -Consider possible sick sinus syndrome in the future during outpatient setting -consider heart event monitor in outpatient setting for further evaluation of ectopic junctional beats. (5) Hypothyroidism (acquired): -continue home dose levothyroxine (6) ESRD (end stage renal disease) on dialysis: -nephrology consulted, appreciate recs -Received dialysis today. -Dialysis on a MWF schedule. (7) HTN (hypertension), benign: continue home diltiazem, hydralazine, imdur (8) Restless leg syndrome: continue home ropinrole (9) Mood disorder: continue home dose wellbutrin (10) Hypokalemia: -BMP Ordered -Stable at 4.3 today. (11) Chronic cough: -secondary to GERD -continue pantoprazole -ordered guanifesin/DM 5ml PO, prn for nighttime cough suppressant FEN/GI: Heart Healthy, Dialysis diet DVT prophylaxis: Heparin, 5,000 units, SQ, q12 Code: Full Dispo: Med/Surg Supervising Physician Co-Signing Physician Notes I personally examined the patient and verified all gabriel points of history and exam, discussed case, and agree with decision making with Dr Miller. Diarrhea is improving. She has very quick postprandial bloating and some nausea and indigestion, but she is overall feeling better. She is not eating well but is able to eat some. Vitals noted, in general she is awake and alert fatigued appearing but otherwise in no distress. HEENT mucous membranes moist. Breathing is unlabored no accessory muscle use good effort. Skin shows no pallor, neuro shows no focal deficits. Diarrheastool studies would suggest a carrier state, clinical picture certainly consistent with an infectious diarrhea, question whether or not the toxin could be a false negative given the time she was under treatment until the toxin was finally able to be run. Certainly if not C. difficile the clinical picture appears consistent with a different infectious diarrhea (nonspecific/etiology uncertain)is improving on metronidazole. Follow closely, as long as oral intake is improving, possibly home tomorrow. Pancolitis persists on CT scan, await GI input in this regard DVT prophylaxisheparin subcu Otherwise as above Subjective Patient seen and examined in her bed this AM. Patient currently eating breakfast and sitting comfortably. She notes that overnight she only had 1 episode of diarrhea which was a significant improvement since her admission. She states that she has been tolerating the switch to Flagyl and that her pain was contr olled with only a single dose of morphine. She does still note significant abdominal distension. She denies any other acute events overnight. Lastly, patient notes furthered interest in fecal transplant and would like assistance in the matter. Review of Systems Constitutional: + malaise and + weakness; no fever and no chills Eyes: no eye pain Ear, Nose, Mouth, Throat: no tinnitus Respiratory: + cough; no dyspnea and no pain on inspiration Cardiovascular: no chest pain, no dyspnea and no palpitations Gastrointestinal: + abdominal pain, + bloating, + early satiety, + diarrhea/lo ose stools and + fecal incontinence; no nausea, no vomiting, no constipation and no blood in stools Physical Exam Constitutional: well nourished; no acute distress Respiratory: normal respiratory effort Auscultation: lungs clear to auscultation bilaterally Cardiovascular: Rate/Rhythm: regular rate and regular rhythm Heart Sounds: normal S1 and normal S2; no gallop, no murmur and no cardiac rub Gastrointestinal (Abdomen): Inspection/Auscultation: + abdomen distended and + hyperactive bowel sounds; no high-pitched sounds Percussion/Palpation: + abdomen tender and abdomen soft; no guarding Results & Data Vital Signs (Past 12 Hours) Vital Signs Temp Pulse Pulse Resp BP Pulse Ox 12/19/18 07:22 36.7 C 69 20 181/73 H 96 12/19/18 07:18 60 12/18/18 23:00 36.8 C 71 17 143/59 H 95 12/18/18 22:30 67 12/18/18 20:57 36.9 C 66 18 150/56 H 96 Laboratory Results Abnormal lab results 12/15/18 12/18/18 12/19/18 Range/Units 20:27 16:05 06:23 BUN 48 H (7-18) mg/dl Creatinine 8.49 H* D (0.6-1.2) mg/dl BUN/Creatinine Ratio 5.6 L (10-20) Glucose 122 H (70-99) mg/dl Stl C. diff Tox B Gene Positive Cdiff Gene H (Neg) Crossmatch See Detail Medications Administered Current Inpatient Medications Aspirin (Ecotrin Ectab) 81 mg PO [facility] Stop: 01/16/19 12:29 Last Admin: 12/19/18 08:18 Dose: 81 mg Documented by: Atorvastatin Calcium (Lipitor) 40 mg PO [facility] Stop: 01/16/19 12:29 Last Admin: 12/19/18 08:18 Dose: 40 mg Documented by: Bupropion HCl (Wellbutrin-Sr) 150 mg PO [facility] Stop: 01/15/19 08:59 Last Admin: 12/19/18 08:18 Dose: 150 mg Documented by: Diltiazem HCl (Cardizem Cd) 240 mg PO [facility] Stop: 01/15/19 08:59 Last Admin: 12/19/18 08:19 Dose: 240 mg Documented by: Famotidine (Pepcid) 20 mg PO BID [facility] Stop: 01/17/19 20:59 Last Admin: 12/19/18 08:17 Dose: 20 mg Documented by: Fish Oil (Emmett-3 (Purified Fish Oil)) [facility] Stop: 01/15/19 08:59 Last Admin: 12/19/18 08:17 Dose: 1 gm Documented by: Guaifenesin/Dextromethorphan (Robitussin Cough-Chest Dm) 5 ml PO Q6H PRN PRN Reason: Cough Stop: 01/15/19 17:37 Last Admin: 12/17/18 11:03 Dose: 5 ml Documented by: Heparin Sodium (Porcine) (Heparin Sodium (Porcine)) 5,000 units SQ Q12 [facility] Stop: 01/15/19 20:59 Last Admin: 12/19/18 08:19 Dose: 5,000 units Documented by: Hydralazine HCl (Apresoline) 150 mg PO TID [facility] Stop: 01/15/19 08:59 Last Admin: 12/19/18 14:27 Dose: 150 mg Documented by: Sodium Chloride (Nss) 250 mls @ 15 mls/hr IV .[id number] PRN PRN Reason: For Transfusion Stop: 01/15/19 00:06 Isosorbide Mononitrate (Imdur Extended Rel) 120 mg PO QAM [facility] Stop: 01/15/19 08:59 Last Admin: 12/19/18 08:18 Dose: 120 mg Documented by: Levothyroxine Sodium (Synthroid) 175 mcg PO DAILYBB [facility] Stop: 01/15/19 06:29 Last Admin: 12/19/18 06:05 Dose: 175 mcg Documented by: Lorazepam (Ativan) 0.5 mg PO BID PRN PRN Reason: Anxiety Stop: 01/15/19 00:06 Menthol (Nice) 1 jason BUCCAL PRN PRN PRN Reason: Sore Throat Stop: 01/15/19 03:15 Metronidazole (Flagyl) 500 mg PO TID [facility]; Protocol Stop: 12/28/18 20:59 Last Admin: 12/19/18 14:27 Dose: 500 mg Documented by: Morphine Sulfate (Morphine Sulfate) 2 mg IV Q4 PRN PRN Reason: Pain Stop: 12/31/18 16:24 Last Admin: 12/19/18 08:39 Dose: 2 mg Documented by: Ondansetron HCl (Zofran) 4 mg IV Q6H PRN PRN Reason: Nausea Stop: 01/17/19 15:15 Last Admin: 12/19/18 08:34 Dose: 4 mg Documented by: Pantoprazole Sodium (Protonix) 40 mg PO BIDM [facility] Stop: 01/15/19 07:59 Last Admin: 12/19/18 17:03 Dose: 40 mg Documented by: Potassium Chloride (Klor-Con M20) 20 meq PO BID [facility] Stop: 01/17/19 08:00 Last Admin: 12/19/18 08:20 Dose: 20 meq Documented by: Ropinirole HCl (Requip) 0.25 mg PO DAILY@1900 [facility] Stop: 01/15/19 18:59 Last Admin: 12/18/18 18:51 Dose: 0.25 mg Documented by: Sevelamer HCl (Renagel) 2,400 mg PO TIDM [facility] Stop: 01/15/19 07:59 Last Admin: 12/19/18 17:03 Dose: 2,400 mg Documented by: Valsartan (Diovan) 80 mg PO QAM [facility] Stop: 01/16/19 10:59 Last Admin: 12/19/18 14:27 Dose: 80 mg Documented by: Vitamin B Complex/Folic Acid (Nephrocaps) 1 cap PO QAM [facility] Stop: 01/17/19 08:59 Last Admin: 12/19/18 08:18 Dose: 1 cap Documented by: PG Care Time/CCT Total # of Minutes Spent Total Time Spent with Patient: Total time spent is greater than 50% in coordination of care (as documented) at patient's floor/unit and/or counseling patient: Resident Activity Tracking Resident Involvement: Resident Care Provided Care Provided: Adult Hospital Medicine
[2018-12-19 08:51] LABS: Potassium 4.3 mmol/L (3.5-5.1)
--- NOTE | 2018-12-19 09:38 | Gastroenterology Progress Note ---
Date of Service December 19, 2018 Assessment & Plan (1) Diarrhea: C diff gene positive, toxin negative suggestive of carrier state. There is not an established role for fecal transplant in toxin negative carriers of C diff. CT performed last week indicated a pancolitis, though was not enhanced w ith po contrast. Colonoscopy last week did not indicate evidence of colitis. Abdominal bloating and pain persists, loose stools are decreasing in frequency. Would recommend CT with oral contrast for further assessment of pancolitis. Thank you for allowing me to participate in the care of your patient. you for allowing us to participate in the care of this patient. If you should have any further questions or concerns, do not hesitate to contact us at [phone] or [phone]. Present on Admission?: Yes Supervising Physician Co-Signing Physician Notes Agree with ARTHUR Horton as above Abd: Soft, NT, ND, +BS No evidence of C-diff, would stop all treatment for this No role for Fecal transplant Repeat CT scan of abd/pelvis with PO contrast Subjective Patient is a 73 yo female with diarrhea and CT evidence of pancolitis. Evaluated patient in dialysis this AM. She reports her bowel movements are decreasing in frequency. A repeat C diff study was toxin negative suggestive of carrier state. She reports significant bloating and some abdominal discomfort. She denies any new complaints today. Review of Systems Constitutional: no fever and no chills Respiratory: no cough and no dyspnea Cardiovascular: no chest pain Gastrointestinal: + abdominal pain, + bloating and + diarrhea/loose stools Physical Exam Constitutional: WD/WN, vitals as above Eyes: PERRL, conjunctivae normal, anicteric sclerae Neck: normal visual inspection Respiratory: normal respiratory effort, lungs clear to auscultation Cardiovascular: RRR, no murmur, no edema Gastrointestinal (Abdomen): Inspection/Auscultation: + abdomen distended and normal bowel sounds Percussion/Palpation: abdomen nontender Skin: no rashes, warm and dry Results & Data Vital Signs (Past 12 Hours) Vital Signs Temp Pulse Pulse Resp BP BP Pulse Ox 12/19/18 09:22 37.2 C 61 61 116/56 L 12/19/18 07:22 36.7 C 69 20 181/73 H 96 12/19/18 07:18 60 12/18/18 23:00 36.8 C 71 17 143/59 H 95 12/18/18 22:30 67
--- NOTE | 2018-12-19 12:08 | Nephrology Progress Note ---
Date of Service December 19, 2018 Assessment & Plan (1) ESRD on hemodialysis: -- HD MWF. Tolerating treatment well. Qb at goal. No complications with procedure. Orders reviewed with RN. (2) Anemia in CKD (chronic kidney disease): Epogen 48083 units with HD todady. (3) HTN (hypertension), benign: -- BP low but acceptable. Medications have not been adjusted. -- Volume status euvolemic. (4) Pancolitis: -- Hold sevelamer pending improvement in GI symptoms. Subjective No acute events overnight. Ruby was seen and evaluated during hemodialysis. She is tolerating treatment well. Abdominal discomfort persists. Review of Systems Review of Systems: All systems reviewed & are unremarkable except as noted in HPI & below Physical Exam Constitutional: well developed; no acute distress Eyes: no scleral abnormality and no corneal abnormality ENMT: Mouth: no oral mucosal abnormality and oral mucous membranes not dry Neck: normal visual inspection and trachea midline Respiratory: normal respiratory effort; no respiratory distress Auscultation: lungs clear to auscultation bilaterally Cardiovascular: Heart Sounds: normal S1 and normal S2 Extremities: + AV fistula; no edema Gastrointestinal (Abdomen): Inspection/Auscultation: + abdomen distended Percussion/Palpation: abdomen nontender and no guarding Musculoskeletal: Extremities: no cyanosis and no clubbing Skin: no rashes and no lesions Neurologic: awake Speech / Cognition: normal speech Psychiatric: Orientation: alert and oriented x 3 Results & Data Vital Signs (Past 12 Hours) Vital Signs Temp Pulse Pulse Resp BP BP Pulse Ox 12/19/18 11:40 70 111/52 L 12/19/18 11:20 68 119/51 L 12/19/18 11:00 69 109/56 L 12/19/18 10:40 67 113/48 L 12/19/18 10:20 61 133/57 L 12/19/18 10:00 63 84/43 L 12/19/18 09:40 63 114/54 L 12/19/18 09:22 37.2 C 61 61 116/56 L 12/19/18 07:22 36.7 C 69 20 181/73 H 96 12/19/18 07:18 60 Laboratory Results Laboratory Results - last 24 hr 12/15/18 12/16/18 12/18/18 20:27 03:20 16:05 Sodium Potassium Chloride Carbon Dioxide Anion Gap BUN Creatinine Est Cr Clr Drug Dosing Est GFR ( Amer) Est GFR (Non-Af Amer) BUN/Creatinine Ratio Glucose Calcium Stl C. diff Tox B Gene Positive Cdiff Gene H Stl C.difficile Tox A&B Negative Cdiff Toxin Stool H. pylori Ag NOT DETECTED Crossmatch See Detail 12/19/18 06:23 Sodium 138 Potassium 4.3 D Chloride 105 Carbon Dioxide 23 Anion Gap 10.0 BUN 48 H Creatinine 8.49 H* D Est Cr Clr Drug Dosing 6.1 Est GFR ( Amer) 4.9 Est GFR (Non-Af Amer) 4.2 BUN/Creatinine Ratio 5.6 L Glucose 122 H Calcium 8.5 Stl C. diff Tox B Gene Stl C.difficile Tox A&B Stool H. pylori Ag Crossmatch
[2018-12-19] MEDS: VALSARTAN 80 MG TAB PO SCH (14:27)
--- NOTE | 2018-12-19 14:29 | CT Scan Report ---
ABDOMEN AND PELVIS CT WITH ORAL CONTRAST CT DOSE: 742.90 mGy.cm HISTORY: pancolitis; abdominal pain diarrhea TECHNIQUE: Multiaxial CT images of the abdomen and pelvis were performed following the use of oral co ntrast. A dose lowering technique was utilized adhering to the principles of ALARA. COMPARISON STUDY: Abdomen and pelvis CT 12/15/2018. FINDINGS: The lung bases are clear. No pneumoperitoneum. No pneumatosis. No suspicious lytic or blast ic osseous lesions. The heart is mildly enlarged. Small amount of ascites is similar to the prior luis dy. The unenhanced liver demonstrates a slightly nodular contour. This could represent early cirrhosi s. The spleen is unremarkable. Normal adrenal glands for age. The pancreas is within normal limits. T here are a few punctate gallstones identified. Multiple simple and complex cysts within the kidneys r emain unchanged. No hydronephrosis. No retroperitoneal lymphadenopathy. A small fat and fluid contain ing periumbilical hernia is again noted. The bladder is not well-distended. The uterus is surgically absent. Colonic diverticulosis. Diffuse thickening of the colon is again noted. This is similar to th e prior study and is consistent with a pancolitis. Normal appendix. IMPRESSION: 1. No significant change in the pancolitis. This is consistent with an infectious or inflammatory pro cess. 2. Small amount of ascites, unchanged. 3. Cholelithiasis. 4. No evidence for bowel obstruction. 5. Colonic diverticulosis. 6. Small fat/fluid containing right periumbilical hernia, unchanged. 7. Additional findings as described above. Electronically signed by: Gianni Rios M.D. 12/19/2018 2:27 PM
[2018-12-19] MEDS: ROPINIROLE HCL 0.25 MG TABLET PO SCH (18:57)
[2018-12-20] MEDS: LEVOTHYROXINE SODIUM 175 MCG TABLET PO SCH (06:35)
[2018-12-20 07:49] LABS: Hematocrit (blood only) 25.8 % (37-47); Hemoglobin 8.7 g/dL (12.0-16.0); Mean Corpuscular Hgb Conc 33.7 g/dL (32-36); Mean Corpuscular Volume 91.8 fL (80-100); Mean Platelet Volume 9.4 fL (7.4-10.4); Nucleated RBC # (auto) 0.05 K/uL (0-0); Nucleated RBC % (auto) 0.5 %; Platelet Count 262 K/uL (130-400); RDW Coefficient of Variation 14.9 % (11.5-14.5); RDW Standard Deviation 48.8 fL (36.4-46.3); Red Blood Count 2.81 M/uL (4.2-5.4); White Blood Count 9.54 K/uL (4.8-10.8)
[2018-12-20 08:29] LABS: BUN Creatinine Ratio 5.2 (10-20); Calcium 8.8 mg/dl (8.5-10.1); Creatinine Clr Calc Pharmacy 9.1 ml/min; Est GFR (African American) 8.1; Potassium 4.4 mmol/L (3.5-5.1)
[2018-12-20] MEDS: OMEGA-3 (PURIFIED FISH OIL) 1 GM CAP PO SCH (09:14)
[2018-12-20] MEDS: POTASSIUM CHLORIDE 20 MEQ TABCR PO SCH (09:15)
[2018-12-20] MEDS: SEVELAMER HCL 800 MG TABLET PO SCH ×2 (09:15→12:32)
[2018-12-20] MEDS: VALSARTAN 80 MG TAB PO SCH (09:15)
[2018-12-20] MEDS: BuPROPion SR 150 MG TABCR PO SCH (09:16)
[2018-12-20] MEDS: ISOSORBIDE MONO EXTENDED REL 60 MG TABCR PO SCH (09:16)
[2018-12-20] MEDS: ATORVASTATIN 40 MG TAB PO SCH (09:16)
[2018-12-20] MEDS: HydrALAZINE TAB 50 MG TAB PO SCH ×2 (09:17→14:34)
[2018-12-20] MEDS: metroNIDAZOLE 500 MG TAB PO SCH ×2 (09:17→14:34)
[2018-12-20] MEDS: NEPHROCAPS PO SCH (09:20)
[2018-12-20] MEDS: FAMOTIDINE 20 MG TAB PO SCH (09:20)
[2018-12-20] MEDS: dilTIAZem HCL 240 MG CAPCR PO SCH (09:21)
[2018-12-20] MEDS: ASPIRIN 81 MG ECTAB PO SCH (09:21)
[2018-12-20] MEDS: PANTOprazole 40 MG TAB PO SCH (09:21)
[2018-12-20] MEDS: HEPARIN SOD 5,000 UNIT/0.5 ML VIAL SQ SCH (09:22)
--- NOTE | 2018-12-20 10:23 | Nephrology Progress Note ---
Date of Service December 20, 2018 Assessment & Plan (1) ESRD on hemodialysis: -- HD MWF. -- BP, volume status currently acceptable. -- Metabolic profile appropriate. (2) Anemia in CKD (chronic kidney disease): -- Epogen 30898 units provided yesterday (3) HTN (hypertension), benign: -- BP acceptable. -- Volume status euvolemic. (4) Pancolitis: -- Hold sevelamer pending improvement in GI symptoms. Subjective No acute events overnight. No fevers or chills. Abdominal distention improving. Few loose bowel movements overnight. No melena or hematochezia. Review of Systems Review of Systems: All systems reviewed & are unremarkable except as noted in HPI & below Physical Exam Constitutional: well developed; no acute distress Eyes: no scleral abnormality and no corneal abnormality ENMT: Mouth: no oral mucosal abnormality and oral mucous membranes not dry Neck: normal visual inspection and trachea midline Respiratory: normal respiratory effort; no respiratory distress Auscultation: lungs clear to auscultation bilaterally Cardiovascular: Heart Sounds: normal S1 and normal S2 Extremities: + AV fistula; no edema Gastrointestinal (Abdomen): Inspection/Auscultation: + abdomen distended Percussion/Palpation: abdomen nontender and no guarding Musculoskeletal: Extremities: no cyanosis and no clubbing Skin: no rashes and no lesions Neurologic: awake Speech / Cognition: normal speech Psychiatric: Orientation: alert and oriented x 3 Results & Data Vital Signs (Past 12 Hours) Vital Signs Temp Pulse Resp BP Pulse Ox 12/20/18 09:00 36.6 C 60 18 156/73 H 96 12/19/18 23:37 36.9 C 63 18 123/59 L 95 Laboratory Results Laboratory Results - last 24 hr 12/16/18 12/20/18 12/20/18 03:20 07:29 07:29 WBC 9.54 RBC 2.81 L Hgb 8.7 L Hct 25.8 L MCV 91.8 MCH 31.0 MCHC 33.7 RDW Std Deviation 48.8 H RDW Coeff of Martin 14.9 H Plt Count 262 MPV 9.4 Absolute Nucleated RBC 0.05 H Nucleated RBC % (auto) 0.5 Sodium 135 L Potassium 4.4 Chloride 102 Carbon Dioxide 26 Anion Gap 6.0 BUN 29 H Creatinine 5.59 H* D Est Cr Clr Drug Dosing 9.1 Est GFR ( Amer) 8.1 Est GFR (Non-Af Amer) 7.0 BUN/Creatinine Ratio 5.2 L Glucose 115 H Calcium 8.8 Stool H. pylori Ag NOT DETECTED
--- NOTE | 2018-12-20 17:29 | Discharge Summary ---
Date of Service December 20, 2018 Admission HPI Per Admitting Provider Ms. 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 She states that she was in her usual state of health over the last week but over the weekend began to develop loose stools on Wednesday. Then in preparation for a colonoscopy on Wednesday, she began to take bowel prep. She had a colonoscopy which was 4 routine cancer screening on Wednesday, her prep was adequate, and a 6 mm polyp was excised. She was sent home. She went to dialysis on schedule yesterday but says that afterwards she laid down and felt very tired for the rest of the day, which is not usual for her postdialysis. Then earlier today she asked her son to take her to urgent care, and they sent her here. Recent medical history also includes anemia, hemoglobin said to be as low as 8 as of last week, which was noted by her sql developer and there were upcoming plans for transfusion in the near future. While her stools have been loose, frequent and dark she denies charleen bright red blood. ED course: Labs: Remarkable for H&H 7.1/20.7. No thrombocytopenia. Normocytic. Chemistry shows potassium 2.7, BUN over creatinine 32/6.18. Imaging: CT abdomen pelvis without contrast shows diverticulosis, nonspecific vargas colitis. Otherwise unchanged. Early changes of cirrhosis. Treatment: Half liter of normal saline bolus, potassium chloride. Principal Diagnosis Diarrhea. See hospital course/assessment and plan. Discharge Exam General she is awake and alert pleasant no distress. HEENT normocephalic atraumatic mucous members moist. Breathing unlabored no accessory muscle use good effort. Skin shows no rashes no pallor or icterus. Neuro shows cranial nerves II through XII be grossly intact gross motor and sensory intact. Her gait is normal and she is walking around the room. Mental status shows good recent and remote recall normal mood and affect good judgment and insight. Discharge Data Allergies Allergy/AdvReac Type Severity Reaction Status Date / Time nickel Allergy Intermediate RASH Verified 12/15/18 22:25 nitrofurantoin Allergy Mild REDNESS Verified 12/15/18 22:25 AND BURNING OF HANDS Consultations 12/15/18 21:31 ED Decision to Admit Stat 12/16/18 00:07 Consult Case Management - Discharge Planning Routine Consult Gastroenterology Routine Consult Nephrology Routine Ordered Studies 12/15/18 20:12 CT abd pelvis wo con Stat 12/19/18 10:13 CT abd pelvis oral con only Routine ABDOMEN AND PELVIS CT WITH ORAL CONTRAST CT DOSE: 742.90 mGy.cm HISTORY: pancolitis; abdominal pain diarrhea TECHNIQUE: Multiaxial CT images of the abdomen and pelvis were performed following the use of oral contrast. A dose lowering technique was utilized adhering to the principles of ALARA. COMPARISON STUDY: Abdomen and pelvis CT 12/15/2018. FINDINGS: The lung bases are clear. No pneumoperitoneum. No pneumatosis. No suspicious lytic or blastic osseous lesions. The heart is mildly enlarged. Small amount of ascites is similar to the prior study. The unenhanced liver demonstrates a slightly nodular contour. This could represent early cirrhosis. The spleen is unremarkable. Normal adrenal glands for age. The pancreas is within normal limits. There are a few punctate gallstones identified. Multiple simple and complex cysts within the kidneys remain unchanged. No hydronephrosis. No retroperitoneal lymphadenopathy. A small fat and fluid containing periumbilical hernia is again noted. The bladder is not well-distended. The uterus is surgically absent. Colonic diverticulosis. Diffuse thickening of the colon is again noted. This is similar to the prior study and is consistent with a pancolitis. Normal appendix. IMPRESSION: 1. No significant change in the pancolitis. This is consistent with an infectious or inflammatory process. 2. Small amount of ascites, unchanged. 3. Cholelithiasis. 4. No evidence for bowel obstruction. 5. Colonic diverticulosis. 6. Small fat/fluid containing right periumbilical hernia, unchanged. 7. Additional findings as described above. Electronically signed by: Gianni Rios M.D. 12/19/2018 2:27 PM Dictated: 12/19/18 1422 Transcribed: 12/19/18 1422 Hospital Course (1) Pancolitis: Admitted with severe diarrhea and pancolitis. -Given her recent track record of recurrences of C. difficile diarrhea, this appeared to be the most likely etiology, and empiric treatment was initiated at the time of admission with vancomycin 4 times daily. Initially her stool studies were unable to be collected well due to her profound fecal incontinence, watery diarrhea, and uncontrollable rectal urgency. They were only able to send enough to test for C. difficile gene which was positive, but toxin was unable to be sent. After several days of treatment stool studies were resent, gene was still positive, toxin was negative at this time. In the interval she improved clinically quite nicely, with her stools solidifying some and her diarrhea is slowing down significantly/rectal urgency and incontinence improving significantly. -CT scan on admission and the day prior to discharge both showed pancolitis. -With her stool studies being somewhat equivocal compared to her clinical situation (clinical situation fitting quite well with C. difficile colitis, stool studies suggesting that she is simply a carrier with an alternate cause of her diarrhea) (this was compounded by the fact that her initial round of treatment was quite C. difficile specific being oral vancomycin, but she did show improvement) her final diagnosis would be somewhat vague. Certainly it appeared that she had a pancolitis from an infectious diarrhea, whether it was C. difficile or some other inciting etiology. 2 days prior to discharge to cover more empirically, rather than C. difficile specific, when the stool studies were returned, her treatment was switched from vancomycin to metronidazole, and she continued to improve. -In regards to diagnosis, what is not clear is how quickly a C. difficile toxin test would turn negative with treatment, given that it took several days of treatment for her to have enough fecal continence to even send sample to be tested. In regards to treatment, given that she is not severely ill and is improving on metronidazole, this will suffice to cover infectious diarrhea of multiple pathogens. In regards to her multiple recurrences of C. difficile, clinically this episode was quite suspicious, and she recalls having 3 confirmed recurrences of C. difficile this year. Given that she is working towards a renal transplant, it is reasonable to try to allay her C. difficile issue to rest as definitively as possible, and she will seek outpatient opinion in regards to the appropriateness of fecal transplant for her situation. -She is stable for discharge to home, close outpatient follow-up, her PCP is aware of the situation. -We discussed that most infectious diarrhea is would resolve and go away, but if she were to continue to improve while she is on antibiotics, and then recur quickly once off antibiotics, that, too, would be quite consistent with a C. difficile infection. If that were the case, she would call her PCP to reinitiate treatment even while being further evaluated. (2) Anemia in CKD (chronic kidney disease): (3) Weakness: Improved with rehydration and treatment of her infectious diarrhea. Stable for outpatient follow-up (4) CAD (coronary artery disease): (5) Hypothyroidism (acquired): (6) ESRD (end stage renal disease) on dialysis: (7) HTN (hypertension), benign: (8) Restless leg syndrome: (9) Mood disorder: (10) Hypokalemia: Cautiously replaced, levels followed closely. Outpatient nephrology management. (11) Chronic cough: During recovery of her infectious diarrhea, she went through a phase with a lot of bloating and indigestion. During that time her acid suppression was increased, and incidentally the patient noticed an improvement in her chronic cough. Because of this, we will send her out on twice daily PPI acid suppression, but have ongoing outpatient follow-up for the utility of this high level of dosing. Total Time Total Time Spent Total Time Spent (In Minutes): >30 Discharge Plan Discharge Items Patient Disposition: Home - Self-Care Reason For Visit: GIB,ANEMIA Discharge Diagnosis: Infectious Colitis Condition: Good Discharge Goals: Decrease discomfort, Diagnostic testing and Therapeutic intervention Activity: Resume your previous activity Non-emergency contact: Primary Care Provider Call non-emergency contact if: you have any medication questions, your symptoms worsen, your pain is concerning for you and your temperature is above 100.5 Follow-up/Referrals: Dr. Tatianna Hawley [Other] - 12/22/18 1:15 pm (Please, follow up at [facility] in [place] with Dr. Tatianna Hawley on WednesdayDecember AT 1:15 PM. *The office is located at [address] [place] [address] in [place]. If you have any questions or need to reschedule the appointment, call the [facility] ce at [phone].) Cruz Ramos MD [Primary Care Provider] - 12/27/18 8:00 am (Please, follow up with Dr. Ramos on WednesdayDecember 27 at 8:00 am. *If you need to change this appointment, call the office at [phone].) Diet: Carb Consistent or DM2 and Heart Healthy Addtl Provider Instructions: Miss Caicedo you presented to the hospital with diarrhea consistent with an infectious cause. C-Diff may have caused your diarrhea due to your prior history, and we feel that further investigation into fecal transplant could be beneficial. You were treated with antibiotics and your diarrhea improved. Please follow instructions below: -Please take your antibiotic (Metronidazole 500mg) 1 pill this evening and then 3 times a day (Morning, Afternoon, Evening) for another 8 days. Please ensure you finish the entire course as prescribed. -Please stop taking your at home Omeprazole 20mg and please sisal picker your new prescription of Omeprazole 40mg and take as prescribed twice a day. -Please take an lrev-kpo-aolewmb probiotic OR have a serving of yogurt daily to protect the good bacteria in your gut while you are on the antibiotics. -Follow up with GI at [facility] on 12/22/18. -If you have any questions including worsening of your symptoms, worsening of your diarrhea, or fever, please contact your PCP or return to the emergency room. Prescriptions: New metronidazole 500 mg Tablet 500 mg PO TID Qty: 25 RF: 0 pantoprazole 40 mg Tablet,Delayed Release (Dr/Ec) 40 mg PO BIDM Qty: 60 RF: 0 Continued diltiazem HCl 240 mg capsule,extended release 24 hr 240 mg PO QAM Qty: 30 RF: 0 ropinirole 0.25 mg tablet 0.25 mg PO .COMPLEX Qty: 30 RF: 0 lorazepam 0.5 mg tablet 0.25 - 0.5 mg PO BID PRN (Reason: Anxiety) Qty: 60 RF: 0 OneTouch Verio strip .ROUTE .MEDSUPPLY Qty: 10 RF: 0 OneTouch Verio strip .ROUTE .MEDSUPPLY Qty: 10 RF: 0 Spiriva Respimat 1.25 mcg/actuation mist 2 puffs INH DAILY RF: 0 lancets [OneTouch UltraSoft Lancets] misc .ROUTE .MEDSUPPLY Qty: 50 RF: 0 lancets [OneTouch UltraSoft Lancets] misc .ROUTE .MEDSUPPLY Qty: 50 RF: 0 vitamin B complex [B Complex-Vitamin B12] tablet 1 tab PO DAILY RF: 0 meloxicam 15 mg Tablet 15 mg PO QAM RF: 0 isosorbide mononitrate 120 mg Tablet Extended Release 24 Hr 120 mg PO QAM RF: 0 ProRenal QD 400-500 mcg-unit Capsule 1 cap PO QAM RF: 0 bupropion HCl 150 mg tablet sustained-release 12 hr 150 mg PO QAM RF: 0 hydralazine 100 mg tablet 150 mg PO TID RF: 0 atorvastatin 40 mg Tablet 40 mg PO HS RF: 0 Mircera 100 mcg/0.3 mL Syringe 100 mcg subcut MONTHLY RF: 0 levothyroxine [Synthroid] 175 mcg Tablet 175 mcg PO QAM Qty: 30 RF: 0 valsartan 80 mg tablet 80 mg PO DAILY RF: 0 aspirin [Aspir-81] 81 mg Tablet,Delayed Release (Dr/Ec) 81 mg PO DAILY RF: 0 sevelamer carbonate [Renvela] 800 mg tablet 2,400 mg PO TIDM RF: 0 ProRenal 8 mg iron-800 mcg-1,000 unit tablet 1 tab PO DAILY RF: 0 Discontinued gentamicin in NaCl (iso-osm) 80 mg/100 mL piggyback 80 mg IV TID Qty: 45 RF: 0 omeprazole 20 mg capsule,delayed release(DR/EC) 20 mg PO BIDM RF: 0 Stand-Alone Forms: Call Back Authorization, [facility] Discharge Orders: Discharge Order (Routine); Ordered 12/20/18 Ordered By: Thad Miller Admission Data Admit Date/Time: 12/15/18 23:05 Attending Provider: Aman Shaw Admit Provider: Carol Duarte Primary Care Provider: Cruz Raoms Other Providers: Chip Leary ; Rangel Diane ; Robert Clemons Service: Medical Other Interventions: Discharge Summary Assessment (RN) Last Done: 12/20/18 14:36 DC Date/Time DO NOT enter until pt leaves facility: 12/20/18 16:42
== END 2018-12-20 16:42 | disposition home or self-care (01) | DRG 371 ==
LOC: ED 19:52 → SUATTDRO 23:05 → 2S 23:05 → 2W 12-16 18:53

== ENCOUNTER 2019-01-22 07:10 | Inpatient (IN) ==
[2019-01-22] MEDS ORDERED: LEVALBUTEROL HCL 1.25 MG/3 ML NEB NEB STA (07:20)
[2019-01-22 07:37] LABS: Basophils # (auto) 0.04 K/uL (0-0.2); Basophils % (auto) 0.7 %; Eosinophils # (auto) 0.13 K/uL (0-0.5); Eosinophils % (auto) 2.3 %; Hematocrit (blood only) 22.8 % (37-47); Hemoglobin 7.5 g/dL (12.0-16.0); Immature Granulocytes # (auto) 0.01 K/uL (0.00-0.02); Immature Granulocytes % (auto) 0.2 %; Lymphocytes # (auto) 1.49 K/uL (1.2-3.4); Lymphocytes % (auto) 26.2 %; Mean Corpuscular Hemoglobin 31.5 pg (25-34); Mean Corpuscular Hgb Conc 32.9 g/dL (32-36); Mean Corpuscular Volume 95.8 fL (80-100); Mean Platelet Volume 8.9 fL (7.4-10.4); Monocytes # (auto) 0.28 K/uL (0.11-0.59); Monocytes % (auto) 4.9 %; Neutrophils # (auto) 3.74 K/uL (1.4-6.5); Neutrophils % (auto) 65.7 %; Platelet Count 195 K/uL (130-400); RDW Coefficient of Variation 14.8 % (11.5-14.5); RDW Standard Deviation 51.5 fL (36.4-46.3); Red Blood Count 2.38 M/uL (4.2-5.4); White Blood Count 5.69 K/uL (4.8-10.8)
[2019-01-22] MEDS ORDERED: SODIUM CHLORIDE 0.9% 250 ML IV PRN ×2 (07:42→13:28)
[2019-01-22 07:50] LABS: iSTAT Hemoglobin 7.5 g/dl (12.0-16.0); iSTAT Ionized Calcium 1.11 mmol/l (1.12-1.32); iSTAT Potassium 4.8 mEq/L (3.3-5.0)
[2019-01-22 07:52] LABS: INR 1.1 (0.9-1.1); Partial Thromboplastin Ratio 0.9; Partial Thromboplastin Time 24.5 Seconds (21.0-31.0); Prothrombin Time 10.9 Seconds (9.0-12.0)
[2019-01-22 08:06] LABS: RBC Morphology Unremarkable
[2019-01-22 08:17] LABS: Alanine Aminotransferase 22 U/L (12-78); Albumin Level 3.5 gm/dl (3.4-5.0); Alkaline Phosphatase 88 U/L (45-117); Aspartate Aminotransferase 19 U/L (15-37); BUN Creatinine Ratio 7.6 (10-20); Bilirubin,Total 0.3 mg/dl (0.2-1); Blood Urea Nitrogen 52 mg/dl (7-18); Calcium 9.3 mg/dl (8.5-10.1); Carbon Dioxide 33 mmol/L (21-32); Chloride 102 mmol/L (98-107); Creatine Kinase 57 U/L (26-192); Creatine Kinase MB < 1.0 ng/ml (0.5-3.6); Creatinine Clr Calc Pharmacy 6.9 ml/min; Est GFR (African American) 6.4; Est GFR (Non-African American) 5.5; Globulin 3.4 gm/dl (2.5-4.0); Glucose 129 mg/dl (70-99); Potassium 4.8 mmol/L (3.5-5.1); Sodium 141 mmol/L (136-145); Total Protein 6.9 gm/dl (6.4-8.2); Troponin I < 0.015 ng/ml (0-0.045)
--- NOTE | 2019-01-22 08:34 | XRay Report ---
XR chest 1V portable HISTORY: Shortness of breath. COMPARISON: Chest 12/15/2018. FINDINGS: No pneumothorax. Trace bilateral pleural effusions. The heart is mildly enlarged. No new fo karly lung consolidations to suggest pneumonia. Interval development of interstitial and vascular thick ening consistent with mild pulmonary edema. IMPRESSION: Interval development of mild interstitial pulmonary edema and trace bilateral pleural effusions. Electronically signed by: Gianni Rios M.D. 01/22/2019 8:32 AM
--- NOTE | 2019-01-22 10:01 | History & Physical Report ---
Date of Service January 22, 2019 Assessment & Plan (1) Shortness of breath: - This is likely in the setting of volume overload/pulmonary edema - appears weight is slightly up from baseline (currently 80 kg from 87 kg) but does have pulmonary edema on imaging/crackles at bases -- Due for dialysis on Wednesday but given SOB and elevated BP - was discussed with Nephrology to perform dialysis today - Possibly that the slightly reduced Hgb from baseline could be contributing to symptoms however suspect volume status is the main issue - Reports she was told she has some mild asthma but states she has had multiple normal PFTs and reports no improvement with previous inhalers - appears a lot of her coughing was related to GERD - No echocardiogram to review but does have known CAD - no ACS symptoms reported - Daily weighs and I&Os Present on Admission?: Yes (2) Anemia: - Chronic - baseline in s - Hgb 7.5 and was due for outpatient transfusion on Wednesday - last transfusion approx. 1 month ago - Transfused 1 unit PRBC in ED - will hold further transfusion given dialysis needs and will recheck Hgb given she is not far from baseline Present on Admission?: Yes (3) ESRD (end stage renal disease) on dialysis: - Follows a MWF schedule - likely dialysis this afternoon due to volume - Electrolytes stable and will follow daily labs; does still produce some urine and on Lasix previously but was D/Cd due to controlled volume status - Sevelamer 2400 mg TID and Prorenal daily - Consult Nephrology - appreciate assistance with dialysis Present on Admission?: Yes (4) HTN (hypertension), benign: - Currently elevated - possibly in the setting of volume overload - Continue Diltiazem 240 mg daily, Hydralazine 150 mg TID, Valsartan 80 mg daily Present on Admission?: Yes (5) 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 Monzon Present on Admission?: Yes (6) CAD (coronary artery disease): - STABLE; reports a cardiac cath approx. one month ago and self-reports clean cath - is undergoing work-up for possible renal transplant - ASA 81 mg daily, Isosorbide 120 mg daily Present on Admission?: Yes (7) Hypothyroidism: - Elevated TSH on last check but normal T4 - Levothyroxine 200 mcg daily Present on Admission?: Yes (8) DVT prophylaxis: - SCDs Disposition: Likely return home when medically optimized History of Present Illness Chief Complaint: SOB x this AM Primary Care Provider: Cruz Ramos MD Ms. Caicedo is a 73 y/o female with PMHx of PKD/ESRD on HD (MWF), Chronic Anemia, Recurrent C. Diff, HTN, Intracranial Aneurysm S/P Stenting, T2DM (Diet Managed), Hypothyroidism, and Depression/Anxiety who presents to the ED c/o SOB starting around 0300 this AM. She reports she has been in her normal state of health prior to this AM. She states she awoke suddenly from her sleep due to SOB. She states she tried to sit on the edge of the bed for a bit and then tried to lay down but the SOB continued. She was able to get a shower without significant worsening of SOB but again it did not resolve. She reports that she normally sleeps with her head elevated due to GERD however this normal amount of elevatio n made her breathing worse. She denies any recent weight gain or noticeable edema. She states her weights seem to be consistent during her dialysis sessions and denies any missed sessions. It appears with weight from ED she went from 78 kg to 80 kg since last check. Last dialysis was on Wednesday and she is due for another session tomorrow. She was also scheduled to have a blood transfusion on Wednesday. She has had chronic anemia that was thought to be likely from her ESRD. Her last transfusion was approx. one month ago. She continues to make urine and reports she was previously on Lasix however this was stopped as her fluid balance is rather stable. She denies fever/chills, CP, changes to her cough (has had chronic cough from GERD and reports negative workup for respiratory conditions). She reports no cardiac issues and self-reports a clean heart catheterization approx. one month ago during her workup for consideration for renal transplant. In the ED, she was given a Xopenex treatment but reports no change in symptoms. A blood transfusion was started while in the ED. CXR reveals a mild pulmonary edema. Electrolytes are stable. Hgb is 7.5. Allergies Allergy/AdvReac Type Severity Reaction Status Date / Time nickel Allergy Intermediate RASH Verified 01/22/19 08:19 nitrofurantoin Allergy Mild REDNESS Verified 01/22/19 08:19 AND BURNING OF HANDS Home Medications Home Medications Medication Instructions Recorded Confirmed Type isosorbide mononitrate 120 mg PO DIRECTED 04/26/18 01/22/19 History bupropion HCl 150 mg PO QAM 06/03/18 01/22/19 History Mircera 100 mcg SUBCUT MONTHLY 10/27/18 01/22/19 History ProRenal 1 tab PO DAILY 12/15/18 01/22/19 History aspirin [Aspir-81] 81 mg PO DAILY 12/15/18 01/22/19 History sevelamer carbonate [Renvela] 2,400 mg PO TIDM 12/15/18 01/22/19 History valsartan 80 mg PO DAILY 12/15/18 01/22/19 History Microlet lancets #50 ea 12/19/18 01/22/19 History blood sugar diagnostic strips #10 ea 12/19/18 01/22/19 History atorvastatin 40 mg tablet 40 mg PO HS 01/05/19 01/22/19 History hydralazine 50 mg tablet 150 mg PO TID tab 01/05/19 01/22/19 History meloxicam 15 mg tablet 15 mg PO QAM 01/05/19 01/22/19 History montelukast 10 mg tablet 10 mg PO QPM 01/05/19 01/22/19 History omeprazole 20 mg capsule,delayed 20 mg PO BID cap 01/05/19 01/22/19 History release diltiazem ER 240 mg capsule,24 240 mg PO QAM #90 cap 01/11/19 01/22/19 Rx hr,extended release lorazepam 0.5 mg tablet 0.25 - 0.5 mg PO BID PRN #60 tab 01/11/19 01/22/19 Rx ropinirole 0.25 mg tablet 0.25 mg PO .COMPLEX #90 tab 01/11/19 01/22/19 Rx levothyroxine 200 mcg PO DAILY 01/22/19 01/22/19 History vancomycin 125 mg PO QID 01/22/19 01/22/19 History Past Med/Surg History Medical History Diabetes NIDDM Dialysis patient (Chronic) Kidney failure (Chronic) Gout Asthma AV fistula LUE Anemia CHRONIC; BASELINE HGB 9'S PER CHART REVIEW Anxiety Brain aneurysm coiled 11/05/18. Degenerative disc disease ESRD on hemodialysis MWF Hearing deficit Hyperkalemia Hyperlipidemia Hypertension Hypothyroidism Kidney stones Obesity Osteoarthritis Polycystic kidney disease Restless leg syndrome Surgical History History of arteriovenous graft LUE AVF History of bronchoscopy History of colonoscopy 09/20/2018. poor prep so procedure aborted. patient with emesis when awake, no issues and discharged home. History of hammer toe correction History of lumbar surgery History of surgery PERITONEAL DIALYSIS CATHETER PLACEMENT PERITONEAL DIALYSIS CATHETER REMOVAL/PERMACATH INSERTION= 01/27/18= MAC SEDATION AT [facility] History of surgery perm cath removed 08/16/[address] Barrera History of total abdominal hysterectomy and bilateral salpingo-oophorectomy Family History Mother Family history of reaction to anesthesia confused for a day or so after sx in the 1950s Family history of diabetes mellitus Sister Family history of diabetes mellitus Type 2 Father Family history of diabetes mellitus type 2 Hypertension Stroke syndrome Pure hypercholesterolemia Son Hypertension Pure hypercholesterolemia Fatty liver Social History Preferred Language: Somali Communication Ability: Effective Visual Impairment: No Limitations [employer] Ax Consultant Required: No Beliefs That Will Affect Care: None Current Living Situation: Alone Current Living Situation Comment: Sister Other Information That Helps Us Care for You: No Feels Safe at Home: Yes Safety Concerns: Feels Safe At This Time Smoking Status: Never smoker Do You Dip or Chew Tobacco: No ; Second Hand Exposure: Yes ( smoked) ; Tobacco Cessation Education Requested by Patient: No Hx Alcohol Use: No Hx Substance Use: No Review of Systems Constitutional: + fatigue; no fever, no chills and no weight gain Eyes: no worsening vision Ear, Nose, Mouth, Throat: no nasal congestion and no sore throat Respiratory: + cough (chronic - no change) and + dyspnea; no chest congestion and no wheezing Cardiovascular: + orthopnea; no chest pain, no lightheadedness and no edema Gastrointestinal: no abdominal pain, no nausea, no vomiting, no constipation and no diarrhea/loose stools Genitourinary: no dysuria Musculoskeletal: no swelling and no body aches Integumentary: no rash Physical Exam Constitutional: WD/WN, vitals as above Eyes: + anicteric sclerae ENMT: Ears: no hearing impairment Neck: trachea midline Respiratory: normal respiratory effort; no cough Auscultation: + crackles (bases b/l more prevalent on L base) Cardiovascular: Rate/Rhythm: regular rate and regular rhythm Vessels: + JVD Extremities: + AV fistula Gastrointestinal (Abdomen): Inspection/Auscultation: normal bowel sounds Percussion/Palpation: abdomen soft; abdomen nontender Musculoskeletal: Head/Neck/Chest: normocephalic and head atraumatic Skin: no rashes, warm and dry Neurologic: moves all extremities Psychiatric: A+Ox3, euthymic affect Results & Data Vital Signs (Past 12 Hours) Vital Signs Temp Pulse Pulse Resp BP BP Pulse Ox 01/22/19 09:45 37.1 C 75 16 196/76 H 99 01/22/19 09:33 37.0 C 77 18 195/85 H 99 01/22/19 09:30 37.0 C 77 22 195/85 H 99 01/22/19 09:17 37 C 73 20 179/77 H 100 01/22/19 08:11 72 18 200/69 H 100 01/22/19 07:51 73 20 94 01/22/19 07:18 36.8 C 80 18 196/90 H 96 Supervising Physician Co-Signing Physician Notes I have seen and examined pt and agree with the exam, assessment and plan. PG Care Time/CCT Total # of Minutes Spent Total Time Spent with Patient: Total time spent is greater than 50% in coordination of care (as documented) at patient's floor/unit and/or counseling patient:
[2019-01-22] MEDS ORDERED: SODIUM CHLORIDE 0.9% 1000ML 1,000 ML IV PRN (11:14)
--- NOTE | 2019-01-22 11:24 | Nephrology Consultation ---
Date of Consultation January 22, 2019 Assessment & Plan (1) Shortness of breath: -- Patient is ~ 3 kg above dialysis EDW. CXR reveals mild pulmonary congestion -- Will provide emergency HD today and attempt 3 L UF (2) ESRD on hemodialysis: -- Dialysis orders have been placed in EMR and HD RN urology surgeon notified -- AVF examined today and found to have strong bruit (3) Anemia: -- Will transfuse 2nd unit PRBC during HD today. HD RN notified -- Anemia evaluation as per primary service (4) HTN (hypertension), benign: -- Continue current antihypertensive regimen -- Expect BP will trend down w/ UF. Will monitor (5) Hypothyroidism (acquired): -- Patient noted to have profound hypothyroidism during last ho spitalization -- Recommend checking TSH History of Present Illness Reason for Consultation: ESRD Attending Physician: Jewel Leonard MD History of Present Illness Mrs. Caicedo is a 73 year old white female who is seen at the request of Dr. Leonard to provide emergency HD. Medical records in the hospital EMR were reviewed and are summarized as follows: Mrs. Caicedo has ESRD due to diabetic nephropathy and microvascular disease. She started NCCPD therapy 2013. Her course on peritoneal dialysis was complex. Her first dialysis catheter was inadvertantly cut while sewing. Her second catheter functioned poorly. CT peritoneogram revealed a subcutaneous leak from her catheter that tracked from the tunnel along her right flank. She had a new catheter inserted but has had difficulty with recurrent hyperkalemia. In 02/08 Mrs. Caicedo developed progressive azotemia and recurrent nausea & emesis requiring transition to IHD. Patient now dialyzes via L upper arm AVF at [facility] (MWF 3hr 2K 2Ca F- 180NR HCO3 35 EDW 78.5 kg). Mrs. Caicedo reports that she attended dialysis last on Wednesday. There were no complications. Mrs. Caicedo reports progressive anemia, abdominal discomfort and diarrhea. Imaging studies revealed pancolitis. 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 Mrs. Caicedo was scheduled to have a blood transfusion next week. She was also scheduled to [place] [facility] [place] [facility] This morning Mrs. Caicedo awoke w/ dyspnea. She was brought to the ED where she was noted to be ~ 3 kg above her EDW. CXR revealed mild pulmonary vascular congestion and Hgb has dropped to 7.5. Mrs. Caicedo was transfused one unit of PRBC in the ED. Nephrology consultation has been requested to provide emergency HD w/ UF and allow transfusion of 2nd unit PRBC. PMH: ESRD, AODM, HTN, Obesity, Hypercholesterolemia, Anemia, Hypothyroidism, Recurrent E. Coli UTI, H/o struvite kidney stones, recurrent C. Difficile colitis Allergies Allergy/AdvReac Type Severity Reaction Status Date / Time nickel Allergy Intermediate RASH Verified 01/22/19 08:19 nitrofurantoin Allergy Mild REDNESS Verified 01/22/19 08:19 AND BURNING OF HANDS Home Medications Home Medications Medication Instructions Recorded Confirmed Type isosorbide mononitrate 120 mg PO DIRECTED 04/26/18 01/22/19 History bupropion HCl 150 mg PO QAM 06/03/18 01/22/19 History Mircera 100 mcg SUBCUT MONTHLY 10/27/18 01/22/19 History ProRenal 1 tab PO DAILY 12/15/18 01/22/19 History aspirin [Aspir-81] 81 mg PO DAILY 12/15/18 01/22/19 History sevelamer carbonate [Renvela] 2,400 mg PO TIDM 12/15/18 01/22/19 History valsartan 80 mg PO DAILY 12/15/18 01/22/19 History Microlet lancets #50 ea 12/19/18 01/22/19 History blood sugar diagnostic strips #10 ea 12/19/18 01/22/19 History atorvastatin 40 mg tablet 40 mg PO HS 01/05/19 01/22/19 History hydralazine 50 mg tablet 150 mg PO TID tab 01/05/19 01/22/19 History meloxicam 15 mg tablet 15 mg PO QAM 01/05/19 01/22/19 History montelukast 10 mg tablet 10 mg PO QPM 01/05/19 01/22/19 History omeprazole 20 mg capsule,delayed 20 mg PO BID cap 01/05/19 01/22/19 History release diltiazem ER 240 mg capsule,24 240 mg PO QAM #90 cap 01/11/19 01/22/19 Rx hr,extended release lorazepam 0.5 mg tablet 0.25 - 0.5 mg PO BID PRN #60 tab 01/11/19 01/22/19 Rx ropinirole 0.25 mg tablet 0.25 mg PO .COMPLEX #90 tab 01/11/19 01/22/19 Rx levothyroxine 200 mcg PO DAILY 01/22/19 01/22/19 History vancomycin 125 mg PO QID 01/22/19 01/22/19 History Patient History Medical History Diabetes NIDDM Dialysis patient (Chronic) Kidney failure (Chronic) Gout Asthma AV fistula LUE Anemia CHRONIC; BASELINE HGB 9'S PER CHART REVIEW Anxiety Brain aneurysm coiled 11/05/18. Degenerative disc disease ESRD on hemodialysis MWF Hearing deficit Hyperkalemia Hyperlipidemia Hypertension Hypothyroidism Kidney stones Obesity Osteoarthritis Polycystic kidney disease Restless leg syndrome Surgical History History of arteriovenous graft LUE AVF History of bronchoscopy History of colonoscopy 09/20/2018. poor prep so procedure aborted. patient with emesis when awake, no issues and discharged home. History of hammer toe correction History of lumbar surgery History of surgery PERITONEAL DIALYSIS CATHETER PLACEMENT PERITONEAL DIALYSIS CATHETER REMOVAL/PERMACATH INSERTION= 01/27/18= MAC SEDATION AT [facility] History of surgery perm cath removed 08/16/[address] 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 Beliefs That Will Affect Care: None Current Living Situation: Alone Current Living Situation Comment: Sister Other Information That Helps Us Care for You: No Feels Safe at Home: Yes Safety Concerns: Feels Safe At This Time Smoking Status: Never smoker Do You Dip or Chew Tobacco: No ; Second Hand Exposure: Yes ( smoked) ; Tobacco Cessation Education Requested by Patient: No Hx Alcohol Use: No Hx Substance Use: No Review of Systems Constitutional: no fever, no chills and no weakness Eyes: no worsening vision and no problem reported Ear, Nose, Mouth, Throat: no problem reported Respiratory: + dyspnea; no cough and no change in sputum Cardiovascular: no chest pain, no palpitations and no edema Gastrointestinal: no abdominal pain, no nausea, no vomiting and no diarrhea/loose stools Genitourinary: no dysuria and no hematuria Musculoskeletal: no back pain Integumentary: no rash Neurologic: no falls, no dizziness and no confusion Physical Exam Constitutional: not in distress Eyes: PERRL, conjunctivae normal, anicteric sclerae ENMT: external ear and nose normal, oropharynx normal Neck: trachea midline, no thyromegaly Respiratory: normal respiratory effort, lungs clear to auscultation Cardiovascular: RRR, no murmur, no edema Gastrointestinal (Abdomen): normal bowel sounds, soft, nontender, no hepatosplenomegaly Musculoskeletal: no cyanosis or clubbing, extremities motor strength 5/5 Skin: no rashes, warm and dry Neurologic: awake; not confused Results & Data Vital Signs (Past 12 Hours) Vital Signs Temp Pulse Pulse Resp BP BP Pulse Ox 01/22/19 10:54 37.4 C 75 20 197/104 H 100 01/22/19 10:20 37.0 C 75 20 196/94 H 99 01/22/19 09:48 37.1 C 75 16 196/76 H 99 01/22/19 09:45 37.1 C 75 16 196/76 H 99 01/22/19 09:33 37.0 C 77 18 195/85 H 99 01/22/19 09:30 37.0 C 77 22 195/85 H 99 01/22/19 09:17 37 C 73 20 179/77 H 100 01/22/19 08:11 72 18 200/69 H 100 01/22/19 07:51 73 20 94 01/22/19 07:18 36.8 C 80 18 196/90 H 96 CXR 01/22/19: No pneumothorax. Trace bilateral pleural effusions. The heart is mildly enlarged. No new focal lung consolidations to suggest pneumonia. Interval development of interstitial and vascular thickening consistent with mild pulmonary edema. PG Care Time/CCT Total # of Minutes Spent Total Time Spent with Patient: Total time spent is greater than 50% in coordination of care (as documented) at patient's floor/unit and/or counseling patient: (1) Anemia Anemia type: due to chronic kidney disease Chronic kidney disease stage: on chronic dialysis Qualified Code(s): N18.6 - End stage renal disease; D63.1 - Anemia in chronic kidney disease; Z99.2 - Dependence on renal dialysis
[2019-01-22] MEDS ORDERED: ACETAMINOPHEN 325 MG TAB PO PRN (11:38)
[2019-01-22] MEDS ORDERED: ONDANSETRON INJ 2 MG/ML 2 ML VIAL IV PRN (11:38)
[2019-01-22] MEDS ORDERED: MAGNESIUM HYDROXIDE SUSP 30 ML UDC PO PRN (11:38)
[2019-01-22] MEDS ORDERED: POLYETHYLENE (MIRALAX) 17 GM PACK PO PRN (11:38)
[2019-01-22] MEDS ORDERED: LORazepam 0.5 MG TAB PO PRN (11:38)
[2019-01-22] MEDS ORDERED: ALUMINUM/MAGNESIUM SUSP 30 ML UDC PO PRN (11:38)
[2019-01-22] MEDS ORDERED: EPOETIN ALFA 10,000 UNITS/ML VIAL IV SCH (11:45)
[2019-01-22] MEDS ORDERED: NITROGLYCERIN SL 0.4 MG/TAB TAB ONE (15:45)
[2019-01-22] MEDS ORDERED: ASPIRIN 81 MG CHEW ONE (15:49)
[2019-01-22] MEDS ORDERED: METOPROLOL TARTRATE 1 MG/ML VIAL IV ONE ×2 (15:55→16:08)
[2019-01-22] MEDS ORDERED: ASPIRIN 81 MG CHEW PO STA ×2 (15:56→16:10)
[2019-01-22] MEDS ORDERED: NITROGLYCERIN SL 0.4 MG/TAB TAB SL STA (15:56)
[2019-01-22] MEDS ORDERED: METOPROLOL TARTRATE 1 MG/ML VIAL IV STA (15:56)
[2019-01-22] MEDS ORDERED: NITROGLYCERIN 0.3 MG/1 TAB 100 TAB BTL SL STA (16:11)
[2019-01-22] MEDS: VANCOMYCIN HCL 125 MG/2.5ML SOLN PO SCH ×2 (17:32→20:39)
[2019-01-22] MEDS: RASPBERRY SYRUP 5 ML UDP PO SCH ×2 (17:32→20:40)
[2019-01-22] MEDS: ISOSORBIDE MONO EXTENDED REL 60 MG TABCR PO SCH (17:35)
[2019-01-22] MEDS: SEVELAMER HCL 800 MG TABLET PO SCH ×2 (17:42→18:26)
[2019-01-22] MEDS: HydrALAZINE TAB 50 MG TAB PO SCH ×3 (17:42→20:41)
[2019-01-22] MEDS ORDERED: ISOSORBIDE MONO EXTENDED REL 60 MG TABCR PO ONE (17:45)
--- NOTE | 2019-01-22 18:30 | CT Scan Report ---
HEAD CT NONCONTRAST CT DOSE: 655.73 mGy.cm HISTORY: hypertensive urgency TECHNIQUE: Multiaxial CT images of the head were performed without the use of intravenous contrast. A utomated exposure control was utilized for this study. A dose lowering technique was utilized adheri ng to the principles of ALARA. Comparison: None. Findings: The paranasal sinuses and mastoid air cells are clear. The calvarium and skull base are int act. There is no mass, hematoma, midline shift, acute infarct. White matter hypodensity is nonspecifi c but suggestive of microvascular ischemic change. The ventricles and sulci demonstrate mild age-rela adán involutional changes. Metallic coils at the basilar tip. Impression: No acute intracranial abnormality. Atrophy and microvascular ischemic changes. Electronically signed by: Gianni Rios M.D. 01/22/2019 6:29 PM
[2019-01-22] MEDS: VALSARTAN 80 MG TAB PO SCH (19:16)
[2019-01-22] MEDS ORDERED: LORazepam 0.5 MG TAB PO STA (19:36)
[2019-01-22 20:10] LABS: Hematocrit (blood only) 29.1 % (37-47); Hemoglobin 9.7 g/dL (12.0-16.0)
[2019-01-22] MEDS: ATORVASTATIN 40 MG TAB PO SCH (20:41)
[2019-01-22] MEDS: MONTELUKAST SODIUM 10 MG TABLET PO SCH (20:42)
[2019-01-22] MEDS: ROPINIROLE HCL 0.25 MG TABLET PO SCH (20:42)
--- NOTE | 2019-01-22 22:16 | XRay Report ---
KUB HISTORY: Abdominal distention. COMPARISON: KUB 12/17/2018. FINDINGS: The bowel gas pattern is unremarkable. There are no dilated loops of small bowel to suggest an obstruction. No renal calculi. No ureteral calculi. No pneumoperitoneum or pneumatosis. Scattere d colonic diverticula are noted. Mild vascular calcifications. Degenerative changes within the lower lumbar spine. Small to moderate amount of well-formed stool within the colon. IMPRESSION: 1. No evidence for bowel obstruction. 2. Small to moderate amount of well-formed stool within the colon. Electronically signed by: Gianni Rios M.D. 01/22/2019 10:15 PM
[2019-01-22] MEDS ORDERED: BISACODYL 10 MG SUPP PR PRN (22:28)
[2019-01-23 05:34] LABS: Hematocrit (blood only) 28.1 % (37-47); Hemoglobin 9.3 g/dL (12.0-16.0); Mean Corpuscular Hemoglobin 30.8 pg (25-34); Mean Corpuscular Hgb Conc 33.1 g/dL (32-36); Platelet Count 169 K/uL (130-400); Red Blood Count 3.02 M/uL (4.2-5.4); White Blood Count 7.88 K/uL (4.8-10.8)
[2019-01-23 06:04] LABS: BUN Creatinine Ratio 7.1 (10-20); Calcium 9.1 mg/dl (8.5-10.1); Creatinine Clr Calc Pharmacy 8.4 ml/min; Est GFR (African American) 8.4; Est GFR (Non-African American) 7.2; Potassium 4.2 mmol/L (3.5-5.1)
[2019-01-23] MEDS: LEVOTHYROXINE SODIUM 200 MCG TABLET PO SCH (06:16)
[2019-01-23 06:45] LABS: Thyroid Stimulating Hormone 3.31 uIu/ml (0.300-4.500)
--- NOTE | 2019-01-23 07:10 | Emergency Department Note ---
Entered by Janay Moreno acting as a scribe for Héctor Cano MD History of Present Illness General Chief complaint: Shortness of Breath/Dyspnea Time Seen by Provider: 01/22/19 07:13 Source: patient History of Present Illness Onset (ago): hour(s) (this morning ) Location: chest Pain Consistency: + other (episode) Quality: + other (shortness of breath) Associated symptoms: + denies other symptoms (chest pain, abdominal pain) The patient is a 73 year old female with a history of hypertension and kidney disease that is presenting to the Emergency Room with complaints of an episode of shortness of breath that started this morning around 0600. The patient reports that she was unable to breathe so she called EMS. She states that EMS put her on 4L of O2 on route. She denies any chest pain or abdominal pain. She notes that she takes aspirin daily. The patient reports that she was in the ED 1 month ago and received a blood transfusion due to a low H&H. She states that her last blood work 4 days ago showed the her hemoglobin has dropped to 7.5 again. She notes that she goes to dialysis on Wednesday, Wednesday, and Wednesday. She denies missing a session. She states that her next session is in 2 days. She denies taking any diuretic. EMS notes that the patients O2 saturation level was in the 90s when they arrived. Home Medications Home Medications Medication Instructions Recorded Confirmed Type isosorbide mononitrate 120 mg PO DIRECTED 04/26/18 01/22/19 History bupropion HCl 150 mg PO QAM 06/03/18 01/22/19 History Mircera 100 mcg SUBCUT MONTHLY 10/27/18 01/22/19 History ProRenal 1 tab PO DAILY 12/15/18 01/22/19 History aspirin [Aspir-81] 81 mg PO DAILY 12/15/18 01/22/19 History sevelamer carbonate [Renvela] 2,400 mg PO TIDM 12/15/18 01/22/19 History valsartan 80 mg PO DAILY 12/15/18 01/22/19 History Microlet lancets #50 ea 12/19/18 01/22/19 History blood sugar diagnostic strips #10 ea 12/19/18 01/22/19 History atorvastatin 40 mg tablet 40 mg PO HS 01/05/19 01/22/19 History hydralazine 50 mg tablet 150 mg PO TID tab 01/05/19 01/22/19 History meloxicam 15 mg tablet 15 mg PO QAM 01/05/19 01/22/19 History montelukast 10 mg tablet 10 mg PO QPM 01/05/19 01/22/19 History omeprazole 20 mg capsule,delayed 20 mg PO BID cap 01/05/19 01/22/19 History release diltiazem ER 240 mg capsule,24 240 mg PO QAM #90 cap 01/11/19 01/22/19 Rx hr,extended release lorazepam 0.5 mg tablet 0.25 - 0.5 mg PO BID PRN #60 tab 01/11/19 01/22/19 Rx ropinirole 0.25 mg tablet 0.25 mg PO .COMPLEX #90 tab 01/11/19 01/22/19 Rx levothyroxine 200 mcg PO DAILY 01/22/19 01/22/19 History vancomycin 125 mg PO QID 01/22/19 01/22/19 History Allergies Allergy/AdvReac Type Severity Reaction Status Date / Time nickel Allergy Intermediate RASH Verified 01/22/19 08:19 nitrofurantoin Allergy Mild REDNESS Verified 01/22/19 08:19 AND BURNING OF HANDS Past Med/Surg History Medical History Diabetes NIDDM Dialysis patient (Chronic) Kidney failure (Chronic) Gout Asthma AV fistula LUE Anemia CHRONIC; BASELINE HGB 9'S PER CHART REVIEW Anxiety Brain aneurysm coiled 11/05/18. Degenerative disc disease ESRD on hemodialysis MWF Hearing deficit Hyperkalemia Hyperlipidemia Hypertension Hypothyroidism Kidney stones Obesity Osteoarthritis Polycystic kidney disease Restless leg syndrome Surgical History History of arteriovenous graft LUE AVF History of bronchoscopy History of colonoscopy 09/20/2018. poor prep so procedure aborted. patient with emesis when awake, no issues and discharged home. History of hammer toe correction History of lumbar surgery History of surgery PERITONEAL DIALYSIS CATHETER PLACEMENT PERITONEAL DIALYSIS CATHETER REMOVAL/PERMACATH INSERTION= 01/27/18= MAC SEDATION AT [facility] History of surgery perm cath removed 08/16/[address] Barrera History of total abdominal hysterectomy and bilateral salpingo-oophorectomy Family History Mother Family history of reaction to anesthesia confused for a day or so after sx in the 1950s Family history of diabetes mellitus Sister Family history of diabetes mellitus Type 2 Father Family history of diabetes mellitus type 2 Hypertension Stroke syndrome Pure hypercholesterolemia Son Hypertension Pure hypercholesterolemia Fatty liver Social History Preferred Language: [place] Communication Ability: Effective Visual Impairment: No Limitations Merchandise Pickup/Receiving Associate Required: No Beliefs That Will Affect Care: None Current Living Situation: Alone Current Living Situation Comment: Sister Other Information That Helps Us Care for You: No Feels Safe at Home: Yes Safety Concerns: Feels Safe At This Time Smoking Status: Never smoker Do You Dip or Chew Tobacco: No ; Second Hand Exposure: Yes ( smoked) ; Tobacco Cessation Education Requested by Patient: No Hx Alcohol Use: No Hx Substance Use: No Review of Systems See HPI for pertinent positives & negatives. and A total of 10 systems reviewed and were otherwise negative Physical Exam Vital Signs Vital Signs - 24 hr 01/22/19 07:18 01/22/19 07:51 01/22/19 08:11 Temperature 36.8 C Temperature Source Oral Sepsis Recent Fever Within 48 Hours No Sepsis New/Unexplained Change in Mental Status No Sepsis Action Taken by Nursing No Action Required Pulse Rate 80 Pulse Rate [Left Apical] 73 72 Respiratory Rate 18 20 18 Respiratory Effort / Characteristics Spontaneous Short of Breath Blood Pressure 196/90 H Blood Pressure [Right Arm] 200/69 H Blood Pressure Mean 125 Blood Pressure Mean [Right Arm] 112 Pulse Oximetry 96 94 100 Oxygen Delivery Method Room Air Room Air Nasal Cannula Oxygen Flow Rate 97 3 01/22/19 09:17 01/22/19 09:30 01/22/19 09:33 Temperature 37 C 37.0 C 37.0 C Temperature Source Oral Oral Oral Sepsis Recent Fever Within 48 Hours Sepsis New/Unexplained Change in Mental Status Sepsis Action Taken by Nursing Pulse Rate 73 77 77 Pulse Rate [Left Apical] Respiratory Rate 20 22 18 Respiratory Effort / Characteristics Blood Pressure 179/77 H 195/85 H 195/85 H Blood Pressure [Right Arm] Blood Pressure Mean 111 121 121 Blood Pressure Mean [Right Arm] Pulse Oximetry 100 99 99 Oxygen Delivery Method Oxygen Flow Rate 3 3 3 01/22/19 09:45 01/22/19 09:48 01/22/19 10:20 Temperature 37.1 C 37.1 C 37.0 C Temperature Source Oral Oral Oral Sepsis Recent Fever Within 48 Hours Sepsis New/Unexplained Change in Mental Status Sepsis Action Taken by Nursing Pulse Rate 75 75 75 Pulse Rate [Left Apical] Respiratory Rate 16 16 20 Respiratory Effort / Characteristics Blood Pressure 196/76 H 196/76 H 196/94 H Blood Pressure [Right Arm] Blood Pressure Mean 116 116 128 Blood Pressure Mean [Right Arm] Pulse Oximetry 99 99 99 Oxygen Delivery Method Oxygen Flow Rate 3 3 3 GENERAL: Awake, alert, well-appearing, in no acute distress HENT: Normocephalic, atraumatic. Oropharynx unremarkable. EYES: Normal conjunctiva. Sclera non-icteric. NECK: Supple. No nuchal rigidity. FROM. No JVD. RESPIRATORY: Clear to auscultation. CARDIAC: Regular rate, normal rhythm. Extremities warm and well perfused. Pulses equal. ABDOMEN: Soft, non-distended. No tenderness to palpation. No rebound or guarding. No masses. RECTAL: Deferred. MUSCULOSKELETAL: Chest examination reveals no tenderness. The back is symmetrical on inspection without obvious abnormality. There is no CVA tenderness to palpation. No joint edema. LOWER EXTREMITIES: Calves are equal size bilaterally and non-tender. No edema. No discoloration. NEURO: Normal sensorium. No sensory or motor deficits noted. SKIN: No rash or jaundice noted. Course 0715:The patient was evaluated in room A02. A complete history and physical examination was performed. 0816: The patient consented to a blood transfusion at this time. 0857: I discussed the patients case with DELANEY Feldman, who will evaluate the patient for further management and care with Dr. Ramirez as the attending physician. 0904: Upon reevaluation, the patient is resting comfortably. I discussed laboratory and radiographic results with the patient. She verbalized agreement of the treatment plan. The patient will be evaluated for further management and care. Consultations Consultation #1: I discussed the patients case with DELANEY Feldman, who will evaluate the patient for further management and care with Dr. Ramirez as the attending physician. Time: 08:57 Administered Medications Acetaminophen (Tylenol) 650 mg PO Q4H PRN PRN Reason: Pain or Fever Stop: 02/21/19 11:37 Last Admin: 01/22/19 15:33 Dose: 650 mg Documented by: [id number] Atorvastatin Calcium (Lipitor) 40 mg PO HS [facility] Stop: 02/21/19 20:59 Last Admin: 01/22/19 20:41 Dose: 40 mg Documented by: [id number] Bisacodyl (Dulcolax) 10 mg [place] DAILY PRN PRN Reason: Constipation Stop: 02/21/19 22:27 Last Admin: 01/22/19 23:03 Dose: 10 mg Documented by: [id number] Hydralazine HCl (Apresoline) 150 mg PO TID [facility] Stop: 02/21/19 13:59 Last Admin: 01/22/19 20:41 Dose: 150 mg Documented by: [id number] Admin: 01/22/19 18:27 Dose: 150 mg Documented by: [id number] Admin: 01/22/19 17:42 Dose: Not Given Documented by: [id number] Isosorbide Mononitrate (Imdur Extended Rel) 120 mg PO DAILY [facility] Stop: 02/22/19 08:59 Last Admin: 01/22/19 17:35 Dose: 120 mg Documented by: [id number] Levothyroxine Sodium (Synthroid) 200 mcg PO DAILYBB [facility] Stop: 02/22/19 06:29 Last Admin: 01/23/19 06:16 Dose: 200 mcg Documented by: [id number] Lorazepam (Ativan) 0.5 mg PO BID PRN PRN Reason: Anxiety Stop: 02/21/19 11:37 Last Admin: 01/22/19 17:31 Dose: 0.5 mg Documented by: [id number] Montelukast Sodium (Singulair) 10 mg PO QPM [facility] Stop: 02/21/19 20:59 Last Admin: 01/22/19 20:42 Dose: 10 mg Documented by: [id number] Raspberry (Raspberry) 5 ml PO QID [facility] Stop: 01/26/19 23:59 Last Admin: 01/22/19 20:40 Dose: 5 ml Documented by: [id number] Admin: 01/22/19 17:32 Dose: 5 ml Documented by: [id number] Ropinirole HCl (Requip) 0.25 mg PO HS [facility] Stop: 02/21/19 20:59 Last Admin: 01/22/19 20:42 Dose: 0.25 mg Documented by: [id number] Sevelamer HCl (Renagel) 2,400 mg PO TIDM [facility] Stop: 02/21/19 11:59 Last Admin: 01/22/19 18:26 Dose: 2,400 mg Documented by: [id number] Admin: 01/22/19 17:42 Dose: Not Given Documented by: [id number] Valsartan (Diovan) 80 mg PO DAILY [facility] Stop: 02/22/19 08:59 Last Admin: 01/22/19 19:16 Dose: 80 mg Documented by: [id number] Vancomycin HCl (Vancomycin Hcl) 125 mg PO QID [facility] Stop: 01/26/19 23:59 Last Admin: 01/22/19 20:39 Dose: 125 mg Documented by: [id number] Admin: 01/22/19 17:32 Dose: 125 mg Documented by: [id number] Discontinued Medications Aspirin (Aspirin Chew) Confirm Administered Dose 324 mg .ROUTE .STK-MED [facility] Stop: 01/22/19 15:50 Last Admin: 01/22/19 16:09 Dose: 324 mg Documented by: [id number] Aspirin (Aspirin Chew) 324 mg PO NOW STA Stop: 01/22/19 15:57 Last Admin: 01/22/19 16:13 Dose: Not Given Documented by: [id number] Epoetin Yandel (Procrit) 10,000 units IV TODAY@1145 [facility] Stop: 01/22/19 18:00 Last Admin: 01/22/19 14:57 Dose: 10,000 units Documented by: [id number] Isosorbide Mononitrate (Imdur Extended Rel) 120 mg PO ONE ONE Stop: 01/22/19 17:46 Last Admin: 01/22/19 19:14 Dose: Not Given Documented by: [id number] Levalbuterol HCl (Xopenex 1.25mg/3ml Neb) 1.25 mg NEB NOW STA Stop: 01/22/19 07:21 Last Admin: 01/22/19 07:50 Dose: 1.25 mg Documented by: [id number] Lorazepam (Ativan) 0.5 mg PO NOW STA Stop: 01/22/19 19:37 Last Admin: 01/23/19 02:24 Dose: Not Given Documented by: [id number] Metoprolol Tartrate (Lopressor) Confirm Administered Dose 5 mg IV .STK-MED ONE Stop: 01/22/19 15:56 Last Admin: 01/22/19 16:17 Dose: Not Given Documented by: [id number] Metoprolol Tartrate (Lopressor) 5 mg IV NOW STA Stop: 01/22/19 15:57 Last Admin: 01/22/19 16:16 Dose: 2.5 mg Documented by: [id number] Metoprolol Tartrate (Lopressor) Confirm Administered Dose 5 mg IV .STK-MED ONE Stop: 01/22/19 16:09 Last Admin: 01/22/19 16:17 Dose: Not Given Documented by: [id number] Miscellaneous (No Heparin In Dialysis) 1 ea N/A ONE ONE Stop: 01/22/19 11:15 Last Admin: 01/22/19 13:02 Dose: Not Given Documented by: [id number] Nitroglycerin (Nitrostat) Confirm Administered Dose 0.4 mg .ROUTE .STK-MED ONE Stop: 01/22/19 15:46 Last Admin: 01/22/19 16:08 Dose: 0.4 mg Documented by: [id number] Nitroglycerin (Nitrostat) 0.4 mg SL NOW STA Stop: 01/22/19 15:57 Last Admin: 01/22/19 16:13 Dose: Not Given Documented by: [id number] Medical Decision Making Differential Diagnosis Differential diagnosis: Etiologies such as infections, reactive airway disease, pneumonia, pneumothorax, COPD, CHF, cardiac ischemia, pulmonary embolism, musculoskeletal, gastrointestinal, as well as others were entertained. Medical Records Attestation: I reviewed the patient's medical records. Home Medications Current Medication List: was personally reviewed by me Laboratory Data Attestation: I reviewed the patient's lab results. Result diagrams: 01/23/19 05:12 01/23/19 05:12 Lab Results 01/22/19 01/22/19 01/22/19 Range/Units 07:27 07:29 07:29 WBC 5.69 (4.8-10.8) K/uL RBC 2.38 L (4.2-5.4) M/uL Hgb 7.5 L (12.0-16.0) g/dL POC Hgb (12.0-16.0) g/dl Hct 22.8 L (37-47) % POC Hct (37-47) % MCV 95.8 (80-100) fL MCH 31.5 (25-34) pg MCHC 32.9 (32-36) g/dL RDW Std Deviation 51.5 H (36.4-46.3) fL RDW Coeff of Martin 14.8 H (11.5-14.5) % Plt Count 195 (130-400) K/uL MPV 8.9 (7.4-10.4) fL Immature Gran % (Auto) 0.2 % Neut % (Auto) 65.7 % Lymph % (Auto) 26.2 % [place] % (Auto) 4.9 % Eos % (Auto) 2.3 % Baso % (Auto) 0.7 % Immature Gran # (Auto) 0.01 (0.00-0.02) K/uL Neut # (Auto) 3.74 (1.4-6.5) K/uL Lymph # (Auto) 1.49 (1.2-3.4) K/uL [place] # (Auto) 0.28 (0.11-0.59) K/uL Eos # (Auto) 0.13 (0-0.5) K/uL Baso # (Auto) 0.04 (0-0.2) K/uL RBC Morphology Unremarkable PT 10.9 (9.0-12.0) Seconds INR 1.1 (0.9-1.1) APTT 24.5 (21.0-31.0) Seconds PTT Ratio 0.9 POC Sodium (135-144) mEq/L Sodium (136-145) mmol/L POC Potassium (3.3-5.0) mEq/L Potassium (3.5-5.1) mmol/L POC Chloride (101-112) mEq/L Chloride (98-107) mmol/L Carbon Dioxide (21-32) mmol/L POC Total CO2 (24-31) mEq/l Anion Gap (3-11) POC Anion Gap (16-25) mmol/L POC BUN (7-18) mg/dl BUN (7-18) mg/dl Creatinine (0.6-1.2) mg/dl POC Creatinine (0.6-1.3) mg/dl Est Cr Clr Drug Dosing ml/min Est GFR ( Amer) Est GFR (Non-Af Amer) BUN/Creatinine Ratio (10-20) Glucose (70-99) mg/dl POC Glucose (other) (70-99) mg/dl Calcium (8.5-10.1) mg/dl POC Ioniz Calcium Rasheed (1.12-1.32) mmol/l Total Bilirubin (0.2-1) mg/dl AST (15-37) U/L ALT (12-78) U/L Alkaline Phosphatase (45-117) U/L Total Creatine Kinase (26-192) U/L CK-MB (CK-2) (0.5-3.6) ng/ml CK/CKMB % Calc Troponin I (0-0.045) ng/ml Total Protein (6.4-8.2) gm/dl Albumin (3.4-5.0) gm/dl Globulin (2.5-4.0) gm/dl Albumin/Globulin Ratio (0.9-2) Blood Type O Positive Antibody Screen NEGATIVE Crossmatch See Detail 01/22/19 01/22/19 Range/Units 07:29 07:37 WBC (4.8-10.8) K/uL RBC (4.2-5.4) M/uL Hgb (12.0-16.0) g/dL POC Hgb 7.5 L (12.0-16.0) g/dl Hct (37-47) % POC Hct 22 L (37-47) % MCV (80-100) fL MCH (25-34) pg MCHC (32-36) g/dL RDW Std Deviation (36.4-46.3) fL RDW Coeff of Martin (11.5-14.5) % Plt Count (130-400) K/uL MPV (7.4-10.4) fL Immature Gran % (Auto) % Neut % (Auto) % Lymph % (Auto) % [place] % (Auto) % Eos % (Auto) % Baso % (Auto) % Immature Gran # (Auto) (0.00-0.02) K/uL Neut # (Auto) (1.4-6.5) K/uL Lymph # (Auto) (1.2-3.4) K/uL [place] # (Auto) (0.11-0.59) K/uL Eos # (Auto) (0-0.5) K/uL Baso # (Auto) (0-0.2) K/uL RBC Morphology PT (9.0-12.0) Seconds INR (0.9-1.1) APTT (21.0-31.0) Seconds PTT Ratio POC Sodium 138 (135-144) mEq/L Sodium 141 (136-145) mmol/L POC Potassium 4.8 (3.3-5.0) mEq/L Potassium 4.8 (3.5-5.1) mmol/L POC Chloride 96 L (101-112) mEq/L Chloride 102 (98-107) mmol/L Carbon Dioxide 33 H (21-32) mmol/L POC Total CO2 34 H (24-31) mEq/l Anion Gap 6.0 (3-11) POC Anion Gap 15.0 L (16-25) mmol/L POC BUN 49 H (7-18) mg/dl BUN 52 H (7-18) mg/dl Creatinine 6.80 H* (0.6-1.2) mg/dl POC Creatinine 7.0 H* (0.6-1.3) mg/dl Est Cr Clr Drug Dosing 6.9 ml/min Est GFR ( Amer) 6.4 Est GFR (Non-Af Amer) 5.5 BUN/Creatinine Ratio 7.6 L (10-20) Glucose 129 H (70-99) mg/dl POC Glucose (other) 126 H (70-99) mg/dl Calcium 9.3 (8.5-10.1) mg/dl POC Ioniz Calcium Rasheed 1.11 L (1.12-1.32) mmol/l Total Bilirubin 0.3 (0.2-1) mg/dl AST 19 (15-37) U/L ALT 22 (12-78) U/L Alkaline Phosphatase 88 (45-117) U/L Total Creatine Kinase 57 (26-192) U/L CK-MB (CK-2) < 1.0 (0.5-3.6) ng/ml CK/CKMB % Calc TNP Troponin I < 0.015 (0-0.045) ng/ml Total Protein 6.9 (6.4-8.2) gm/dl Albumin 3.5 (3.4-5.0) gm/dl Globulin 3.4 (2.5-4.0) gm/dl Albumin/Globulin Ratio 1.0 (0.9-2) Blood Type Antibody Screen Crossmatch Imaging Data Radiologist's Impression: Radiology results as stated below per my review and the radiologist's interpretation: XR chest 1V portable HISTORY: Shortness of breath. COMPARISON: Chest 12/15/2018. FINDINGS: No pneumothorax. Trace bilateral pleural effusions. The heart is mildly enlarged. No new focal lung consolidations to suggest pneumonia. Interval development of interstitial and vascular thickening consistent with mild pulmonary edema. IMPRESSION: Interval development of mild interstitial pulmonary edema and trace bilateral pleural effusions. Electronically signed by: Gianni Rios M.D. 01/22/2019 8:32 AM ECG Data Attestation: I personally reviewed and interpreted this ECG as follows: Indication: SOB/dyspnea Rate (beats per minute): 78 Rhythm: normal sinus Findings: + other (normal EKG); no ST depression, no ST elevation and no acute ischemic change Blood Pressure Blood Pressure Findings: Elevated blood pressure Blood Pressure Disposition: Referred to patients primary care provider MDM Narrative This is a 73-year-old female who presents emergency department during a period of high volume and high acuity complaining of weakness. Patient's hemoglobin was found to be 7.5 and for this the patient was typed and screened for 2 units of packed red blood cells. Patient is on dialysis. I did discuss the case with the hospitalist service who agreed to admit the patient. Patient was in agreement with the treatment plan. Impression & Plan Anemia, Weakness, HTN (hypertension), benign, ESRD on hemodialysis Discharge Plan Visit Data *Final* Discharge Date/Time: 01/22/19 11:06 Chief Complaint: Shortness of Breath/Dyspnea ED Provider: Héctor Cano Discharge Problem: Anemia, Weakness, HTN (hypertension), benign, ESRD on hemodialysis Patient Disposition: Admitted As Inpatient Discharge Instructions Interventions: ED Discharge Assessment Last Done: 01/22/19 11:06 The scribe's documentation has been prepared under my direction and personally reviewed by me in its entirety. I confirm that the note above accurately reflects all work, treatment, procedures, and medical decision making performed by me.
[2019-01-23] MEDS: HydrALAZINE TAB 50 MG TAB PO SCH ×3 (07:58→21:06)
[2019-01-23] MEDS: SEVELAMER HCL 800 MG TABLET PO SCH ×3 (07:58→17:01)
[2019-01-23] MEDS: ASPIRIN 81 MG ECTAB PO SCH (07:59)
[2019-01-23] MEDS: RASPBERRY SYRUP 5 ML UDP PO SCH ×4 (08:00→21:07)
[2019-01-23] MEDS: VANCOMYCIN HCL 125 MG/2.5ML SOLN PO SCH ×4 (08:12→21:07)
[2019-01-23] MEDS: ISOSORBIDE MONO EXTENDED REL 60 MG TABCR PO SCH (08:35)
[2019-01-23] MEDS ORDERED: BuPROPion SR 150 MG TABCR PO SCH (09:00)
[2019-01-23] MEDS ORDERED: PANTOprazole 40 MG TAB PO SCH (09:00)
[2019-01-23] MEDS ORDERED: NON-FORMULARY MEDICATION (Vit B,C-Iron Fum-Fa-D3-Zinc Ox [Prorenal] 1 TAB) PO SCH (09:00)
[2019-01-23] MEDS ORDERED: dilTIAZem HCL 240 MG CAPCR PO SCH (09:00)
[2019-01-23] MEDS: VALSARTAN 80 MG TAB PO SCH (09:21)
[2019-01-23] MEDS ORDERED: dilTIAZem HCL 30 MG TAB PO ONE (09:53)
--- NOTE | 2019-01-23 09:55 | Nephrology Progress Note ---
Date of Service January 23, 2019 Assessment & Plan (1) Shortness of breath: -- Improved following 2 L UF w/ HD yesterday. Patient is now breathing comfortably on RA (2) ESRD on hemodialysis: -- Chronic dialysis orders: MWF 3hr 2K 2Ca F-180NR HCO3 35 EDW 78.5 kg -- Volume status & electrolyte balance acceptable at this time. No acute indication for HD today (service unavailable/holiday) (3) Anemia: -- Hgb improved to 9.3 following 2 U PRBC yesterday -- Will order iron studies and FOBT w/ am labs tomorrow (4) HTN (hypertension), benign: -- Blood pressure remains elevated. Will increase Cardizem ER to 300 mg daily (5) Hypothyroidism (acquired): -- TSH checked this hospitalization and found to be acceptable (6) C. difficile colitis: -- On oral Vancomycin therapy Subjective Mrs. Caicedo was seen & examined in the PCU this morning. She completed 2.5 hours dialysis yesterday for 2 L UF. Second unit PRBC was transfused during treatment (received one unit PRBC in ED). Dialysis was terminated one hour early due to chest discomfort. Mrs. Caicedo was transferred to telemetry. ECG was NSR, no ischemic change. Cardiac enzymes were negative. Mrs. Caicedo denies angina or dyspnea this am. She is breathing comfortably on RA. She complains of vomiting and diarrhea. She is being treated for C. Difficile. KUB x-ray revealed small to moderate amount of stool throughout the colon Review of Systems Constitutional: no fever, no chills and no weakness Eyes: no worsening vision and no problem reported Ear, Nose, Mouth, Throat: no problem reported Respiratory: + cough; no dyspnea Cardiovascular: no chest pain, no palpitations and no edema Gastrointestinal: + nausea, + vomiting and + diarrhea/loose stools; no abdominal pain Genitourinary: no dysuria and no hematuria Musculoskeletal: no back pain Integumentary: no rash Neurologic: no falls, no dizziness and no confusion Physical Exam Constitutional: not in distress Eyes: PERRL, conjunctivae normal, anicteric sclerae ENMT: external ear and nose normal, oropharynx normal Neck: trachea midline, no thyromegaly Respiratory: normal respiratory effort, lungs clear to auscultation Cardiovascular: RRR, no murmur, no edema Extremities: + AV fistula (+ bruit) Gastrointestinal (Abdomen): normal bowel sounds, soft, nontender, no hepatosplenomegaly Musculoskeletal: no cyanosis or clubbing, extremities motor strength 5/5 Skin: no rashes, warm and dry Neurologic: awake; not confused Results & Data Vital Signs (Past 12 Hours) Vital Signs Temp Pulse Pulse Pulse Resp BP Pulse Ox 01/23/19 07:30 37.1 C 74 16 187/102 H 93 01/23/19 06:14 177/53 H 01/23/19 04:34 37.1 C 77 16 184/90 H 91 01/23/19 00:12 36.9 C 75 15 158/72 H 97 01/22/19 23:10 77 Laboratory Tests 01/22/19 01/22/19 01/22/19 07:29 07:29 15:49 WBC Hgb 7.5 L Plt Count Sodium Potassium Chloride Carbon Dioxide BUN Creatinine Glucose Total Creatine Kinase 57 Troponin I < 0.015 0.028 Albumin 3.5 TSH 01/23/19 01/23/19 05:12 05:12 WBC 7.88 Hgb 9.3 L Plt Count 169 Sodium 138 Potassium 4.2 Chloride 102 Carbon Dioxide 29 BUN 38 H Creatinine 5.46 H* D Glucose 109 H Total Creatine Kinase Troponin I Albumin TSH 3.310 PG Care Time/CCT Total # of Minutes Spent Total Time Spent with Patient: Total time spent is greater than 50% in coordination of care (as documented) at patient's floor/unit and/or counseling patient: (1) Anemia Anemia type: unspecified type Qualified Code(s): D64.9 - Anemia, unspecified
[2019-01-23] MEDS ORDERED: COUGH DROP (SUGAR FREE) LOZ 24 LOZ/1 BOX BUCCAL PRN (11:29)
[2019-01-23] MEDS: BENZONATATE 100 MG CAPSULE PO PRN (13:20)
[2019-01-23 13:39] LABS: Influenza A virus by PCR Neg for Influ A (Neg); Influenza B virus by PCR Neg for Influ B (Neg)
--- NOTE | 2019-01-23 13:51 | Hospitalist Progress Note ---
Date of Service January 23, 2019 Assessment & Plan (1) Shortness of breath: - This appeared to be related to volume overload/pulmonary edema - received emergent dialysis on 01/22 which brought her weight back to her baseline - SOB is currently resolved at this time; Saturations are adequate on RA Present on Admission?: Yes (2) Anemia: - Chronic - baseline in 8s - Hgb 7.5 and transfused 2 units PRBCs on 01/22 - current Hgb at 9.3 - Iron studies in AM; FOBT ordered; she reports colonoscopy in recent past with removal of polyps Present on Admission?: Yes (3) ESRD (end stage renal disease) on dialysis: - Follows a MWF schedule - Electrolytes stable and will follow daily labs; does still produce some urine and on Lasix previously but was D/Cd due to controlled volume status - Sevelamer 2400 mg TID and Prorenal daily - Consult Nephrology - appreciate assistance with dialysis Present on Admission?: Yes (4) HTN (hypertension), benign: - Consistently remaining elevated but asymptomatic - appears it has a tendency to run high looking on previous assessments - Increased Cardizem to 300 mg daily; Continue Hydralazine 150 mg TID, Valsartan 80 mg daily Present on Admission?: Yes (5) 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 Monzon Present on Admission?: Yes (6) CAD (coronary artery disease): - STABLE; reports a cardiac cath approx. one month ago and self-reports clean cath - is undergoing work-up for possible renal transplant - ASA 81 mg daily, Isosorbide 120 mg daily Present on Admission?: Yes (7) Hypothyroidism: - TSH 3.3 on 01/23 - Levothyroxine 200 mcg daily - recent increase dosing Present on Admission?: Yes (8) DVT prophylaxis: - SCDs Disposition: Likely return home when medically optimized Subjective Reports she is doing better today in regards to her breathing. However she notes she did have some vomiting this AM after a coughing spell which does occasionally happen at home and denies feeling ill. Her blood pressure continues to be elevated but denies headaches, vision changes, etc. Her Hgb has improved since transfusion and she feels a little less fatigued today. Review of Systems Constitutional: no fever and no chills Eyes: no worsening vision Respiratory: + cough (chronic - no change); no chest congestion, no dyspnea and no wheezing Cardiovascular: no chest pain, no orthopnea, no lightheadedness and no edema Gastrointestinal: + vomiting (one episode - related to coughing/gagging); no abdominal pain and no nausea Genitourinary: no dysuria Musculoskeletal: no body aches Integumentary: no rash Physical Exam Constitutional: WD/WN, vitals as above Eyes: + anicteric sclerae ENMT: Ears: no hearing impairment Neck: trachea midline Respiratory: normal respiratory effort; no cough Auscultation: + crackles (bases b/l more prevalent on L base) Cardiovascular: Rate/Rhythm: regular rate and regular rhythm Vessels: + JVD Extremities: + AV fistula Gastrointestinal (Abdomen): Inspection/Auscultation: normal bowel sounds Percussion/Palpation: abdomen soft; abdomen nontender Musculoskeletal: Head/Neck/Chest: normocephalic and head atraumatic Skin: no rashes, warm and dry Neurologic: moves all extremities Psychiatric: A+Ox3, euthymic affect Results & Data Vital Signs (Past 12 Hours) Vital Signs Temp Pulse Pulse Pulse Resp BP Pulse Ox 01/23/19 12:00 37 C 82 18 198/87 H 94 01/23/19 08:00 91 H 01/23/19 07:30 37.1 C 74 16 187/102 H 93 01/23/19 06:14 177/53 H 01/23/19 04:34 37.1 C 77 16 184/90 H 91 PG Care Time/CCT Total # of Minutes Spent Total Time Spent with Patient: Total time spent is greater than 50% in coordination of care (as documented) at patient's floor/unit and/or counseling patient:
[2019-01-23] MEDS ORDERED: BENZONATATE 100 MG CAPSULE PO SCH (14:00)
[2019-01-23] MEDS: GUAIFENESIN/DEXTROM SYRUP 200MG/20MG 10ML UDC PO PRN (17:01)
[2019-01-23] MEDS ORDERED: GUAIFENESIN/CODEINE 100MG/10MG 5ML UDC PO PRN (19:00)
[2019-01-23] MEDS: PANTOprazole 40 MG TAB PO SCH (21:08)
[2019-01-23] MEDS: ROPINIROLE HCL 0.25 MG TABLET PO SCH (21:08)
[2019-01-23] MEDS: ATORVASTATIN 40 MG TAB PO SCH (21:08)
[2019-01-23] MEDS: MONTELUKAST SODIUM 10 MG TABLET PO SCH (21:09)
[2019-01-24] MEDS: LEVOTHYROXINE SODIUM 200 MCG TABLET PO SCH (06:08)
[2019-01-24 06:17] LABS: Hematocrit (blood only) 27.8 % (37-47); Hemoglobin 9.3 g/dL (12.0-16.0); Mean Corpuscular Hgb Conc 33.5 g/dL (32-36); Mean Corpuscular Volume 92.7 fL (80-100); Mean Platelet Volume 9.2 fL (7.4-10.4); Platelet Count 150 K/uL (130-400); RDW Standard Deviation 51.1 fL (36.4-46.3); White Blood Count 6.16 K/uL (4.8-10.8)
[2019-01-24 07:07] LABS: BUN Creatinine Ratio 8.6 (10-20); Calcium 8.6 mg/dl (8.5-10.1); Creatinine Clr Calc Pharmacy 6.3 ml/min; Est GFR (African American) 5.9; Est GFR (Non-African American) 5.1; Ferritin 1104.3 ng/ml (8-388); Potassium 4.3 mmol/L (3.5-5.1)
[2019-01-24] MEDS: SEVELAMER HCL 800 MG TABLET PO SCH ×2 (08:27→11:42)
[2019-01-24] MEDS: VALSARTAN 80 MG TAB PO SCH (08:27)
[2019-01-24] MEDS: HydrALAZINE TAB 50 MG TAB PO SCH ×2 (08:28→13:42)
[2019-01-24] MEDS: ISOSORBIDE MONO EXTENDED REL 60 MG TABCR PO SCH (08:29)
[2019-01-24] MEDS: ASPIRIN 81 MG ECTAB PO SCH (08:29)
[2019-01-24] MEDS: RASPBERRY SYRUP 5 ML UDP PO SCH ×2 (08:30→13:42)
[2019-01-24] MEDS: VANCOMYCIN HCL 125 MG/2.5ML SOLN PO SCH ×2 (08:34→13:41)
[2019-01-24] MEDS: BENZONATATE 100 MG CAPSULE PO PRN (08:36)
[2019-01-24] MEDS: GUAIFENESIN/DEXTROM SYRUP 200MG/20MG 10ML UDC PO PRN (08:38)
[2019-01-24] MEDS ORDERED: dilTIAZem HCL 300 MG CAPCR PO SCH (09:00)
--- NOTE | 2019-01-24 09:25 | Nephrology Progress Note ---
Date of Service January 24, 2019 Assessment & Plan (1) Shortness of breath: ESRD on HD MWF, admitted with anemia and volume overload. Received extra HD treatment on Wednesday and received 2 units of PRBC. Overall clinically improving. Hb stable at 9.3, electrolyte acceptable. Volume status improved. --no need for HD today, can have HD tomorrow as her regular schedule, she is currently around her EDW. --OK to be DC from nephrology standpoint when medically stable. --next HD tomorrow at outpt unit if DC this afternoon. --continue BARBIE with HD Will follow (2) ESRD on hemodialysis: Blas Beltran was seen & examined in the PCU this morning. She c/o just feeling tired but denies angina or dyspnea this am. She is breathing comfortably on RA. BP improved, volume status , electrolyte acceptable. her weight this am 78.2 kg and her EDW is 78.5 kg. Review of Systems Review of Systems: All systems reviewed & are unremarkable except as noted in HPI & below Physical Exam Constitutional: WD/WN, vitals as above no acute distress Neck: trachea midline Respiratory: normal respiratory effort, lungs clear to auscultation Cardiovascular: RRR, no murmur, no edema Neurologic: normal touch/pain/proprioception, moves all extremities and awake; no focal motor deficits and not confused Psychiatric: A+Ox3, euthymic affect Results & Data Vital Signs (Past 12 Hours) Vital Signs Temp Pulse Pulse Resp BP Pulse Ox 01/24/19 07:37 36.6 C 65 16 139/71 94 01/24/19 04:03 36.9 C 56 L 18 145/66 H 95 01/24/19 00:00 76 01/23/19 23:45 36.9 C 64 18 158/87 H 93 PG Care Time/CCT Total # of Minutes Spent Total Time Spent with Patient: Total time spent is greater than 50% in coordination of care (as documented) at patient's floor/unit and/or counseling patient:
[2019-01-24] MEDS: PANTOprazole 40 MG TAB PO SCH (09:43)
--- NOTE | 2019-01-24 18:25 | Discharge Summary ---
Date of Service January 24, 2019 Admission HPI Per Admitting Provider Ms. Caicedo is a 73 y/o female with PMHx of PKD/ESRD on HD (MWF), Chronic Anemia, Recurrent C. Diff, HTN, Intracranial Aneurysm S/P Stenting, T2DM (Diet Managed), Hypothyroidism, and Depression/Anxiety who presents to the ED c/o SOB starting around 0300 this AM. She reports she has been in her normal state of health prior to this AM. She states she awoke suddenly from her sleep due to SOB. She states she tried to sit on the edge of the bed for a bit and then tried to lay down but the SOB continued. She was able to get a shower without significant worsening of SOB but again it did not resolve. She reports that she normally sleeps with her head elevated due to GERD however this normal amount of elevation made her breathing worse. She denies any recent weight gain or noticeable edema. She states her weights seem to be consistent during her dialysis sessions and denies any missed sessions. It appears with weight from ED she went from 78 kg to 80 kg since last check. Last dialysis was on Wednesday and she is due for another session tomorrow. She was also scheduled to have a blood transfusion on Wednesday. She has had chronic anemia that was thought to be likely from her ESRD. Her last transfusion was approx. one month ago. She continues to make urine and reports she was previously on Lasix however this was stopped as her fluid balance is rather stable. She denies fever/chills, CP, changes to her cough (has had chronic cough from GERD and reports negative workup for respiratory conditions). She reports no cardiac issues and self-reports a clean heart catheterization approx. one month ago during her workup for consideration for renal transplant. In the ED, she was given a Xopenex treatment but reports no change in symptoms. A blood transfusion was started while in the ED. CXR reveals a mild pulmonary edema. Electrolytes are stable. Hgb is 7.5. Principal Diagnosis Volume Overload with SOB Discharge Exam Constitutional WD/WN, vitals as above Eyes + anicteric sclerae ENMT Ears: no hearing impairment Neck trachea midline Respiratory normal respiratory effort; no cough Cardiovascular Rate/Rhythm: regular rate and regular rhythm Vessels: no JVD Extremities: + AV fistula Gastrointestinal (Abdomen) Inspection/Auscultation: normal bowel sounds Percussion/Palpation: abdomen soft; abdomen nontender Musculoskeletal Head/Neck/Chest: normocephalic and head atraumatic Skin no rashes, warm and dry Neurologic moves all extremities Psychiatric A+Ox3, euthymic affect Discharge Data Allergies Allergy/AdvReac Type Severity Reaction Status Date / Time nickel Allergy Intermediate RASH Verified 01/22/19 08:19 nitrofurantoin Allergy Mild REDNESS Verified 01/22/19 08:19 AND BURNING OF HANDS Consultations 01/22/19 08:58 ED Decision to Admit Stat 01/22/19 11:38 Consult Case Management - Discharge Planning Routine Consult Nephrology Routine Ordered Studies 01/22/19 17:01 CT head/brain wo con Stat Hospital Course (1) Shortness of breath: - This appeared to be related to volume overload/pulmonary edema - received emergent dialysis on 01/22 which brought her weight back to her baseline - SOB is currently resolved at this time; Saturations are adequate on RA - Uncertain of cause of fluid retention as it appears she is normally well maintained (2) Chronic cough: - Reports she has had a long standing cough that is thought to be reflux related and states she has had extensive pulmonary work-up - She did develop a cough that caused her to gag and throw up which she states does occ. happen; she has been evaluated by ENT in the past - She denies feeling ill and no signs of pneumonia - she does have some rhinorrhea but no facial pressure. Peanut butter seems to be helping with the cough -- She does endorse a nephew with recent strep throat but denies a sore throat herself and assessment is mildly irritated but no significant erythema or exudates- advised her to see her doctor if she develops a sore throat, fever, sinus congestion as it is possible she may have a viral illness but given exposure to strep this may need to be ruled out if symptoms progress (3) Anemia: - Chronic - baseline in 8s - Hgb 7.5 and transfused 2 units PRBCs on 01/22 - current Hgb at 9.3 (4) ESRD (end stage renal disease) on dialysis: - Follows a MWF schedule - Electrolytes stable; does still produce some urine and on Lasix previously but was D/Cd due to controlled volume status - Sevelamer 2400 mg TID and Prorenal daily - Nephrology followed - continue normal dialysis schedule (5) HTN (hypertension), benign: - Seemed to improve with increase in Cardizem - appears it has a tendency to run high looking on previous assessments - Increased Cardizem to 300 mg daily; Continue Hydralazine 150 mg TID, Valsartan 80 mg daily (6) 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 Monzon (7) CAD (coronary artery disease): - STABLE; reports a cardiac cath approx. one month ago and self-reports clean cath - is undergoing work-up for possible renal transplant - ASA 81 mg daily, Isosorbide 120 mg daily (8) Hypothyroidism: - TSH 3.3 on 01/23 - Levothyroxine 200 mcg daily - recent increased dosing Total Time Total Time Spent Total Time Spent (In Minutes): Greater than 30 minutes Discharge Plan Discharge Items Patient Disposition: Home - Self-Care Reason For Visit: SOB Discharge Diagnosis: Shortness of Breath from Extra Fluid Discharge Goals: Decrease discomfort, Improve disease control and Improve function Activity: Resume your previous activity Non-emergency contact: Primary Care Provider Call non-emergency contact if: you have any medication questions, your symptoms worsen and you have a fever Follow-up/Referrals: Cruz Ramos MD [Primary Care Provider] - 01/31/19 11:30 am (Please, follow up at Dr. Ramos's office with his associate, Ashlyn CARRANZA, on WednesdayJanuary 31 at 11:30 am. *If you need to change this appointment, call their office at [phone].) Diet: Dialysis Renal Addtl Provider Instructions: Shortness of Breath: - It appears that you had some extra fluid on your body that was causing some shortness of breath. It is uncertain why you retained extra fluid when normally you are so good with fluid balance. Sometimes extra salty foods or processed foods can do this for some people. Thankfully with a sooner dialysis session it pulled this fluid off and your breathing improved. - You also had a slightly reduced hemoglobin level which you did have a blood transfusion here in the hospital and your Hemoglobin level is 9.3 today and was this yesterday as well. Your iron level is in the normal range as well. You may have some anemia from your underlying kidney issues. If you haven't already you may benefit from seeing a blood doctor (hardboard supervisor) so see if there is other options to keep these blood counts from dropping. - You are to continue your normal dialysis schedule. High Blood Pressure: - You had some higher blood pressure readings which can be a little tough to get back down. However today they are doing pretty good. Would recommend to routinely check your blood pressure at home, once or twice a day, and write this down so your doctor can see them and see if further adjustments need to be made - Here in hospital your Diltiazem was increased to 300 mg daily and a prescription will be sent. You can continue your other medications as previously prescribed as nothing was changed with these. C. difficile: - Continue your current regimen and taper as instructed by Dr. Monzon Cough: - It is possible the cough is related to your reflux and recommend to continue your current regimen. - However, with the runny nose and watering eyes this could be a viral illness as well. Thankfully no fevers have been noted. Your blood work does not show and elevated white blood cell count either. At this time recommend conservative measures. However, if you develop a sore throat or get sinus pressure or notice no improvement please discuss with your doctor since you did have a family member with strep throat. Prescriptions: New diltiazem HCl [Cardizem CD] 300 mg Capsule,Extended Release 24hr 300 mg PO QAM 30 Days Qty: 30 RF: 1 Continued ropinirole 0.25 mg tablet 0.25 mg PO .COMPLEX Qty: 90 RF: 3 lorazepam 0.5 mg tablet 0.25 - 0.5 mg PO BID PRN (Reason: Anxiety) Qty: 60 RF: 0 omeprazole 20 mg capsule,delayed release(DR/EC) 20 mg PO BID RF: 0 hydralazine 50 mg tablet 150 mg PO TID RF: 0 OneTouch Verio strip .ROUTE .MEDSUPPLY Qty: 10 RF: 0 lancets [OneTouch UltraSoft Lancets] misc .ROUTE .MEDSUPPLY Qty: 50 RF: 0 isosorbide mononitrate 120 mg Tablet Extended Release 24 Hr 120 mg PO DIRECTED RF: 0 meloxicam 15 mg tablet 15 mg PO QAM RF: 0 bupropion HCl 150 mg tablet sustained-release 12 hr 150 mg PO QAM RF: 0 Mircera 100 mcg/0.3 mL Syringe 100 mcg subcut MONTHLY RF: 0 atorvastatin 40 mg tablet 40 mg PO HS RF: 0 valsartan 80 mg tablet 80 mg PO DAILY RF: 0 aspirin [Aspir-81] 81 mg Tablet,Delayed Release (Dr/Ec) 81 mg PO DAILY RF: 0 sevelamer carbonate [Renvela] 800 mg tablet 2,400 mg PO TIDM RF: 0 ProRenal 8 mg iron-800 mcg-1,000 unit tablet 1 tab PO DAILY RF: 0 levothyroxine 200 mcg tablet 200 mcg PO DAILY RF: 0 vancomycin 25 mg/mL recon soln 125 mg PO QID RF: 0 Discontinued diltiazem HCl 240 mg capsule,extended release 24 hr 240 mg PO QAM Qty: 90 RF: 3 No Action montelukast 10 mg tablet 10 mg PO QPM Qty: 30 RF: 5 Stand-Alone Forms: [facility] Discharge Orders: Discharge Order (Routine); Ordered 01/24/19 Ordered By: Valentina Julio Admission Data Admit Date/Time: 01/22/19 10:40 Attending Provider: Cesar Oneil Admit Provider: Jewel Leonard Primary Care Provider: Cruz Ramos Other Providers: Robert Clemons Service: Telemetry Other Interventions: Discharge Summary Assessment (RN) Last Done: 01/24/19 12:36 Pending Studies at Discharge: No DC Date/Time DO NOT enter until pt leaves facility: 01/24/19 13:45 Supervising Physician Co-Signing Physician Notes Attending note: patient seen and examined with Valentina Julio PA-C. I agree with her discharge summary. I personally reviewed the labs and imaging findings. Patient feeling much better after two HD sessions. Unclear what caused her to go into pulmonary edema since she was compliant with her HD. BP elevated during stay, improved with increase in CCB per orders of Dr. Clemons. Patient eating well, no difficulty breathing, no chest pain, no constipation. She is anxious to get home, feels stable for discharge. - Acute respiratory failure secondary to pulmonary edema: resolved with extra HD session and ultrafiltration, lungs clear, breathing room air with no distress - ESRD on HD: follow up with normally scheduled HD on 01/25 for rest of details see the full summary
[2019-01-27] MEDS ORDERED: VANCOMYCIN HCL 125 MG/2.5ML SOLN PO SCH (09:00)
[2019-01-27] MEDS ORDERED: RASPBERRY SYRUP 5 ML UDP PO SCH (09:00)
[2019-02-03] MEDS ORDERED: VANCOMYCIN HCL 125 MG/2.5ML SOLN PO SCH (09:00)
[2019-02-03] MEDS ORDERED: RASPBERRY SYRUP 5 ML UDP PO SCH (09:00)
== END 2019-01-24 13:45 | disposition home or self-care (01) | DRG 189 ==
LOC: ED 07:10 → 2N 10:40 → SUATTDRO 10:40 → 2N 11:06 → 2W 14:52 → 2E 16:45
DX: E11.22 Type 2 diabetes mellitus with diabetic chronic kidney disease; E87.70 Fluid overload, unspecified; I12.0 Hypertensive chronic kidney disease with stage 5 chronic kidney disease or end stage renal disease; I25.10 Atherosclerotic heart disease of native coronary artery without angina pectoris; A04.71 Enterocolitis due to Clostridium difficile, recurrent; J81.1 Chronic pulmonary edema; F41.8 Other specified anxiety disorders; K21.9 Gastro-esophageal reflux disease without esophagitis; N18.6 End stage renal disease; E03.9 Hypothyroidism, unspecified; D64.9 Anemia, unspecified; Z99.2 Dependence on renal dialysis; Z79.899 Other long term (current) drug therapy; Z79.82 Long term (current) use of aspirin

== ENCOUNTER 2023-11-20 14:50 | Inpatient (IN) ==
--- NOTE | 2023-11-20 15:26 | Emergency Department Note ---
Impression & Plan AMS (altered mental status), Acute confusion, UTI (urinary tract infection), Anemia ED Provider Note NAME: CATARINO IBARRA AGE: 78 SEX: F : 1945 ARRIVES VIA: Walk-In INFORMANT: Patient ED PROVIDER(S): Aman Vergara DO CHIEF COMPLAINT: Fall, weakness and confusion HPI: Patient is a 78-year-old female with a past medical history of squamous cell carcinoma of the scalp, CKD, transplant recipient who presents to the ER as she fell yesterday while trying to get up last night. She notes that she crawled to the couch. Since then she has been having trouble walking and the son brought her over and she is very shaky and unsteady and consequently brought her in. She denies any head pain or neck pain. No chest pain or shortness of breath. No belly pain. No nausea vomiting or diarrhea. No dysuria urgency or frequency. No other exacerbating or remitting factors. Additional history provided by family present at bedside who notes that she has had repetitive questioning has been confused. ADDITIONAL HISTORY OBTAINED: Per HPI Chronic Medical/Social Conditions Affecting Care: Per HPI PAST MEDICAL HISTORY:See Below PAST SURGICAL HISTORY:See Below FAMILY HISTORY:See Below SOCIAL HISTORY:See Below HOME MEDICATIONS:See Below ALLERGIES:See Below VITALS:See Below PHYSICAL EXAMINATION: GENERAL: alert, well appearing, well nourished, no distress, non-toxic HEAD: normal cephalic, atraumatic EYE EXAM: normal conjunctiva, PERRL and EOM's grossly intact OROPHARYNX: no exudate, no erythema, lips, buccal mucosa, and tongue normal and mucous membranes are moist NECK: supple, no nuchal rigidity, no adenopathy, non-tender CHEST: stable to compression anteriorly and posteriorly LUNGS: clear to auscultation. Normal chest wall mechanics HEART: no murmurs, S1 normal and S2 normal ABDOMEN: abdomen soft, non-tender, normo-active bowel sounds, no masses, no rebound or guarding. PELVIS: stable to compression anteriorly and posteriorly BACK: Back is symmetrical on inspection and there is no deformity, no midline tenderness, no CVA tenderness. UPPER EXTREMITIES: full active and passive range of motion of all joints without tenderness to palpation LOWER EXTREMITIES: full active and passive range of motion of all joints without tenderness to palpation NEURO EXAM: Awake alert following commands oriented to person and place, cranial nerves II-XII intact, normal speech, no weakness of arms, no weakness of legs. MEDICAL DECISION MAKING: Patient is a 78-year-old female who presents ER with a past medical history of seizure disorder and renal transplant for confusion and a fall. IV was established blood work was obtained. Labs show no significant leukocytosis. Mild anemia. BMP with slightly elevated glucose at 166. LFTs and bilirubin were unremarkable. CK was unremarkable. UA does show a clear UTI which likely causes symptoms. Patient was given IV antibiotics and IV fluids. CT of the head and cervical spine was negative. Patient was discussed with the hospitalist for further evaluation management treatment. Consults/Care Managements Discussions: Per [facility] Triage Nursing notes reviewed. Limited review of prior medical records performed Vital Signs: reviewed and remarkable for no significant abnormalities Differential diagnosis: Differential diagnoses includes but is not limited to toxic, metabolic, infectious, traumatic, cardiac, neurologic, hematologic, psychiatric and inflammatory etiologies. ER treatment provided: See below Diagnostics interpreted by me include EKG and cardiac monitoring as listed below: -Cardiac Monitoring: An order was placed for continuous cardiac monitoring. The monitor shows a rate of 60 with sinus rhythm. -ECG: Sinus rhythm rate of 61 Normal axis No PVCs QTc 424 -Laboratory studies:Interpreted by me as stated above in MDM and shown below. Imaging studies: Xrays: As interpreted by me:none CTs show: CT of the head and cervical spine showed no acute pathology Procedures:none Critical Care: None Past Med/Surg History Problem List (Updated 11/20/23 @ 19:14 by Aman Vergara DO) Anemia (Acute) UTI (urinary tract infection) (Acute) Acute confusion (Acute) AMS (altered mental status) (Acute) Hypercalcemia Vomiting Elevated WBC count Focal motor seizure (Acute) Arthritis Squamous cell carcinoma of scalp Lumbar facet joint pain Obesity (BMI 35.0-39.9 without comorbidity) (Chronic) Chronic kidney disease, unspecified (Chronic) Kidney transplant recipient (Chronic ~06/2021) Lumbar spinal stenosis (Chronic) Cervicalgia (Chronic) Chronic cough (Chronic) Pulmonary nodule (Chronic ~12/2018) CT 10/2018, 12/2019 by Tam[facility]. PLan Repeat in 1 yr Insomnia (Chronic) Seizure disorder (Chronic) Followed by [facility] Restless leg syndrome (Chronic) Obesity (Chronic) Hypothyroidism (Chronic) Hyperlipidemia (Chronic) Generalized osteoarthritis (Chronic) Diabetes mellitus, type II (Chronic) Cognitive impairment (Chronic) Anxiety and depression (Chronic) CAD (coronary artery disease) (Chronic ~2018) Cardiac catheterization 11/2018 [facility]. Nonobstructive coronary disease Polycystic kidney disease (Chronic) Anemia in CKD (chronic kidney disease) (Chronic) HTN (hypertension), benign (Chronic) Medical History Anemia CHRONIC; BASELINE HGB 9'S PER CHART REVIEW Anxiety and depression Arteriovenous fistula stenosis pt denies Asthma hx-no inhalers Bradycardia pt denies Brain aneurysm coiled 11/05/18. CAD (coronary artery disease) Central venous catheter in place, permanent pt denies-stated she "never had one of these" Cervicalgia pt denies Chronic cough pt denies Chronic low back pain Cognitive impairment pt denies Degenerative disc disease Diabetes mellitus, type II IDDM Diverticulitis pt denies Esophagus disorder ESRD (end stage renal disease) on dialysis pt stated she is no longer since having her kidney transplant in 2021 Frequent PVCs pt denies Glaucoma Gout hx Hearing deficit History of SCC (squamous cell carcinoma) of skin Hyperlipidemia Hyperphosphatemia pt denies Hypertension Hypothyroidism Kidney stones no sx. Lumbar spinal stenosis Pancolitis pt denies Pulmonary nodule CT 10/2018, 12/2019 by [facility]; monitored RLS (restless legs syndrome) Seizure disorder most recent 11/17/23; f/u [facility] neuro Surgical History History of arteriovenous graft LUE AVF History of biopsy punch biopsy of lesion on scalp 05/14/23 History of bronchoscopy History of cataract surgery Bilateral History of colonoscopy 09/20/2018. poor prep so procedure aborted. patient with emesis when awake, no issues and discharged home. History of hammer toe correction History of lumbar surgery 2003, unsure of levels, [place] History of surgery peritoneal dialysis cath placement peritoneal dialysis cath removal/permacath insertion= 01/27/18= MAC SEDATION AT [facility] History of surgery Wide local excision scalp lesion, burring of calvarium, right superficial parotidectomy with facial nerve preservation, right selective neck dissection at [facility] on 08/24/23 History of total abdominal hysterectomy and bilateral salpingo-oophorectomy Hx of cardiac cath 11/2018, [facility], no stents "prior to kidney transplant"; no cardio currently Hx of kidney transplant 2021 S/P trigger finger release Family History Mother Family history of reaction to anesthesia confused for a day or so after sx in the 1950s Family history of diabetes mellitus Sister Pacemaker Skin cancer Father Family history of diabetes mellitus type 2 Hypertension Stroke syndrome Pure hypercholesterolemia Diabetes Son Hypertension Pure hypercholesterolemia Fatty liver Aunt Ovarian cancer Sister Diabetes Complications Sister No problems noted. Brother Stillborn, normal Son Hypertension Diverticulosis Daughter MVA (motor vehicle accident) Other Cardiac disorder Deafness Denies family history of Prostate cancer Myocardial infarction Breast cancer Colorectal cancer Social History Smoking Status: Never smoker Second Hand Exposure: No; Do You Dip or Chew Tobacco: No; Hx Alcohol Use: No Hx Substance Use: No Preferred Language: Slovak Communication Ability: Effective Visual Impairment: Limited Hearing Ability: Use of Hearing Aid Mogul Operator Required: No Beliefs That Will Affect Care: None marital status: / Current Living Situation: Alone Current Living Situation Comment: pt declined to answer question current occupational status: 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 How many Children do You have: 2 How many Children do You have Comment: 2 living children Feels Safe at Home: Yes Childhood Exposure to Second-Hand Smoke: No Diet: lactose free, low salt and regular caffeine: Yes during the past year weight has: decreased > 10 lbs Dental Care, Regularly: Yes Physical Activity Frequency: Does not Exercise Seatbelt Use: always Sunscreen Use: Yes Do you think of yourself as: straight/heterosexual Gender Identity: Female Assistive Devices: Glasses Allergies Allergies Allergy/AdvReac Type Severity Reaction Status Date / Time nickel Allergy Intermediate RASH Verified 11/20/23 16:02 nitrofurantoin Allergy Intermediate REDNESS Verified 11/20/23 16:02 AND BURNING OF HANDS morphine Allergy Unknown CAN'T Verified 11/20/23 16:02 REMEMBER NSAIDS (Non-Steroidal Allergy Unknown CAN'T Verified 11/20/23 16:02 Anti-Inflamma REMEMBER Home Meds Home Medications Medication Instructions Recorded Confirmed aspirin 81 mg capsule 162 mg PO QAM 08/13/21 11/20/23 glucagon 1 mg solution for 1 mg subcut UD PRN Hypoglycemia 08/13/21 11/20/23 injection (Glucagon Emergency Kit) multivitamin 1 tab PO DAILY 08/13/21 11/20/23 latanoprost 0.005 % eye drops 1 drp OPL HS 10/10/21 11/20/23 mycophenolate mofetil 500 mg 250 mg PO BID 10/10/21 11/20/23 tablet (CellCept) furosemide 20 mg tablet (Lasix) 20 mg PO DIRECTED PRN Edema 01/15/22 11/20/23 brimonidine 0.2 % eye drops 1 drp ophthalmic (eye) BID 07/15/23 11/20/23 tacrolimus 1 mg capsule, 0.5 mg PO BID 11/04/23 11/20/23 immediate-release gabapentin 100 mg capsule 100 mg PO TID 11/17/23 11/20/23 insulin NPH isoph U-100 human 100 16 unit subcut QAM 11/17/23 11/20/23 unit/mL (3 mL) subcutaneous pen (Novolin N FlexPen) insulin glargine 100 unit/mL (3 13 unit subcut QAM 11/17/23 11/20/23 mL) subcutaneous pen (Basaglar KwikPen U-100 Insulin) levetiracetam 500 mg tablet 500 mg PO BID 11/17/23 11/20/23 doxazosin 1 mg tablet 2 mg PO HS 11/19/23 11/20/23 levothyroxine 125 mcg tablet 125 mcg PO QAM 11/19/23 11/20/23 Previous Rx's Medication Instructions Recorded blood sugar diagnostic (OneTouch #100 ea 09/28/22 Verio test strips) lancets 33 gauge (OneTouch Delica #100 ea 10/01/22 Lancets) mupirocin 2 % topical ointment 1 applic topical BID #22 grams 11/18/22 atorvastatin 40 mg tablet 40 mg PO HS #90 tabs 12/15/22 carvedilol 12.5 mg tablet 12.5 mg PO BID #180 tabs 06/10/23 hydralazine 100 mg tablet 100 mg PO TID #270 tabs 08/10/23 pen needle, diabetic 32 gauge x #200 ea 11/17/23" (BD Ultra-Fine Monica Pen Needle) Results & Data (ED) Vital Signs Vital Signs - 24 hr 11/20/23 14:53 11/20/23 15:01 11/20/23 15:19 Temperature 37.2 C 36.8 C Temperature Source Temporal Artery Scan Oral Pulse Rate 61 59 L Pulse Rate [Apical] 61 Pulse Rhythm Regular Pulse Strength Normal Respiratory Rate 18 16 Respiratory Effort / Characteristics Non-Labored Spontaneous Respiratory Depth Normal Respiratory Pattern Regular Blood Pressure 155/70 H Blood Pressure [Right Arm] 133/50 L Blood Pressure Mean 98 Blood Pressure Mean [Right Arm] 77 Blood Pressure Position Sitting Pulse Oximetry 95 96 Oxygen Delivery Method Room Air Room Air Sepsis Recent Fever Within 48 Hours No Sepsis New/Unexplained Change in Mental Status No Sepsis Action Taken by Nursing No Action Required 11/20/23 15:29 11/20/23 16:39 11/20/23 17:34 Temperature 36.8 C Temperature Source Oral Pulse Rate Pulse Rate [Apical] 60 64 Pulse Rhythm Pulse Strength Respiratory Rate 16 16 Respiratory Effort / Characteristics Respiratory Depth Respiratory Pattern Blood Pressure Blood Pressure [Right Arm] 149/64 H 152/54 H Blood Pressure Mean Blood Pressure Mean [Right Arm] 92 86 Blood Pressure Position Pulse Oximetry 96 96 94 Oxygen Delivery Method Room Air Room Air Room Air Sepsis Recent Fever Within 48 Hours Sepsis New/Unexplained Change in Mental Status Sepsis Action Taken by Nursing 11/20/23 18:11 11/20/23 18:50 Temperature Temperature Source Pulse Rate 62 Pulse Rate [Apical] 65 Pulse Rhythm Pulse Strength Respiratory Rate 20 Respiratory Effort / Characteristics Respiratory Depth Respiratory Pattern Blood Pressure Blood Pressure [Right Arm] 147/66 H Blood Pressure Mean Blood Pressure Mean [Right Arm] 93 Blood Pressure Position Pulse Oximetry 94 Oxygen Delivery Method Room Air Sepsis Recent Fever Within 48 Hours Sepsis New/Unexplained Change in Mental Status Sepsis Action Taken by Nursing Laboratory Data 11/20/23 15:10 11/20/23 15:10 Lab Results 11/20/23 11/20/23 Range/Units 15:10 16:57 WBC 13.06 H (4.8-10.8) K/ul RBC 3.71 L (4.20-5.40) M/uL Hgb 10.6 L (12.0-16.0) g/dl Hct 32.7 L (37.0-47.0) % MCV 88.1 (80.0-100.0) fL MCH 28.6 (25.0-34.0) pg MCHC 32.4 (32.0-36.0) g/dL RDW Std Deviation 44.2 (36.4-46.3) fL RDW Coeff of Martin 13.8 (11.5-14.5) % Plt Count 275 (130-400) K/uL MPV 9.3 L (9.4-12.4) fL Immature Gran % (Auto) 0.4 % Neut % (Auto) 77.1 % Lymph % (Auto) 14.5 % [place] % (Auto) 6.5 % Eos % (Auto) 1.2 % Baso % (Auto) 0.3 % Neut # (Auto) 10.07 H (1.40-6.50) K/uL Lymph # (Auto) 1.89 (1.20-3.40) K/uL [place] # (Auto) 0.85 H (0.11-0.59) K/uL Eos # (Auto) 0.16 (0.00-0.50) K/uL Baso # (Auto) 0.04 (0.00-0.20) K/uL Immature Gran # (Auto) 0.05 (0.01-0.20) K/uL Sodium 136 (136-145) mmol/L Potassium 4.2 (3.5-5.1) mmol/L Chloride 103 (98-107) mmol/L Carbon Dioxide 28 (21-32) mmol/L Anion Gap 5 (3-11) BUN 21 (6-23) mg/dl Creatinine 0.99 (0.6-1.2) mg/dl Est Cr Clr Drug Dosing 44.9 ml/min Est GFR ( Amer) 63.7 ml/min Est GFR (Non-Af Amer) 55.0 ml/min BUN/Creatinine Ratio 21.2 H (10-20) Glucose 166 H (70-99(Fasting)) mg/dl Calcium 10.7 H (8.6-10.3) mg/dl Total Bilirubin 0.4 (0.2-1.0) mg/dl AST 11 L (13-39) U/L ALT 8 (7-52) U/L Alkaline Phosphatase 66 (34-104) U/L Total Creatine Kinase 24 L (26-192) U/L Troponin I High Sens 9.3 (0-14) pg/ml Total Protein 7.0 (6.0-8.3) gm/dl Albumin 3.6 (3.4-5.0) gm/dl Globulin 3.4 (2.5-4.0) gm/dl Albumin/Globulin Ratio 1.1 (0.9-2) Lipase 9 L (11-82) U/L Urine Color Yellow Urine Appearance Clear (Clear) Urine pH 5.0 (4.5-7.5) Ur Specific [place] 1.021 (1.000-1.030) Urine Protein Trace H (Negative) Urine Glucose (UA) Negative (Negative) Urine Ketones Negative (Negative) Urine Blood Negative (Negative) Urine Nitrite Positive A (Negative) Urine Bilirubin Negative (Negative) Urine Urobilinogen Negative (Negative) Ur Leukocyte Esterase Trace H (Negative) Urine WBC (Auto) 6-10 H (0-5) /hpf Urine RBC (Auto) 0-2 (0-2) /hpf U Hyaline Cast (Auto) 0-2 (0-2) /lpf U Epithel Cells (Auto) 0-2 (0-2) /hpf Urine Bacteria (Auto) 4+ H (None Seen) Administered Medications Levetiracetam 500 mg/ Sodium (Chloride) 105 mls @ 420 mls/hr IV Q12H [facility] Stop: 12/20/23 18:59 Last Infusion: 11/20/23 19:30 Dose: Infused Documented By: Admin: 11/20/23 18:43 Dose: 420 mls/hr Documented By: MOON Lactated Ringer's (Lr) 1,000 mls @ 75 mls/hr IV .[id number] [facility] Stop: 12/20/23 17:29 Last Infusion: 11/20/23 19:17 Dose: 0 mls/hr Documented By: Admin: 11/20/23 18:43 Dose: 75 mls/hr Documented By: MOON Ampicillin Sodium/Sulbactam Sodium 1,500 mg/ Sodium Chloride 100 mls @ 200 mls/hr IV Q6H [facility] Stop: 11/22/23 17:59 Last Admin: 11/20/23 19:24 Dose: 200 mls/hr Documented By: MOON Discontinued Medications Enoxaparin Sodium (Enoxaparin Inj 40 Mg/0.4 Ml Syr) 40 mg SQ NOW ONE Stop: 11/20/23 18:43 Last Admin: 11/20/23 19:29 Dose: 40 mg Documented By: MOON Sodium Chloride (Nss) 500 mls @ 999 mls/hr IV .Q31M ONE Stop: 11/20/23 15:46 Last Infusion: 11/20/23 17:11 Dose: Infused Documented By: Admin: 11/20/23 15:28 Dose: 999 mls/hr Documented By: MOON Ceftriaxone Sodium (Rocephin) 2,000 mg in 50 mls @ 100 mls/hr IV NOW STA Stop: 11/20/23 17:13 Last Infusion: 11/20/23 17:19 Dose: Infused Documented By: Admin: 11/20/23 16:58 Dose: 100 mls/hr Documented By: MOON Ioversol (Optiray 320 125ml) 116 ml IV ONCE ONE Stop: 11/20/23 19:13 Last Admin: 11/20/23 19:13 Dose: 116 ml Documented By: BRE Ondansetron HCl (Ondansetron Inj 2 Mg/Ml 2 Ml Vial) Confirm Administered Dose 4 mg .ROUTE .STK-MED ONE Stop: 11/20/23 17:07 Last Admin: 11/20/23 17:10 Dose: Not Given Documented By: MOON Ondansetron HCl (Ondansetron Inj 2 Mg/Ml 2 Ml Vial) 4 mg IV NOW STA Stop: 11/20/23 17:10 Last Admin: 11/20/23 17:10 Dose: 4 mg Documented By: MOON Imaging Data Radiologist's Impression: Head CT 11/20/23 15:16 CT OF THE HEAD WITHOUT CONTRAST CLINICAL HISTORY: Fall. COMPARISON STUDY: Head CT November 17, 2023. TECHNIQUE: Helical axial images of the head were obtained without IV contrast. Automated exposure control was utilized for the study. A dose lowering technique was utilized adhering to the principles of ALARA. FINDINGS: No acute intracranial hemorrhage, midline shift or mass effect is present. The ventricular system is stable. Basal cisterns are patent. There are no extra axial collections. Endovascular coils within the basilar artery with streak artifact are noted. White matter hypodensity suggests small vessel disease. These are unchanged. There are no findings to suggest acute dural sinus thrombosis or acute territorial infarct. A lytic 3.7 cm lesion within the right parietal vertex is again noted with intracranial extra-axial extension. This is unchanged since CT of November 17, 2023. A large necrotic posterior right neck mass is partially imaged on this exam. There calvarial fractures. IMPRESSION: 1. No acute intracranial findings. No change in appearance of the brain. 2. Redemonstration of a lytic right parietal calvarial lesion with intracranial extension, unchanged appearance since prior CT. 3. Partially visualized necrotic posterior right neck mass. This is malignant and may reflect a large pathologic lymph node. ACT 112: Negative or not required by law. Electronically signed by: Kevin Thompson M.D. 11/20/2023 4:[address] 11/20/23 15:27 CT OF THE CERVICAL SPINE WITHOUT CONTRAST CLINICAL HISTORY: fall COMPARISON STUDY: CT of the neck June 11, 2023. Treatment planning CT November 10, 2023. TECHNIQUE: Helical axial images of the cervical spine were obtained without IV contrast. Sagittal and coronal reconstructions were viewed. Automated exposure control was utilized for the study. A dose lowering technique was utilized adhering to the principles of ALARA. FINDINGS: There is straightening of the cervical lordosis. There is no acute cervical spine fracture. No suspicious lesions within the cervical spine are identified. There is chronic/congenital deformities within the posterior elements at the C4 level, unchanged since CT of June 11, 2023. Right neck stranding is noted. There is prevertebral edema. A large thick-walled necrotic right neck mass measures 5.4 x 4.7 cm. This is along the posterior aspect the right sternocleidomastoid mastoid muscle. This may involve the muscle. Several additional prominent right cervical lymph nodes are present. IMPRESSION: 1. No acute cervical spine fracture or subluxation. 2. Large thick-walled necrotic right neck mass measuring 5.4 x 4.7 cm, shown on treatment planning CT. This favors a necrotic pathologic lymph node. 3. Right neck and prevertebral stranding and fluid. This may be treatment related. ACT 112: Negative or not required by law. Electronically signed by: Kevin Thompson M.D. 11/20/2023 4:17 PM Chest X-Ray 11/20/23 18:41 XR chest 1V portable CLINICAL HISTORY: Shortness of breath. COMPARISON STUDY: Chest CT June 11, 2023 and chest radiograph November 17, 2023. FINDINGS: Lung volumes are normal. Lungs are clear. There is no pneumothorax or pleural effusion. Cardiomegaly is unchanged. Mediastinal contours are normal. There is no evidence for pulmonary edema. IMPRESSION: No acute cardiopulmonary findings. No change in appearance of the chest. ACT 112: Negative or not required by law. Electronically signed by: Kevin Thompson M.D. 11/20/2023 7:28 PM Chest CTA 11/20/23 18:42 CT ANGIOGRAPHY OF THE CHEST, PULMONARY EMBOLUS PROTOCOL CLINICAL HISTORY: Shortness of breath. Evaluate for pulmonary embolus. Squamous cell carcinoma. COMPARISON STUDY: Chest radiograph November 17, [address] June 11, 2023. TECHNIQUE: Following IV administration of Optiray, helical axial images of the chest were obtained utilizing the pulmonary embolus protocol. Maximal intensity projections and sagittal and coronal reformats were viewed on an independent 3D workstation. IV contrast was administered without complication. Automated exposure control was utilized for the study. A dose lowering technique was utilized adhering to the principles of ALARA. CT DOSE: 773.75 mGy.cm FINDINGS: No pulmonary emboli are identified. There is no thoracic aortic dissection. There is moderate cardiomegaly and coronary calcification. No enlarged axillary, mediastinal or hilar lymph nodes are present. Right neck stranding is partially imaged on this examination. This may be treatment related. Several pulmonary nodules are unchanged since outside chest CT of November 14, 2019. These are benign given stability. There are no new pulmonary nodules. There is no consolidation to suggest pneumonia. There is no pneumothorax or pleural effusion. A small hiatal hernia is present. There is mild wall thickening the distal esophagus. Extensive vascular calcification within the upper abdomen is noted. Innumerable right renal lesions are partially imaged on this exam. These favor cysts. IMPRESSION: 1. No pulmonary emboli identified. 2. No consolidation to suggest pneumonia. 3. No evidence for metastatic disease within the chest. 4. Small hiatal hernia. Mild distal esophageal wall thickening. This may reflect esophagitis. 5. Partially imaged right stranding. This is nonspecific but may be treatment related. ACT 112: Negative or not required by law. Electronically signed by: Kevin Thompson M.D. 11/20/2023 7:27 PM Discharge Plan Visit Data Chief Complaint: Head Injury, Minor Stated Complaint: FALL, HEAD INJURY ED Provider: Aman Vergara Discharge Problem: AMS (altered mental status), Acute confusion, UTI (urinary tract infection), Anemia Patient Disposition: Admitted As Inpatient Discharge Instructions Interventions: ED Discharge Assessment Last Done: 11/20/23 19:36 Forms Stand Alone Forms: My Amin[facility] [employer] Prescriptions Prescriptions: No Action insulin glargine [Basaglar KwikPen U-100 Insulin] 100 unit/mL (3 mL) insulin pen 13 unit subcut QAM Glucagon Emergency Kit (human) 1 mg recon soln 1 mg subcut UD PRN (Reason: Hypoglycemia) Rx Instructions: For blood sugar <50 multivitamin Tablet 1 tab PO DAILY aspirin 81 mg capsule 162 mg PO QAM mycophenolate mofetil [CellCept] 500 mg tablet 250 mg PO BID Hold Instructions: Home Medication placed on hold at Doctor's office Rx Instructions: ON HOLD latanoprost 0.005 % drops 1 drp OPL HS Rx Instructions: 1 drop in left eye evening (DME) lancets [ChangoTouch Delica Lancets] 33 gauge misc See Rx Instructions .Route Qty: 100 3RF Rx Instructions: TEST ONCE DAILY atorvastatin 40 mg tablet 40 mg PO HS Qty: 90 3RF carvedilol 12.5 mg tablet 12.5 mg PO BID Qty: 180 3RF Rx Instructions: must administer with a meal/food hydralazine 100 mg tablet 100 mg PO TID Qty: 270 3RF tacrolimus 1 mg capsule 0.5 mg PO BID furosemide [Lasix] 20 mg tablet 20 mg PO DIRECTED PRN (Reason: Edema) (DME) OneTouch Verio test strips Strip See Rx Instructions .Route Qty: 100 3RF Rx Instructions: test once daily E11.9 mupirocin 2 % ointment 1 applic topical BID Qty: 22 1RF Rx Instructions: Apply to the affected nails BID to prevent infection. gabapentin 100 mg capsule 100 mg PO TID Novolin N FlexPen 100 unit/mL (3 mL) insulin pen 16 unit subcut QAM Rx Instructions: take once daily 10 minutes before breakfast (DME) pen needle, diabetic [BD Ultra-Fine Monica Pen Needle] 32 gauge x 5/32" needle See Rx Instructions .Route Qty: 200 3RF Rx Instructions: for injections twice per day brimonidine 0.2 % drops 1 drp ophthalmic (eye) BID levetiracetam 500 mg tablet 500 mg PO BID doxazosin 1 mg tablet 2 mg PO HS Rx Instructions: 2 mg PO evening; levothyroxine 125 mcg tablet 125 mcg PO QAM Referrals Referrals: Nikhil Nelson DO [Primary Care Provider] - Discharge Problem: AMS (altered mental status) Qualifiers: Altered mental status type: unspecified Qualified Code(s): R41.82 - Altered mental status, unspecified UTI (urinary tract infection) Qualifiers: Urinary tract infection type: acute cystitis Hematuria presence: without hematuria Qualified Code(s): N30.00 - Acute cystitis without hematuria Anemia Qualifiers: Anemia type: unspecified type Qualified Code(s): D64.9 - Anemia, unspecified
[2023-11-20] MEDS: SODIUM CHLORIDE 0.9% 500 ML IV ONE (15:28)
[2023-11-20 15:39] LABS: Basophils # (auto) 0.04 K/uL (0.00-0.20); Basophils % (auto) 0.3 %; Eosinophils # (auto) 0.16 K/uL (0.00-0.50); Eosinophils % (auto) 1.2 %; Hematocrit (blood only) 32.7 % (37.0-47.0); Hemoglobin 10.6 g/dl (12.0-16.0); Immature Granulocytes # (auto) 0.05 K/uL (0.01-0.20); Immature Granulocytes % (auto) 0.4 %; Lymphocytes # (auto) 1.89 K/uL (1.20-3.40); Lymphocytes % (auto) 14.5 %; Mean Corpuscular Hemoglobin 28.6 pg (25.0-34.0); Mean Corpuscular Hgb Conc 32.4 g/dL (32.0-36.0); Mean Corpuscular Volume 88.1 fL (80.0-100.0); Mean Platelet Volume 9.3 fL (9.4-12.4); Monocytes # (auto) 0.85 K/uL (0.11-0.59); Monocytes % (auto) 6.5 %; Neutrophils # (auto) 10.07 K/uL (1.40-6.50); Neutrophils % (auto) 77.1 %; Platelet Count 275 K/uL (130-400); RDW Coefficient of Variation 13.8 % (11.5-14.5); RDW Standard Deviation 44.2 fL (36.4-46.3); Red Blood Count 3.71 M/uL (4.20-5.40); White Blood Count 13.06 K/ul (4.8-10.8)
[2023-11-20 15:53] LABS: Albumin Globulin Ratio 1.1 (0.9-2); Albumin Level 3.6 gm/dl (3.4-5.0); BUN Creatinine Ratio 21.2 (10-20); Bilirubin,Total 0.4 mg/dl (0.2-1.0); Calcium 10.7 mg/dl (8.6-10.3); Creatinine Clr Calc Pharmacy 44.9 ml/min; Est GFR (African American) 63.7 ml/min; Globulin 3.4 gm/dl (2.5-4.0); Potassium 4.2 mmol/L (3.5-5.1)
--- NOTE | 2023-11-20 16:05 | CT Scan Report ---
CT OF THE HEAD WITHOUT CONTRAST CLINICAL HISTORY: Fall. COMPARISON STUDY: Head CT November 17, 2023. TECHNIQUE: Helical axial images of the head were obtained without IV contrast. Automated exposure con trol was utilized for the study. A dose lowering technique was utilized adhering to the principles o f ALARA. FINDINGS: No acute intracranial hemorrhage, midline shift or mass effect is present. The ventricular system is stable. Basal cisterns are patent. There are no extra axial collections. Endovascular coils within the basilar artery with streak artifact are noted. White matter hypodensity suggests small ve ssel disease. These are unchanged. There are no findings to suggest acute dural sinus thrombosis or a cute territorial infarct. A lytic 3.7 cm lesion within the right parietal vertex is again noted with intracranial extra-axial extension. This is unchanged since CT of November 17, 2023. A large necrotic pos terior right neck mass is partially imaged on this exam. There calvarial fractures. IMPRESSION: 1. No acute intracranial findings. No change in appearance of the brain. 2. Redemonstration of a lytic right parietal calvarial lesion with intracranial extension, unchanged appearance since prior CT. 3. Partially visualized necrotic posterior right neck mass. This is malignant and may reflect a large pathologic lymph node. ACT 112: Negative or not required by law. Electronically signed by: Kevin Thompson M.D. 11/20/2023 4:03 PM
--- NOTE | 2023-11-20 16:19 | CT Scan Report ---
CT OF THE CERVICAL SPINE WITHOUT CONTRAST CLINICAL HISTORY: fall COMPARISON STUDY: CT of the neck June 11, 2023. Treatment planning CT November 10, 2023. TECHNIQUE: Helical axial images of the cervical spine were obtained without IV contrast. Sagittal a nd coronal reconstructions were viewed. Automated exposure control was utilized for the study. A do se lowering technique was utilized adhering to the principles of ALARA. FINDINGS: There is straightening of the cervical lordosis. There is no acute cervical spine fracture. No suspicious lesions within the cervical spine are identified. There is chronic/congenital deformit ies within the posterior elements at the C4 level, unchanged since CT of June 11, 2023. Right neck stranding is noted. There is prevertebral edema. A large thick-walled necrotic right neck mass measu res 5.4 x 4.7 cm. This is along the posterior aspect the right sternocleidomastoid mastoid muscle. Th is may involve the muscle. Several additional prominent right cervical lymph nodes are present. IMPRESSION: 1. No acute cervical spine fracture or subluxation. 2. Large thick-walled necrotic right neck mass measuring 5.4 x 4.7 cm, shown on treatment planning CT . This favors a necrotic pathologic lymph node. 3. Right neck and prevertebral stranding and fluid. This may be treatment related. ACT 112: Negative or not required by law. Electronically signed by: Kevin Thompson M.D. 11/20/2023 4:17 PM
[2023-11-20] MEDS: cefTRIAXone SODIUM 2,000 MG/50 ML BAG IV STA (16:58)
[2023-11-20] MEDS: ONDANSETRON INJ 2 MG/ML 2 ML VIAL IV STA (17:10)
[2023-11-20] MEDS: ONDANSETRON INJ 2 MG/ML 2 ML VIAL ONE (17:10)
[2023-11-20 17:21] LABS: Appearance Urine Clear (Clear); Bacteria Urine Automated 4+ (None Seen); Bilirubin Urine Negative (Negative); Blood Urine Negative (Negative); Cast Urine Automated 0-2 /lpf (0-2); Color Urine Yellow; Epithelial Cell Urine Auto 0-2 /hpf (0-2); Glucose Urine UA Negative (Negative); Ketones Urine Negative (Negative); Leukocyte Esterase Urine Trace (Negative); Nitrite Urine Positive (Negative); Protein Urine Trace (Negative); RBC Urine Automated 0-2 /hpf (0-2); Specific Gravity Urine 1.021 (1.000-1.030); Urobilinogen Urine Negative (Negative)
[2023-11-20] MEDS ORDERED: ALUMINUM/MAGNESIUM SUSP 30 ML UDC PO PRN (17:28)
--- NOTE | 2023-11-20 17:43 | History & Physical Report ---
Date of Service November 20, 2023 Assessment & Plan (1) Squamous cell carcinoma of scalp: Plan: removal of squamous cell carcinoma of the scalp with artis metastasis and bony invasion. Underwent resection, right parotidectomy and right neck dissection followed by local reconstruction. She has a lump on her neck that is painful but this is not new, has been present since surgery. patient supposed get mediport and start chemoradiation weekly Carbo Taxol PET/CT is pending (2) Kidney transplant recipient: Plan: continue home meds (3) Seizure disorder: Plan: started on Keppra patient had a fall at home , not able to ambulate obtain MRI brain neuro consult (4) Hypothyroidism: Plan: continue home dose Synthroid (5) Diabetes mellitus, type II: Plan: insulin sliding scale (6) Elevated WBC count: Plan: she is immunocompromised will obtain blood cultures, urine culture start antibiotics (7) Vomiting: Plan: iv fluids PPI IV Zofran (8) Hypercalcemia: Plan: due to malignancy ? iv fluids monitor calcium level History of Present Illness Chief Complaint: s/p fall at home Primary Care Provider: Nikhil Nelson DO 78-year-old female with a past medical history of squamous cell carcinoma of the scalp,she recently had a long hospital stay at [facility] due to removal of squamous cell carcinoma of the scalp with artis metastasis and bony invasion. Underwent resection, right parotidectomy and right neck dissection followed by local reconstruction. She has a lump on her neck that is painful but this is not new, has been present since surgery. She is transplant recipient who presents the ER as she fell yesterday while trying to get up last night. She notes that she crawled to the couch. Since then she has been having trouble walking and the son brought her over and she is very shaky and unsteady and consequently brought her in. She denies any head pain or neck pain. No chest pain or shortness of breath. No belly pain. No nausea vomiting or diarrhea. No dysuria urgency or frequency. No other exacerbating or remitting factors. She was in ER on 11/16 with arm twitching , started on Keppra and discharged home, she started vomiting at the time of evaluation, denies abdominal pain or headache, reports BM yestaerday, vomit is bilious, no coffee round material , no abdominal tenderness, CT brain no change, CT neck . Large thick-walled necrotic right neck mass measuring 5.4 x 4.7 cm, shown on treatment planning CT. This favors a necrotic pathologic lymph node., right neck and prevertebral stranding and fluid. This may be treatment related.Poor historian Allergies Allergy/AdvReac Type Severity Reaction Status Date / Time nickel Allergy Intermediate RASH Verified 11/20/23 16:02 nitrofurantoin Allergy Intermediate REDNESS Verified 11/20/23 16:02 AND BURNING OF HANDS morphine Allergy Unknown CAN'T Verified 11/20/23 16:02 REMEMBER NSAIDS (Non-Steroidal Allergy Unknown CAN'T Verified 11/20/23 16:02 Anti-Inflamma REMEMBER Home Medications Medication Instructions Recorded Confirmed Type aspirin 81 mg capsule 162 mg PO QAM 08/13/21 11/20/23 History glucagon 1 mg solution for 1 mg subcut UD PRN Hypoglycemia 08/13/21 11/20/23 History injection (Glucagon Emergency Kit) multivitamin 1 tab PO DAILY 08/13/21 11/20/23 History latanoprost 0.005 % eye drops 1 drp OPL HS 10/10/21 11/20/23 History mycophenolate mofetil 500 mg 250 mg PO BID 10/10/21 11/20/23 History tablet (CellCept) furosemide 20 mg tablet (Lasix) 20 mg PO DIRECTED PRN Edema 01/15/22 11/20/23 History [facility] Rx Verio test strips) lanc[facility]22 10/06/23 Rx Lancets) mupirocin 2 % topical ointment 1 applic topical BID #22 grams 11/18/22 11/20/23 Rx atorvastatin 40 mg tablet 40 mg PO HS #90 tabs 12/15/22 11/20/23 Rx carvedilol 12.5 mg tablet 12.5 mg PO BID #180 tabs 06/10/23 11/20/23 Rx brimonidine 0.2 % eye drops 1 drp ophthalmic (eye) BID 07/15/23 11/20/23 History hydralazine 100 mg tablet 100 mg PO TID #270 tabs 08/10/23 11/20/23 Rx tacrolimus 1 mg capsule, 0.5 mg PO BID 11/04/23 11/20/23 History immediate-release gabapentin 100 mg capsule 100 mg PO TID 11/17/23 11/20/23 History insulin NPH isoph U-100 human 100 16 unit subcut QAM 11/17/23 11/20/23 History unit/mL (3 mL) subcutaneous pen (Novolin N FlexPen) insulin glargine 100 unit/mL (3 13 unit subcut QAM 11/17/23 11/20/23 History mL) subcutaneous pen (Basaglar KwikPen U-100 Insulin) levetiracetam 500 mg tablet 500 mg PO BID 11/17/23 11/20/23 History pen needle, diabetic 32 gauge x #200 ea 11/17/23 11/17/23 Rx 32" (BD Ultra-Fine Monica Pen Needle) doxazosin 1 mg tablet 2 mg PO HS 11/19/23 11/20/23 History levothyroxine 125 mcg tablet 125 mcg PO QAM 11/19/23 11/20/23 History Past Med/Surg History Problem List (Updated 11/20/23 @ 18:05 by Talisha Ortiz MD) Hypercalcemia Vomiting Elevated WBC count Focal motor seizure (Acute) Arthritis Squamous cell carcinoma of scalp Lumbar facet joint pain Obesity (BMI 35.0-39.9 without comorbidity) (Chronic) Chronic kidney disease, unspecified (Chronic) Kidney transplant recipient (Chronic ~06/2021) Lumbar spinal stenosis (Chronic) Cervicalgia (Chronic) Chronic cough (Chronic) Pulmonary nodule (Chronic ~12/2018) CT 10/2018, 12/2019 by [place]. PLan Repeat in 1 yr Insomnia (Chronic) Seizure disorder (Chronic) Followed by [facility] Restless leg syndrome (Chronic) Obesity (Chronic) Hypothyroidism (Chronic) Hyperlipidemia (Chronic) Generalized osteoarthritis (Chronic) Diabetes mellitus, type II (Chronic) Cognitive impairment (Chronic) Anxiety and depression (Chronic) CAD (coronary artery disease) (Chronic ~2018) Cardiac catheterization 11/2018 [facility]. Nonobstructive coronary disease Polycystic kidney disease (Chronic) Anemia in CKD (chronic kidney disease) (Chronic) HTN (hypertension), benign (Chronic) Medical History Anemia CHRONIC; BASELINE HGB 9'S PER CHART REVIEW Anxiety and depression Arteriovenous fistula stenosis pt denies Asthma hx-no inhalers Bradycardia pt denies Brain aneurysm coiled 11/05/18. CAD (coronary artery disease) Central venous catheter in place, permanent pt denies-stated she "never had one of these" Cervicalgia pt denies Chronic cough pt denies Chronic low back pain Cognitive impairment pt denies Degenerative disc disease Diabetes mellitus, type II IDDM Diverticulitis pt denies Esophagus disorder ESRD (end stage renal disease) on dialysis pt stated she is no longer since having her kidney transplant in 2021 Frequent PVCs pt denies Glaucoma Gout hx Hearing deficit History of SCC (squamous cell carcinoma) of skin Hyperlipidemia Hyperphosphatemia pt denies Hypertension Hypothyroidism Kidney stones no sx. Lumbar spinal stenosis Pancolitis pt denies Pulmonary nodule CT 10/2018, 12/2019 by [facility]; monitored RLS (restless legs syndrome) Seizure disorder most recent 11/17/23; f/u de neuro Surgical History History of arteriovenous graft LUE AVF History of biopsy punch biopsy of lesion on scalp 05/14/23 History of bronchoscopy History of cataract surgery Bilateral History of colonoscopy 09/20/2018. poor prep so procedure aborted. patient with emesis when awake, no issues and discharged home. History of hammer toe correction History of lumbar surgery 2003, unsure of levels, [place] History of surgery peritoneal dialysis cath placement peritoneal dialysis cath removal/permacath insertion= 01/27/18= MAC SEDATION AT [facility] History of surgery Wide local excision scalp lesion, burring of calvarium, right superficial parotidectomy with facial nerve preservation, right selective neck dissection [place] [facility] History of total abdominal hysterectomy and bilateral salpingo-oophorectomy Hx of cardiac cath 11/2018, [facility], no stents "prior to kidney transplant"; no cardio currently Hx of kidney transplant 2021 S/P trigger finger release Family History Mother Family history of reaction to anesthesia confused for a day or so after sx in the 1950s Family history of diabetes mellitus Sister Pacemaker Skin cancer Father Family history of diabetes mellitus type 2 Hypertension Stroke syndrome Pure hypercholesterolemia Diabetes Son Hypertension Pure hypercholesterolemia Fatty liver Aunt Ovarian cancer Sister Diabetes Complications Sister No problems noted. 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 Beliefs That Will Affect Care: None marital status: / Current Living Situation: Alone Current Living Situation Comment: pt declined to answer question 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 How many Children do You have: 2 How many Children do You have Comment: 2 living children Feels Safe at Home: Yes Childhood Exposure to Second-Hand Smoke: No Diet: lactose free, low salt and regular caffeine: Yes during the past year weight has: decreased > 10 lbs Dental Care, Regularly: Yes Physical Activity Frequency: Does not Exercise Seatbelt Use: always Sunscreen Use: Yes Do you think of yourself as: straight/heterosexual Gender Identity: Female Assistive Devices: Glasses Review of Systems Review of Systems: All systems reviewed & are unremarkable except as noted in Subjective Physical Exam Physical Exam: GENERAL: alert, well appearing, well nourished, no distress, non-toxic HEAD: many scalp lesions EYE EXAM: normal conjunctiva, PERRL and EOM's grossly intact OROPHARYNX: no exudate, no erythema, lips, buccal mucosa, and tongue normal and mucous membranes are moist NECK: right neck mass CHEST: stable to compression anteriorly and posteriorly LUNGS: clear to auscultation. Normal chest wall mechanics HEART: no murmurs, S1 normal and S2 normal ABDOMEN: abdomen soft, non-tender, normo-active bowel sounds, no masses, no rebound or guarding. PELVIS: stable to compression anteriorly and posteriorly BACK: Back is symmetrical on inspection and there is no deformity, no midline tenderness, no CVA tenderness. UPPER EXTREMITIES: full active and passive range of motion of all joints without tenderness to palpation LOWER EXTREMITIES: full active and passive range of motion of all joints without tenderness to palpation NEURO EXAM: Awake alert following commands oriented to person and place, cranial nerves II-XII intact, normal speech, no weakness of arms, no weakness of legs. Results & Data Results & Data Vital Signs (Past 12 Hours) Vital Signs Temp Pulse Pulse Resp BP BP Pulse Ox 11/20/23 17:34 36.8 C 64 16 152/54 H 94 11/20/23 16:39 60 16 149/64 H 96 11/20/23 15:29 96 11/20/23 15:19 59 L 11/20/23 15:01 36.8 C 61 16 133/50 L 96 11/20/23 14:53 37.2 C 61 18 155/70 H 95 O2 Del Method 11/20/23 17:34 Room Air 11/20/23 16:39 Room Air 11/20/23 15:29 Room Air 11/20/23 15:19 11/20/23 15:01 Room Air 11/20/23 14:53 Room Air Laboratory Results Abnormal lab results 11/20/23 11/20/23 Range/Units 15:10 16:57 WBC 13.06 H (4.8-10.8) K/ul RBC 3.71 L (4.20-5.40) M/uL Hgb 10.6 L (12.0-16.0) g/dl Hct 32.7 L (37.0-47.0) % MPV 9.3 L (9.4-12.4) fL Neut # (Auto) 10.07 H (1.40-6.50) K/uL [place] # (Auto) 0.85 H (0.11-0.59) K/uL BUN/Creatinine Ratio 21.2 H (10-20) Glucose 166 H (70-99(Fasting)) mg/dl Calcium 10.7 H (8.6-10.3) mg/dl AST 11 L (13-39) U/L Total Creatine Kinase 24 L (26-192) U/L Lipase 9 L (11-82) U/L Urine Protein Trace H (Negative) Urine Nitrite Positive A (Negative) Ur Leukocyte Esterase Trace H (Negative) Urine WBC (Auto) 6-10 H (0-5) /hpf Urine Bacteria (Auto) 4+ H (None Seen) Diagnostic Findings Head CT 11/20/23 15:16 CT OF THE HEAD WITHOUT CONTRAST CLINICAL HISTORY: Fall. COMPARISON STUDY: Head CT November 17, 2023. TECHNIQUE: Helical axial images of the head were obtained without IV contrast. Automated exposure control was utilized for the study. A dose lowering technique was utilized adhering to the principles of ALARA. FINDINGS: No acute intracranial hemorrhage, midline shift or mass effect is present. The ventricular system is stable. Basal cisterns are patent. There are no extra axial collections. Endovascular coils within the basilar artery with streak artifact are noted. White matter hypodensity suggests small vessel disease. These are unchanged. There are no findings to suggest acute dural sinus thrombosis or acute territorial infarct. A lytic 3.7 cm lesion within the right parietal vertex is again noted with intracranial extra-axial extension. This is unchanged since CT of November 17, 2023. A large necrotic posterior right neck mass is partially imaged on this exam. There calvarial fractures. IMPRESSION: 1. No acute intracranial findings. No change in appearance of the brain. 2. Redemonstration of a lytic right parietal calvarial lesion with intracranial extension, unchanged appearance since prior CT. 3. Partially visualized necrotic posterior right neck mass. This is malignant and may reflect a large pathologic lymph node. ACT 112: Negative or not required by law. Electronically signed by: Kevin Thompson M.D. 11/20/2023 4:[address] 11/20/23 15:27 CT OF THE CERVICAL SPINE WITHOUT CONTRAST CLINICAL HISTORY: fall COMPARISON STUDY: CT of the neck June 11, 2023. Treatment planning CT November 10, 2023. TECHNIQUE: Helical axial images of the cervical spine were obtained without IV contrast. Sagittal and coronal reconstructions were viewed. Automated exposure control was utilized for the study. A dose lowering technique was utilized adhering to the principles of ALARA. FINDINGS: There is straightening of the cervical lordosis. There is no acute cervical spine fracture. No suspicious lesions within the cervical spine are identified. There is chronic/congenital deformities within the posterior elements at the C4 level, unchanged since CT of June 11, 2023. Right neck stranding is noted. There is prevertebral edema. A large thick-walled necrotic right neck mass measures 5.4 x 4.7 cm. This is along the posterior aspect the right sternocleidomastoid mastoid muscle. This may involve the muscle. Several additional prominent right cervical lymph nodes are present. IMPRESSION: 1. No acute cervical spine fracture or subluxation. 2. Large thick-walled necrotic right neck mass measuring 5.4 x 4.7 cm, shown on treatment planning CT. This favors a necrotic pathologic lymph node. 3. Right neck and prevertebral stranding and fluid. This may be treatment related. ACT 112: Negative or not required by law. Electronically signed by: Kevin Thompson M.D. 11/20/2023 4:17 PM Code Status & VTE Plan Code Status dnr VTE Prophylaxis Plan VTE Prophylaxis will be ordered: Yes PG Care Time/CCT Total # of Minutes Spent Total Time Spent with Patient: Total time spent is greater than 50% in coordination of care (as documented) at patient's floor/unit and/or counseling patient: Coding Level of Care Code 64938 INT INP/OBS CARE MIN Diagnoses Squamous cell carcinoma of scalp C44.42 Kidney transplant recipient Z94.0 Seizure disorder G40.909 Acquired hypothyroidism E03.9 Hypothyroidism type: acquired Type 2 diabetes mellitus with stage 3a chronic kidney disease, with long-term current use of insulin E11.22; N18.31; Z79.4 Diabetes mellitus custodial insulin use: with custodial use Diabetes mellitus complication status: with kidney complications Diabetes mellitus complication detail: with chronic kidney disease Chronic kidney disease stage: stage 3 (moderate) Chronic kidney disease stage 3 subtype: stage 3a (GFR 45-59) Elevated WBC count D72.829 Vomiting R11.10 Hypercalcemia E83.52 (4) Hypothyroidism Hypothyroidism type: acquired Qualified Code(s): E03.9 - Hypothyroidism, unspecified (5) Diabetes mellitus, type II Diabetes mellitus intermediate designer insulin use: with intermediate designer use Diabetes mellitus complication status: with kidney complications Diabetes mellitus complication detail: with chronic kidney disease Chronic kidney disease stage: stage 3 (moderate) Chronic kidney disease stage 3 subtype: stage 3a (GFR 45-59) Rick lified Code(s): E11.22 - Type 2 diabetes mellitus with diabetic chronic kidney disease; N18.31 - Chronic kidney disease, stage 3a; Z79.4 - intermediate designer (current) use of insulin
[2023-11-20] MEDS: LACTATED RINGER'S 1,000 ML IV SCH (18:43)
[2023-11-20] MEDS: levETIRAcetam IV 500 MG in SODIUM CHLOR 0.9% MINI-B 100 ML IV SCH (18:43)
[2023-11-20] MEDS: OPTIRAY 320 125ml IV ONE (19:13)
[2023-11-20] MEDS: AMPICILLIN SOD/SULBACTAM SOD 1,500 MG in SODIUM CHLOR 0.9% MINI-B 100 ML IV SCH (19:24)
[2023-11-20] MEDS: ENOXAPARIN INJ 40 MG/0.4 ML SYR SQ ONE (19:29)
--- NOTE | 2023-11-20 19:29 | CT Scan Report ---
CT ANGIOGRAPHY OF THE CHEST, PULMONARY EMBOLUS PROTOCOL CLINICAL HISTORY: Shortness of breath. Evaluate for pulmonary embolus. Squamous cell carcinoma. COMPARISON STUDY: Chest radiograph November 17, [address] June 11, 2023. TECHNIQUE: Following IV administration of Optiray, helical axial images of the chest were obtained ut ilizing the pulmonary embolus protocol. Maximal intensity projections and sagittal and coronal refor mats were viewed on an independent 3D workstation. IV contrast was administered without complication . Automated exposure control was utilized for the study. A dose lowering technique was utilized adh ering to the principles of ALARA. CT DOSE: 773.75 mGy.cm FINDINGS: No pulmonary emboli are identified. There is no thoracic aortic dissection. There is moder ate cardiomegaly and coronary calcification. No enlarged axillary, mediastinal or hilar lymph nodes a re present. Right neck stranding is partially imaged on this examination. This may be treatment relat ed. Several pulmonary nodules are unchanged since outside chest CT of November 14, 2019. These are benign given stability. There are no new pulmonary nodules. There is no consolidation to suggest pneumonia. There is no pneumothorax or pleural effusion. A small hiatal hernia is present. There is mild wall t hickening the distal esophagus. Extensive vascular calcification within the upper abdomen is noted. I nnumerable right renal lesions are partially imaged on this exam. These favor cysts. IMPRESSION: 1. No pulmonary emboli identified. 2. No consolidation to suggest pneumonia. 3. No evidence for metastatic disease within the chest. 4. Small hiatal hernia. Mild distal esophageal wall thickening. This may reflect esophagitis. 5. Partially imaged right stranding. This is nonspecific but may be treatment related. ACT 112: Negative or not required by law. Electronically signed by: Kevin Thompson M.D. 11/20/2023 7:27 PM
--- NOTE | 2023-11-20 19:29 | XRay Report ---
XR chest 1V portable CLINICAL HISTORY: Shortness of breath. COMPARISON STUDY: Chest CT June 11, 2023 and chest radiograph November 17, 2023. FINDINGS: Lung volumes are normal. Lungs are clear. There is no pneumothorax or pleural effusion. Car diomegaly is unchanged. Mediastinal contours are normal. There is no evidence for pulmonary edema. IMPRESSION: No acute cardiopulmonary findings. No change in appearance of the chest. ACT 112: Negative or not required by law. Electronically signed by: Kevin Thompson M.D. 11/20/2023 7:28 PM
[2023-11-20 19:39] LABS: Troponin I High Sensitivity 9.3 pg/ml (0-14)
[2023-11-20] MEDS: carvediloL 12.5 MG TAB PO SCH (21:41)
[2023-11-20] MEDS: BRIMONIDINE TARTRATE 0.2% 5ML OP SCH (21:44)
[2023-11-20] MEDS: MUPIROCIN 2% OINT 22 GM TUBE TOP SCH (21:45)
[2023-11-20] MEDS: GABAPENTIN 100 MG CAP PO SCH (22:14)
[2023-11-20] MEDS: DOXAZosin MESYLATE TAB 2 MG TAB PO SCH (22:14)
[2023-11-20] MEDS: ATORVASTATIN 40 MG TAB PO SCH (22:14)
[2023-11-20] MEDS: hydrALAZINE TAB 50 MG TAB PO SCH (22:14)
[2023-11-20] MEDS: MYCOPHENOLATE MOFETIL 250 MG CAP PO SCH (22:14)
[2023-11-20] MEDS: TACROLIMUS 0.5 MG CAP PO SCH (22:15)
[2023-11-21] MEDS: LEVOTHYROXINE SODIUM 125 MCG TABLET PO SCH (06:28)
[2023-11-21 07:08] LABS: Albumin Level 3.3 gm/dl (3.4-5.0); Bilirubin,Total 0.3 mg/dl (0.2-1.0); Calcium 10.2 mg/dl (8.6-10.3); Potassium 4.4 mmol/L (3.5-5.1)
[2023-11-21 07:14] LABS: BUN Creatinine Ratio 17.3 (10-20); Creatinine Clr Calc Pharmacy 45.8 ml/min; Est GFR (African American) 64.5 ml/min; Est GFR (Non-African American) 55.6 ml/min; Globulin 3.2 gm/dl (2.5-4.0); Total Protein 6.5 gm/dl (6.0-8.3)
--- NOTE | 2023-11-21 07:41 | Electrocardiogram Report ---
Test Reason : Blood Pressure : / mmHG Vent. Rate : 061 BPM Atrial Rate : 061 BPM P-R Int : 146 ms QRS Dur : 088 ms QT Int : 422 ms P-R-T Axes : 000 034 082 degrees QTc Int : 424 ms Normal sinus rhythm Normal ECG When compared with ECG of 17-NOV-2023 16:31, No significant change was found Confirmed by Jay Day ([id number]) on 11/21/2023 7:41:15 AM Referred By: REFERRED SELF Confirmed By:Jay Day
[2023-11-21] MEDS: D5W AND NSS 1,000 ML IV SCH (07:59)
[2023-11-21] MEDS: ENOXAPARIN INJ 40 MG/0.4 ML SYR SQ SCH (08:05)
--- NOTE | 2023-11-21 08:22 | Neurology Consultation ---
Date of Consultation November 21, 2023 Assessment & Plan (1) Gait difficulty: History of Present Illness Attending Physician: Eldon Blackmon MD History of Present Illness pt this morning not in distress. follows command well. pt lives along and no help at home other than her son visiting. she has at the [facility] for a long time due to her carcinoma and surgery and tx. head CT negative but pt does have UTI. pt still getting chemo/XRT for her cancer. chart reviewed. admission HPI: 78-year-old female with a past medical history of squamous cell carcinoma of the scalp,she recently had a long hospital stay at [facility] due to removal of squamous cell carcinoma of the scalp with artis metastasis and bony invasion. Underwent resection, right parotidectomy and right neck dissection followed by local reconstruction. She has a lump on her neck that is painful but this is not new, has been present since surgery. She is transplant recipient who presents the ER as she fell yesterday while trying to get up last night. She notes that she crawled to the couch. Since then she has been having trouble walking and the son brought her over and she is very shaky and unsteady and consequently brought her in. She denies any head pain or neck pain. No chest pain or shortness of breath. No belly pain. No nausea vomiting or diarrhea. No dysuria urgency or frequency. No other exacerbating or remitting factors. She was in ER on 11/16 with arm twitching , started on Keppra and discharged home, she started vomiting at the time of evaluation, denies abd ominal pain or headache, reports BM yestaerday, vomit is bilious, no coffee round material , no abdominal tenderness, CT brain no change, CT neck . Large thick-walled necrotic right neck mass measuring 5.4 x 4.7 cm, shown on treatment planning CT. This favors a necrotic pathologic lymph node., right neck and prevertebral stranding and fluid. This may be treatment related.Poor historian Allergies Allergy/AdvReac Type Severity Reaction Status Date / Time nickel Allergy Intermediate RASH Verified 11/20/23 16:02 nitrofurantoin Allergy Intermediate REDNESS Verified 11/20/23 16:02 AND BURNING OF HANDS morphine Allergy Unknown CAN'T Verified 11/20/23 16:02 REMEMBER NSAIDS (Non-Steroidal Allergy Unknown CAN'T Verified 11/20/23 16:02 Anti-Inflamma REMEMBER Home Medications Medication Instructions Recorded Confirmed Type aspirin 81 mg capsule 162 mg PO QAM 08/13/21 11/20/23 History glucagon 1 mg solution for 1 mg subcut UD PRN Hypoglycemia 08/13/21 11/20/23 History injection (Glucagon Emergency Kit) multivitamin 1 tab PO DAILY 08/13/21 11/20/23 History latanoprost 0.005 % eye drops 1 drp OPL HS 10/10/21 11/20/23 History mycophenolate mofetil 500 mg 250 mg PO BID 10/10/21 11/20/23 History tablet (CellCept) furosemide 20 mg tablet (Lasix) 20 mg PO DIRECTED PRN Edema 01/15/22 11/20/23 History blood sugar diagnostic (OneTouch #100 ea 09/28/22 10/06/23 Rx Verio test strips) lancets 33 gauge (Dabble DBTouch Delica #100 ea 10/01/22 10/06/23 Rx Lancets) mupirocin 2 % topical ointment 1 applic topical BID #22 grams 11/18/22 11/20/23 Rx atorvastatin 40 mg tablet 40 mg PO HS #90 tabs 12/15/22 11/20/23 Rx carvedilol 12.5 mg tablet 12.5 mg PO BID #180 tabs 06/10/23 11/20/23 Rx brimonidine 0.2 % eye drops 1 drp ophthalmic (eye) BID 07/15/23 11/20/23 History hydralazine 100 mg tablet 100 mg PO TID #270 tabs 08/10/23 11/20/23 Rx tacrolimus 1 mg capsule, 0.5 mg PO BID 11/04/23 11/20/23 History immediate-release gabapentin 100 mg capsule 100 mg PO TID 11/17/23 11/20/23 History insulin NPH isoph U-100 human 100 16 unit subcut QAM 11/17/23 11/20/23 History unit/mL (3 mL) subcutaneous pen (Novolin N FlexPen) insulin glargine 100 unit/mL (3 13 unit subcut QAM 11/17/23 11/20/23 History mL) subcutaneous pen (Basaglar KwikPen U-100 Insulin) levetiracetam 500 mg tablet 500 mg PO BID 11/17/23 11/20/23 History pen needle, diabetic 32 gauge x #200 ea 11/17/23 11/17/23 Rx " (BD Ultra-Fine Monica Pen Needle) doxazosin 1 mg tablet 2 mg PO HS 11/19/23 11/20/23 History levothyroxine 125 mcg tablet 125 mcg PO QAM 11/19/23 11/20/23 History Patient History Medical History Anemia CHRONIC; BASELINE HGB 9'S PER CHART REVIEW Anxiety and depression Arteriovenous fistula stenosis pt denies Asthma hx-no inhalers Bradycardia pt denies Brain aneurysm coiled 11/05/18. CAD (coronary artery disease) Central venous catheter in place, permanent pt denies-stated she "never had one of these" Cervicalgia pt denies Chronic cough pt denies Chronic low back pain Cognitive impairment pt denies Degenerative disc disease Diabetes mellitus, type II IDDM Diverticulitis pt denies Esophagus disorder ESRD (end stage renal disease) on dialysis pt stated she is no longer since having her kidney transplant in 2021 Frequent PVCs pt denies Glaucoma Gout hx Hearing deficit History of SCC (squamous cell carcinoma) of skin Hyperlipidemia Hyperphosphatemia pt denies Hypertension Hypothyroidism Kidney stones no sx. Lumbar spinal stenosis Pancolitis pt denies Pulmonary nodule CT 10/2018, 12/2019 by Tamara; monitored RLS (restless legs syndrome) Seizure disorder most recent 11/17/23; f/u mt neuro Surgical History History of arteriovenous graft LUE AVF History of biopsy punch biopsy of lesion on scalp 05/14/23 History of bronchoscopy History of cataract surgery Bilateral History of colonoscopy 09/20/2018. poor prep so procedure aborted. patient with emesis when awake, no issues and discharged home. History of hammer toe correction History of lumbar surgery 2003, unsure of levels, [place] History of surgery peritoneal dialysis cath placement peritoneal dialysis cath removal/permacath insertion= 01/27/18= MAC SEDATION AT [facility] History of surgery Wide local excision scalp lesion, burring of calvarium, right superficial parotidectomy with facial nerve preservation, [place] [facility] [place] History of total abdominal hysterectomy and bilateral salpingo-oophorectomy Hx of cardiac [place] [facility] [place] st[place] "prior to [place] transplant"; no cardio currently Hx of kidney transplant 2021 S/P trigger finger release Family History Mother Family history of reaction to anesthesia confused for a day or so after sx in the 1950s Family history of diabetes mellitus Sister Pacemaker Skin cancer Father Family history of diabetes mellitus type 2 Hypertension Stroke syndrome Pure hypercholesterolemia Diabetes Son Hypertension Pure hypercholesterolemia Fatty liver Aunt Ovarian cancer Sister Diabetes Complications Sister No problems noted. Brother Stillborn, normal Son Hypertension Diverticulosis Daughter MVA (motor vehicle accident) Other Cardiac disorder Deafness Denies family history of Prostate cancer Myocardial infarction Breast cancer Colorectal cancer Social History Smoking Status: Never smoker Second Hand Exposure: No; Do You Dip or Chew Tobacco: No; Hx Alcohol Use: No Hx Substance Use: No Preferred Language: Georgian Communication Ability: Effective Visual Impairment: Limited Hearing Ability: Use of Hearing Aid Chair Caner Required: No Beliefs That Will Affect Care: None marital status: / Current Living Situation: Alone Current Living Situation Comment: pt declined to answer question 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 How many Children do You have: 2 How many Children do You have Comment: 2 living children Other Information That Helps Us Care for You: No Feels Safe at Home: Yes Safety Concerns: Feels Safe At This Time Childhood Exposure to Second-Hand Smoke: No Diet: lactose free, low salt and regular caffeine: Yes during the past year weight has: decreased > 10 lbs Dental Care, Regularly: Yes Physical Activity Frequency: Does not Exercise Seatbelt Use: always Sunscreen Use: Yes Do you think of yourself as: straight/heterosexual Gender Identity: Female Assistive Devices: Glasses and Walker Exam (Neuro) Physical Exam: HEENT: normocephalic grossly Neuro: Mental: AOx4, fluent speech, normal comprehension, no apraxia, no L/R confusion, no neglect CN: PERRL, Full EOM, symmetric face, midline T/U/P, grossly full ROM neck Motor: No abnormal movements, normal tone, moves all limbs well 5-/5 grossly t/o. Sens: intact to touch b/l grossly Coord: intact upper limbs. DTR: 1+ sym b/l Gait: deferred. Impression: 78 yo female with unclear etiology for falls and difficulty walking in setting of metastatic squamous cell carcinoma . It appears it is likely multifactorial in nature for her to have generalized weakness/walking difficulty; including UTI, overall deconditioning from prolonged hospitalization, chemotherapy related side effects, malnourishment/dehydration. Unclear about her recent arm shaking and seizure dx. she is on keppra currently and no further movement issues. Recommendations: pending mri brain tx for UTI physical therapy and occupational therapy evaluation for her overall functional need. it is unclear about her home status as she lives along and how functional she is to take care herself etc. she will likely need placement to a facility. avoid hypotension and dehydration dedicated nutritional care would be beneficial ok to continue Keppra. I do not see the utility of getting EEG at this point as pt is not having any symptoms and already on AED. Chart reviewed I have spent more than 50% educating patient about potential diagnosis and neurological evaluation and coordinating care with patient's treatment team. Total time spent (including chart review and coordination of care): 60 min (this includes chart review). Results & Data Vital Signs (Past 12 Hours) Vital Signs Temp Pulse Pulse Resp BP Pulse Ox O2 Del Method 11/21/23 07:25 Room Air 11/21/23 06:00 65 11/21/23 03:05 36.8 C 18 149/58 H 98 Nasal Cannula 11/20/23 23:13 Room Air 11/20/23 21:35 37.1 C 63 18 156/69 H 94 Room Air O2 Flow Rate 11/21/23 07:25 11/21/23 06:00 11/21/23 03:05 2 11/20/23 23:13 11/20/23 21:35 PG Care Time/CCT Total # of Minutes Spent Total Time Spent with Patient: Total time spent is greater than 50% in coordination of care (as documented) at patient's floor/unit and/or counseling patient: Coding Level of Care Code 59995 IN/OBS CONSULT LVL 4,60M Diagnoses Gait difficulty R26.9
[2023-11-21] MEDS: LANTUS PER UNIT CHARGE SQ SCH (09:14)
[2023-11-21] MEDS: ASPIRIN 81 MG ECTAB PO SCH (09:22)
[2023-11-21] MEDS: PANTOprazole 40 MG in SYRINGE 0 ML IV SCH (10:00)
--- NOTE | 2023-11-21 10:14 | Hospitalist Progress Note ---
Date of Service November 21, 2023 Assessment & Plan (1) Squamous cell carcinoma of scalp: Plan: Status post removal of squamous cell carcinoma of the scalp. Known lymph node metastases. Previously resection of right parotidectomy and right neck dissection followed by local reconstruction. Right neck mass appears to be malignant and is not new. She has been scheduled for mediport and chemoradiation in the near future. Oncology consultation requested (2) Kidney transplant recipient: Plan: Stable. She is on immunosuppressive therapy. Continue current medical management (3) Seizure disorder: Plan: Stable. Continue Keppra. Brain MRI scan pending to rule out metastatic disease. Neurology consultation requested on admission. (4) Hypothyroidism: Plan: Stable. Continue Synthroid replacement therapy (5) Diabetes mellitus, type II: Plan: ADA diet. Basal insulin therapy. Sliding scale coverage. (6) Hypercalcemia: Plan: Undoubtedly due to malignancy. Continue IV fluids. Serial labs (7) UTI (urinary tract infection): Plan: Present on admission. Urine and blood cultures are pending. Continue Unasyn for now, day 2 Plan To be determined Admission and Anticipated Discharge Date Admission Date: November 20, 2023 Subjective Alert and oriented. No distress. She is asking to eat. A diet has been ordered. Apparently her seizure disorder is not new. IV Keppra switched back to p.o. Neurology consultation is pending. Brain MRI scan is pending. Oncology consultation requested. She has a UTI on admission. She is on Unasyn, day 2. Urine and blood cultures are pending. Continue IV fluids for now Review of Systems 2 Review of Systems: Constitutional-no fever or chills ENT-no blurred vision, no double vision, no epistaxis, no sore throat Respiratory-no cough, no wheezing, no shortness of breath Cardiac-no palpitations, no chest pain, no syncope GI-no nausea, vomiting, diarrhea, melena, hematochezia -no urinary retention, no urinary incontinence, no dysuria, no hematuria Musculoskeletal-no joint pain, no muscle tenderness Skin-no bruising, no rashes, no pruritus Neuro-generalized weakness. No focal deficits Psych-no depression, no anxiety Physical Exam 2 Physical Exam: General-alert and oriented x3, no fever, no chills HEENT-multiple scalp defects from previous surgery, pupils equal and reactive to light, extraocular muscles intact Neck-large right neck mass which is not new, trachea midline Chest-clear to auscultation. No rales, wheezing or rhonchi Cardiac-regular rate and rhythm, normal S1 and S2 Abdomen-normal bowel sounds, no hepatosplenomegaly Extremities-no cyanosis, clubbing, or edema Neuro-cranial nerves II through XII intact, motor and sensory function within normal limits, strength symmetrical with generalized weakness, no focal deficits Psych-flat affect Results & Data Results & Data Vital Signs (Past 12 Hours) Vital Signs Temp Pulse Pulse Resp BP Pulse Ox O2 Del Method 11/21/23 08:00 36.7 C 66 16 141/62 H 96 Nasal Cannula 11/21/23 07:25 Room Air 11/21/23 06:00 65 11/21/23 03:05 36.8 C 18 149/58 H 98 Nasal Cannula 11/20/23 23:13 Room Air O2 Flow Rate 11/21/23 08:00 2 11/21/23 07:25 11/21/23 06:00 11/21/23 03:05 2 11/20/23 23:13 Laboratory Results 11/20/23 15:10 11/21/23 06:13 PG Care Time/CCT Total # of Minutes Spent Total Time Spent with Patient: Total time spent is greater than 50% in coordination of care (as documented) at patient's floor/unit and/or counseling patient: Coding Level of Care Code 19803 SUB INP/OBS CARE 3/50MIN Diagnoses Squamous cell carcinoma of scalp C44.42 Kidney transplant recipient Z94.0 Seizure disorder G40.909 Acquired hypothyroidism E03.9 Hypothyroidism type: acquired Type 2 diabetes mellitus with stage 3a chronic kidney disease, with long-term current use of insulin E11.22; N18.31; Z79.4 Diabetes mellitus nursing home insulin use: with parts counterman use Diabetes mellitus complication status: with kidney complications Diabetes mellitus complication detail: with chronic kidney disease Chronic kidney disease stage: stage 3 (moderate) Chronic kidney disease stage 3 subtype: stage 3a (GFR 45-59) Hypercalcemia E83.52 UTI (urinary tract infection) N30.00 Hematuria presence: without hematuria Urinary tract infection type: acute cystitis (4) Hypothyroidism Hypothyroidism type: acquired Qualified Code(s): E03.9 - Hypothyroidism, unspecified (5) Diabetes mellitus, type II Diabetes mellitus parts counterman insulin use: with parts counterman use Diabetes mellitus complication status: with kidney complications Diabetes mellitus complication detail: with chronic kidney disease Chronic kidney disease stage: stage 3 (moderate) Chronic kidney disease stage 3 subtype: stage 3a (GFR 45-59) Qualified Code(s): E11.22 - Type 2 diabetes mellitus with diabetic chronic kidney disease; N18.31 - Chronic kidney disease, stage 3a; Z79.4 - MCC (current) use of insulin (7) UTI (urinary tract infection) Hematuria presence: without hematuria Urinary tract infection type: acute cystitis Qualified Code(s): N30.00 - Acute cystitis without hematuria
--- NOTE | 2023-11-21 12:07 | Magnetic Resonance Report ---
MR brain seizure wo con CLINICAL HISTORY: Seizures. Fall. Squamous cell carcinoma. COMPARISON STUDY: CT November 20, 2023. MRA of the head September 13, 2018. TECHNIQUE: Utilizing a 1.5 Jane magnet and dedicated coil, multiplanar, multi echo imaging of the br ain was performed without intravenous contrast. Coronal thin cut T2 sequences were obtained. FINDINGS: There are no foci of restricted diffusion to suggest acute infarct. No acute intracranial h emorrhage, midline shift or mass effect is present. The ventricular system is unremarkable. No intrac ranial masses are identified on unenhanced exam. Numerous white matter T2 hyperintense foci suggest s mall vessel disease. Gradient echo sequences demonstrate numerous small round foci of susceptibility artifact, predominantly within the left cerebral hemisphere. Susceptibility artifact from the endovas cular coils within the basilar artery aneurysm is noted. Moderate fluid within the right mastoid air cells. A lobulated right scalp mass-like abnormality measures 4.7 cm. This extends through the underl martina parietal bone. The abnormality extends to the dura without evidence for involvement of the brain parenchyma. A posterior right upper neck mass is partially imaged. This measures 5.8 x 4.8 cm. This is heterogeneous and contains areas of suspected necrosis. IMPRESSION: 1. No acute intracranial findings. 2. Redemonstration of a lobulated right scalp mass-like abnormality which extends through the underly ing parietal bone. This is related to the known history of squamous cell carcinoma and could represen t tumor or postsurgical change. Correlation with surgical history is recommended. This extends to the dura without evidence for involvement of the brain parenchyma. 3. 5.8 x 4.8 cm right posterior upper neck necrotic mass, partially imaged on this exam. This is sugg estive of a pathologic lymph node related to squamous cell carcinoma. 4. Status post basilar artery aneurysm coiling. 5. Numerous small round foci of susceptibility artifact and gradient echo sequences. The findings sug gest old blood products or amyloid deposition. ACT 112: Negative or not required by law. Electronically signed by: Kevin Thompson M.D. 11/21/2023 12:05 PM
[2023-11-21] MEDS: ACETAMINOPHEN 325 MG TAB PO PRN (20:29)
[2023-11-21] MEDS: levETIRAcetam 500 MG TAB PO SCH (20:33)
[2023-11-21] MEDS: SODIUM CHLORIDE 0.9% 1,000 ML IV SCH (21:39)
[2023-11-22 07:01] LABS: Basophils # (auto) 0.04 K/uL (0.00-0.20); Basophils % (auto) 0.4 %; Eosinophils # (auto) 0.17 K/uL (0.00-0.50); Eosinophils % (auto) 1.5 %; Hematocrit (blood only) 30.5 % (37.0-47.0); Hemoglobin 9.8 g/dl (12.0-16.0); Immature Granulocytes # (auto) 0.05 K/uL (0.01-0.20); Immature Granulocytes % (auto) 0.5 %; Lymphocytes # (auto) 1.53 K/uL (1.20-3.40); Lymphocytes % (auto) 13.9 %; Mean Corpuscular Hemoglobin 28.9 pg (25.0-34.0); Mean Corpuscular Hgb Conc 32.1 g/dL (32.0-36.0); Mean Platelet Volume 9.5 fL (9.4-12.4); Monocytes # (auto) 0.88 K/uL (0.11-0.59); Neutrophils # (auto) 8.37 K/uL (1.40-6.50); Neutrophils % (auto) 75.7 %; Platelet Count 242 K/uL (130-400); RDW Coefficient of Variation 13.5 % (11.5-14.5); RDW Standard Deviation 44.2 fL (36.4-46.3); Red Blood Count 3.39 M/uL (4.20-5.40); White Blood Count 11.04 K/ul (4.8-10.8)
[2023-11-22] MEDS: PANTOprazole 40 MG TAB PO SCH (08:01)
[2023-11-22] MEDS: oxyCODONE HCL IR 5 MG TAB (IMMEDIATE RELEASE) PO STA (09:04)
[2023-11-22] MEDS: ERTAPENEM SODIUM 1,000 MG in SYRINGE 0 ML IV SCH (10:28)
[2023-11-22 10:41] LABS: Calcium 9.2 mg/dl (8.6-10.3); Potassium 4.4 mmol/L (3.5-5.1)
[2023-11-22 10:47] LABS: BUN Creatinine Ratio 16.4 (10-20); Creatinine Clr Calc Pharmacy 40.8 ml/min; Est GFR (African American) 56.1 ml/min; Est GFR (Non-African American) 48.4 ml/min
[2023-11-22] MEDS: oxyCODONE HCL IR 5 MG TAB (IMMEDIATE RELEASE) PO PRN (14:35)
--- NOTE | 2023-11-22 15:56 | Hospitalist Progress Note ---
Date of Service November 22, 2023 Assessment & Plan (1) Squamous cell carcinoma of scalp: Plan: Status post removal of squamous cell carcinoma of the scalp. Known lymph node metastases. Previously resection of right parotidectomy and right neck dissection followed by local reconstruction. Right neck mass appears to be a necrotic lymph node and is not new. She has been scheduled for mediport and chemoradiation in the near future. Oncology consultation requested (2) Kidney transplant recipient: Plan: Stable. She is on immunosuppressive therapy. Continue current medical management (3) Seizure disorder: Plan: Stable. Continue Keppra. Brain MRI scan negative for metastatic disease. The primary squamous cell carcinoma tumor extends through the scalp and through the calvarium to the depth of the dura. Neurology consultation and recommendations appreciated (4) Hypothyroidism: Plan: Stable. Continue Synthroid replacement therapy (5) Diabetes mellitus, type II: Plan: ADA diet. Basal insulin therapy. Sliding scale coverage. (6) Hypercalcemia: Plan: Undoubtedly due to malignancy. Resolved with IV fluids. Serial labs (7) UTI (urinary tract infection): Plan: Present on admission. Urine is growing ESBL E. coli. Unasyn has been switched to ertapenem, day 1. Blood cultures are negative Plan SNF placement at discharge Admission and Anticipated Discharge Date Admission Date: November 20, 2023 Subjective Alert and oriented. No new problems. ESBL E. coli isolated in the urine. Unasyn has been switched to ertapenem, day 1. Oxycodone ordered as needed for neck pain. The oxycodone has helped considerably. Review of Systems 2 Review of Systems: Constitutional-no fever or chills ENT-no blurred vision, no double vision, no epistaxis, no sore throat Respiratory-no cough, no wheezing, no shortness of breath Cardiac-no palpitations, no chest pain, no syncope GI-no nausea, vomiting, diarrhea, melena, hematochezia -no urinary retention, no urinary incontinence, no dysuria, no hematuria Musculoskeletal-no joint pain, no muscle tenderness Skin-no bruising, no rashes, no pruritus Neuro-generalized weakness. No focal deficits Psych-no depression, no anxiety Physical Exam 2 Physical Exam: General-alert and oriented x3, no fever, no chills HEENT-multiple scalp defects from previous surgery, pupils equal and reactive to light, extraocular muscles intact Neck-large right neck mass which is not new, trachea midline Chest-clear to auscultation. No rales, wheezing or rhonchi Cardiac-regular rate and rhythm, normal S1 and S2 Abdomen-normal bowel sounds, no hepatosplenomegaly Extremities-no cyanosis, clubbing, or edema Skinmultiple defects noted on the scalp from previous surgeries Neuro-cranial nerves II through XII intact, motor and sensory function within normal limits, strength symmetrical with generalized weakness, no focal deficits Psych-flat affect Results & Data Results & Data Vital Signs (Past 12 Hours) Vital Signs Temp Pulse Pulse Resp BP Pulse Ox O2 Del Method 11/22/23 11:00 36.7 C 74 18 139/88 97 Room Air 11/22/23 08:00 36.8 C 67 16 152/68 H 96 Room Air 11/22/23 07:00 58 L 11/22/23 07:00 Room Air Laboratory Results 11/22/23 06:04 11/22/23 06:04 PG Care Time/CCT Total # of Minutes Spent Total Time Spent with Patient: Total time spent is greater than 50% in coordination of care (as documented) at patient's floor/unit and/or counseling patient: Coding Level of Care Code 51635 SUB INP/OBS CARE 3/50MIN Diagnoses Squamous cell carcinoma of scalp C44.42 Kidney transplant recipient Z94.0 Seizure disorder G40.909 Acquired hypothyroidism E03.9 Hypothyroidism type: acquired Type 2 diabetes mellitus with stage 3a chronic kidney disease, with long-term current use of insulin E11.22; N18.31; Z79.4 Chronic kidney disease stage: stage 3 (moderate) Chronic kidney disease stage 3 subtype: stage 3a (GFR 45-59) Diabetes mellitus complication detail: with chronic kidney disease Diabetes mellitus complication status: with kidney complications Diabetes mellitus shelter insulin use: with shelter use Hypercalcemia E83.52 UTI (urinary tract infection) N30.00 Hematuria presence: without hematuria Urinary tract infection type: acute cystitis (4) Hypothyroidism Hypothyroidism type: acquired Qualified Code(s): E03.9 - Hypothyroidism, unspecified (5) Diabetes mellitus, type II Chronic kidney disease stage: stage 3 (moderate) Chronic kidney disease stage 3 subtype: stage 3a (GFR 45-59) Diabetes mellitus complication detail: with chronic kidney disease Diabetes mellitus complication status: with kidney complications Diabetes mellitus terminal worker insulin use: with terminal worker use Qualified Code(s): E11.22 - Type 2 diabetes mellitus with diabetic chronic kidney disease; N18.31 - Chronic kidney disease, stage 3a; Z79.4 - rat exterminator (current) use of insulin (7) UTI (urinary tract infection) Hematuria presence: without hematuria Urinary tract infection type: acute cystitis Qualified Code(s): N30.00 - Acute cystitis without hematuria
[2023-11-23] MEDS: HYDROmorphone INJ 0.5 MG/0.5 ML SYR IV ONE (04:02)
[2023-11-23 05:57] LABS: Basophils # (auto) 0.04 K/uL (0.00-0.20); Basophils % (auto) 0.4 %; Eosinophils # (auto) 0.16 K/uL (0.00-0.50); Eosinophils % (auto) 1.5 %; Hematocrit (blood only) 29.5 % (37.0-47.0); Hemoglobin 9.5 g/dl (12.0-16.0); Immature Granulocytes # (auto) 0.05 K/uL (0.01-0.20); Immature Granulocytes % (auto) 0.5 %; Lymphocytes # (auto) 1.67 K/uL (1.20-3.40); Lymphocytes % (auto) 15.7 %; Mean Corpuscular Hemoglobin 28.4 pg (25.0-34.0); Mean Corpuscular Hgb Conc 32.2 g/dL (32.0-36.0); Mean Corpuscular Volume 88.1 fL (80.0-100.0); Mean Platelet Volume 9.3 fL (9.4-12.4); Monocytes # (auto) 0.81 K/uL (0.11-0.59); Monocytes % (auto) 7.6 %; Neutrophils % (auto) 74.3 %; Platelet Count 240 K/uL (130-400); RDW Coefficient of Variation 13.3 % (11.5-14.5); Red Blood Count 3.35 M/uL (4.20-5.40); White Blood Count 10.63 K/ul (4.8-10.8)
[2023-11-23 06:11] LABS: Calcium 9.1 mg/dl (8.6-10.3); Potassium 4.3 mmol/L (3.5-5.1)
[2023-11-23 06:19] LABS: BUN Creatinine Ratio 14.8 (10-20); Creatinine Clr Calc Pharmacy 41.6 ml/min; Est GFR (African American) 57.3 ml/min; Est GFR (Non-African American) 49.5 ml/min
--- NOTE | 2023-11-23 07:34 | Hospitalist Progress Note ---
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 Previously resection of right parotidectomy and right neck dissection followed by local reconstruction. Right neck mass appears to be a necrotic lymph node, it is becoming more tender, CT on 11/22 shows mild change She has been scheduled for mediport and chemoradiation in the near future. Oncology consultation performed as outpt Pt had malignancy associated hypercalcemia, treated with hydration and resolved, likely some of the cause of initial presentation of falls and weakness Imaging on presentation did rule out CVA but re demonstrated large scalp mass which extends thru the underlying parietal bone, extending to the dura without involvement of the brain parenchyma, mentions could also be element of post surgical change ON ertapenem for esbl uti however with expanding clinical symptoms(despite modest Ct changes) adding daptomycin and recollecting cultures, consider if IR can access area given location (2) Kidney transplant recipient: Plan: Stable. She is on immunosuppressive therapy. Mycophenolate tacrolimus Continue current medical management (3) Seizure disorder: Plan: h/o the same. recent ER visit Continue Keppra. Brain MRI scan negative for metastatic disease. The primary squamous cell carcinoma tumor extends through the scalp and through the calvarium to the depth of the dura. Neurology consult ation and recommendations appreciated (4) Hypothyroidism: Plan: Stable. Continue Synthroid replacement therapy (5) Diabetes mellitus, type II: Plan: ADA diet. Basal insulin therapy. Sliding scale coverage. (6) UTI (urinary tract infection): Plan: Present on admission. Urine is growing ESBL E. coli. Unasyn has been switched to ertapenem, day 1. Blood cultures are negative Admission and Anticipated Discharge Date Admission Date: November 20, 2023 Subjective pt has significant swelling and tenderness to right neck with some enlarging of swelling, CT does not suggest that this is significantly worsening in size, the area is along previous surgical scar Pt has had increasing pain at the site, clinically expanding at bedside Physical Exam Physical Exam: Pt is slightly groggy, has pain at the space just inferior to right ear and posterior to right jaw reddened warm and tender. otherwise pain control is fair, no constipation Results & Data Results & Data Vital Signs (Past 12 Hours) Vital Signs Temp Pulse Pulse Resp BP Pulse Ox O2 Del Method 11/23/23 07:13 97.9 F 57 L 16 163/68 H 96 Room Air 11/23/23 07:06 Room Air 11/23/23 06:00 57 L 11/23/23 05:38 189/53 H 11/23/23 03:20 98.4 F 58 L 20 184/83 H 95 Room Air 11/22/23 23:00 60 11/22/23 22:48 98.4 F 60 20 179/67 H 95 Room Air 11/22/23 19:34 Room Air Laboratory Results review cbc review chemistry review ordered CT soft tissue neck without significant changes PG Care Time/CCT Total # of Minutes Spent Total Time Spent with Patient: Total time spent is greater than 50% in coordination of care (as documented) at patient's floor/unit and/or counseling patient: Coding Level of Care Code 58110 SUB INP/OBS CARE 3/50MIN Diagnoses Squamous cell carcinoma of scalp C44.42 Kidney transplant recipient Z94.0 Seizure disorder G40.909 Acquired hypothyroidism E03.9 Hypothyroidism type: acquired Type 2 diabetes mellitus with stage 3a chronic kidney disease, with long-term current use of insulin E11.22; N18.31; Z79.4 Chronic kidney disease stage: stage 3 (moderate) Chronic kidney disease stage 3 subtype: stage 3a (GFR 45-59) Diabetes mellitus complication detail: with chronic kidney disease Diabetes mellitus complication status: with kidney complications Diabetes mellitus custodial insulin use: with custodial use UTI (urinary tract infection) N30.00 Hematuria presence: without hematuria Urinary tract infection type: acute cystitis (4) Hypothyroidism Hypothyroidism type: acquired Qualified Code(s): E03.9 - Hypothyroidism, unspecified (5) Diabetes mellitus, type II Chronic kidney disease stage: stage 3 (moderate) Chronic kidney disease stage 3 subtype: stage 3a (GFR 45-59) Diabetes mellitus complication detail: with chronic kidney disease Diabetes mellitus complication status: with kidney complications Diabetes mellitus buttermaker continuous churn insulin use: with custodial use Qualified Code(s): E11.22 - Type 2 diabetes mellitus with diabetic chronic kidney disease; N18.31 - Chronic kidney disease, stage 3a; Z79.4 - [facility] (current) use of insulin (6) UTI (urinary tract infection) Hematuria presence: without hematuria Urinary tract infection type: acute cystitis Qualified Code(s): N30.00 - Acute cystitis without hematuria
[2023-11-23] MEDS: OPTIRAY 320 100ml IV ONE (15:49)
--- NOTE | 2023-11-23 16:30 | CT Scan Report ---
CT soft tissue neck w con CLINICAL HISTORY: eval right neck mass for abscess Technique: Axial CT images of the soft tissues of the neck were obtained following intravenous admini stration of 100 cc of Omnipaque 300. Automated dose lowering techniques and/or adjustment according t o patient size were utilized for this exam. Comparison: Comparison is made to CT cervical spine 11/20/2023 Findings: The oropharynx, hypopharynx, larynx, and trachea are patent. Redemonstration of a enhancing thick-wal led 57 x 47 mm right neck lesion. The parotid glands, submandibular glands, and thyroid gland are unr emarkable. Imaged portions of the brain parenchyma are unremarkable. The paranasal sinuses and mastoid air cell s are normal in appearance. Impression: Thick walled right neck collection is seen compatible with a necrotic mass. Sterility cannot be asses sed by this exam. No regional lymphadenopathy is seen. ACT 112: Negative or not required by law. Electronically signed by: Cesar Colon M.D. 11/23/2023 4:28 PM
[2023-11-23] MEDS: DAPTOMYCIN IV ONE (18:34)
[2023-11-24 06:40] LABS: Basophils # (auto) 0.04 K/uL (0.00-0.20); Basophils % (auto) 0.4 %; Eosinophils # (auto) 0.16 K/uL (0.00-0.50); Eosinophils % (auto) 1.6 %; Hematocrit (blood only) 28.9 % (37.0-47.0); Hemoglobin 9.3 g/dl (12.0-16.0); Immature Granulocytes # (auto) 0.03 K/uL (0.01-0.20); Immature Granulocytes % (auto) 0.3 %; Lymphocytes # (auto) 2.08 K/uL (1.20-3.40); Lymphocytes % (auto) 20.5 %; Mean Corpuscular Hemoglobin 28.2 pg (25.0-34.0); Mean Corpuscular Hgb Conc 32.2 g/dL (32.0-36.0); Mean Corpuscular Volume 87.6 fL (80.0-100.0); Mean Platelet Volume 9.5 fL (9.4-12.4); Monocytes # (auto) 0.89 K/uL (0.11-0.59); Monocytes % (auto) 8.8 %; Neutrophils # (auto) 6.95 K/uL (1.40-6.50); Neutrophils % (auto) 68.4 %; Platelet Count 247 K/uL (130-400); RDW Coefficient of Variation 13.4 % (11.5-14.5); RDW Standard Deviation 43.2 fL (36.4-46.3); White Blood Count 10.15 K/ul (4.8-10.8)
[2023-11-24 06:57] LABS: BUN Creatinine Ratio 14.2 (10-20); Calcium 9.2 mg/dl (8.6-10.3); Creatinine Clr Calc Pharmacy 37.4 ml/min; Est GFR (African American) 50.5 ml/min; Est GFR (Non-African American) 43.6 ml/min; Potassium 4.2 mmol/L (3.5-5.1)
--- NOTE | 2023-11-24 14:14 | Ultrasound Report ---
Ultrasound-guided right neck lesion FNA INDICATION: 5.7 cm right neck lesion; history of squamous cell carcinoma right neck status post surge ry PROCEDURE: Procedure and risks were explained. Informed consent was obtained. A final timeout was com pleted. The neck was prepped and draped in sterile fashion. 1% lidocaine was utilized for skin anesth esia. Utilizing ultrasound guidance, a 25-gauge needle was advanced into the 5.7 cm right neck neck lesion. Ultrasound images were obtained. 3 aspirates were obtained with a 25-gauge needle, one aspirate with a 22-gauge needle, and one aspirate with a 20-gauge spinal needle yielding approximately 20 mL of cl oudy yellow fluid and given to the pathologist for review. The needle was removed and Band-Aid elsa chambers The patient tolerated the procedure well. IMPRESSION: Right neck lesion lesion FNA biopsy as above. Performed, dictated, and signed by Mirza Clark PA-C; to be co-signed by Dr. Gianni Rios. Electronically signed by: Gianni Rios M.D. 11/24/2023 2:20 PM
[2023-11-24 14:36] LABS: MPA Glucuronide <10.0 mcg/mL (35.0-100.0); Mycophenolic Acid <0.5 mcg/mL (1.0-3.5)
--- NOTE | 2023-11-24 17:39 | Hospitalist Progress Note ---
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 Previously resection of right parotidectomy and right neck dissection followed by local reconstruction. Right neck mass appears to be a necrotic lymph node, it is becoming more tender, CT on 11/22 shows mild change She has been scheduled for mediport and chemoradiation in the near future. Oncology consultation performed as outpt Pt had malignancy associated hypercalcemia, treated with hydration and resolved, likely some of the cause of initial presentation of falls and weakness Imaging on presentation did rule out CVA but re demonstrated large scalp mass which extends thru the underlying parietal bone, extending to the dura without involvement of the brain parenchyma, mentions could also be element of post surgical change ON ertapenem for esbl uti however with expanding clinical symptoms(despite modest Ct changes) adding daptomycin and recollecting cultures, Interventional radiology did aspirate fluid and that that could be a necrotic lymph node versus infection this was 20 mL of yellow fluid cultures are pending continues on antibiotics as listed above (2) Kidney transplant recipient: Plan: Stable. She is on immunosuppressive therapy. Mycophenolate tacrolimus levels are low but renal function is stable Continue current medical management (3) Seizure disorder: Plan: h/o the same. recent ER visit Continue Keppra. Brain MRI scan negative for metastatic disease. The primary squamous cell carcinoma tumor extends through the scalp and through the calvarium to the depth of the dura. Neurology consultation and recommendations appreciated (4) Hypothyroidism: Plan: Stable. Continue Synthroid replacement therapy (5) Diabetes mellitus, type II: Plan: ADA diet. Basal insulin therapy. Sliding scale coverage. (6) UTI (urinary tract infection): Plan: Present on admission. Urine is growing ESBL E. coli. Unasyn has been switched to ertapenem, 7 day course will be LD 11/26 Blood cultures are negative to date Admission and Anticipated Discharge Date Admission Date: November 20, 2023 Subjective pt has significant swelling and tenderness to right neck with some enlarging of swelling, arranges were made to go to interventional radiology and 20 mL of yellow fluid was removed with cultures and pathology sent to the lab. Incidentally there was a slight decrease clinically and erythema to the site after institution of daptomycin therapy Physical Exam Physical Exam: Pt remained groggy, has pain continue just inferior to right ear and posterior to right jaw reddened warm and tender. otherwise pain control is fair, no constipation Results & Data Results & Data Vital Signs (Past 12 Hours) Vital Signs Temp Pulse Resp BP Pulse Ox O2 Del Method 11/24/23 16:19 98.8 F 59 L 18 136/65 94 Room Air 11/24/23 11:27 98.2 F 56 L 18 123/67 95 Room Air 11/24/23 08:00 62 11/24/23 07:32 98.1 F 55 L 17 135/80 92 Room Air Laboratory Results Reviewed CBC reviewed chemistry Reviewed mycophenolate and tacrolimus levels levels are both low ever renal function remained stable subsequently will not adjust medications unless patient exhibits signs of rejection PG Care Time/CCT Total # of Minutes Spent Total Time Spent with Patient: Total time spent is greater than 50% in coordination of care (as documented) at patient's floor/unit and/or counseling patient: Coding Level of Care Code 08970 SUB INP/OBS CARE 3/50MIN Diagnoses Squamous cell carcinoma of scalp C44.42 Kidney transplant recipient Z94.0 Seizure disorder G40.909 Acquired hypothyroidism E03.9 Hypothyroidism type: acquired Type 2 diabetes mellitus with stage 3a chronic kidney disease, with long-term current use of insulin E11.22; N18.31; Z79.4 Diabetes mellitus fci insulin use: with fci use Diabetes mellitus complication status: with kidney complications Diabetes mellitus complication detail: with chronic kidney disease Chronic kidney disease stage: stage 3 (moderate) Chronic kidney disease stage 3 subtype: stage 3a (GFR 45-59) UTI (urinary tract infection) N30.00 Hematuria presence: without hematuria Urinary tract infection type: acute cystitis (4) Hypothyroidism Hypothyroidism type: acquired Qualified Code(s): E03.9 - Hypothyroidism, unspecified (5) Diabetes mellitus, type II Diabetes mellitus fci insulin use: with fci use Diabetes mellitus complication status: with kidney complications Diabetes mellitus complication detail: with chronic kidney disease Chronic kidney disease stage: stage 3 (moderate) Chronic kidney disease stage 3 subtype: stage 3a (GFR 45-59) Qualified Code(s): E11.22 - Type 2 diabetes mellitus with diabetic chronic kidney disease; N18.31 - Chronic kidney disease, stage 3a; Z79.4 - long-term (current) use of insulin (6) UTI (urinary tract infection) Hematuria presence: without hematuria Urinary tract infection type: acute cystitis Qualified Code(s): N30.00 - Acute cystitis without hematuria
--- NOTE | 2023-11-25 14:29 | Hospitalist Progress Note ---
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 Previously resection of right parotidectomy and right neck dissection followed by local reconstruction. Previous concern for parietal bone invasion right neck mass appears to be a necrotic lymph node, status post interventional radiology aspiration on 11/23 with fluid sent to lab and cytology currently pending and no growth to date She has been scheduled for mediport and chemoradiation in the near future. Patient has a drug-resistant urinary tract infection and Mediport insertion has been postponed Pt had malignancy associated hypercalcemia, treated with hydration and resolved, likely some of the cause of initial presentation of falls and weakness Imaging on presentation did rule out CVA but re demonstrated large scalp mass which extends thru the underlying parietal bone, extending to the dura without involvement of the brain parenchyma, mentions could also be element of post surgical change ON ertapenem for esbl uti if aspirate fluid from neck is negative for infection may consider discontinuing daptomycin and just completing course of ertapenem last dose will be November 26 for 7-day treatment course (2) Kidney transplant recipient: Plan: Stable. She is on immunosuppressive therapy. Mycophenolate tacrolimus levels are low but renal function is stable Continue current medical management (3) Seizure disorder: Plan: h/o the same. recent ER visit Continue Keppra. Brain MRI scan negative for metastatic disease. The primary squamous cell carcinoma tumor extends through the scalp and through the calvarium to the depth of the dura. Neurology consultation and recommendations appreciated (4) Hypothyroidism: Plan: Stable. Continue Synthroid replacement therapy (5) Diabetes mellitus, type II: Plan: ADA diet. Basal insulin therapy. Sliding scale coverage. (6) UTI (urinary tract infection): Plan: Present on admission. Urine is growing ESBL E. coli. Unasyn has been switched to ertapenem, 7 day course will be LD 11/26 Blood cultures are negative to date Plan Patient's family is urging the patient to keep fighting patient himself looks to be tiring out continual discussion with the patient may be undertaken in consideration of palliative care goals of care evaluation may be had, however consult has not been formally placed due to holiday Admission and Anticipated Discharge Date Admission Date: November 20, 2023 Subjective Patient is somnolent and withdrawn discuss goals of care today she was noncommittal. Patient has not yet started oncology treatment Aspiration of right neck fluid collection on 11/23 yielded so far sterile fluid. Clinically it appears that this may have recurred since yesterday. The overlying skin however is much less erythematous. Patient himself just wants to sleep and be left alone. Concerned that her performance status is declining as time moves forward we may miss her window for treatment. Physical Exam Physical Exam: Awake alert alert oriented falls asleep easily when not stimulated Card exam is regular with a systolic murmur Lungs are diminished at the bases Abdomen NABS and soft Her right neck has a very firm lump behind her right jaw below her ear this is approximately 3 to 4 cm and tender Results & Data Results & Data Vital Signs (Past 12 Hours) Vital Signs Temp Pulse Resp BP Pulse Ox O2 Del Method 11/25/23 11:35 99.5 F 64 18 143/58 H 95 Room Air 11/25/23 07:44 100.0 F H 59 L 17 131/47 L 93 Room Air 11/25/23 03:19 98.1 F 61 18 132/51 L 90 Room Air Laboratory Results Ordered labs to be collected on 11/25 PG Care Time/CCT Total # of Minutes Spent Total Time Spent with Patient: Total time spent is greater than 50% in coordination of care (as documented) at patient's floor/unit and/or counseling patient: Coding Level of Care Code 47283 SUB INP/OBS CARE 350MIN Diagnoses Squamous cell carcinoma of scalp C44.42 Kidney transplant recipient Z94.0 Seizure disorder G40.909 Acquired hypothyroidism E03.9 Hypothyroidism type: acquired Type 2 diabetes mellitus with stage 3a chronic kidney disease, with long-term current use of insulin E11.22; N18.31; Z79.4 Diabetes mellitus manager long term care insulin use: with care home use Diabetes mellitus complication status: with kidney complications Diabetes mellitus complication detail: with chronic kidney disease Chronic kidney disease stage: stage 3 (moderate) Chronic kidney disease stage 3 subtype: stage 3a (GFR 45-59) UTI (urinary tract infection) N30.00 Hematuria presence: without hematuria Urinary tract infection type: acute cystitis (4) Hypothyroidism Hypothyroidism type: acquired Qualified Code(s): E03.9 - Hypothyroidism, unspecified (5) Diabetes mellitus, type II Diabetes mellitus manager long term care insulin use: with care home use Diabetes mellitus complication status: with kidney complications Diabetes mellitus complication detail: with chronic kidney disease Chronic kidney disease stage: stage 3 (moderate) Chronic kidney disease stage 3 subtype: stage 3a (GFR 45-59) Qualified Code(s): E11.22 - Type 2 diabetes mellitus with diabetic chronic kidney disease; N18.31 - Chronic kidney disease, stage 3a; Z79.4 - intermission coordinator (current) use of insulin (6) UTI (urinary tract infection) Hematuria presence: without hematuria Urinary tract infection type: acute cystitis Qualified Code(s): N30.00 - Acute cystitis without hematuria
[2023-11-26 06:19] LABS: Hematocrit (blood only) 29.1 % (37.0-47.0); Hemoglobin 9.4 g/dl (12.0-16.0); Mean Corpuscular Hemoglobin 28.6 pg (25.0-34.0); Mean Corpuscular Hgb Conc 32.3 g/dL (32.0-36.0); Mean Corpuscular Volume 88.4 fL (80.0-100.0); Mean Platelet Volume 9.4 fL (9.4-12.4); Platelet Count 269 K/uL (130-400); RDW Coefficient of Variation 13.7 % (11.5-14.5); RDW Standard Deviation 43.9 fL (36.4-46.3); Red Blood Count 3.29 M/uL (4.20-5.40); White Blood Count 9.94 K/ul (4.8-10.8)
[2023-11-26 06:52] LABS: BUN Creatinine Ratio 18.5 (10-20); Calcium 9.2 mg/dl (8.6-10.3); Creatinine Clr Calc Pharmacy 34.5 ml/min; Est GFR (African American) 45.8 ml/min; Est GFR (Non-African American) 39.5 ml/min; Potassium 4.1 mmol/L (3.5-5.1)
--- NOTE | 2023-11-26 08:52 | Hospitalist Progress Note ---
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 Previously resection of right parotidectomy and right neck dissection followed by local reconstruction. Previous concern for parietal bone invasion right neck mass appears to be a necrotic lymph node, status post interventional radiology aspiration on 11/23 with fluid sent to lab and cytology currently pending and no growth to date - She has been scheduled for mediport and chemoradiation in the near future. Patient has a drug-resistant urinary tract infection and Mediport insertion has been postponed - Pt had malignancy associated hypercalcemia, treated with hydration and resolved, likely some of the cause of initial presentation of falls and weakness - Imaging on presentation did rule out CVA but re demonstrated large scalp mass which extends thru the underlying parietal bone, extending to the dura without involvement of the brain parenchyma, mentions could also be element of post surgical change - ON ertapenem for esbl uti if aspirate fluid from neck is negative for infection may consider discontinuing daptomycin and just completing course of ertapenem last dose will be November 26 for 7-day treatment course #Kidney transplant recipient: - Stable. She is on immunosuppressive therapy. Mycophenolate tacrolimus levels are low but renal function is stable - Continue current medical management #Seizure disorder: - recent ER visit Continue Keppra. Brain MRI scan negative for metastatic disease. The primary squamous cell carcinoma tumor extends through the scalp and through the calvarium to the depth of the dura. Neurology consultation and recommendations appreciated #Hypothyroidism: - Stable. Continue Synthroid replacement therapy #Diabetes mellitus, type II: - ADA diet. Basal insulin therapy. Sliding scale coverage. #UTI (urinary tract infection): - Present on admission. Urine is growing ESBL E. coli. Unasyn has been switched to ertapenem, 7 day course will be LD 11/26 Blood cultures are negative to date #Goal of Care - Patient's family is urging the patient to keep fighting. - as of 11/25 pt stated that she also wants to continue to fight and get treatment #Dispo: [facility] has accepted pt for short term rehab, when medically stable, no beds this weekend. 11/25: pt declined family update Admission and Anticipated Discharge Date Admission Date: November 20, 2023 Subjective No acute events overnight Not interactive much Very withdrawan Review of Systems Review of Systems: Pt did not participate in ROS Physical Exam Physical Exam: Gen: no acute distress, lying in bed HEENT: right scalp wound with right neck mass CVS: s1s2 nl, RRR, no M/R/G Lungs: CTAB Abd: + bowel sounds, soft, nontender, nondistended, no rigidity / guarding / rebound Ext: + edema Neuro: awake, alert Psych: withdrawn Results & Data Results & Data Vital Signs (Past 12 Hours) Vital Signs Temp Pulse Pulse Resp BP Pulse Ox O2 Del Method 11/26/23 07:59 37.9 C H 62 20 161/54 H 95 Room Air 11/26/23 07:36 61 11/26/23 04:06 36.8 C 62 18 163/69 H 96 Room Air 11/25/23 22:52 36.6 C 59 L 18 148/69 H 92 Room Air 11/25/23 21:52 57 L PG Care Time/CCT Total # of Minutes Spent Total Time Spent with Patient: Total time spent is greater than 50% in coordination of care (as documented) at patient's floor/unit and/or counseling patient: Coding Level of Care Code 61743 SUB INP/OBS CARE 2/35MIN Diagnoses Squamous cell carcinoma of scalp C44.42 Kidney transplant recipient Z94.0 Seizure disorder G40.909 Acquired hypothyroidism E03.9 Hypothyroidism type: acquired Type 2 diabetes mellitus with stage 3a chronic kidney disease, with long-term current use of insulin E11.22; N18.31; Z79.4 Chronic kidney disease stage: stage 3 (moderate) Chronic kidney disease stage 3 subtype: stage 3a (GFR 45-59) Diabetes mellitus complication detail: with chronic kidney disease Diabetes mellitus complication status: with kidney complications Diabetes mellitus long term acute care registered nurse insulin use: with fdc use UTI (urinary tract infection) N30.00 Hematuria presence: without hematuria Urinary tract infection type: acute cystitis (4) Hypothyroidism Hypothyroidism type: acquired Qualified Code(s): E03.9 - Hypothyroidism, unspecified (5) Diabetes mellitus, type II Chronic kidney disease stage: stage 3 (moderate) Chronic kidney disease stage 3 subtype: stage 3a (GFR 45-59) Diabetes mellitus complication detail: with chronic kidney disease Diabetes mellitus complication status: with kidney complications Diabetes mellitus long term acute care registered nurse insulin use: with fdc use Qualified Code(s): E11.22 - Type 2 diabetes mellitus with diabetic chronic kidney disease; N18.31 - Chronic kidney disease, stage 3a; Z79.4 - [facility] (current) use of insulin (6) UTI (urinary tract infection) Hematuria presence: without hematuria Urinary tract infection type: acute cystitis Qualified Code(s): N30.00 - Acute cystitis without hematuria
[2023-11-26] MEDS: INSULIN ASPART PER UNIT CHARGE SC SCH (18:06)
[2023-11-27 06:54] LABS: Hematocrit (blood only) 29.5 % (37.0-47.0); Hemoglobin 9.4 g/dl (12.0-16.0); Mean Corpuscular Hemoglobin 28.1 pg (25.0-34.0); Mean Corpuscular Hgb Conc 31.9 g/dL (32.0-36.0); Mean Corpuscular Volume 88.3 fL (80.0-100.0); Mean Platelet Volume 9.2 fL (9.4-12.4); Platelet Count 294 K/uL (130-400); RDW Coefficient of Variation 13.7 % (11.5-14.5); RDW Standard Deviation 44.1 fL (36.4-46.3); Red Blood Count 3.34 M/uL (4.20-5.40); White Blood Count 9.83 K/ul (4.8-10.8)
[2023-11-27 07:15] LABS: BUN Creatinine Ratio 21.1 (10-20); Calcium 9.5 mg/dl (8.6-10.3); Creatinine Clr Calc Pharmacy 41.2 ml/min; Est GFR (African American) 56.7 ml/min; Est GFR (Non-African American) 48.9 ml/min; Magnesium 2.2 mg/dl (1.7-2.4); Phosphorus 2.8 mg/dl (2.5-4.9)
[2023-11-27] MEDS: carvediloL 6.25 MG TAB PO SCH (08:14)
[2023-11-27] MEDS ORDERED: HYDROmorphone INJ 0.5 MG/0.5 ML SYR IV PRN (08:46)
--- NOTE | 2023-11-27 08:54 | Hospitalist Progress Note ---
Date of Service November 27, 2023 Assessment & Plan (1) Squamous cell carcinoma of scalp: (2) Kidney transplant recipient: (3) Seizure disorder: (4) Hypothyroidism: (5) Diabetes mellitus, type II: (6) UTI (urinary tract infection): (7) Bradycardia: Plan #Squamous cell carcinoma of scalp: - Status post removal of squamous cell carcinoma of the scalp with known lymph node metastases. Previously resection of right parotidectomy and right neck dissection followed by local reconstruction. Previous concern for parietal bone invasion right neck mass appears to be a necrotic lymph node, status post interventional radiology aspiration on 11/23 with fluid sent to lab and cytology currently pending and no growth to date - She has been scheduled for mediport and chemoradiation in the near future. Patient has a drug-resistant urinary tract infection and Mediport insertion has been postponed - Pt had malignancy associated hypercalcemia, treated with hydration and resolved, likely some of the cause of initial presentation of falls and weakness - Imaging on presentation did rule out CVA but re demonstrated large scalp mass which extends thru the underlying parietal bone, extending to the dura without involvement of the brain parenchyma, mentions could also be element of post johnson rgical change - pain control with prn tylenol for mild pain, prn oxy for mod pain, prn dilaudid for severe pain #Kidney transplant recipient: - Stable. She is on immunosuppressive therapy. Mycophenolate tacrolimus levels are low but renal function is stable - Continue current medical management #Bradycardia - reduced dose of coreg, monitor HR #Seizure disorder: - recent ER visit Continue Keppra. Brain MRI scan negative for metastatic disease. The primary squamous cell carcinoma tumor extends through the scalp and through the calvarium to the depth of the dura. Neurology consultation and recommendations appreciated #Hypothyroidism: - Stable. Continue Synthroid replacement therapy #Diabetes mellitus, type II: - ADA diet. Basal insulin therapy. Sliding scale coverage. #UTI (urinary tract infection): - Present on admission. Urine is growing ESBL E. coli. Unasyn has been switched to ertapenem, 7 day course will be LD 11/26 Blood cultures are negative to date #Goal of Care - Patient's family is urging the patient to keep fighting. - as of 11/25 pt stated that she also wants to continue to fight and get treatment #Dispo: [facility] has accepted pt for short term rehab, when medically stable, no beds this weekend. 11/25: pt declined family update Dispo: pt is medically stable for discharge, awaiting bed Admission and Anticipated Discharge Date Admission Date: November 20, 2023 Subjective No acute events overnight Better mood this morning No complaints Review of Systems Review of Systems: Comprehensive ROS completed Physical Exam Physical Exam: Gen: no acute distress, lying in bed comfortable HEENT: right scalp wound with right neck mass CVS: s1s2 nl, RRR, no M/R/G Lungs: CTAB Abd: + bowel sounds, soft, nontender, nondistended, no rigidity / guarding / rebound Ext: + edema Neuro: awake, alert, oriented to person, mo/yr, couldn't remember where she was Psych: more interactive Results & Data Results & Data Vital Signs (Past 12 Hours) Vital Signs Temp Pulse Pulse Resp BP Pulse Ox O2 Del Method 11/27/23 07:51 36.8 C 56 L 18 156/73 H 94 Room Air 11/27/23 02:21 36.9 C 58 L 18 149/62 H 92 Room Air 11/26/23 23:01 36.5 C 56 L 19 163/64 H 95 Room Air 11/26/23 21:56 55 L Laboratory Results Abnormal lab results 11/26/23 11/26/23 11/26/23 Range/Units 11:36 16:21 20:05 RBC (4.20-5.40) M/uL Hgb (12.0-16.0) g/dl Hct (37.0-47.0) % MCHC (32.0-36.0) g/dL MPV (9.4-12.4) fL BUN/Creatinine Ratio (10-20) Glucose (70-99(Fasting)) mg/dl POC Glucose 272 H 171 H 150 H (70-99) mg/dl 11/27/23 11/27/23 Range/Units 06:31 07:23 RBC 3.34 L (4.20-5.40) M/uL Hgb 9.4 L (12.0-16.0) g/dl Hct 29.5 L (37.0-47.0) % MCHC 31.9 L (32.0-36.0) g/dL MPV 9.2 L (9.4-12.4) fL BUN/Creatinine Ratio 21.1 H (10-20) Glucose 156 H (70-99(Fasting)) mg/dl POC Glucose 160 H (70-99) mg/dl Medications Administered Home Medications Medication Instructions Recorded Confirmed Last Taken aspirin 81 mg capsule 162 mg PO QAM 08/13/21 11/20/23 11/20/23 glucagon 1 mg solution for 1 mg subcut UD PRN Hypoglycemia 08/13/21 11/20/23 Unknown injection (Glucagon Emergency Kit) multivitamin 1 tab PO DAILY 08/13/21 11/20/23 11/20/23 latanoprost 0.005 % eye drops 1 drp OPL HS 10/10/21 11/20/23 11/19/23 mycophenolate mofetil 500 mg 250 mg PO BID 10/10/21 11/20/23 Unknown tablet (CellCept) furosemide 20 mg tablet (Lasix) 20 mg PO DIRECTED PRN Edema 01/15/22 11/20/23 Unknown blood sugar diagnostic (ZeroTurnaroundTouch #100 ea 09/28/22 10/06/23 Unknown Verio test strips) lancets 33 gauge (OneTouch Delica #100 ea 10/01/22 10/06/23 Unknown Lancets) mupirocin 2 % topical ointment 1 applic topical BID #22 grams 11/18/22 11/20/23 11/20/23 08:00 atorvastatin 40 mg tablet 40 mg PO HS #90 tabs 12/15/22 11/20/23 11/19/23 carvedilol 12.5 mg tablet 12.5 mg PO BID #180 tabs 06/10/23 11/20/23 11/20/23 08:00 brimonidine 0.2 % eye drops 1 drp ophthalmic (eye) BID 07/15/23 11/20/23 11/20/23 08:00 hydralazine 100 mg tablet 100 mg PO TID #270 tabs 08/10/23 11/20/23 11/20/23 08:00 tacrolimus 1 mg capsule, 0.5 mg PO BID 11/04/23 11/20/23 11/20/23 08:00 immediate-release gabapentin 100 mg capsule 100 mg PO TID 11/17/23 11/20/23 11/20/23 08:00 insulin NPH isoph U-100 human 100 16 unit subcut QAM 06/11/20/23 11/20/23 unit/mL (3 mL) subcutaneous pen (Novolin N FlexPen) insulin glargine 100 unit/mL (3 13 unit subcut QAM 11/17/23 11/20/23 11/20/23 mL) subcutaneous pen (Basaglar KwikPen U-100 Insulin) levetiracetam 500 mg tablet 500 mg PO BID 11/17/23 11/20/23 11/20/23 08:00 pen needle, diabetic 32 gauge x #200 ea 11/17/23 11/17/23 Unknown " (BD Ultra-Fine Monica Pen Needle) doxazosin 1 mg tablet 2 mg PO HS 11/19/23 11/20/23 11/19/23 levothyroxine 125 mcg tablet 125 mcg PO QAM 11/19/23 11/20/23 11/20/23 Active Medications Generic Name Dose Route Start Last Admin Trade Name Freq PRN Reason Stop Dose Admin Acetaminophen 650 mg 11/20/23 17:28 11/27/23 08:36 Acetaminophen 325 Mg Tab PO 12/20/23 17:27 650 mg Q4H PRN Administration pain/fever Aspirin 162 mg 11/21/23 09:00 11/27/23 08:26 Aspirin 81 Mg Ectab PO 12/21/23 08:59 162 mg QAM VESTA Administration Atorvastatin Calcium 40 mg 11/20/23 21:00 11/22/23 20:14 Atorvastatin 40 Mg Tab PO 12/20/23 20:59 40 mg HS VESTA Administration Brimonidine Tartrate 1 drops 11/20/23 21:00 11/27/23 08:27 Brimonidine Tartrate 0.2% 5ml OP 12/20/23 20:59 1 drops BID VESTA Administration Carvedilol 6.25 mg 11/27/23 08:00 11/27/23 08:14 Carvedilol 6.25 Mg Tab PO 12/27/23 07:59 6.25 mg BIDM VETSA Administration Doxazosin Mesylate 2 mg 11/20/23 21:00 11/26/23 20:30 Doxazosin Mesylate Tab 2 Mg Tab PO 12/20/23 20:59 2 mg HS VESTA Administration Enoxaparin Sodium 40 mg 11/21/23 09:00 11/27/23 08:27 Enoxaparin Inj 40 Mg/0.4 Ml Syr SQ 12/21/23 08:59 40 mg QAM VESTA Administration Gabapentin 100 mg 11/20/23 21:00 11/27/23 08:14 Gabapentin 100 Mg Cap PO 12/20/23 20:59 100 mg TID VESTA Administration Hydralazine HCl 100 mg 11/20/23 21:00 11/27/23 08:14 Hydralazine Tab 50 Mg Tab PO 12/20/23 20:59 100 mg TID VESTA Administration Ertapenem 1,000 mg/ Syringe 10 mls @ 2 mls/min 11/22/23 10:00 11/26/23 09:21 IV 12/02/23 09:59 2 mls/min Q24H VESTA Administration Insulin Aspart 0 units 11/26/23 16:30 11/27/23 07:45 Insulin Aspart Per Unit Charge SC 12/26/23 16:29 Not Given ACHS VESTA Insulin Glargine 13 units 11/21/23 09:00 11/27/23 08:36 Lantus Per Unit Charge SQ 12/21/23 08:59 13 units QAM VESTA Administration Levetiracetam 500 mg 11/21/23 21:00 11/27/23 08:26 Levetiracetam 500 Mg Tab PO 12/21/23 20:59 500 mg BID VESTA Administration Levothyroxine Sodium 125 mcg 11/21/23 06:30 11/27/23 05:49 Levothyroxine Sodium 125 Mcg Tablet PO 12/21/23 06:29 125 mcg DAILYBB VESTA Administration Mupirocin 1 appln 11/20/23 21:00 11/27/23 08:28 Mupirocin 2% Oint 22 Gm Tube TOP 12/20/23 20:59 1 appln BID VESTA Administration Mycophenolate Mofetil 250 mg 11/20/23 21:00 11/27/23 08:26 Mycophenolate Mofetil 250 Mg Cap PO 12/20/23 20:59 250 mg BID VESTA Administration Oxycodone HCl 5 mg 11/22/23 08:33 11/27/23 00:42 Oxycodone Hcl Ir 5 Mg Tab (Immediate Release) PO 12/06/23 08:32 5 mg Q4H PRN Administration Pain Pantoprazole Sodium 40 mg 11/22/23 09:00 11/27/23 08:26 Pantoprazole 40 Mg Tab PO 12/22/23 08:59 40 mg QAM VESTA Administration Tacrolimus 0.5 mg 11/20/23 21:00 11/27/23 08:26 Tacrolimus 0.5 Mg Cap PO 12/20/23 20:59 0.5 mg BID VESTA Administration PG Care Time/CCT Total # of Minutes Spent Total Time Spent with Patient: Total time spent is greater than 50% in coordination of care (as documented) at patient's floor/unit and/or counseling patient: Coding Level of Care Code 01881 SUB INP/OBS CARE 235MIN Diagnoses Squamous cell carcinoma of scalp C44.42 Kidney transplant recipient Z94.0 Seizure disorder G40.909 Acquired hypothyroidism E03.9 Hypothyroidism type: acquired Type 2 diabetes mellitus with stage 3a chronic kidney disease, with long-term current use of insulin E11.22; N18.31; Z79.4 Chronic kidney disease stage: stage 3 (moderate) Chronic kidney disease stage 3 subtype: stage 3a (GFR 45-59) Diabetes mellitus complication detail: with chronic kidney disease Diabetes mellitus complication status: with kidney complications Diabetes mellitus fdc insulin use: with longitudinal float operator use UTI (urinary tract infection) N30.00 Hematuria presence: without hematuria Urinary tract infection type: acute cystitis Bradycardia R00.1 (4) Hypothyroidism Hypothyroidism type: acquired Qualified Code(s): E03.9 - Hypothyroidism, unspecified (5) Diabetes mellitus, type II Chronic kidney disease stage: stage 3 (moderate) Chronic kidney disease stage 3 subtype: stage 3a (GFR 45-59) Diabetes mellitus complication detail: with ch ronic kidney disease Diabetes mellitus complication status: with kidney complications Diabetes mellitus fdc insulin use: with longitudinal float operator use Qualified Code(s): E11.22 - Type 2 diabetes mellitus with diabetic chronic kidney disease; N18.31 - Chronic kidney disease, stage 3a; Z79.4 - terminal gauger (current) use of insulin (6) UTI (urinary tract infection) Hematuria presence: without hematuria Urinary tract infection type: acute cystitis Qualified Code(s): N30.00 - Acute cystitis without hematuria
[2023-11-27] MEDS: ONDANSETRON INJ 2 MG/ML 2 ML VIAL IV PRN (09:51)
[2023-11-27] MEDS: HYDROmorphone INJ 0.5 MG/0.5 ML SYR IV PRN (09:51)
--- NOTE | 2023-11-28 07:37 | Hospitalist Progress Note ---
Date of Service November 28, 2023 Assessment & Plan (1) Squamous cell carcinoma of scalp: (2) Kidney transplant recipient: (3) Seizure disorder: (4) Hypothyroidism: (5) Diabetes mellitus, type II: (6) UTI (urinary tract infection): Plan #Squamous cell carcinoma of scalp: - Status post removal of squamous cell carcinoma of the scalp with known lymph node metastases. Previously resection of right parotidectomy and right neck dissection followed by local reconstruction. Previous concern for parietal bone invasion right neck mass appears to be a necrotic lymph node, status post interventional radiology aspiration on 11/23 with fluid sent to lab and cytology currently pending and no growth to date - She has been scheduled for mediport and chemoradiation in the near future. Patient has a drug-resistant urinary tract infection and Mediport insertion has been postponed - Pt had malignancy associated hypercalcemia, treated with hydration and resolved, likely some of the cause of initial presentation of falls and weakness - Imaging on presentation did rule out CVA but re demonstrated large scalp mass which extends thru the underlying parietal bone, extending to the dura without involvement of the brain parenchyma, mentions could also be element of post surgical change - pain control with prn tylenol for mild pain, prn oxy for mod pain, prn dilaudid for severe pain #Goals of Care - as of 11/25 pt stated that she also wants to continue to fight and get treatment - discussed with pt about poor prognosis. unclear how much pt comprehends at this time and suspect pt might not have capacity to make complex medical decision - met with pt's son and his at bedside, extensively discussed pt's prognosis. they understand that pt has poor prognosis and would likely benefit from comfort measures - palliative care eval pending #Kidney transplant recipient: - Stable. She is on immunosuppressive therapy. Mycophenolate tacrolimus levels are low but renal function is stable - Continue current medical management #Bradycardia - reduced dose of coreg, monitor HR #Seizure disorder: - recent ER visit Continue Keppra. Brain MRI scan negative for metastatic disease. The primary squamous cell carcinoma tumor extends through the scalp and through the calvarium to the depth of the dura. Neurology consultation and recommendations appreciated #Hypothyroidism: - Stable. Continue Synthroid replacement therapy #Diabetes mellitus, type II: - ADA diet. Basal insulin therapy. Sliding scale coverage. #UTI (urinary tract infection): - Present on admission. Urine is growing ESBL E. coli. Unasyn has been switched to ertapenem, 7 day course will be LD 11/27 Blood cultures are negative to date #Dispo: [facility] has [facility] pt for short term rehab, when medically stable, no beds this weekend. 11/25: pt declined family update Dispo: pt is medically stable for discharge, awaiting bed Admission and Anticipated Discharge Date Admission Date: November 20, 2023 Subjective No acute events overnight No complaints at this time Review of Systems Review of Systems: Comprehensive ROS completed Physical Exam Physical Exam: Gen: no acute distress, lying in bed comfortable HEENT: right scalp wound with right neck mass CVS: s1s2 nl, RRR, no M/R/G Lungs: CTAB Abd: + bowel sounds, soft, nontender, nondistended, no rigidity / guarding / rebound Ext: + edema Neuro: awake, alert, oriented to person, mo/yr, couldn't remember where she was Psych: more interactive Results & Data Results & Data Vital Signs (Past 12 Hours) Vital Signs Temp Pulse Pulse Resp BP Pulse Ox O2 Del Method 11/28/23 07:34 36.6 C 58 L 18 173/69 H 95 Room Air 11/28/23 02:50 36.4 C L 11/28/23 02:50 57 L 17 138/56 L 94 Room Air 11/27/23 23:04 36.3 C L 58 L 17 137/57 L 93 Room Air 11/27/23 21:56 61 Laboratory Results Abnormal lab results 11/27/23 11/27/23 11/27/23 Range/Units 11:10 16:13 20:14 POC Glucose 206 H 171 H 167 H (70-99) mg/dl 11/28/23 Range/Units 07:14 POC Glucose 162 H (70-99) mg/dl PG Care Time/CCT Total # of Minutes Spent Total Time Spent with Patient: Total time spent is greater than 50% in coordination of care (as documented) at patient's floor/unit and/or counseling patient: Coding Level of Care Code 11109 SUB INP/OBS CARE 3/50MIN Diagnoses Squamous cell carcinoma of scalp C44.42 Kidney transplant recipient Z94.0 Seizure disorder G40.909 Acquired hypothyroidism E03.9 Hypothyroidism type: acquired Type 2 diabetes mellitus with stage 3a chronic kidney disease, with long-term current use of insulin E11.22; N18.31; Z79.4 Chronic kidney disease stage: stage 3 (moderate) Chronic kidney disease stage 3 subtype: stage 3a (GFR 45-59) Diabetes mellitus complication detail: with chronic kidney disease Diabetes mellitus complication status: with kidney complications Diabetes mellitus spindle plumber insulin use: with spindle plumber use UTI (urinary tract infection) N30.00 Hematuria presence: without hematuria Urinary tract infection type: acute cystitis (4) Hypothyroidism Hypothyroidism type: acquired Qualified Code(s): E03.9 - Hypothyroidism, unspecified (5) Diabetes mellitus, type II Chronic kidney disease stage: stage 3 (moderate) Chronic kidney disease stage 3 subtype: stage 3a (GFR 45-59) Diabetes mellitus complication detail: with chronic kidney disease Diabetes mellitus complication status: with kidney complications Diabetes mellitus shelter insulin use: with spindle plumber use Qualified Code(s): E11.22 - Type 2 diabetes mellitus with diabetic chronic kidney disease; N18.31 - Chronic kidney disease, stage 3a; Z79.4 - claim inspector (current) use of insulin (6) UTI (urinary tract infection) Hematuria presence: without hematuria Urinary tract infection type: acute cystitis Qualified Code(s): N30.00 - Acute cystitis without hematuria
[2023-11-28 08:18] LABS: Hemoglobin 9.9 g/dl (12.0-16.0); Mean Corpuscular Hemoglobin 28.5 pg (25.0-34.0); Mean Corpuscular Hgb Conc 31.9 g/dL (32.0-36.0); Mean Corpuscular Volume 89.3 fL (80.0-100.0); Mean Platelet Volume 9.3 fL (9.4-12.4); Platelet Count 302 K/uL (130-400); RDW Coefficient of Variation 13.6 % (11.5-14.5); RDW Standard Deviation 44.2 fL (36.4-46.3); Red Blood Count 3.47 M/uL (4.20-5.40); White Blood Count 8.52 K/ul (4.8-10.8)
[2023-11-28 08:43] LABS: BUN Creatinine Ratio 20.9 (10-20); Creatinine Clr Calc Pharmacy 40.8 ml/min; Est GFR (African American) 56.1 ml/min; Est GFR (Non-African American) 48.4 ml/min; Magnesium 2.3 mg/dl (1.7-2.4); Phosphorus 2.8 mg/dl (2.5-4.9); Potassium 4.2 mmol/L (3.5-5.1)
[2023-11-28] MEDS: oxyCODONE HCL IR 5 MG TAB (IMMEDIATE RELEASE) PO PRN (22:12)
[2023-11-29 07:33] LABS: Hematocrit (blood only) 31.1 % (37.0-47.0); Hemoglobin 9.8 g/dl (12.0-16.0); Mean Corpuscular Hemoglobin 28.2 pg (25.0-34.0); Mean Corpuscular Hgb Conc 31.5 g/dL (32.0-36.0); Mean Corpuscular Volume 89.6 fL (80.0-100.0); Mean Platelet Volume 9.1 fL (9.4-12.4); Platelet Count 302 K/uL (130-400); RDW Coefficient of Variation 13.7 % (11.5-14.5); RDW Standard Deviation 44.7 fL (36.4-46.3); Red Blood Count 3.47 M/uL (4.20-5.40); White Blood Count 9.48 K/ul (4.8-10.8)
[2023-11-29 07:54] LABS: BUN Creatinine Ratio 19.4 (10-20); Calcium 9.9 mg/dl (8.6-10.3); Creatinine Clr Calc Pharmacy 41.6 ml/min; Est GFR (African American) 57.3 ml/min; Est GFR (Non-African American) 49.5 ml/min; Magnesium 2.3 mg/dl (1.7-2.4); Phosphorus 2.7 mg/dl (2.5-4.9); Potassium 4.3 mmol/L (3.5-5.1)
[2023-11-29] MEDS ORDERED: GLYCOPYRROLATE 0.2 MG/ML VIAL IV PRN (11:57)
[2023-11-29] MEDS ORDERED: haloperidoL 1 MG TAB PO PRN (11:57)
[2023-11-29] MEDS ORDERED: oxyCODONE HCL IR 5 MG TAB (IMMEDIATE RELEASE) PO PRN (12:03)
[2023-11-29] MEDS: HYDROmorphone INJ 0.5 MG/0.5 ML SYR IV PRN (12:13)
[2023-11-29] MEDS ORDERED: LORazepam 1 MG in SYRINGE 0.5 ML IV PRN (12:28)
--- NOTE | 2023-11-29 14:28 | Hospitalist Progress Note ---
Date of Service November 29, 2023 Assessment & Plan (1) Squamous cell carcinoma of scalp: (2) Kidney transplant recipient: (3) Seizure disorder: (4) Hypothyroidism: (5) Diabetes mellitus, type II: (6) UTI (urinary tract infection): Plan #Squamous cell carcinoma of scalp: - Status post removal of squamous cell carcinoma of the scalp with known lymph node metastases. Previously resection of right parotidectomy and right neck dissection followed by local reconstruction. Previous concern for parietal bone invasion right neck mass appears to be a necrotic lymph node, status post interventional radiology aspiration on 11/23 with fluid sent to lab and cytology currently pending and no growth to date - She has been scheduled for mediport and chemoradiation in the near future. Patient has a drug-resistant urinary tract infection and Mediport insertion has been postponed - Pt had malignancy associated hypercalcemia, treated with hydration and resolved, likely some of the cause of initial presentation of falls and weakness - Imaging on presentation did rule out CVA but re demonstrated large scalp mass which extends thru the underlying parietal bone, extending to the dura without involvement of the brain parenchyma, mentions could also be element of post surgical change - pain control with prn tylenol for mild pain, prn oxy for mod pain, prn dilaudid for severe pain -Patient and family now requesting hospice, a list of agencies have been provided, including [facility] hospice. -Initially a request was placed for [facility] however this will be canceled. #Goals of Care - as of 11/25 pt stated that she also wants to continue to fight and get treatment - discussed with pt about poor prognosis. unclear how much pt comprehends at this time and suspect pt might not have capacity to make complex medical decision - met with pt's son and his at bedside, extensively discussed pt's prognosis. they understand that pt has poor prognosis and would likely benefit from comfort measures - palliative care Discussed with family and they are now requesting hospice #Kidney transplant recipient: - Stable. She is on immunosuppressive therapy. Mycophenolate tacrolimus levels are low but renal function is stable - Continue current medical management #Bradycardia - reduced dose of coreg, monitor HR #Seizure disorder: - recent ER visit Continue Keppra. Brain MRI scan negative for metastatic disease. The primary squamous cell carcinoma tumor extends through the scalp and through the calvarium to the depth of the dura. Neurology consultation and recommendations appreciated #Hypothyroidism: - Stable. Continue Synthroid replacement therapy #Diabetes mellitus, type II: - ADA diet. Basal insulin therapy. Sliding scale coverage. #UTI (urinary tract infection): - Present on admission. Urine is growing ESBL E. coli. Unasyn has been switched to ertapenem, 7 day course will be LD 11/27 Blood cultures are negative to date #Dispo: Home with hospice, awaiting delivery of bed commode etc Admission and Anticipated Discharge Date Admission Date: November 20, 2023 Subjective Patient seen and examined, lying quietly in bed denies any new complaints. Spoke with family and they are now requesting hospice. Review of Systems Review of Systems: All systems reviewed are negative, apart from the ones contained in the history. Physical Exam Physical Exam: The patient is awake, alert and oriented 3, well developed and well nourished, normocephalic and atraumatic, lying in bed and in no acute distress. HEENT--PERRL, EOMI, mucous membranes and oropharynx mildly dry Neck--supple. No JVD. No bruits. Thyroid normal, trachea midline, no adenopathy. Heart--normal S1 and S2. No murmurs, rubs or gallops. Lungs--clear bilaterally, no respiratory distress, no accessory muscle use. Abdomen--normal bowel sounds and soft. Extremities--no cyanosis or clubbing. No edema. Dermatologic--normal skin turgor, normal color, no abnormal lymph nodes, no rash. Neurologic--cranial nerves II through XII grossly intact. Rheumatologic--normal range of motion. Psychiatric--normal affect. Results & Data Results & Data Vital Signs (Past 12 Hours) Vital Signs Temp Pulse Pulse Resp BP Pulse Ox O2 Del Method 11/29/23 11:24 98.4 F 59 L 21 141/57 H 96 Room Air 11/29/23 10:30 Room Air 11/29/23 10:29 59 L 11/29/23 08:00 97.7 F 66 20 160/58 H 94 Room Air 11/29/23 03:05 97.3 F L 62 21 152/74 H 93 Room Air PG Care Time/CCT Total # of Minutes Spent Total Time Spent with Patient: Total time spent is greater than 50% in coordination of care (as documented) at patient's floor/unit and/or counseling patient: Coding Level of Care Code 83742 SUB INP/OBS CARE MIN Diagnoses Squamous cell carcinoma of scalp C44.42 Kidney transplant recipient Z94.0 Seizure disorder G40.909 Acquired hypothyroidism E03.9 Hypothyroidism type: acquired Type 2 diabetes mellitus with stage 3a chronic kidney disease, with long-term current use of insulin E11.22; N18.31; Z79.4 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 mellitus 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 insulin use: with 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 use Diabetes mellitus complication status: with kidney complications Diabetes mellitus complication detail: with chronic kidney disease Chronic kidney disease stage: stage 3 (moderate) Chronic kidney disease stage 3 subtype: stage 3a (GFR 45-59) UTI (urinary tract infection) N30.00 Hematuria presence: without hematuria Urinary tract infection type: acute cystitis Time Spent (min) 35 (4) Hypothyroidism Hypothyroidism type: acquired Qualified Code(s): E03.9 - Hypothyroidism, unspecified (5) Diabetes mellitus, type II Diabetes mellitus 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 insulin use: with custodial use Diabetes mellitus complication status: with kidney complications Diabetes mellitus complication detail: with chronic kidney disease Chronic kidney disease stage: stage 3 (moderate) Chronic kidney disease stage 3 subtype: stage 3a (GFR 45-59) Qualified Code(s): E11.22 - Type 2 diabetes mellitus with diabetic chronic kidney disease; N18.31 - Chronic kidney disease, stage 3a; Z79.4 - half-way (current) use of insulin (6) UTI (urinary tract infection) Hematuria presence: without hematuria Urinary tract infection type: acute cystitis Qualified Code(s): N30.00 - Acute cystitis without hematuria
[2023-11-29 20:45] VITALS: TEMP 98.1; O2SAT 95
--- NOTE | 2023-11-29 20:59 | Palliative Care Consultation ---
Date of Consultation November 29, 2023 Assessment & Plan (1) Cancer related pain: Additional as needed doses of Dilaudid 0.5 mg IV were added and her as needed oral oxycodone IR dose was increased. I have stopped some nonessential medications including Lipitor. I have stopped daily labs. Comfort care orders have been placed. (2) Weakness generalized: (3) AMS (altered mental status): Altered mental status type: unspecified Qualified Code(s): R41.82 - Altered mental status, unspecified (4) Discussion about advance care planning held with family member: A 45-minute oagx-xn-blmx advance care planning discussion was held at the bedside with patient's son and erojxleq-pc-rad. 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 They desire a plan of discharge with home hospice and have the ability to care for patient jiuylh-fmx-ohrka in her home. They are not interested in [place] [facility] [place] and they are aware that [place] [facility] placement because she does not qualify for rehab would require a self-pay expense. They would like the opportunity to care for her needs as a family and keep her in her home which was her 1 wish. They understand the time has become more limited and that she is on a downward trajectory. Many questions were asked with regards to which medicines to focus on continuing versus which medicines could be stopped. We discussed a transition to a comfort focused plan of care and we agreed to stop the nonessential/noncomfort focused medications, for now continue the medicines that she needs for routine maintenance including hypothyroid, hypertension, transplant etc. as long as she is able to take them and work to continue to optimize her pain relief. For the slower short duration of time patient was awake, she did report very severe uncontrolled pain primarily in her head neck and upper back. Hospice was discussed and trpzrykr-jv-utl stated they are very familiar with the services of hospice due to caring for her father at home. They had no new questions with regards to the hospice support services and were relieved to hear that DME could be provided to them through hospice along with medications for comfort and symptom management. At the end of our discussion, it was agreed to transition patient to comfort care here in the hospital, optimize her pain and symptom management, and plan for home with hospice discharge through care management who has been notified by nursing. All questions were answered to their apparent satisfaction. They verbalized understanding and agreement with the plan as outlined above. (5) Palliative care by specialist: (6) Squamous cell carcinoma, scalp/neck: (7) Encounter for hospice care discussion: I provided education about the hospice benefit: an interdisciplinary program offered by nurses, nurses aides, social workers, chaplains and a nuclear medicine medical director for patients with a terminal condition and a life expectancy of less than 6 months. This is covered by Medicare at 100%/no out of pocket expense to patient and all meds/supplies needed by patient for the reason they are on hospice are paid for/covered by hospice. The goal is assure quality of life of the patient in their home setting (home, [place] [facility], inpatient hospice setting) by providing symptoms management, psychosocial and spiritual support. However, they cannot offer 24 hours care and if the family is unable to provide that care, they will have to consider personal care with out of pocket cost vs. [place] [facility] placement. We discussed the goals of hospice as a patient service and the goals of care; we discussed EOL trajectories and transitions halle the emotional impact of realizing mortality as a concrete reality from prior abstract considerations. Pt was reassured that no matter where they are along this trajectory, they are not alone - their medical team will remain by their s edgardo through their journey. Discussed the pros/cons of accepting help when especially weakened and distressed by pain-which would also help provide relief/decrease caregiver burden/strain. Plan As outlined above Thank you for allowing us to participate in the ongoing care of this patient. Please page with any additional concerns. Cosmo Bradshaw DNP Director, Palliative Medicine History of Present Illness Reason for Consultation: Family is interested in hospice. Attending Physician: Derik Morgan MD History of Present Illness Merna is a 78-year-old female who presented to the emergency department on 11/20/2023 for admission from home with family reporting progressive weakness, confusion and a fall at home. She has been intermittently lethargic throughout this admission. She will awaken to loud voice or sternal rub and answer very simple yes/no questions. She does admit to very severe and uncontrolled cancer related pain. She describes this as a persisting pain in her head neck and upper back. She states that she would like her pain control improved further. 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 She underwent a resection with right parotidectomy and right neck dissection followed by local reconstruction. Family reports there has been a lump on her neck that is increasingly painful but not new and this has been present since her surgery. There had initially been a plan to have a Mediport placed to begin chemoradiation with a weekly dose of carboplatin and Taxol however due to her continued decline, it has been agreed that there will be no further pursuit of cancer directed therapies. At the time of her presentation to the emergency department she was found to have hypercalcemia of malignancy which has been treated with hydration. She was also found to have a redemonstrated large scalp mass extending through the underlying parietal bone into the dura without involvement of the brain parenchyma but there may be an element of some postsurgical changes well. Her family is interested in discussions about home hospice. She is seen today at bedside together with her son and hyszwqno-ct-ixu. Her sfyuyyzf-ge-swa is a medic. And there are additionally other family members who are sleeve presser operator as well as [place] [facility] care aides. There is another family member who is an WAXER. Family is confident that they can keep her at home with zheetd-pdz-wbdsj support and caregiving from them and additional guidance and resources from hospice. They are familiar with hospice from a prior family members admission to hospice. Her medical history is significant for squamous cell carcinoma of the scalp, CKD status post kidney transplant, anemia, chronic UTIs, hypercalcemia, history of focal motor seizures, chronic lumbar joint pain, lumbar stenosis, pulmonary nodule followed by [facility] since October 2018, seizure disorder, RLS, hypothyroid, hyperlipidemia, generalized OA, DM2, anxiety, depression, CAD status post cardiac catheterization November 2008 at [facility] with no nonobstructive disease noted, polycystic kidney disease status post kidney transplant, hypertension. Neurology consultation reviewed, MRI did not indicate any acute findings. Allergies Allergy/AdvReac Type Severity Reaction Status Date / Time nickel Allergy Intermediate RASH Verified 11/20/23 16:02 nitrofurantoin Allergy Intermediate REDNESS Verified 11/20/23 16:02 AND BURNING OF HANDS morphine Allergy Unknown CAN'T Verified 11/20/23 16:02 REMEMBER NSAIDS (Non-Steroidal Allergy Unknown CAN'T Verified 11/20/23 16:02 Anti-Inflamma REMEMBER Home Medications Medication Instructions Recorded Confirmed Type aspirin 81 mg capsule 162 mg PO QAM 08/13/21 11/20/23 History glucagon 1 mg solution for 1 mg subcut UD PRN Hypoglycemia 08/13/21 11/20/23 History injection (Glucagon Emergency Kit) multivitamin 1 tab PO DAILY 08/13/21 11/20/23 History latanoprost 0.005 % eye drops 1 drp OPL HS 10/10/21 11/20/23 History mycophenolate mofetil 500 mg 250 mg PO BID 10/10/21 11/20/23 History tablet (CellCept) furosemide 20 mg tablet (Lasix) 20 mg PO DIRECTED PRN Edema 01/15/22 11/20/23 History blood sugar diagnostic (OneTouch #100 ea 09/28/22 10/06/23 Rx Verio test strips) lancets 33 gauge (Spot Mobile InternationalTouch Delica #100 ea 10/01/22 10/06/23 Rx Lancets) mupirocin 2 % topical ointment 1 applic topical BID #22 grams 11/18/22 11/20/23 Rx atorvastatin 40 mg tablet 40 mg PO HS #90 tabs 12/15/22 11/20/23 Rx carvedilol 12.5 mg tablet 12.5 mg PO BID #180 tabs 06/10/23 11/20/23 Rx brimonidine 0.2 % eye drops 1 drp ophthalmic (eye) BID 07/15/23 11/20/23 History hydralazine 100 mg tablet 100 mg PO TID #270 tabs 08/10/23 11/20/23 Rx tacrolimus 1 mg capsule, 0.5 mg PO BID 11/04/23 11/20/23 History immediate-release gabapentin 100 mg capsule 100 mg PO TID 11/17/23 11/20/23 History insulin NPH isoph U-100 human 100 16 unit subcut QAM 11/17/23 11/20/23 History unit/mL (3 mL) subcutaneous pen (Novolin N FlexPen) insulin glargine 100 unit/mL (3 13 unit subcut QAM 11/17/23 11/20/23 History mL) subcutaneous pen (Basaglar KwikPen U-100 Insulin) levetiracetam 500 mg tablet 500 mg PO BID 11/17/23 11/20/23 History pen needle, diabetic 32 gauge x #200 ea 11/17/23 11/17/23 Rx " (BD Ultra-Fine Monica Pen Needle) doxazosin 1 mg tablet 2 mg PO HS 11/19/23 11/20/23 History levothyroxine 125 mcg tablet 125 mcg PO QAM 11/19/23 11/20/23 History Patient History Medical History Anemia CHRONIC; BASELINE HGB 9'S PER CHART REVIEW Anxiety and depression Arteriovenous fistula stenosis pt denies Asthma hx-no inhalers Bradycardia pt denies Brain aneurysm coiled 11/05/18. CAD (coronary artery disease) Central venous catheter in place, permanent pt denies-stated she "never had one of these" Cervicalgia pt denies Chronic cough pt denies Chronic low back pain Cognitive impairment pt denies Degenerative disc disease Diabetes mellitus, type II IDDM Diverticulitis pt denies Esophagus disorder ESRD (end stage renal disease) on dialysis pt stated she is no longer since having her kidney transplant in 2021 Frequent PVCs pt denies Glaucoma Gout hx Hearing deficit History of SCC (squamous cell carcinoma) of skin Hyperlipidemia Hyperphosphatemia pt denies Hypertension Hypothyroidism Kidney stones no sx. Lumbar spinal stenosis Pancolitis pt denies Pulmonary nodule CT 10/2018, 12/2019 by [facility]; monitored RLS (restless legs syndrome) Seizure disorder most recent 11/17/23; f/u de neuro Surgical History History of arteriovenous graft LUE AVF History of biopsy punch biopsy of lesion on scalp 05/14/23 History of bronchoscopy History of cataract surgery Bilateral History of colonoscopy 09/20/2018. poor prep so procedure aborted. patient with emesis when awake, no issues and discharged home. History of hammer toe correction History of lumbar surgery 2003, unsure of levels, [place] History of surgery peritoneal dialysis cath placement peritoneal dialysis cath removal/permacath insertion= 01/27/18= MAC SEDATION AT [facility] History of surgery Wide local excision scalp lesion, burring of calvarium, right superficial parotidectomy with facial nerve preservation, right selective neck dissection at [facility] on 08/24/23 History of total abdominal hysterectomy and bilateral salpingo-oophorectomy Hx of cardiac cath 11/2018, [facility], no stents "prior to kidney transplant"; no cardio currently Hx of kidney transplant 2021 S/P trigger finger release Family History Mother Family history of reaction to anesthesia confused for a day or so after sx in the 1950s Family history of diabetes mellitus Sister Pacemaker Skin cancer Father Family history of diabetes mellitus type 2 Hypertension Stroke syndrome Pure hypercholesterolemia Diabetes Son Hypertension Pure hypercholesterolemia Fatty liver Aunt Ovarian cancer Sister Diabetes Complications Sister No problems noted. Brother Stillborn, normal Son Hypertension Diverticulosis Daughter MVA (motor vehicle accident) Other Cardiac disorder Deafness Denies family history of Prostate cancer Myocardial infarction Breast cancer Colorectal cancer Social History Smoking Status: Never smoker Second Hand Exposure: No; Do You Dip or Chew Tobacco: No; Hx Alcohol Use: No Hx Substance Use: No Preferred Language: Luxembourgish Communication Ability: Effective Visual Impairment: Limited Hearing Ability: Use of Hearing Aid Informal Waiter/Waitress Required: No Beliefs That Will Affect Care: Caodaism marital status: / Current Living Situation: Alone Current Living Situation Comment: pt declined to answer question 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 How many Children do You have: 2 How many Children do You have Comment: 2 living children Other Information That Helps Us Care for You: No Feels Safe at Home: Yes Safety Concerns: Feels Safe At This Time Childhood Exposure to Second-Hand Smoke: No Diet: lactose free, low salt and regular caffeine: Yes during the past year weight has: decreased > 10 lbs Dental Care, Regularly: Yes Physical Activity Frequency: Does not Exercise Seatbelt Use: always Sunscreen Use: Yes Do you think of yourself as: straight/heterosexual Gender Identity: Female Assistive Devices: Walker Review of Systems Review of Systems: Unobtainable due to cognitive status Physical Exam Physical Exam: Frail, elderly female, lying in bed on her right side. Lethargic but will arouse to loud voice or sternal rub. Unable to consistently follow commands. Is able to briefly answer simple yes/no questions but is not able to participate in the consultation or discussion. Quickly drifts off back to sleep. Postsurgical changes of the scalp noted. Neck is supple and without stridor. Respirations are even and unlabored. RRR. No gross JVD. Abdomen softly distended. Mild generalized edema upper and lower extremities. Overall global generalized weakness. She is alert to self but nothing else. Skin is pale and cool to touch. Results & Data Vital Signs (Past 12 Hours) Vital Signs Temp Pulse Pulse Pulse Resp BP Pulse Ox 11/29/23 20:44 36.7 C 64 16 169/63 H 95 11/29/23 16:00 11/29/23 16:00 37.2 C 66 20 156/76 H 93 11/29/23 14:36 57 L 11/29/23 11:24 36.9 C 59 L 21 141/57 H 96 11/29/23 10:30 11/29/23 10:29 59 L O2 Del Method 11/29/23 20:44 Room Air 11/29/23 16:00 Room Air 11/29/23 16:00 Room Air 11/29/23 14:36 11/29/23 11:24 Room Air 11/29/23 10:30 Room Air 11/29/23 10:29 Laboratory Results 11/29/23 11/29/23 11/29/23 Range/Units 16:16 11:12 07:32 WBC (4.8-10.8) K/ul RBC (4.20-5.40) M/uL Hgb (12.0-16.0) g/dl Hct (37.0-47.0) % MCV (80.0-100.0) fL MCH (25.0-34.0) pg MCHC (32.0-36.0) g/dL RDW Std Deviation (36.4-46.3) fL RDW Coeff of Martin (11.5-14.5) % Plt Count (130-400) K/uL MPV (9.4-12.4) fL Immature Gran % (Auto) % Neut % (Auto) % Lymph % (Auto) % Price % (Auto) % Eos % (Auto) % Baso % (Auto) % Neut # (Auto) (1.40-6.50) K/uL Lymph # (Auto) (1.20-3.40) K/uL Price # (Auto) (0.11-0.59) K/uL Eos # (Auto) (0.00-0.50) K/uL Baso # (Auto) (0.00-0.20) K/uL Immature Gran # (Auto) (0.01-0.20) K/uL Sodium (136-145) mmol/L Potassium (3.5-5.1) mmol/L Chloride (98-107) mmol/L Carbon Dioxide (21-32) mmol/L Anion Gap (3-11) BUN (6-23) mg/dl Creatinine (0.6-1.2) mg/dl Est Cr Clr Drug Dosing ml/min Est GFR ( Amer) ml/min Est GFR (Non-Af Amer) ml/min BUN/Creatinine Ratio (10-20) Glucose (70-99(Fasting)) mg/dl POC Glucose 156 H 154 H 181 H (70-99) mg/dl Calcium (8.6-10.3) mg/dl Phosphorus (2.5-4.9) mg/dl Magnesium (1.7-2.4) mg/dl Levetiracetam (6.0-46.0) mcg/mL Mycophenolic Acid (1.0-3.5) mcg/mL MPA Glucuronide (35.0-100.0) mcg/mL Tacrolimus mcg/L 11/29/23 11/29/23 11/29/23 Range/Units 07:32 07:31 07:10 WBC 9.48 (4.8-10.8) K/ul RBC 3.47 L (4.20-5.40) M/uL Hgb 9.8 L (12.0-16.0) g/dl Hct 31.1 L (37.0-47.0) % MCV 89.6 (80.0-100.0) fL MCH 28.2 (25.0-34.0) pg MCHC 31.5 L (32.0-36.0) g/dL RDW Std Deviation 44.7 (36.4-46.3) fL RDW Coeff of Martin 13.7 (11.5-14.5) % Plt Count 302 (130-400) K/uL MPV 9.1 L (9.4-12.4) fL Immature Gran % (Auto) % Neut % (Auto) % Lymph % (Auto) % Price % (Auto) % Eos % (Auto) % Baso % (Auto) % Neut # (Auto) (1.40-6.50) K/uL Lymph # (Auto) (1.20-3.40) K/uL Price # (Auto) (0.11-0.59) K/uL Eos # (Auto) (0.00-0.50) K/uL Baso # (Auto) (0.00-0.20) K/uL Immature Gran # (Auto) (0.01-0.20) K/uL Sodium 138 (136-145) mmol/L Potassium 4.3 (3.5-5.1) mmol/L Chloride 104 (98-107) mmol/L Carbon Dioxide 29 (21-32) mmol/L Anion Gap 5 (3-11) BUN 21 (6-23) mg/dl Creatinine 1.08 (0.6-1.2) mg/dl Est Cr Clr Drug Dosing 41.6 ml/min Est GFR ( Amer) 57.3 ml/min Est GFR (Non-Af Amer) 49.5 ml/min BUN/Creatinine Ratio 19.4 (10-20) Glucose 153 H (70-99(Fasting)) mg/dl POC Glucose 187 H 65 L* (70-99) mg/dl Calcium 9.9 (8.6-10.3) mg/dl Phosphorus 2.7 (2.5-4.9) mg/dl Magnesium 2.3 (1.7-2.4) mg/dl Levetiracetam (6.0-46.0) mcg/mL Mycophenolic Acid (1.0-3.5) mcg/mL MPA Glucuronide (35.0-100.0) mcg/mL Tacrolimus mcg/L 11/28/23 11/28/23 11/28/23 Range/Units 20:22 15:58 10:50 WBC (4.8-10.8) K/ul RBC (4.20-5.40) M/uL Hgb (12.0-16.0) g/dl Hct (37.0-47.0) % MCV (80.0-100.0) fL MCH (25.0-34.0) pg MCHC (32.0-36.0) g/dL RDW Std Deviation (36.4-46.3) fL RDW Coeff of Martin (11.5-14.5) % Plt Count (130-400) K/uL MPV (9.4-12.4) fL Immature Gran % (Auto) % Neut % (Auto) % Lymph % (Auto) % Price % (Auto) % Eos % (Auto) % Baso % (Auto) % Neut # (Auto) (1.40-6.50) K/uL Lymph # (Auto) (1.20-3.40) K/uL Price # (Auto) (0.11-0.59) K/uL Eos # (Auto) (0.00-0.50) K/uL Baso # (Auto) (0.00-0.20) K/uL Immature Gran # (Auto) (0.01-0.20) K/uL Sodium (136-145) mmol/L Potassium (3.5-5.1) mmol/L Chloride (98-107) mmol/L Carbon Dioxide (21-32) mmol/L Anion Gap (3-11) BUN (6-23) mg/dl Creatinine (0.6-1.2) mg/dl Est Cr Clr Drug Dosing ml/min Est GFR ( Amer) ml/min Est GFR (Non-Af Amer) ml/min BUN/Creatinine Ratio (10-20) Glucose (70-99(Fasting)) mg/dl POC Glucose 159 H 155 H 227 H (70-99) mg/dl Calcium (8.6-10.3) mg/dl Phosphorus (2.5-4.9) mg/dl Magnesium (1.7-2.4) mg/dl Levetiracetam (6.0-46.0) mcg/mL Mycophenolic Acid (1.0-3.5) mcg/mL MPA Glucuronide (35.0-100.0) mcg/mL Tacrolimus mcg/L 11/28/23 11/28/23 11/27/23 Range/Units 08:00 07:14 20:14 WBC 8.52 (4.8-10.8) K/ul RBC 3.47 L (4.20-5.40) M/uL Hgb 9.9 L (12.0-16.0) g/dl Hct 31.0 L (37.0-47.0) % MCV 89.3 (80.0-100.0) fL MCH 28.5 (25.0-34.0) pg MCHC 31.9 L (32.0-36.0) g/dL RDW Std Deviation 44.2 (36.4-46.3) fL RDW Coeff of Martin 13.6 (11.5-14.5) % Plt Count 302 (130-400) K/uL MPV 9.3 L (9.4-12.4) fL Immature Gran % (Auto) % Neut % (Auto) % Lymph % (Auto) % Price % (Auto) % Eos % (Auto) % Baso % (Auto) % Neut # (Auto) (1.40-6.50) K/uL Lymph # (Auto) (1.20-3.40) K/uL Price # (Auto) (0.11-0.59) K/uL Eos # (Auto) (0.00-0.50) K/uL Baso # (Auto) (0.00-0.20) K/uL Immature Gran # (Auto) (0.01-0.20) K/uL Sodium 137 (136-145) mmol/L Potassium 4.2 (3.5-5.1) mmol/L Chloride 103 (98-107) mmol/L Carbon Dioxide 29 (21-32) mmol/L Anion Gap 5 (3-11) BUN 23 (6-23) mg/dl Creatinine 1.10 (0.6-1.2) mg/dl Est Cr Clr Drug Dosing 40.8 ml/min Est GFR ( Amer) 56.1 ml/min Est GFR (Non-Af Amer) 48.4 ml/min BUN/Creatinine Ratio 20.9 H (10-20) Glucose 151 H (70-99(Fasting)) mg/dl POC Glucose 162 H 167 H (70-99) mg/dl Calcium 10.0 (8.6-10.3) mg/dl Phosphorus 2.8 (2.5-4.9) mg/dl Magnesium 2.3 (1.7-2.4) mg/dl Levetiracetam (6.0-46.0) mcg/mL Mycophenolic Acid (1.0-3.5) mcg/mL MPA Glucuronide (35.0-100.0) mcg/mL Tacrolimus mcg/L 11/27/23 11/27/23 11/27/23 Range/Units 16:13 11:10 07:23 WBC (4.8-10.8) K/ul RBC (4.20-5.40) M/uL Hgb (12.0-16.0) g/dl Hct (37.0-47.0) % MCV (80.0-100.0) fL MCH (25.0-34.0) pg MCHC (32.0-36.0) g/dL RDW Std Deviation (36.4-46.3) fL RDW Coeff of Martin (11.5-14.5) % Plt Count (130-400) K/uL MPV (9.4-12.4) fL Immature Gran % (Auto) % Neut % (Auto) % Lymph % (Auto) % Price % (Auto) % Eos % (Auto) % Baso % (Auto) % Neut # (Auto) (1.40-6.50) K/uL Lymph # (Auto) (1.20-3.40) K/uL Price # (Auto) (0.11-0.59) K/uL Eos # (Auto) (0.00-0.50) K/uL Baso # (Auto) (0.00-0.20) K/uL Immature Gran # (Auto) (0.01-0.20) K/uL Sodium (136-145) mmol/L Potassium (3.5-5.1) mmol/L Chloride (98-107) mmol/L Carbon Dioxide (21-32) mmol/L Anion Gap (3-11) BUN (6-23) mg/dl Creatinine (0.6-1.2) mg/dl Est Cr Clr Drug Dosing ml/min Est GFR ( Amer) ml/min Est GFR (Non-Af Amer) ml/min BUN/Creatinine Ratio (10-20) Glucose (70-99(Fasting)) mg/dl POC Glucose 171 H 206 H 160 H (70-99) mg/dl Calcium (8.6-10.3) mg/dl Phosphorus (2.5-4.9) mg/dl Magnesium (1.7-2.4) mg/dl Levetiracetam (6.0-46.0) mcg/mL Mycophenolic Acid (1.0-3.5) mcg/mL MPA Glucuronide (35.0-100.0) mcg/mL Tacrolimus mcg/L 11/27/23 11/26/23 11/26/23 Range/Units 06:31 20:05 16:21 WBC 9.83 (4.8-10.8) K/ul RBC 3.34 L (4.20-5.40) M/uL Hgb 9.4 L (12.0-16.0) g/dl Hct 29.5 L (37.0-47.0) % MCV 88.3 (80.0-100.0) fL MCH 28.1 (25.0-34.0) pg MCHC 31.9 L (32.0-36.0) g/dL RDW Std Deviation 44.1 (36.4-46.3) fL RDW Coeff of Martin 13.7 (11.5-14.5) % Plt Count 294 (130-400) K/uL MPV 9.2 L (9.4-12.4) fL Immature Gran % (Auto) % Neut % (Auto) % Lymph % (Auto) % Price % (Auto) % Eos % (Auto) % Baso % (Auto) % Neut # (Auto) (1.40-6.50) K/uL Lymph # (Auto) (1.20-3.40) K/uL Price # (Auto) (0.11-0.59) K/uL Eos # (Auto) (0.00-0.50) K/uL Baso # (Auto) (0.00-0.20) K/uL Immature Gran # (Auto) (0.01-0.20) K/uL Sodium 137 (136-145) mmol/L Potassium 4.0 (3.5-5.1) mmol/L Chloride 102 (98-107) mmol/L Carbon Dioxide 28 (21-32) mmol/L Anion Gap 7 (3-11) BUN 23 (6-23) mg/dl Creatinine 1.09 (0.6-1.2) mg/dl Est Cr Clr Drug Dosing 41.2 ml/min Est GFR ( Amer) 56.7 ml/min Est GFR (Non-Af Amer) 48.9 ml/min BUN/Creatinine Ratio 21.1 H (10-20) Glucose 156 H (70-99(Fasting)) mg/dl POC Glucose 150 H 171 H (70-99) mg/dl Calcium 9.5 (8.6-10.3) mg/dl Phosphorus 2.8 (2.5-4.9) mg/dl Magnesium 2.2 (1.7-2.4) mg/dl Levetiracetam (6.0-46.0) mcg/mL Mycophenolic Acid (1.0-3.5) mcg/mL MPA Glucuronide (35.0-100.0) mcg/mL Tacrolimus mcg/L 11/26/23 11/26/23 11/26/23 Range/Units 11:36 07:39 05:50 WBC 9.94 (4.8-10.8) K/ul RBC 3.29 L (4.20-5.40) M/uL Hgb 9.4 L (12.0-16.0) g/dl Hct 29.1 L (37.0-47.0) % MCV 88.4 (80.0-100.0) fL MCH 28.6 (25.0-34.0) pg MCHC 32.3 (32.0-36.0) g/dL RDW Std Deviation 43.9 (36.4-46.3) fL RDW Coeff of Martin 13.7 (11.5-14.5) % Plt Count 269 (130-400) K/uL MPV 9.4 (9.4-12.4) fL Immature Gran % (Auto) % Neut % (Auto) % Lymph % (Auto) % Price % (Auto) % Eos % (Auto) % Baso % (Auto) % Neut # (Auto) (1.40-6.50) K/uL Lymph # (Auto) (1.20-3.40) K/uL Price # (Auto) (0.11-0.59) K/uL Eos # (Auto) (0.00-0.50) K/uL Baso # (Auto) (0.00-0.20) K/uL Immature Gran # (Auto) (0.01-0.20) K/uL Sodium 135 L (136-145) mmol/L Potassium 4.1 (3.5-5.1) mmol/L Chloride 102 (98-107) mmol/L Carbon Dioxide 27 (21-32) mmol/L Anion Gap 6 (3-11) BUN 24 H (6-23) mg/dl Creatinine 1.30 H (0.6-1.2) mg/dl Est Cr Clr Drug Dosing 34.5 ml/min Est GFR ( Amer) 45.8 ml/min Est GFR (Non-Af Amer) 39.5 ml/min BUN/Creatinine Ratio 18.5 (10-20) Glucose 143 H (70-99(Fasting)) mg/dl POC Glucose 272 H 171 H (70-99) mg/dl Calcium 9.2 (8.6-10.3) mg/dl Phosphorus (2.5-4.9) mg/dl Magnesium (1.7-2.4) mg/dl Levetiracetam (6.0-46.0) mcg/mL Mycophenolic Acid (1.0-3.5) mcg/mL MPA Glucuronide (35.0-100.0) mcg/mL Tacrolimus mcg/L 11/25/23 11/25/23 11/25/23 Range/Units 20:33 16:03 11:24 WBC (4.8-10.8) K/ul RBC (4.20-5.40) M/uL Hgb (12.0-16.0) g/dl Hct (37.0-47.0) % MCV (80.0-100.0) fL MCH (25.0-34.0) pg MCHC (32.0-36.0) g/dL RDW Std Deviation (36.4-46.3) fL RDW Coeff of Martin (11.5-14.5) % Plt Count (130-400) K/uL MPV (9.4-12.4) fL Immature Gran % (Auto) % Neut % (Auto) % Lymph % (Auto) % Price % (Auto) % Eos % (Auto) % Baso % (Auto) % Neut # (Auto) (1.40-6.50) K/uL Lymph # (Auto) (1.20-3.40) K/uL Price # (Auto) (0.11-0.59) K/uL Eos # (Auto) (0.00-0.50) K/uL Baso # (Auto) (0.00-0.20) K/uL Immature Gran # (Auto) (0.01-0.20) K/uL Sodium (136-145) mmol/L Potassium (3.5-5.1) mmol/L Chloride (98-107) mmol/L Carbon Dioxide (21-32) mmol/L Anion Gap (3-11) BUN (6-23) mg/dl Creatinine (0.6-1.2) mg/dl Est Cr Clr Drug Dosing ml/min Est GFR ( Amer) ml/min Est GFR (Non-Af Amer) ml/min BUN/Creatinine Ratio (10-20) Glucose (70-99(Fasting)) mg/dl POC Glucose 162 H 164 H 188 H (70-99) mg/dl Calcium (8.6-10.3) mg/dl Phosphorus (2.5-4.9) mg/dl Magnesium (1.7-2.4) mg/dl Levetiracetam (6.0-46.0) mcg/mL Mycophenolic Acid (1.0-3.5) mcg/mL MPA Glucuronide (35.0-100.0) mcg/mL Tacrolimus mcg/L 11/25/23 11/24/23 11/24/23 Range/Units 07:33 20:38 16:17 WBC (4.8-10.8) K/ul RBC (4.20-5.40) M/uL Hgb (12.0-16.0) g/dl Hct (37.0-47.0) % MCV (80.0-100.0) fL MCH (25.0-34.0) pg MCHC (32.0-36.0) g/dL RDW Std Deviation (36.4-46.3) fL RDW Coeff of Martin (11.5-14.5) % Plt Count (130-400) K/uL MPV (9.4-12.4) fL Immature Gran % (Auto) % Neut % (Auto) % Lymph % (Auto) % Price % (Auto) % Eos % (Auto) % Baso % (Auto) % Neut # (Auto) (1.40-6.50) K/uL Lymph # (Auto) (1.20-3.40) K/uL Price # (Auto) (0.11-0.59) K/uL Eos # (Auto) (0.00-0.50) K/uL Baso # (Auto) (0.00-0.20) K/uL Immature Gran # (Auto) (0.01-0.20) K/uL Sodium (136-145) mmol/L Potassium (3.5-5.1) mmol/L Chloride (98-107) mmol/L Carbon Dioxide (21-32) mmol/L Anion Gap (3-11) BUN (6-23) mg/dl Creatinine (0.6-1.2) mg/dl Est Cr Clr Drug Dosing ml/min Est GFR ( Amer) ml/min Est GFR (Non-Af Amer) ml/min BUN/Creatinine Ratio (10-20) Glucose (70-99(Fasting)) mg/dl POC Glucose 194 H 216 H 185 H (70-99) mg/dl Calcium (8.6-10.3) mg/dl Phosphorus (2.5-4.9) mg/dl Magnesium (1.7-2.4) mg/dl Levetiracetam (6.0-46.0) mcg/mL Mycophenolic Acid (1.0-3.5) mcg/mL MPA Glucuronide (35.0-100.0) mcg/mL Tacrolimus mcg/L 11/24/23 11/24/23 11/24/23 Range/Units 11:25 07:29 05:53 WBC 10.15 (4.8-10.8) K/ul RBC 3.30 L (4.20-5.40) M/uL Hgb 9.3 L (12.0-16.0) g/dl Hct 28.9 L (37.0-47.0) % MCV 87.6 (80.0-100.0) fL MCH 28.2 (25.0-34.0) pg MCHC 32.2 (32.0-36.0) g/dL RDW Std Deviation 43.2 (36.4-46.3) fL RDW Coeff of Martin 13.4 (11.5-14.5) % Plt Count 247 (130-400) K/uL MPV 9.5 (9.4-12.4) fL Immature Gran % (Auto) 0.3 % Neut % (Auto) 68.4 % Lymph % (Auto) 20.5 % Price % (Auto) 8.8 % Eos % (Auto) 1.6 % Baso % (Auto) 0.4 % Neut # (Auto) 6.95 H (1.40-6.50) K/uL Lymph # (Auto) 2.08 (1.20-3.40) K/uL Price # (Auto) 0.89 H (0.11-0.59) K/uL Eos # (Auto) 0.16 (0.00-0.50) K/uL Baso # (Auto) 0.04 (0.00-0.20) K/uL Immature Gran # (Auto) 0.03 (0.01-0.20) K/uL Sodium 135 L (136-145) mmol/L Potassium 4.2 (3.5-5.1) mmol/L Chloride 102 (98-107) mmol/L Carbon Dioxide 27 (21-32) mmol/L Anion Gap 6 (3-11) BUN 17 (6-23) mg/dl Creatinine 1.20 (0.6-1.2) mg/dl Est Cr Clr Drug Dosing 37.4 ml/min Est GFR ( Amer) 50.5 ml/min Est GFR (Non-Af Amer) 43.6 ml/min BUN/Creatinine Ratio 14.2 (10-20) Glucose 162 H (70-99(Fasting)) mg/dl POC Glucose 189 H 189 H (70-99) mg/dl Calcium 9.2 (8.6-10.3) mg/dl Phosphorus (2.5-4.9) mg/dl Magnesium (1.7-2.4) mg/dl Levetiracetam (6.0-46.0) mcg/mL Mycophenolic Acid (1.0-3.5) mcg/mL MPA Glucuronide (35.0-100.0) mcg/mL Tacrolimus mcg/L 11/23/23 11/23/23 11/23/23 Range/Units 20:19 16:15 11:19 WBC (4.8-10.8) K/ul RBC (4.20-5.40) M/uL Hgb (12.0-16.0) g/dl Hct (37.0-47.0) % MCV (80.0-100.0) fL MCH (25.0-34.0) pg MCHC (32.0-36.0) g/dL RDW Std Deviation (36.4-46.3) fL RDW Coeff of Martin (11.5-14.5) % Plt Count (130-400) K/uL MPV (9.4-12.4) fL Immature Gran % (Auto) % Neut % (Auto) % Lymph % (Auto) % Price % (Auto) % Eos % (Auto) % Baso % (Auto) % Neut # (Auto) (1.40-6.50) K/uL Lymph # (Auto) (1.20-3.40) K/uL Price # (Auto) (0.11-0.59) K/uL Eos # (Auto) (0.00-0.50) K/uL Baso # (Auto) (0.00-0.20) K/uL Immature Gran # (Auto) (0.01-0.20) K/uL Sodium (136-145) mmol/L Potassium (3.5-5.1) mmol/L Chloride (98-107) mmol/L Carbon Dioxide (21-32) mmol/L Anion Gap (3-11) BUN (6-23) mg/dl Creatinine (0.6-1.2) mg/dl Est Cr Clr Drug Dosing ml/min Est GFR ( Amer) ml/min Est GFR (Non-Af Amer) ml/min BUN/Creatinine Ratio (10-20) Glucose (70-99(Fasting)) mg/dl POC Glucose 198 H 197 H 183 H (70-99) mg/dl Calcium (8.6-10.3) mg/dl Phosphorus (2.5-4.9) mg/dl Magnesium (1.7-2.4) mg/dl Levetiracetam (6.0-46.0) mcg/mL Mycophenolic Acid (1.0-3.5) mcg/mL MPA Glucuronide (35.0-100.0) mcg/mL Tacrolimus mcg/L 07/07/1711/23/23 11/20/23 Range/Units 07:32 05:32 18:39 WBC 10.63 (4.8-10.8) K/ul RBC 3.35 L (4.20-5.40) M/uL Hgb 9.5 L (12.0-16.0) g/dl Hct 29.5 L (37.0-47.0) % MCV 88.1 (80.0-100.0) fL MCH 28.4 (25.0-34.0) pg MCHC 32.2 (32.0-36.0) g/dL RDW Std Deviation 43.0 (36.4-46.3) fL RDW Coeff of Martin 13.3 (11.5-14.5) % Plt Count 240 (130-400) K/uL MPV 9.3 L (9.4-12.4) fL Immature Gran % (Auto) 0.5 % Neut % (Auto) 74.3 % Lymph % (Auto) 15.7 % Price % (Auto) 7.6 % Eos % (Auto) 1.5 % Baso % (Auto) 0.4 % Neut # (Auto) 7.90 H (1.40-6.50) K/uL Lymph # (Auto) 1.67 (1.20-3.40) K/uL Price # (Auto) 0.81 H (0.11-0.59) K/uL Eos # (Auto) 0.16 (0.00-0.50) K/uL Baso # (Auto) 0.04 (0.00-0.20) K/uL Immature Gran # (Auto) 0.05 (0.01-0.20) K/uL Sodium 135 L (136-145) mmol/L Potassium 4.3 (3.5-5.1) mmol/L Chloride 103 (98-107) mmol/L Carbon Dioxide 27 (21-32) mmol/L Anion Gap 5 (3-11) BUN 16 (6-23) mg/dl Creatinine 1.08 (0.6-1.2) mg/dl Est Cr Clr Drug Dosing 41.6 ml/min Est GFR ( Amer) 57.3 ml/min Est GFR (Non-Af Amer) 49.5 ml/min BUN/Creatinine Ratio 14.8 (10-20) Glucose 181 H (70-99(Fasting)) mg/dl POC Glucose 201 H (70-99) mg/dl Calcium 9.1 (8.6-10.3) mg/dl Phosphorus (2.5-4.9) mg/dl Magnesium (1.7-2.4) mg/dl Levetiracetam 33.0 (6.0-46.0) mcg/mL Mycophenolic Acid <0.5 L* (1.0-3.5) mcg/mL MPA Glucuronide <10.0 L (35.0-100.0) mcg/mL Tacrolimus 4.4 L mcg/L Diagnostic Findings 11/29/23 11/29/23 11/29/23 Range/Units 16:16 11:12 07:32 WBC (4.8-10.8) K/ul RBC (4.20-5.40) M/uL Hgb (12.0-16.0) g/dl Hct (37.0-47.0) % MCV (80.0-100.0) fL MCH (25.0-34.0) pg MCHC (32.0-36.0) g/dL RDW Std Deviation (36.4-46.3) fL RDW Coeff of Martin (11.5-14.5) % Plt Count (130-400) K/uL MPV (9.4-12.4) fL Immature Gran % (Auto) % Neut % (Auto) % Lymph % (Auto) % Price % (Auto) % Eos % (Auto) % Baso % (Auto) % Neut # (Auto) (1.40-6.50) K/uL Lymph # (Auto) (1.20-3.40) K/uL Price # (Auto) (0.11-0.59) K/uL Eos # (Auto) (0.00-0.50) K/uL Baso # (Auto) (0.00-0.20) K/uL Immature Gran # (Auto) (0.01-0.20) K/uL Sodium (136-145) mmol/L Potassium (3.5-5.1) mmol/L Chloride (98-107) mmol/L Carbon Dioxide (21-32) mmol/L Anion Gap (3-11) BUN (6-23) mg/dl Creatinine (0.6-1.2) mg/dl Est Cr Clr Drug Dosing ml/min Est GFR ( Amer) ml/min Est GFR (Non-Af Amer) ml/min BUN/Creatinine Ratio (10-20) Glucose (70-99(Fasting)) mg/dl POC Glucose 156 H 154 H 181 H (70-99) mg/dl Calcium (8.6-10.3) mg/dl Phosphorus (2.5-4.9) mg/dl Magnesium (1.7-2.4) mg/dl Levetiracetam (6.0-46.0) mcg/mL Mycophenolic Acid (1.0-3.5) mcg/mL MPA Glucuronide (35.0-100.0) mcg/mL Tacrolimus mcg/L 11/29/23 11/29/23 11/29/23 Range/Units 07:32 07:31 07:10 WBC 9.48 (4.8-10.8) K/ul RBC 3.47 L (4.20-5.40) M/uL Hgb 9.8 L (12.0-16.0) g/dl Hct 31.1 L (37.0-47.0) % MCV 89.6 (80.0-100.0) fL MCH 28.2 (25.0-34.0) pg MCHC 31.5 L (32.0-36.0) g/dL RDW Std Deviation 44.7 (36.4-46.3) fL RDW Coeff of Martin 13.7 (11.5-14.5) % Plt Count 302 (130-400) K/uL MPV 9.1 L (9.4-12.4) fL Immature Gran % (Auto) % Neut % (Auto) % Lymph % (Auto) % Price % (Auto) % Eos % (Auto) % Baso % (Auto) % Neut # (Auto) (1.40-6.50) K/uL Lymph # (Auto) (1.20-3.40) K/uL Price # (Auto) (0.11-0.59) K/uL Eos # (Auto) (0.00-0.50) K/uL Baso # (Auto) (0.00-0.20) K/uL Immature Gran # (Auto) (0.01-0.20) K/uL Sodium 138 (136-145) mmol/L Potassium 4.3 (3.5-5.1) mmol/L Chloride 104 (98-107) mmol/L Carbon Dioxide 29 (21-32) mmol/L Anion Gap 5 (3-11) BUN 21 (6-23) mg/dl Creatinine 1.08 (0.6-1.2) mg/dl Est Cr Clr Drug Dosing 41.6 ml/min Est GFR ( Amer) 57.3 ml/min Est GFR (Non-Af Amer) 49.5 ml/min BUN/Creatinine Ratio 19.4 (10-20) Glucose 153 H (70-99(Fasting)) mg/dl POC Glucose 187 H 65 L* (70-99) mg/dl Calcium 9.9 (8.6-10.3) mg/dl Phosphorus 2.7 (2.5-4.9) mg/dl Magnesium 2.3 (1.7-2.4) mg/dl Levetiracetam (6.0-46.0) mcg/mL Mycophenolic Acid (1.0-3.5) mcg/mL MPA Glucuronide (35.0-100.0) mcg/mL Tacrolimus mcg/L 11/28/23 11/28/23 11/28/23 Range/Units 20:22 15:58 10:50 WBC (4.8-10.8) K/ul RBC (4.20-5.40) M/uL Hgb (12.0-16.0) g/dl Hct (37.0-47.0) % MCV (80.0-100.0) fL MCH (25.0-34.0) pg MCHC (32.0-36.0) g/dL RDW Std Deviation (36.4-46.3) fL RDW Coeff of Martin (11.5-14.5) % Plt Count (130-400) K/uL MPV (9.4-12.4) fL Immature Gran % (Auto) % Neut % (Auto) % Lymph % (Auto) % Price % (Auto) % Eos % (Auto) % Baso % (Auto) % Neut # (Auto) (1.40-6.50) K/uL Lymph # (Auto) (1.20-3.40) K/uL Price # (Auto) (0.11-0.59) K/uL Eos # (Auto) (0.00-0.50) K/uL Baso # (Auto) (0.00-0.20) K/uL Immature Gran # (Auto) (0.01-0.20) K/uL Sodium (136-145) mmol/L Potassium (3.5-5.1) mmol/L Chloride (98-107) mmol/L Carbon Dioxide (21-32) mmol/L Anion Gap (3-11) BUN (6-23) mg/dl Creatinine (0.6-1.2) mg/dl Est Cr Clr Drug Dosing ml/min Est GFR ( Amer) ml/min Est GFR (Non-Af Amer) ml/min BUN/Creatinine Ratio (10-20) Glucose (70-99(Fasting)) mg/dl POC Glucose 159 H 155 H 227 H (70-99) mg/dl Calcium (8.6-10.3) mg/dl Phosphorus (2.5-4.9) mg/dl Magnesium (1.7-2.4) mg/dl Levetiracetam (6.0-46.0) mcg/mL Mycophenolic Acid (1.0-3.5) mcg/mL MPA Glucuronide (35.0-100.0) mcg/mL Tacrolimus mcg/L 11/28/23 11/28/23 11/27/23 Range/Units 08:00 07:14 20:14 WBC 8.52 (4.8-10.8) K/ul RBC 3.47 L (4.20-5.40) M/uL Hgb 9.9 L (12.0-16.0) g/dl Hct 31.0 L (37.0-47.0) % MCV 89.3 (80.0-100.0) fL MCH 28.5 (25.0-34.0) pg MCHC 31.9 L (32.0-36.0) g/dL RDW Std Deviation 44.2 (36.4-46.3) fL RDW Coeff of Martin 13.6 (11.5-14.5) % Plt Count 302 (130-400) K/uL MPV 9.3 L (9.4-12.4) fL Immature Gran % (Auto) % Neut % (Auto) % Lymph % (Auto) % Price % (Auto) % Eos % (Auto) % Baso % (Auto) % Neut # (Auto) (1.40-6.50) K/uL Lymph # (Auto) (1.20-3.40) K/uL Price # (Auto) (0.11-0.59) K/uL Eos # (Auto) (0.00-0.50) K/uL Baso # (Auto) (0.00-0.20) K/uL Immature Gran # (Auto) (0.01-0.20) K/uL Sodium 137 (136-145) mmol/L Potassium 4.2 (3.5-5.1) mmol/L Chloride 103 (98-107) mmol/L Carbon Dioxide 29 (21-32) mmol/L Anion Gap 5 (3-11) BUN 23 (6-23) mg/dl Creatinine 1.10 (0.6-1.2) mg/dl Est Cr Clr Drug Dosing 40.8 ml/min Est GFR ( Amer) 56.1 ml/min Est GFR (Non-Af Amer) 48.4 ml/min BUN/Creatinine Ratio 20.9 H (10-20) Glucose 151 H (70-99(Fasting)) mg/dl POC Glucose 162 H 167 H (70-99) mg/dl Calcium 10.0 (8.6-10.3) mg/dl Phosphorus 2.8 (2.5-4.9) mg/dl Magnesium 2.3 (1.7-2.4) mg/dl Levetiracetam (6.0-46.0) mcg/mL Mycophenolic Acid (1.0-3.5) mcg/mL MPA Glucuronide (35.0-100.0) mcg/mL Tacrolimus mcg/L 11/27/23 11/27/23 11/27/23 Range/Units 16:13 11:10 07:23 WBC (4.8-10.8) K/ul RBC (4.20-5.40) M/uL Hgb (12.0-16.0) g/dl Hct (37.0-47.0) % MCV (80.0-100.0) fL MCH (25.0-34.0) pg MCHC (32.0-36.0) g/dL RDW Std Deviation (36.4-46.3) fL RDW Coeff of Martin (11.5-14.5) % Plt Count (130-400) K/uL MPV (9.4-12.4) fL Immature Gran % (Auto) % Neut % (Auto) % Lymph % (Auto) % Price % (Auto) % Eos % (Auto) % Baso % (Auto) % Neut # (Auto) (1.40-6.50) K/uL Lymph # (Auto) (1.20-3.40) K/uL Price # (Auto) (0.11-0.59) K/uL Eos # (Auto) (0.00-0.50) K/uL Baso # (Auto) (0.00-0.20) K/uL Immature Gran # (Auto) (0.01-0.20) K/uL Sodium (136-145) mmol/L Potassium (3.5-5.1) mmol/L Chloride (98-107) mmol/L Carbon Dioxide (21-32) mmol/L Anion Gap (3-11) BUN (6-23) mg/dl Creatinine (0.6-1.2) mg/dl Est Cr Clr Drug Dosing ml/min Est GFR ( Amer) ml/min Est GFR (Non-Af Amer) ml/min BUN/Creatinine Ratio (10-20) Glucose (70-99(Fasting)) mg/dl POC Glucose 171 H 206 H 160 H (70-99) mg/dl Calcium (8.6-10.3) mg/dl Phosphorus (2.5-4.9) mg/dl Magnesium (1.7-2.4) mg/dl Levetiracetam (6.0-46.0) mcg/mL Mycophenolic Acid (1.0-3.5) mcg/mL MPA Glucuronide (35.0-100.0) mcg/mL Tacrolimus mcg/L 11/27/23 11/26/23 11/26/23 Range/Units 06:31 20:05 16:21 WBC 9.83 (4.8-10.8) K/ul RBC 3.34 L (4.20-5.40) M/uL Hgb 9.4 L (12.0-16.0) g/dl Hct 29.5 L (37.0-47.0) % MCV 88.3 (80.0-100.0) fL MCH 28.1 (25.0-34.0) pg MCHC 31.9 L (32.0-36.0) g/dL RDW Std Deviation 44.1 (36.4-46.3) fL RDW Coeff of Martin 13.7 (11.5-14.5) % Plt Count 294 (130-400) K/uL MPV 9.2 L (9.4-12.4) fL Immature Gran % (Auto) % Neut % (Auto) % Lymph % (Auto) % Price % (Auto) % Eos % (Auto) % Baso % (Auto) % Neut # (Auto) (1.40-6.50) K/uL Lymph # (Auto) (1.20-3.40) K/uL Price # (Auto) (0.11-0.59) K/uL Eos # (Auto) (0.00-0.50) K/uL Baso # (Auto) (0.00-0.20) K/uL Immature Gran # (Auto) (0.01-0.20) K/uL Sodium 137 (136-145) mmol/L Potassium 4.0 (3.5-5.1) mmol/L Chloride 102 (98-107) mmol/L Carbon Dioxide 28 (21-32) mmol/L Anion Gap 7 (3-11) BUN 23 (6-23) mg/dl Creatinine 1.09 (0.6-1.2) mg/dl Est Cr Clr Drug Dosing 41.2 ml/min Est GFR ( Amer) 56.7 ml/min Est GFR (Non-Af Amer) 48.9 ml/min BUN/Creatinine Ratio 21.1 H (10-20) Glucose 156 H (70-99(Fasting)) mg/dl POC Glucose 150 H 171 H (70-99) mg/dl Calcium 9.5 (8.6-10.3) mg/dl Phosphorus 2.8 (2.5-4.9) mg/dl Magnesium 2.2 (1.7-2.4) mg/dl Levetiracetam (6.0-46.0) mcg/mL Mycophenolic Acid (1.0-3.5) mcg/mL MPA Glucuronide (35.0-100.0) mcg/mL Tacrolimus mcg/L 11/26/23 11/26/23 11/26/23 Range/Units 11:36 07:39 05:50 WBC 9.94 (4.8-10.8) K/ul RBC 3.29 L (4.20-5.40) M/uL Hgb 9.4 L (12.0-16.0) g/dl Hct 29.1 L (37.0-47.0) % MCV 88.4 (80.0-100.0) fL MCH 28.6 (25.0-34.0) pg MCHC 32.3 (32.0-36.0) g/dL RDW Std Deviation 43.9 (36.4-46.3) fL RDW Coeff of Martin 13.7 (11.5-14.5) % Plt Count 269 (130-400) K/uL MPV 9.4 (9.4-12.4) fL Immature Gran % (Auto) % Neut % (Auto) % Lymph % (Auto) % Price % (Auto) % Eos % (Auto) % Baso % (Auto) % Neut # (Auto) (1.40-6.50) K/uL Lymph # (Auto) (1.20-3.40) K/uL Price # (Auto) (0.11-0.59) K/uL Eos # (Auto) (0.00-0.50) K/uL Baso # (Auto) (0.00-0.20) K/uL Immature Gran # (Auto) (0.01-0.20) K/uL Sodium 135 L (136-145) mmol/L Potassium 4.1 (3.5-5.1) mmol/L Chloride 102 (98-107) mmol/L Carbon Dioxide 27 (21-32) mmol/L Anion Gap 6 (3-11) BUN 24 H (6-23) mg/dl Creatinine 1.30 H (0.6-1.2) mg/dl Est Cr Clr Drug Dosing 34.5 ml/min Est GFR ( Amer) 45.8 ml/min Est GFR (Non-Af Amer) 39.5 ml/min BUN/Creatinine Ratio 18.5 (10-20) Glucose 143 H (70-99(Fasting)) mg/dl POC Glucose 272 H 171 H (70-99) mg/dl Calcium 9.2 (8.6-10.3) mg/dl Phosphorus (2.5-4.9) mg/dl Magnesium (1.7-2.4) mg/dl Levetiracetam (6.0-46.0) mcg/mL Mycophenolic Acid (1.0-3.5) mcg/mL MPA Glucuronide (35.0-100.0) mcg/mL Tacrolimus mcg/L 11/25/23 11/25/23 11/25/23 Range/Units 20:33 16:03 11:24 WBC (4.8-10.8) K/ul RBC (4.20-5.40) M/uL Hgb (12.0-16.0) g/dl Hct (37.0-47.0) % MCV (80.0-100.0) fL MCH (25.0-34.0) pg MCHC (32.0-36.0) g/dL RDW Std Deviation (36.4-46.3) fL RDW Coeff of Martin (11.5-14.5) % Plt Count (130-400) K/uL MPV (9.4-12.4) fL Immature Gran % (Auto) % Neut % (Auto) % Lymph % (Auto) % Price % (Auto) % Eos % (Auto) % Baso % (Auto) % Neut # (Auto) (1.40-6.50) K/uL Lymph # (Auto) (1.20-3.40) K/uL Price # (Auto) (0.11-0.59) K/uL Eos # (Auto) (0.00-0.50) K/uL Baso # (Auto) (0.00-0.20) K/uL Immature Gran # (Auto) (0.01-0.20) K/uL Sodium (136-145) mmol/L Potassium (3.5-5.1) mmol/L Chloride (98-107) mmol/L Carbon Dioxide (21-32) mmol/L Anion Gap (3-11) BUN (6-23) mg/dl Creatinine (0.6-1.2) mg/dl Est Cr Clr Drug Dosing ml/min Est GFR ( Amer) ml/min Est GFR (Non-Af Amer) ml/min BUN/Creatinine Ratio (10-20) Glucose (70-99(Fasting)) mg/dl POC Glucose 162 H 164 H 188 H (70-99) mg/dl Calcium (8.6-10.3) mg/dl Phosphorus (2.5-4.9) mg/dl Magnesium (1.7-2.4) mg/dl Levetiracetam (6.0-46.0) mcg/mL Mycophenolic Acid (1.0-3.5) mcg/mL MPA Glucuronide (35.0-100.0) mcg/mL Tacrolimus mcg/L 11/25/23 11/24/23 11/24/23 Range/Units 07:33 20:38 16:17 WBC (4.8-10.8) K/ul RBC (4.20-5.40) M/uL Hgb (12.0-16.0) g/dl Hct (37.0-47.0) % MCV (80.0-100.0) fL MCH (25.0-34.0) pg MCHC (32.0-36.0) g/dL RDW Std Deviation (36.4-46.3) fL RDW Coeff of Martin (11.5-14.5) % Plt Count (130-400) K/uL MPV (9.4-12.4) fL Immature Gran % (Auto) % Neut % (Auto) % Lymph % (Auto) % Price % (Auto) % Eos % (Auto) % Baso % (Auto) % Neut # (Auto) (1.40-6.50) K/uL Lymph # (Auto) (1.20-3.40) K/uL Price # (Auto) (0.11-0.59) K/uL Eos # (Auto) (0.00-0.50) K/uL Baso # (Auto) (0.00-0.20) K/uL Immature Gran # (Auto) (0.01-0.20) K/uL Sodium (136-145) mmol/L Potassium (3.5-5.1) mmol/L Chloride (98-107) mmol/L Carbon Dioxide (21-32) mmol/L Anion Gap (3-11) BUN (6-23) mg/dl Creatinine (0.6-1.2) mg/dl Est Cr Clr Drug Dosing ml/min Est GFR ( Amer) ml/min Est GFR (Non-Af Amer) ml/min BUN/Creatinine Ratio (10-20) Glucose (70-99(Fasting)) mg/dl POC Glucose 194 H 216 H 185 H (70-99) mg/dl Calcium (8.6-10.3) mg/dl Phosphorus (2.5-4.9) mg/dl Magnesium (1.7-2.4) mg/dl Levetiracetam (6.0-46.0) mcg/mL Mycophenolic Acid (1.0-3.5) mcg/mL MPA Glucuronide (35.0-100.0) mcg/mL Tacrolimus mcg/L 11/24/23 11/24/23 11/24/23 Range/Units 11:25 07:29 05:53 WBC 10.15 (4.8-10.8) K/ul RBC 3.30 L (4.20-5.40) M/uL Hgb 9.3 L (12.0-16.0) g/dl Hct 28.9 L (37.0-47.0) % MCV 87.6 (80.0-100.0) fL MCH 28.2 (25.0-34.0) pg MCHC 32.2 (32.0-36.0) g/dL RDW Std Deviation 43.2 (36.4-46.3) fL RDW Coeff of Martin 13.4 (11.5-14.5) % Plt Count 247 (130-400) K/uL MPV 9.5 (9.4-12.4) fL Immature Gran % (Auto) 0.3 % Neut % (Auto) 68.4 % Lymph % (Auto) 20.5 % Price % (Auto) 8.8 % Eos % (Auto) 1.6 % Baso % (Auto) 0.4 % Neut # (Auto) 6.95 H (1.40-6.50) K/uL Lymph # (Auto) 2.08 (1.20-3.40) K/uL Price # (Auto) 0.89 H (0.11-0.59) K/uL Eos # (Auto) 0.16 (0.00-0.50) K/uL Baso # (Auto) 0.04 (0.00-0.20) K/uL Immature Gran # (Auto) 0.03 (0.01-0.20) K/uL Sodium 135 L (136-145) mmol/L Potassium 4.2 (3.5-5.1) mmol/L Chloride 102 (98-107) mmol/L Carbon Dioxide 27 (21-32) mmol/L Anion Gap 6 (3-11) BUN 17 (6-23) mg/dl Creatinine 1.20 (0.6-1.2) mg/dl Est Cr Clr Drug Dosing 37.4 ml/min Est GFR ( Amer) 50.5 ml/min Est GFR (Non-Af Amer) 43.6 ml/min BUN/Creatinine Ratio 14.2 (10-20) Glucose 162 H (70-99(Fasting)) mg/dl POC Glucose 189 H 189 H (70-99) mg/dl Calcium 9.2 (8.6-10.3) mg/dl Phosphorus (2.5-4.9) mg/dl Magnesium (1.7-2.4) mg/dl Levetiracetam (6.0-46.0) mcg/mL Mycophenolic Acid (1.0-3.5) mcg/mL MPA Glucuronide (35.0-100.0) mcg/mL Tacrolimus mcg/L 11/23/23 11/23/23 11/23/23 Range/Units 20:19 16:15 11:19 WBC (4.8-10.8) K/ul RBC (4.20-5.40) M/uL Hgb (12.0-16.0) g/dl Hct (37.0-47.0) % MCV (80.0-100.0) fL MCH (25.0-34.0) pg MCHC (32.0-36.0) g/dL RDW Std Deviation (36.4-46.3) fL RDW Coeff of Martin (11.5-14.5) % Plt Count (130-400) K/uL MPV (9.4-12.4) fL Immature Gran % (Auto) % Neut % (Auto) % Lymph % (Auto) % Price % (Auto) % Eos % (Auto) % Baso % (Auto) % Neut # (Auto) (1.40-6.50) K/uL Lymph # (Auto) (1.20-3.40) K/uL Price # (Auto) (0.11-0.59) K/uL Eos # (Auto) (0.00-0.50) K/uL Baso # (Auto) (0.00-0.20) K/uL Immature Gran # (Auto) (0.01-0.20) K/uL Sodium (136-145) mmol/L Potassium (3.5-5.1) mmol/L Chloride (98-107) mmol/L Carbon Dioxide (21-32) mmol/L Anion Gap (3-11) BUN (6-23) mg/dl Creatinine (0.6-1.2) mg/dl Est Cr Clr Drug Dosing ml/min Est GFR ( Amer) ml/min Est GFR (Non-Af Amer) ml/min BUN/Creatinine Ratio (10-20) Glucose (70-99(Fasting)) mg/dl POC Glucose 198 H 197 H 183 H (70-99) mg/dl Calcium (8.6-10.3) mg/dl Phosphorus (2.5-4.9) mg/dl Magnesium (1.7-2.4) mg/dl Levetiracetam (6.0-46.0) mcg/mL Mycophenolic Acid (1.0-3.5) mcg/mL MPA Glucuronide (35.0-100.0) mcg/mL Tacrolimus mcg/L 11/23/23 11/23/23 11/20/23 Range/Units 07:32 05:32 18:39 WBC 10.63 (4.8-10.8) K/ul RBC 3.35 L (4.20-5.40) M/uL Hgb 9.5 L (12.0-16.0) g/dl Hct 29.5 L (37.0-47.0) % MCV 88.1 (80.0-100.0) fL MCH 28.4 (25.0-34.0) pg MCHC 32.2 (32.0-36.0) g/dL RDW Std Deviation 43.0 (36.4-46.3) fL RDW Coeff of Martin 13.3 (11.5-14.5) % Plt Count 240 (130-400) K/uL MPV 9.3 L (9.4-12.4) fL Immature Gran % (Auto) 0.5 % Neut % (Auto) 74.3 % Lymph % (Auto) 15.7 % Price % (Auto) 7.6 % Eos % (Auto) 1.5 % Baso % (Auto) 0.4 % Neut # (Auto) 7.90 H (1.40-6.50) K/uL Lymph # (Auto) 1.67 (1.20-3.40) K/uL Price # (Auto) 0.81 H (0.11-0.59) K/uL Eos # (Auto) 0.16 (0.00-0.50) K/uL Baso # (Auto) 0.04 (0.00-0.20) K/uL Immature Gran # (Auto) 0.05 (0.01-0.20) K/uL Sodium 135 L (136-145) mmol/L Potassium 4.3 (3.5-5.1) mmol/L Chloride 103 (98-107) mmol/L Carbon Dioxide 27 (21-32) mmol/L Anion Gap 5 (3-11) BUN 16 (6-23) mg/dl Creatinine 1.08 (0.6-1.2) mg/dl Est Cr Clr Drug Dosing 41.6 ml/min Est GFR ( Amer) 57.3 ml/min Est GFR (Non-Af Amer) 49.5 ml/min BUN/Creatinine Ratio 14.8 (10-20) Glucose 181 H (70-99(Fasting)) mg/dl POC Glucose 201 H (70-99) mg/dl Calcium 9.1 (8.6-10.3) mg/dl Phosphorus (2.5-4.9) mg/dl Magnesium (1.7-2.4) mg/dl Levetiracetam 33.0 (6.0-46.0) mcg/mL Mycophenolic Acid <0.5 L* (1.0-3.5) mcg/mL MPA Glucuronide <10.0 L (35.0-100.0) mcg/mL Tacrolimus 4.4 L mcg/L PG Care Time/CCT Total # of Minutes Spent Total Time Spent with Patient: Total time spent is greater than 50% in coordination of care (as documented) at patient's floor/unit and/or counseling patient: I spent 110 minutes overall addressing this complex case: 15 min in medical data review/discussion with referring provider(s) and/or preparation for the visit 20 min in direct interaction with the patient/exam 45 min in Advance Care Planning/Goals of Care discussions as detailed above in note (must be >16min) 15 min in subsequent review and synthesis of assessment and plan 15 min communicating with other providers regarding the patient's case: Primary team, nursing Advanced Care Planning 32317 Advanced Care Planning 30 Min [id number] Advanced Care Planning Additional 30 [place] [address] IN/OBS CONSULT LVL 4,60M (25 - SIGNIFICANT, SEPARATELY IDENTIFIABLE ) Patient Type New Medical Decision Making High Complexity Diagnoses 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
[2023-11-30 08:41] VITALS: BP 149/65; PULSE 55; RESP 18
--- NOTE | 2023-11-30 12:33 | Hospitalist Progress Note ---
Date of Service November 30, 2023 Assessment & Plan (1) Squamous cell carcinoma of scalp: (2) Kidney transplant recipient: (3) Seizure disorder: (4) Hypothyroidism: (5) Diabetes mellitus, type II: (6) UTI (urinary tract infection): Plan #Squamous cell carcinoma of scalp: - Status post removal of squamous cell carcinoma of the scalp with known lymph node metastases. Previously resection of right parotidectomy and right neck dissection followed by local reconstruction. Previous concern for parietal bone invasion right neck mass appears to be a necrotic lymph node, status post interventional radiology aspiration on 11/23 with fluid sent to lab and cytology currently pending and no growth to date - She has been scheduled for mediport and chemoradiation in the near future. Patient has a drug-resistant urinary tract infection and Mediport insertion has been postponed - Pt had malignancy associated hypercalcemia, treated with hydration and resolved, likely some of the cause of initial presentation of falls and weakness - Imaging on presentation did rule out CVA but re demonstrated large scalp mass which extends thru the underlying parietal bone, extending to the dura without involvement of the brain parenchyma, mentions could also be element of post surgical change - pain control with prn tylenol for mild pain, prn oxy for mod pain, prn dilaudid for severe pain -Patient and family now requesting hospice, a list of agencies have been provided, including [facility] hospice. -Initially a request was placed for [facility] however this will be canceled. #Goals of Care - as of 11/25 pt stated that she also wants to continue to fight and get treatment - discussed with pt about poor prognosis. unclear how much pt comprehends at this time and suspect pt might not have capacity to make complex medical decision - met with pt's son and his at bedside, extensively discussed pt's prognosis. they understand that pt has poor prognosis and would likely benefit from comfort measures - palliative care Discussed with family and they are now requesting hospice #Kidney transplant recipient: - Stable. She is on immunosuppressive therapy. Mycophenolate tacrolimus levels are low but renal function is stable - Continue current medical management #Bradycardia - reduced dose of coreg, monitor HR #Seizure disorder: - recent ER visit Continue Keppra. Brain MRI scan negative for metastatic disease. The primary squamous cell carcinoma tumor extends through the scalp and through the calvarium to the depth of the dura. Neurology consultation and recommendations appreciated #Hypothyroidism: - Stable. Continue Synthroid replacement therapy #Diabetes mellitus, type II: - ADA diet. Basal insulin therapy. Sliding scale coverage. #UTI (urinary tract infection): - Present on admission. Urine is growing ESBL E. coli. Unasyn has been switched to ertapenem, 7 day course will be LD 11/27 Blood cultures are negative to date #Dispo: Home with hospice, awaiting delivery of bed commode etc Admission and Anticipated Discharge Date Admission Date: November 20, 2023 Subjective Patient seen and examined, Sitting up in the chair, although I am not sure if patient fully understands the hospice route that her family is taking Review of Systems Review of Systems: All systems reviewed are negative, apart from the ones contained in the history. Physical Exam Physical Exam: The patient is awake, alert and oriented 3, well developed and well nourished, normocephalic and atraumatic, lying in bed and in no acute distress. HEENT--PERRL, EOMI, mucous membranes and oropharynx mildly dry, scalp wound Neck--supple. No JVD. No bruits. Thyroid normal, trachea midline, no adenopathy. Heart--normal S1 and S2. No murmurs, rubs or gallops. Lungs--clear bilaterally, no respiratory distress, no accessory muscle use. Abdomen--normal bowel sounds and soft. Extremities--no cyanosis or clubbing. No edema. Dermatologic--normal skin turgor, normal color, no abnormal lymph nodes, no rash. Neurologic--cranial nerves II through XII grossly intact. Rheumatologic--normal range of motion. Psychiatric--normal affect. Results & Data Results & Data Vital Signs (Past 12 Hours) Vital Signs Temp Pulse Resp BP Pulse Ox O2 Del Method 11/30/23 08:00 Room Air 11/30/23 07:30 98.1 F 55 L 18 149/65 H 95 Room Air PG Care Time/CCT Total # of Minutes Spent Total Time Spent with Patient: Total time spent is greater than 50% in coordination of care (as documented) at patient's floor/unit and/or counseling patient: Coding Level of Care Code 55125 SUB INP/OBS CARE 2/35MIN Diagnoses Squamous cell carcinoma of scalp C44.42 Kidney transplant recipient Z94.0 Seizure disorder G40.909 Acquired hypothyroidism E03.9 Hypothyroidism type: acquired Type 2 diabetes mellitus with stage 3a chronic kidney disease, with long-term current use of insulin E11.22; N18.31; Z79.4 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 use: with lobsterman use Diabetes mellitus complication status: with kidney complications Diabetes mellitus complication detail: with chronic kidney disease Chronic kidney disease stage: stage 3 (moderate) Chronic kidney disease stage 3 subtype: stage 3a (GFR 45-59) UTI (urinary tract infection) N30.00 Hematuria presence: without hematuria Urinary tract infection type: acute cystitis Time Spent (min) 35 (4) Hypothyroidism Hypothyroidism type: acquired Qualified Code(s): E03.9 - Hypothyroidism, unspecified (5) Diabetes mellitus, type II Diabetes mellitus nursing home insulin use: with lobsterman use Diabetes mellitus complication status: with kidney complications Diabetes mellitus complication detail: with chronic kidney disease Chronic kidney disease stage: stage 3 (moderate) Chronic kidney disease stage 3 subtype: stage 3a (GFR 45-59) Qualified Code(s): E11.22 - Type 2 diabetes mellitus with diabetic chronic kidney disease; N18.31 - Chronic kidney disease, stage 3a; 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
--- NOTE | 2023-11-30 14:03 | Discharge Summary ---
Date of Service November 30, 2023 Admission HPI Per Admitting Provider 78-year-old female with a past medical history of squamous cell carcinoma of the scalp,she recently had a long hospital stay at [facility] due to removal of squamous cell carcinoma of the scalp with artis metastasis and bony invasion. Underwent resection, right parotidectomy and right neck dissection followed by local reconstruction. She has a lump on her neck that is painful but this is not new, has been present since surgery. She is transplant recipient who presents the ER as she fell yesterday while trying to get up last night. She notes that she crawled to the couch. Since then she has been having trouble walking and the son brought her over and she is very shaky and unsteady and consequently brought her in. She denies any head pain or neck pain. No chest pain or shortness of breath. No belly pain. No nausea vomiting or diarrhea. No dysuria urgency or frequency. No other exacerbating or remitting factors. She was in ER on 11/16 with arm twitching , started on Keppra and discharged home, she started vomiting at the time of evaluation, denies abdominal pain or headache, reports BM yestaerday, vomit is bilious, no coffee round material , no abdominal tenderness, CT brain no change, CT neck . Large thick-walled necrotic right neck mass measuring 5.4 x 4.7 cm, shown on treatment planning CT. This favors a necrotic pathologic lymph node., right neck and prevertebral stranding and fluid. This may be treatment related.Poor historian Principal Diagnosis squa,ous cell ca Discharge Exam The patient is awake, alert and oriented 3, well developed and well nourished, normocephalic and atraumatic, lying in bed and in no acute distress. HEENT--PERRL, EOMI, mucous membranes and oropharynx mildly dry, scalp wound Neck--supple. No JVD. No bruits. Thyroid normal, trachea midline, no adenopathy. Heart--normal S1 and S2. No murmurs, rubs or gallops. Lungs--clear bilaterally, no respiratory distress, no accessory muscle use. Abdomen--normal bowel sounds and soft. Extremities--no cyanosis or clubbing. No edema. Dermatologic--normal skin turgor, normal color, no abnormal lymph nodes, no rash. Neurologic--cranial nerves II through XII grossly intact. Rheumatologic--normal range of motion. Psychiatric--normal affect. Discharge Data Allergies Allergy/AdvReac Type Severity Reaction Status Date / Time nickel Allergy Intermediate RASH Verified 11/20/23 16:02 nitrofurantoin Allergy Intermediate REDNESS Verified 11/20/23 16:02 AND BURNING OF HANDS morphine Allergy Unknown CAN'T Verified 11/20/23 16:02 REMEMBER NSAIDS (Non-Steroidal Allergy Unknown CAN'T Verified 11/20/23 16:02 Anti-Inflamma REMEMBER Consultations 11/20/23 17:28 Consult Neurology Routine 11/21/23 07:28 Consult Oncology Routine 11/27/23 14:25 Consult Palliative Care Routine Ordered Studies 11/20/23 15:16 CT head/brain wo con Stat 11/20/23 15:27 CT cervical spine wo con Stat 11/20/23 18:42 CT angio chest PE protocol Stat 11/21/23 00:00 MR brain seizure wo con Stat 11/23/23 15:07 CT neck soft tissues [CT soft tissue neck w con] Routine 11/24/23 10:06 IR FNA lymph node ea add US Routine Hospital Course (1) Squamous cell carcinoma of scalp: (2) Kidney transplant recipient: (3) Seizure disorder: (4) Hypothyroidism: (5) Diabetes mellitus, type II: (6) UTI (urinary tract infection): Plan #Squamous cell carcinoma of scalp: - Status post removal of squamous cell carcinoma of the scalp with known lymph node metastases. Previously resection of right parotidectomy and right neck dissection followed by local reconstruction. Previous concern for parietal bone invasion right neck mass appears to be a necrotic lymph node, status post interventional radiology aspiration on 11/23 with fluid sent to lab and cytology currently pending and no growth to date - She has been scheduled for mediport and chemoradiation in the near future. Patient has a drug-resistant urinary tract infection and Mediport insertion has been postponed - Pt had malignancy associated hypercalcemia, treated with hydration and resolved, likely some of the cause of initial presentation of falls and weakness - Imaging on presentation did rule out CVA but re demonstrated large scalp mass which extends thru the underlying parietal bone, extending to the dura without involvement of the brain parenchyma, mentions could also be element of post deandre gical change - pain control with prn tylenol for mild pain, prn oxy for mod pain, prn dilaudid for severe pain -Patient and family now requesting hospice, a list of agencies have been provided, including [facility] hospice. -Initially a request was placed for [facility] however this will be canceled. #Goals of Care - as of 11/25 pt stated that she also wants to continue to fight and get treatment - discussed with pt about poor prognosis. unclear how much pt comprehends at this time and suspect pt might not have capacity to make complex medical decision - met with pt's son and his at bedside, extensively discussed pt's prognosis. they understand that pt has poor prognosis and would likely benefit from comfort measures - palliative care Discussed with family and they are now requesting hospice #Kidney transplant recipient: - Stable. She is on immunosuppressive therapy. Mycophenolate tacrolimus levels are low but renal function is stable - Continue current medical management #Bradycardia - reduced dose of coreg, monitor HR #Seizure disorder: - recent ER visit Continue Keppra. Brain MRI scan negative for metastatic disease. The primary squamous cell carcinoma tumor extends through the scalp and through the calvarium to the depth of the dura. Neurology consultation and recommendations appreciated #Hypothyroidism: - Stable. Continue Synthroid replacement therapy #Diabetes mellitus, type II: - ADA diet. Basal insulin therapy. Sliding scale coverage. #UTI (urinary tract infection): - Present on admission. Urine is growing ESBL E. coli. Unasyn has been switched to ertapenem, 7 day course will be LD 11/27 Blood cultures are negative to date #Dispo: Home with hospice, awaiting delivery of bed commode etc Total Time Total Time Spent Total Time Spent (In Minutes): 35 Discharge Plan Discharge Items Patient Disposition: Hospice - Home Reason For Visit: FALL, HYPOXIA Discharge Diagnosis: squamous cell ca Activity: Resume your previous activity Non-emergency contact: Primary Care Provider and Oncologist Call non-emergency contact if: you have any medication questions Follow-up/Referrals: Nikhil Nelson, [Primary Care Provider] - Diet: Regular Addtl Attending Provider Instructions: Please make appointment to follow-up with her regular doctors Pending Studies at Discharge: No Stand-Alone Forms: [facility] Medications and DC Order Prescriptions: New oxycodone 5 mg Tablet 7.5 mg PO Q4H PRN (Reason: pain) Qty: 10 0RF Continued insulin glargine [Basaglar KwikPen U-100 Insulin] 100 unit/mL (3 mL) insulin pen 13 unit subcut QAM Glucagon Emergency Kit (human) 1 mg recon soln 1 mg subcut UD PRN (Reason: Hypoglycemia) Rx Instructions: For blood sugar <50 multivitamin Tablet 1 tab PO DAILY aspirin 81 mg capsule 162 mg PO QAM mycophenolate mofetil [CellCept] 500 mg tablet 250 mg PO BID Hold Instructions: Home Medication placed on hold at Doctor's office Rx Instructions: ON HOLD latanoprost 0.005 % drops 1 drp OPL HS Rx Instructions: 1 drop in left eye evening (DME) lancets [OneTouch Delica Lancets] 33 gauge misc See Rx Instructions .Route Qty: 100 3RF Rx Instructions: TEST ONCE DAILY atorvastatin 40 mg tablet 40 mg PO HS Qty: 90 3RF carvedilol 12.5 mg tablet 12.5 mg PO BID Qty: 180 3RF Rx Instructions: must administer with a meal/food hydralazine 100 mg tablet 100 mg PO TID Qty: 270 3RF tacrolimus 1 mg capsule 0.5 mg PO BID furosemide [Lasix] 20 mg tablet 20 mg PO DIRECTED PRN (Reason: Edema) (DME) PropagenixTouch Verio test strips Strip See Rx Instructions .Route Qty: 100 3RF Rx Instructions: test once daily E11.9 mupirocin 2 % ointment 1 applic topical BID Qty: 22 1RF Rx Instructions: Apply to the affected nails BID to prevent infection. gabapentin 100 mg capsule 100 mg PO TID Novolin N FlexPen 100 unit/mL (3 mL) insulin pen 16 unit subcut QAM Rx Instructions: take once daily 10 minutes before breakfast (DME) pen needle, diabetic [BD Ultra-Fine Monica Pen Needle] 32 gauge x 5/32" needle See Rx Instructions .Route Qty: 200 3RF Rx Instructions: for injections twice per day brimonidine 0.2 % drops 1 drp ophthalmic (eye) BID levetiracetam 500 mg tablet 500 mg PO BID doxazosin 1 mg tablet 2 mg PO HS Rx Instructions: 2 mg PO evening; levothyroxine 125 mcg tablet 125 mcg PO QAM Discharge Orders: Discharge Order (Routine); Ordered 11/30/23 Ordered By: [place] Admission Data Admit Date/Time: 11/20/23 19:18 Attending Provider: Derik Morgan Admit Provider: Talisha Ortiz Primary Care Provider: Nikhil Nelson Other Providers: Lydia Barrios at [place]; [place],[facility]; Jhon Schneider; JuanL uis Ruelas; Afia Bradshaw; [facility] Coding Level of Care Code 18727 INP/OBS DISCH >30 MIN Diagnoses Squamous cell carcinoma of scalp C44.42 Kidney transplant recipient Z94.0 Seizure disorder G40.909 Acquired hypothyroidism E03.9 Hypothyroidism type: acquired Type 2 diabetes mellitus with stage 3a chronic kidney disease, with long-term current use of insulin E11.22; N18.31; Z79.4 Diabetes mellitus detention insulin use: with buttermaker use Diabetes mellitus complication status: with kidney complications Diabetes mellitus complication detail: with chronic kidney disease Chronic kidney disease stage: stage 3 (moderate) Chronic kidney disease stage 3 subtype: stage 3a (GFR 45-59) UTI (urinary tract infection) N30.00 Hematuria presence: without hematuria Urinary tract infection type: acute cystitis Time Spent (min) 35
== END 2023-11-30 14:17 | disposition hospice, home (50) | DRG 580 ==
LOC: ED 14:50 → 3W 17:28 → SUATTDRO 19:18 → 3W 19:36 → 2E 20:20 → 3N 11-29 15:45